=== PATIENT | male | born 1955 | race Caucasian/White ===

== ENCOUNTER 2019-07-03 12:29 | Inpatient (IN) | payer MEDICARE, OTHER ==
[2019-07-03] VITALS (8 sets, daily range): BP systolic 81–126; BP diastolic 48–107
[~2019-07-03] VITALS: Ht 188 cm; Wt 126.6 kg
[2019-07-03 13:11] LABS: HEMATOCRIT 40.1 % (42.0-52.0); HEMOGLOBIN 12.6 G/DL (14.2-18.0); MEAN CORPUSCULAR VOLUME 87 FL (80-99); PLATELET COUNT 256 K/UL (150-450); RED CELL DISTRIBUTION WIDTH 14.8 % (11.6-14.8)
--- NOTE | 2019-07-03 13:12 | Emergency Room Report ---
History of Present Illness General Chief Complaint: Altered Mental Status Source: Patient, Medical Record, EMS Present Illness HPI 63yo M with a history of schizoaffective disorder, bipolar disorder, asthma, anemia, GERD, hyperlipidemia, seizures, sent from [facility] for change in mental status that was first noticed around 11:35 AM today, patient was thought to be postictal although no reported seizure was noted. Patient is currently altered so unable to give any medical history. Allergies: Coded Allergies: PENICILLINS (Verified Allergy, Unknown, 07/03/19) Patient History Limited by: medical condition Past Medical History: see triage record Reviewed Nursing Documentation: PMH: Agreed; PSxH: Agreed Nursing Documentation-PMH Past Medical History Deferred: Pt Cognitively Impaired Review of Systems All Other Systems: limited - Canary change in mental status Physical Exam Vital Signs Date Time Temp Pulse Resp B/P (MAP) Pulse Ox O2 Delivery O2 Flow Rate FiO2 07/03/19 12:27 97.9 115 19 121/78 (92) 100 Non-Rebreather 15.0 Sp02 EP Interpretation: reviewed, normal General Appearance: non-toxic, mild distress, lethargic Head: normocephalic, atraumatic Eyes: bilateral eye normal inspection, bilateral eye PERRL, bilateral eye EOMI ENT: normal ENT inspection, hearing grossly normal, normal pharynx, no angioedema, normal voice, moist mucus membranes Neck: normal inspection, full range of motion, supple, supple/symm/no masses Respiratory: chest non-tender, lungs clear, normal breath sounds, chest symmetrical, palpation of chest normal Cardiovascular #1: normal peripheral pulses, regular rate, rhythm Cardiovascular #2: 2+ radial (R), 2+ radial (L) Gastrointestinal: normal inspection, non tender, soft, no mass, no guarding, no rebound Rectal: deferred Genitourinary: normal inspection, no CVA tenderness Musculoskeletal: back normal, normal range of motion, no calf tenderness, non- tender Neurologic: motor strength/tone normal - Withdraws in response to pain, sensory intact, responsive, other - Drowsy Psychiatric: other - Unable to assess Lymphatic: no adenopathy Procedures Critical Care Time Critical Care Time 45 mins of critical care time excluding all procedures to review acute change in mental status representing possible neurologic and cardiorespiratory system deterioration and subsequent morbidity mortality. Medical Decision Making Diagnostic Impression: Primary Impression: Altered mental status ER Course Review of patient's retirement admission record reveals that patient is on Depakote, no other seizure medications, but he is on psychiatric medications including Seroquel The patient is alert oriented X4, but he is completely altered here. Spoke to Dr. Cruz, agrees to admit. Patient with leukocytosis, but CXR without infiltrate, patient afebrile. Suspect leukocytosis 2/2 acute sz. Will get blood cx, lactic acid and give 1 dose broad spectrum gram-negative coverage. EKG Diagnostic Results EKG Time: 13:07 EP Interpretation: no stemi Rate: normal Rhythm: NSR ST Segments: no acute changes ASA given to the pt in ED: No Rhythm Strip Diag. Results Rhythm Strip Time: 13:11 EP Interpretation: yes Rate: 110 Rhythm: NSR, no PVC's, no ectopy Chest X-Ray Diagnostic Results Chest X-Ray Diagnostic Results : Chest X-Ray Ordered: Yes # of Views/Limited/Complete: 1 View Indication: Other EP Interpretation: Yes Impression: No acute disease CT/MRI/US Diagnostic Results CT/MRI/US Diagnostic Results : Imaging Test Ordered: ct head Last Vital Signs Date Time Temp Pulse Resp B/P (MAP) Pulse Ox O2 Delivery O2 Flow Rate FiO2 07/03/19 12:30 115 19 Non-Rebreather 15.0 07/03/19 12:30 97.9 121/78 100 Disposition: ADMITTED INPATIENT Condition: Stable LAURA MART M.D Jul 03, 2019 13:11
[2019-07-03 13:15] LABS: WHITE BLOOD COUNT 25.9 K/UL (4.8-10.8)
[2019-07-03] MEDS ORDERED: LORazepam Inj 2mg/ml 1ml IV ONE (13:15)
[2019-07-03 13:28] LABS: ANION GAP 13 mmol/L (5-15); BLOOD UREA NITROGEN 48 mg/dL (7-18); CALCIUM 8.6 MG/DL (8.5-10.1); CARBON DIOXIDE 27 MMOL/L (21-32); CHLORIDE 107 MMOL/L (98-107); CREATININE 2.1 MG/DL (0.55-1.30); POTASSIUM 5.3 MMOL/L (3.5-5.1); SODIUM 147 MMOL/L (136-145)
--- NOTE | 2019-07-03 13:29 | NUR ---
ED Nurse Note: Called Lab to confirm no need to draw lab for new order of valproic acid levels.
[2019-07-03 13:33] LABS: ALANINE AMINOTRANSFERASE 14 U/L (12-78); ALBUMIN 2.2 G/DL (3.4-5.0); ALBUMIN/GLOBULIN RATIO 0.3 (1.0-2.7); ALKALINE PHOSPHATASE 108 U/L (46-116); ASPARTATE AMINO TRANSFERASE 37 U/L (15-37); BILIRUBIN,TOTAL 0.3 MG/DL (0.2-1.0)
--- NOTE | 2019-07-03 13:33 | Diagnostic Imaging Report ---
Indication: Dyspnea Comparison: None A single view chest radiograph was obtained. Findings: No definite infiltrate or pulmonary vascular congestion identified. The heart is enlarged. The aorta is mildly enlarged consistent with atherosclerotic vascular disease. The bones are osteopenic. Impression: No acute disease
--- NOTE | 2019-07-03 13:44 | NUR ---
ED Nurse Note: received report from COCO Gallardo
--- NOTE | 2019-07-03 13:45 | NUR ---
ED Nurse Note: pt taken to CT
--- NOTE | 2019-07-03 13:45 | NUR ---
ED Nurse Note: Ammonia drawn and sent to lab
--- NOTE | 2019-07-03 14:00 | NUR ---
ED Nurse Note: pt returned from CT
--- NOTE | 2019-07-03 14:30 | NUR ---
ED Nurse Note: RT at bedside prepping pt for bipap
--- NOTE | 2019-07-03 14:31 | Diagnostic Imaging Report ---
Indication: Headache Technique: Contiguous 5 mm thick transaxial imaging of the head obtained in a Siemens Sensation [address] scanner. Soft tissue and bone windows generated. Automatic Exposure Control was utilized. Total Dose length Product (DLP): 1708.[address] Dose Index Volume (CTDIvol): 62.7 mGy Comparison: none Findings: There is mild prominence of the ventricles, basal cisterns, and cerebral sulci consistent with atrophy. Mild, nonspecific, white matter hypoattenuation is noted throughout the brain consistent with chronic small vessel disease. There is no midline shift, edema, acute hemorrhage, mass effect, or abnormal extra-axial fluid collections. Bones are unremarkable. Impression: No acute intracranial bleed, mass effect or edema. Mild atrophy of the brain. Nonspecific white matter hypoattenuation probably due to chronic small vessel disease. The CT scanner at [facility] is accredited by the [employer] and the scans are performed using dose optimization techniques as appropriate to a performed exam including Automatic Exposure control.
--- NOTE | 2019-07-03 15:28 | Pulmonolgy Critical Care Note ---
Critical Care - Asmt/Plan Assessment/Plan: Pulmonary Critical Care Consultation Referring Physician: Dr Cruz HPI Patient is a 63yo man with a past history of schizoaffective disorder, bipolar disorder, asthma, anemia, GERD, hyperlipidemia, seizures, admitted with altered mental status, per ER possible postictal. Patient is altered so unable to give any medical history. Patient seen while in ED Allergies: PENICILLINS Past Medical History: Schizoaffective disorder, Bipolar disorder, Asthma, Anemia, GERD, Hyperlipidemia, Seizures All Other Systems: limited Physical Exam Vital Signs Noted Date Time Temp Pulse Resp B/P (MAP) Pulse Ox O2 Delivery O2 Flow Rate FiO2 07/03/19 12:27 97.9 115 19 121/78 (92) 100 Non-Rebreather 15.0 General Appearance: non-toxic, mild distress, lethargic Head: normocephalic, atraumatic Eyes: bilateral eye normal inspection, bilateral eye PERRL, bilateral eye EOMI ENT: normal ENT inspection, hearing grossly normal, normal pharynx, no angioedema, normal voice, moist mucus membranes Neck: normal inspection, full range of motion, supple, supple/symm/no masses Respiratory: chest normal inspection, lungs clear, normal breath sounds, chest symmetrical Cardiovascular: normal peripheral pulses, HS1, HS2, normal, regular rate, rhythm Gastrointestinal: normal inspection, non tender, soft, no mass, no guarding, no rebound Genitourinary: normal inspection, no CVA tenderness Musculoskeletal: back normal, normal range of motion, no calf tenderness, non- tender Neurologic: motor strength/tone normal, no Seizures - Withdraws in response to pain, sensory intact, responsive, other - Drowsy Lymphatic: no adenopathy Impression: Altered mental status Severe Respiratory acidosis Possibly post ictal Seizure history Schizoaffective disorder Bipolar disorder Asthma Anemia GERD, Hyperlipidemia Plan - Per ED Physician patient to be admitted under [facility] - I will sign off EKG: NSR ST Segments: no acute changes Chest X-Ray: No acute disease CAT head: Mild atrophy Critical Care - Objective Last 24 Hour Vital Signs Date Time Temp Pulse Resp B/P (MAP) Pulse Ox O2 Delivery O2 Flow Rate FiO2 07/03/19 14:54 108 16 95 Facial 40 07/03/19 14:31 97.9 115 23 126/63 99 Non-Rebreather 15.0 07/03/19 12:30 115 19 Non-Rebreather 15.0 07/03/19 12:30 97.9 82 19 121/78 100 Non-Rebreather 15.0 07/03/19 12:27 97.9 115 19 121/78 (92) 100 Non-Rebreather 15.0 Accucheck: 107 Critical Care - Subjective ROS Limited/Unobtainable: No FI02: 40 Sputum Amount: None Gregorio Rosenbaum MD Jul 03, 2019 15:27
--- NOTE | 2019-07-03 15:31 | Consultation ---
Consult Note Consult Note asked to eval for renal failure- 63yo M with a history of schizoaffective disorder, bipolar disorder, asthma, anemia, GERD, hyperlipidemia, seizures, sent from [facility] for change in mental status that was first noticed around 11:35 AM today, patient was thought to be postictal although no reported seizure was noted. Patient is currently altered so unable to give any medical history. Allergies: PENICILLINS (Verified Allergy, Unknown, 07/03/19) seen in ER on BIPAP examined obtunded labs reviewed . Assessment/Plan Renal failure ? Chronic ? superimposed acute Acute on Chronic respiratory failure Co2 retention HyperKalemia HypoAlbuminemia Obese smith Ua and Urine studies optimize pulmonary status monitor renal parameters avoid nephrotoxics per orders Will Groves MD Jul 03, 2019 15:31
--- NOTE | 2019-07-03 16:15 | Consultation ---
DATE OF CONSULTATION: 07/03/2019 INFECTIOUS DISEASE CONSULTATION CONSULTING PHYSICIAN: Ang Blackwood M.D. PRIMARY ATTENDING: Joe Cruz M.D. REASON FOR CONSULT: Sepsis or systemic inflammatory syndrome. HISTORY OF PRESENT ILLNESS: This is a 63-year-old white male who is a jail resident. He was admitted today with altered mental status. The patient has history of seizure disorder. At the time of admission, had tachycardia of 115 and leukocytosis of 25,000. PAST MEDICAL HISTORY: Significant for schizoaffective disorder, anemia, allergic rhinitis, obesity, epilepsy, gastroesophageal reflux disease. ALLERGIES: Allergic to penicillin. MEDICATIONS: Getting a dose of lorazepam and will get a dose of Levaquin. SOCIAL HISTORY: alf resident. No other history is obtainable. PHYSICAL EXAMINATION: VITAL SIGNS: Temperature 97.9, pulse 115, blood pressure 121/78. HEAD AND NECK: [place] conjunctiva. HEART: Tachycardic. LUNGS: on ventilator. Clear. ABDOMEN: Soft, nontender. EXTREMITIES: Trace edema. LABORATORY AND DIAGNOSTIC DATA: WBC 25.9, hemoglobin 12.6, hematocrit 40.1, platelets 256. Sodium 147, potassium 5.3, BUN 48, creatinine 2.1, glucose is 118, albumin is 2.2. Chest x-ray was negative. CT scan of the head is pending. IMPRESSION: Sepsis with tachycardia, leukocytosis. The patient has acute renal failure, altered mental status. Has history of psych problem schizoaffective, allergic rhinitis, gastroesophageal reflux disease, and epilepsy. RECOMMENDATION: We will follow up the CT scan of the abdomen and pelvis. We ordered UA. We will follow up the clinical course. At the end of my exam, I thank Dr. Cruz for involving me in the care of this patient. Ang Blackwood M.D. DR: DARRON JOB#: [id number] CC: DIANE
--- NOTE | 2019-07-03 17:10 | NUR ---
ED Nurse Note: rajivd awar of pt BP.
[2019-07-03 17:13] LABS: APPEARANCE,URINE VERY CLOUDY; BILIRUBIN, URINE NEGATIVE (NEGATIVE); GLUCOSE, URINE (UA) NEGATIVE (NEGATIVE); KETONES,URINE 1+ (NEGATIVE); LEUKOCYTE ESTERASE ,URINE 3+ (NEGATIVE); NITRITE,URINE NEGATIVE (NEGATIVE); PH,URINE 5 (4.5-8.0); PROTEIN,URINE 4+ (NEGATIVE); UROBILINOGEN,URINE 1 MG/DL (0.0-1.0)
--- NOTE | 2019-07-03 17:16 | NUR ---
ED Nurse Note: RT at bedside for repeat ABG
[2019-07-03 17:19] LABS: COLOR,URINE YELLOW
[2019-07-03] MEDS ORDERED: Vancomycin 1 GM in NS 275 ML IV ONE (18:00)
--- NOTE | 2019-07-03 18:00 | NUR ---
ED Nurse Note: pt asleep in bed
--- NOTE | 2019-07-03 19:05 | NUR ---
Note omkar in EDM - 07/03/19 at 1918 by EDGARDO ED Nurse Note: pt received from COCO Anthony. pt is in bed in no acute distress at this time. pt states she is unable to provide urine sample at this time. will continue to monitor
--- NOTE | 2019-07-03 19:45 | NUR ---
ED Nurse Note: telephone report given to anna ceron for continuity of care
[2019-07-03] MEDS ORDERED: DIPHENHYDRAMINE25 M1 ORAL (19:46)
[2019-07-03] MEDS ORDERED: ATORVASTATIN CA20 MG ORAL (19:46)
[2019-07-03] MEDS ORDERED: COLACE100 MG ORAL (19:46)
[2019-07-03] MEDS ORDERED: DEPAKOTE250 MG PO (19:46)
[2019-07-03] MEDS ORDERED: BACLOFEN10 MG ORAL (19:46)
--- NOTE | 2019-07-03 20:00 | NUR ---
NURSE NOTES: received from er dx ams resp distress pt sedated in er was restless and confuse and non complaint ade soft west restraints on bi-pap 20/5 40 0/0 fio2 sat 99 0//0 dr redding was notify for admit order
[2019-07-03] MEDS ORDERED: DESYREL50 MG PO (20:17)
[2019-07-03] MEDS ORDERED: DEPAKOTE ER500 MG ORAL (20:17)
[2019-07-03] MEDS ORDERED: ATARAX25 MG ORAL (20:17)
[2019-07-03] MEDS ORDERED: MILK OF MA400 MG/51 ORAL (20:17)
[2019-07-03] MEDS ORDERED: FLEET ENEMA133 ML RECTAL (20:17)
[2019-07-03] MEDS ORDERED: ROBITUSSIN COU118 M1 ORAL (20:17)
[2019-07-03] MEDS ORDERED: QUETIAPINE FUM200 MG ORAL (20:17)
[2019-07-03] MEDS ORDERED: PANTOPRAZOLE SO40 MG ORAL (20:17)
[2019-07-03] MEDS ORDERED: DULCOLAX10 MG RC (20:17)
[2019-07-03] MEDS ORDERED: TYLENOL325 M1 PO (20:17)
--- NOTE | 2019-07-03 22:00 | NUR ---
NURSE NOTES: asleep but responsive to touch on on bi-pap 20/5 fio2 40 0/0 o2 sat 97 no acute resp distress
[2019-07-04] VITALS (24 sets, daily range): BP systolic 85–131; BP diastolic 36–85
--- NOTE | 2019-07-04 | NUR ---
reposition and suction
--- NOTE | 2019-07-04 02:00 | NUR ---
NURSE NOTES: Neuro unchanged, dozing on and off at this time. VSS.
--- NOTE | 2019-07-04 02:00 | NUR ---
NURSE NOTES: asleep vs stable urinary out put good
--- NOTE | 2019-07-04 04:00 | NUR ---
NURSE NOTES: complete bed bath
--- NOTE | 2019-07-04 04:37 | NUR ---
NURSE NOTES: Called and ordered 2000 overlay mattress at this time.
[2019-07-04 05:36] LABS: HEMATOCRIT 37.5 % (42.0-52.0); HEMOGLOBIN 11.8 G/DL (14.2-18.0); MEAN CORPUSCULAR VOLUME 87 FL (80-99); PLATELET COUNT 245 K/UL (150-450); RED BLOOD COUNT 4.31 M/UL (4.70-6.10); RED CELL DISTRIBUTION WIDTH 14.7 % (11.6-14.8)
--- NOTE | 2019-07-04 06:00 | NUR ---
NURSE NOTES: asleep
[2019-07-04 06:02] LABS: WHITE BLOOD COUNT 24.9 K/UL (4.8-10.8)
[2019-07-04 06:12] LABS: AMMONIA 35 umol/L (11-32)
[2019-07-04 06:18] LABS: ALANINE AMINOTRANSFERASE 15 U/L (12-78); ALBUMIN 1.9 G/DL (3.4-5.0); ALBUMIN/GLOBULIN RATIO 0.3 (1.0-2.7); ALKALINE PHOSPHATASE 87 U/L (46-116); ANION GAP 10 mmol/L (5-15); ASPARTATE AMINO TRANSFERASE 22 U/L (15-37); BILIRUBIN,TOTAL 0.2 MG/DL (0.2-1.0); BLOOD UREA NITROGEN 59 mg/dL (7-18); CALCIUM 8.7 MG/DL (8.5-10.1); CARBON DIOXIDE 29 MMOL/L (21-32); CHLORIDE 107 MMOL/L (98-107); CHOLESTEROL 114 MG/DL (< 200); CREATINE KINASE 89 U/L (26-308); CREATININE 2.6 MG/DL (0.55-1.30); GAMMA GLUTAMYL TRANSPEPTIDASE 8 U/L (5-85); HDL CHOLESTEROL 28 MG/DL (40-60); PHOSPHORUS 4.5 MG/DL (2.5-4.9); POTASSIUM 4.3 MMOL/L (3.5-5.1); SODIUM 146 MMOL/L (136-145); TRIGLYCERIDES 84 MG/DL (30-150)
--- NOTE | 2019-07-04 07:18 | NUR ---
NURSE NOTES: Received report from COCO Mijares. Patient asleep and responsive to painful stimuli. Rumbling and unable to follow commands. On Bipap 20/5 and FiO2 40%. Ramirez intact and draining with yellow color urine. Left hand 20G and Right wrist 20G IV intact and TKO. Kept dry, clean and comfortable. Will continue plan of care.
--- NOTE | 2019-07-04 07:18 | NUR ---
RESPIRATORY NOTE: received pt on partial facial mask on current bipap settings. slight redness on the bridge of the nose, RN aware. foam barrier in place with full face mask to better fit the pt's facial structure. alarms are audible and bipap is plugged into the red outlet. will cont to monitor.
--- NOTE | 2019-07-04 07:27 | NUR ---
HAND-OFF: Report given to joshua castillo using sbar.
[2019-07-04] MEDS ORDERED: QUEtiapine 200mg tab ORAL SCH (09:00)
[2019-07-04] MEDS ORDERED: HydrOXYzine tab 25mg tab ORAL SCH (09:00)
[2019-07-04] MEDS ORDERED: Depakote ER 500mg tab ORAL SCH (09:00)
--- NOTE | 2019-07-04 09:20 | NUR ---
NURSE NOTES: Inserted OG tube and placement confirmed by auscultation with another RN. Will follow up with KUB xray.
--- NOTE | 2019-07-04 10:00 | NUR ---
NURSE NOTES: KUB xray for tube placement taken. Will follow up.
--- NOTE | 2019-07-04 10:42 | Diagnostic Imaging Report ---
Indication: Post orogastric tube placement Technique: Supine view of the abdomen Comparison: none Findings: . There is an orogastric tube in place, tip projected at the level of the gastric body/antrum junction, in good position. The bowel gas pattern is unremarkable. There is considerable rectal stool. There is a Ramirez catheter in place. No masses or unusual calcifications. Included lungs demonstrate left basilar atelectatic changes Impression: Satisfactory orogastric tube position Other findings as noted
[2019-07-04] MEDS: D5 1/2NS 1,000 ML IV SCH (11:07)
--- NOTE | 2019-07-04 11:13 | NUR ---
NURSE NOTES: KUB confirmed OG tube in satisfactory position. 0900 medications given. Will continue plan of care.
--- NOTE | 2019-07-04 11:34 | NUR ---
*-* INSURANCE *-* ALL AVAILABLE CLINICALS HAVE BEEN FAXED TO: [employer]#[id number] CM: ALEN # [phone] FAX# [phone] REVIEWS/CLINICALS
--- NOTE | 2019-07-04 12:00 | Nephrology Progress Note ---
Assessment/Plan Problem List: (1) Renal failure (ARF), acute on chronic (2) Respiratory distress Assessment: Co2 retainer (3) UTI (urinary tract infection) Assessment Renal failure ? Chronic ? superimposed acute Acute on Chronic respiratory failure Co2 retention HyperKalemia HypoAlbuminemia Obese UTI / Leukocytosis Plan smith slow hydrate Ua and Urine studies optimize pulmonary status monitor renal parameters avoid nephrotoxics 2D echo - 65% Ej Fx per orders Subjective ROS Limited/Unobtainable: No Interval Events/Complaints swwn in ICU Constitutional: Reports: malaise, weakness Objective Objective Last 24 Hour Vital Signs Date Time Temp Pulse Resp B/P (MAP) Pulse Ox O2 Delivery O2 Flow Rate FiO2 07/04/19 11:18 99 18 95 Full Face 50 07/04/19 11:00 102 19 115/70 (85) 97 07/04/19 10:00 105 19 115/50 (71) 100 07/04/19 09:02 105 28 97 Full Face 40 07/04/19 09:00 106 22 118/69 (85) 91 07/04/19 08:00 99 07/04/19 08:00 99 17 107/36 (59) 95 07/04/19 08:00 Bi-pap 07/04/19 08:00 40 07/04/19 07:12 99 19 97 Full Face 40 07/04/19 07:00 99 16 118/76 (90) 07/04/19 06:00 96 16 97/71 (80) 97 07/04/19 06:00 101 16 120/85 (97) 07/04/19 05:29 97 16 96 Facial 40 07/04/19 05:00 101 16 120/85 (97) 07/04/19 04:00 99.3 102 16 107/78 (88) 07/04/19 04:00 104 07/04/19 04:00 40 07/04/19 04:00 Bi-pap 07/04/19 03:06 108 18 99 Facial 40 07/04/19 03:00 109 17 131/84 (100) 97 07/04/19 02:00 102 18 106/62 (77) 96 07/04/19 01:13 107 17 95 Facial 40 07/04/19 01:00 108 16 116/63 (80) 91 07/04/19 00:00 Bi-pap 07/04/19 00:00 105 07/04/19 00:00 99.4 103 20 110/50 (70) 96 07/04/19 00:00 103 20 85/50 (62) 96 07/04/19 00:00 40 07/03/19 23:14 102 17 97 Facial 40 07/03/19 23:00 104 19 122/85 (97) 95 07/03/19 22:00 102 18 93/48 (63) 95 07/03/19 21:37 104 17 95 Facial 40 07/03/19 21:35 104 23 95 Bi-Pap 40 07/03/19 21:00 103 20 97/51 (66) 96 07/03/19 20:00 100 07/03/19 20:00 Bi-pap 07/03/19 20:00 40 07/03/19 20:00 98.8 100 20 100/60 (73) 97 07/03/19 20:00 Bi-pap 40.0 07/03/19 18:38 79.8 105 24 101/69 99 15.0 40 07/03/19 17:10 97.6 103 19 124/107 96 15.0 40 07/03/19 17:00 102 16 94 Facial 40 07/03/19 14:54 108 16 95 Facial 40 07/03/19 14:31 97.9 115 23 126/63 99 Non-Rebreather 15.0 07/03/19 12:30 115 19 Non-Rebreather 15.0 07/03/19 12:30 97.9 82 19 121/78 100 Non-Rebreather 15.0 07/03/19 12:27 97.9 115 19 121/78 (92) 100 Non-Rebreather 15.0 Intake and Output 07/03/19 07/04/19 19:00 07:00 Intake Total 150 ml 0 ml Output Total 830 ml Balance 150 ml -830 ml Intake Oral 0 ml IV Total 150 ml Output Urine Total 830 ml # Bowel Movements 8 Laboratory Tests 07/03/19 12:50: White Blood Count 25.9*H, Red Blood Count 4.60L, Hemoglobin 12.6L, Hematocrit 40.1L, Mean Corpuscular Volume 87, Mean Corpuscular Hemoglobin 27.5, Mean Corpuscular Hemoglobin Concent 31.5L, Red Cell Distribution Width 14.8, Platelet Count 256, Mean Platelet Volume 6.7, Neutrophils (%) (Auto) , Lymphocytes (%) (Auto) , Monocytes (%) (Auto) , Eosinophils (%) (Auto) , Basophils (%) (Auto) , Differential Total Cells Counted 100, Neutrophils % ( Manual) 79H, Lymphocytes % (Manual) 9L, Monocytes % (Manual) 12H, Eosinophils % (Manual) 0, Basophils % (Manual) 0, Band Neutrophils 0, Platelet Estimate Adequate, Platelet Morphology Normal, Anisocytosis 1+, Prothrombin Time 11.1, Prothromb Time International Ratio 1.0, Activated Partial Thromboplast Time 28, Sodium Level 147H, Potassium Level 5.3H, Chloride Level 107, Carbon Dioxide Level 27, Anion Gap 13, Blood Urea Nitrogen 48H, Creatinine 2.1H, Estimat Glomerular Filtration Rate 32.2, Glucose Level 118H, Calcium Level 8.6, Total Bilirubin 0.3, Aspartate Amino Transf (AST/SGOT) 37, Alanine Aminotransferase ( ALT/SGPT) 14, Alkaline Phosphatase 108, Ammonia 30, Troponin I 0.019, Total Protein 8.6H, Albumin 2.2L, Globulin 6.4, Albumin/Globulin Ratio 0.3L, Valproic Acid (Depakene) Level 56 07/03/19 14:06: Arterial Blood pH 7.027*L, Arterial Blood Partial Pressure CO2 146.6*H, Arterial Blood Partial Pressure O2 277.9H, Arterial Blood HCO3 37.6H, Arterial Blood Oxygen Saturation 99.4, Arterial Blood Base Excess 2.5H, Claus Test Positive 07/03/19 14:44: Lactic Acid Level 1.20 07/03/19 16:43: Urine Color Yellow, Urine Appearance Very cloudy, Urine pH 5, Urine Specific [place] 1.020, Urine Protein 4+H, Urine Glucose (UA) Negative, Urine Ketones 1+H , Urine Blood 5+H, Urine Nitrite Negative, Urine Bilirubin Negative, Urine Urobilinogen 1H, Urine Leukocyte Esterase 3+H, Urine RBC TntcH, Urine WBC TntcH , Urine Squamous Epithelial Cells Few, Urine Bacteria ManyH, Urine Random Sodium 44 07/03/19 17:15: Arterial Blood pH 7.352, Arterial Blood Partial Pressure CO2 55.5*H, Arterial Blood Partial Pressure O2 71.3L, Arterial Blood HCO3 30.1H, Arterial Blood Oxygen Saturation 93.9L, Arterial Blood Base Excess 3.4H, Claus Test Positive 07/04/19 04:00: Urine Eosinophils Occasional 07/04/19 04:40: White Blood Count 24.9*H, Red Blood Count 4.31L, Hemoglobin 11.8L, Hematocrit 37.5L, Mean Corpuscular Volume 87, Mean Corpuscular Hemoglobin 27.4, Mean Corpuscular Hemoglobin Concent 31.5L, Red Cell Distribution Width 14.7, Platelet Count 245, Mean Platelet Volume 6.3L, Neutrophils (%) (Auto) , Lymphocytes (%) (Auto) , Monocytes (%) (Auto) , Eosinophils (%) (Auto) , Basophils (%) (Auto) , Differential Total Cells Counted 100, Neutrophils % ( Manual) 83H, Lymphocytes % (Manual) 5L, Monocytes % (Manual) 12H, Eosinophils % (Manual) 0, Basophils % (Manual) 0, Band Neutrophils 0, Platelet Estimate Adequate, Platelet Morphology Normal, Sodium Level 146H, Potassium Level 4.3, Chloride Level 107, Carbon Dioxide Level 29, Anion Gap 10, Blood Urea Nitrogen 59H, Creatinine 2.6H, Estimat Glomerular Filtration Rate 25.1, Glucose Level 124H, Lactic Acid Level 1.40, Uric Acid 12.5H, Calcium Level 8.7, Phosphorus Level 4.5, Magnesium Level 2.7H, Total Bilirubin 0.2, Gamma Glutamyl Transpeptidase 8, Aspartate Amino Transf (AST/SGOT) 22, Alanine Aminotransferase (ALT/SGPT) 15, Alkaline Phosphatase 87, Ammonia 35H, Total Creatine Kinase 89, Troponin I 0.000, C-Reactive Protein, Quantitative [Pending] , Pro-B-Type Natriuretic Peptide 961H, Total Protein 8.9H, Albumin 1.9L, Globulin 7.0, Albumin/Globulin Ratio 0.3L, Triglycerides Level 84, Cholesterol Level 114, LDL Cholesterol 61, HDL Cholesterol 28L, Cholesterol/HDL Ratio 4.1, Vitamin B12 Level 1219H, Folate [Pending], Thyroid Stimulating Hormone (TSH) 2.171 07/04/19 08:20: Arterial Blood pH 7.291L, Arterial Blood Partial Pressure CO2 68.7*H, Arterial Blood Partial Pressure O2 78.6, Arterial Blood HCO3 32.4H, Arterial Blood Oxygen Saturation 94.8L, Arterial Blood Base Excess 4.0H, Claus Test Positive Height (Feet): 6 Height (Inches): 2.00 Weight (Pounds): 247 General Appearance: mild distress EENT: other - BIPAP Cardiovascular: tachycardia Respiratory/Chest: decreased breath sounds Abdomen: distended Will Groves MD Jul 04, 2019 12:00
[2019-07-04] MEDS: HydrOXYzine tab 25mg tab NG SCH ×3 (12:41→20:45)
--- NOTE | 2019-07-04 13:08 | NUR ---
NURSE NOTES: Patient is desating 88-89%. Deep suction given by RT. O2 sat 93-95%. Will continue to monitor closely.
--- NOTE | 2019-07-04 13:14 | Infectious Diseases Prog Note ---
Assessment/Plan Assessment/Plan IMPRESSION: Sepsis with tachycardia, leukocytosis. UTI Hypercapnic respiratory failure acute renal failure, Metabolic encephalopathy. schizoaffective disorder, allergic rhinitis, gastroesophageal reflux disease epilepsy. Hyperuricemia RECOMMENDATION: Start on Azactam Will f/u cultures Subjective ROS Limited/Unobtainable: Yes Constitutional: Denies: fever Neurologic: Reports: confusion, other - on restraint Allergies: Coded Allergies: PENICILLINS (Verified Allergy, Unknown, 07/03/19) Objective Vital Signs Last 24 Hour Vital Signs Date Time Temp Pulse Resp B/P (MAP) Pulse Ox O2 Delivery O2 Flow Rate FiO2 07/04/19 11:18 99 18 95 Full Face 50 07/04/19 11:00 102 19 115/70 (85) 97 07/04/19 10:00 105 19 115/50 (71) 100 07/04/19 09:02 105 28 97 Full Face 40 07/04/19 09:00 106 22 118/69 (85) 91 07/04/19 08:00 99 07/04/19 08:00 99 17 107/36 (59) 95 07/04/19 08:00 Bi-pap 07/04/19 08:00 40 07/04/19 07:12 99 19 97 Full Face 40 07/04/19 07:00 99 16 118/76 (90) 07/04/19 06:00 96 16 97/71 (80) 97 07/04/19 06:00 101 16 120/85 (97) 07/04/19 05:29 97 16 96 Facial 40 07/04/19 05:00 101 16 120/85 (97) 07/04/19 04:00 99.3 102 16 107/78 (88) 07/04/19 04:00 104 07/04/19 04:00 40 07/04/19 04:00 Bi-pap 07/04/19 03:06 108 18 99 Facial 40 07/04/19 03:00 109 17 131/84 (100) 97 07/04/19 02:00 102 18 106/62 (77) 96 07/04/19 01:13 107 17 95 Facial 40 07/04/19 01:00 108 16 116/63 (80) 91 07/04/19 00:00 Bi-pap 07/04/19 00:00 105 07/04/19 00:00 99.4 103 20 110/50 (70) 96 07/04/19 00:00 103 20 85/50 (62) 96 07/04/19 00:00 40 07/03/19 23:14 102 17 97 Facial 40 07/03/19 23:00 104 19 122/85 (97) 95 07/03/19 22:00 102 18 93/48 (63) 95 07/03/19 21:37 104 17 95 Facial 40 07/03/19 21:35 104 23 95 Bi-Pap 40 07/03/19 21:00 103 20 97/51 (66) 96 07/03/19 20:00 100 07/03/19 20:00 Bi-pap 07/03/19 20:00 40 07/03/19 20:00 98.8 100 20 100/60 (73) 97 07/03/19 20:00 Bi-pap 40.0 07/03/19 18:38 79.8 105 24 101/69 99 15.0 40 07/03/19 17:10 97.6 103 19 124/107 96 15.0 40 07/03/19 17:00 102 16 94 Facial 40 07/03/19 14:54 108 16 95 Facial 40 07/03/19 14:31 97.9 115 23 126/63 99 Non-Rebreather 15.0 Height (Feet): 6 Height (Inches): 2.00 Weight (Pounds): 247 HEENT: other - orogastric tube Respiratory/Chest: decreased breath sounds, other - on BIPAP Cardiovascular: tachycardia Abdomen: soft, non tender Extremities: no edema Neurologic/Psychiatric: disoriented Microbiology Date/Time Source Procedure Growth Status 07/03/19 14:40 Nasal Nares - Final Complete 07/03/19 14:40 Nasal Nares - Final Complete 07/03/19 16:43 Urine,Clean Catch Urine Culture - Preliminary Gram Negative Bacillus 1 Resulted 07/03/19 17:24 Rectum Received Laboratory Tests Test 07/03/19 14:06 07/03/19 14:44 07/03/19 16:43 07/03/19 17:15 Arterial Blood pH 7.027 (7.350-7.450) 7.352 (7.350-7.450) Arterial Blood Partial Pressure CO2 146.6 mmHg (35.0-45.0) *H 55.5 mmHg (35.0-45.0) *H Arterial Blood Partial Pressure O2 277.9 mmHg (75.0-100.0) H 71.3 mmHg (75.0-100.0) L Arterial Blood HCO3 37.6 mmol/L (22.0-26.0) H 30.1 mmol/L (22.0-26.0) H Arterial Blood Oxygen Saturation 99.4 % (95-100) 93.9 % (95-100) L Arterial Blood Base Excess 2.5 (-2-2) H 3.4 (-2-2) H Claus Test Positive Positive Lactic Acid Level 1.20 mmol/L (0.4-2.0) Urine Color Yellow Urine Appearance Very cloudy Urine pH 5 (4.5-8.0) Urine Specific [place] 1.020 (1.005-1.035) Urine Protein 4+ (NEGATIVE) H Urine Glucose (UA) Negative (NEGATIVE) Urine Ketones 1+ (NEGATIVE) H Urine Blood 5+ (NEGATIVE) H Urine Nitrite Negative (NEGATIVE) Urine Bilirubin Negative (NEGATIVE) Urine Urobilinogen 1 MG/DL (0.0-1.0) H Urine Leukocyte Esterase 3+ (NEGATIVE) H Urine RBC Tntc /HPF (0 - 0) H Urine WBC Tntc /HPF (0 - 0) H Urine Squamous Epithelial Cells Few /LPF (NONE/OCC) Urine Bacteria Many /HPF (NONE) H Urine Random Sodium 44 mmol/L (20-110) Test 07/04/19 04:00 07/04/19 04:40 07/04/19 08:20 Urine Eosinophils Occasional (NONE SEEN) White Blood Count 24.9 K/UL (4.8-10.8) *H Red Blood Count 4.31 M/UL (4.70-6.10) L Hemoglobin 11.8 G/DL (14.2-18.0) L Hematocrit 37.5 % (42.0-52.0) L Mean Corpuscular Volume 87 FL (80-99) Mean Corpuscular Hemoglobin 27.4 PG (27.0-31.0) Mean Corpuscular Hemoglobin Concent 31.5 G/DL (32.0-36.0) L Red Cell Distribution Width 14.7 % (11.6-14.8) Platelet Count 245 K/UL (150-450) Mean Platelet Volume 6.3 FL (6.5-10.1) L Neutrophils (%) (Auto) % (45.0-75.0) Lymphocytes (%) (Auto) % (20.0-45.0) Monocytes (%) (Auto) % (1.0-10.0) Eosinophils (%) (Auto) % (0.0-3.0) Basophils (%) (Auto) % (0.0-2.0) Differential Total Cells Counted 100 Neutrophils % (Manual) 83 % (45-75) H Lymphocytes % (Manual) 5 % (20-45) L Monocytes % (Manual) 12 % (1-10) H Eosinophils % (Manual) 0 % (0-3) Basophils % (Manual) 0 % (0-2) Band Neutrophils 0 % (0-8) Platelet Estimate Adequate Platelet Morphology Normal Sodium Level 146 MMOL/L (136-145) H Potassium Level 4.3 MMOL/L (3.5-5.1) Chloride Level 107 MMOL/L (98-107) Carbon Dioxide Level 29 MMOL/L (21-32) Anion Gap 10 mmol/L (5-15) Blood Urea Nitrogen 59 mg/dL (7-18) H Creatinine 2.6 MG/DL (0.55-1.30) H Estimat Glomerular Filtration Rate 25.1 mL/min (>60) Glucose Level 124 MG/DL (74-106) H Lactic Acid Level 1.40 mmol/L (0.4-2.0) Uric Acid 12.5 MG/DL (2.6-7.2) H Calcium Level 8.7 MG/DL (8.5-10.1) Phosphorus Level 4.5 MG/DL (2.5-4.9) Magnesium Level 2.7 MG/DL (1.8-2.4) H Total Bilirubin 0.2 MG/DL (0.2-1.0) Gamma Glutamyl Transpeptidase 8 U/L (5-85) Aspartate Amino Transf (AST/SGOT) 22 U/L (15-37) Alanine Aminotransferase (ALT/SGPT) 15 U/L (12-78) Alkaline Phosphatase 87 U/L (46-116) Ammonia 35 umol/L (11-32) H Total Creatine Kinase 89 U/L (26-308) Troponin I 0.000 ng/mL (0.000-0.056) C-Reactive Protein, Quantitative Pending Pro-B-Type Natriuretic Peptide 961 pg/mL (0-125) H Total Protein 8.9 G/DL (6.4-8.2) H Albumin 1.9 G/DL (3.4-5.0) L Globulin 7.0 g/dL Albumin/Globulin Ratio 0.3 (1.0-2.7) L Triglycerides Level 84 MG/DL (30-150) Cholesterol Level 114 MG/DL (< 200) LDL Cholesterol 61 mg/dL (<100) HDL Cholesterol 28 MG/DL (40-60) L Cholesterol/HDL Ratio 4.1 (3.3-4.4) Vitamin B12 Level 1219 PG/ML (193-986) H Folate Pending Thyroid Stimulating Hormone (TSH) 2.171 uiU/mL (0.358-3.740) Arterial Blood pH 7.291 (7.350-7.450) Arterial Blood Partial Pressure CO2 68.7 mmHg (35.0-45.0) *H Arterial Blood Partial Pressure O2 78.6 mmHg (75.0-100.0) Arterial Blood HCO3 32.4 mmol/L (22.0-26.0) H Arterial Blood Oxygen Saturation 94.8 % (95-100) L Arterial Blood Base Excess 4.0 (-2-2) H Claus Test Positive Current Medications Medications (Trade) Dose Ordered Sig/Samuel Route PRN Reason Start Time Stop Time Status Last Admin Dose Admin Allopurinol (allopurinoL) 300 mg DAILY ORAL 07/05/19 09:00 08/04/19 08:59 Allopurinol (allopurinoL) 300 mg ONCE ORAL 07/04/19 13:00 07/04/19 14:00 07/04/19 12:40 Atorvastatin Calcium (Lipitor) 10 mg BEDTIME NG 07/04/19 21:00 08/03/19 20:59 Baclofen (Lioresal) 10 mg THREE TIMES A DAY NG 07/04/19 13:00 08/03/19 08:59 07/04/19 12:41 Dextrose/Sodium Chloride 1,000 ml @ 50 mls/hr Q20H IV 07/04/19 10:30 08/03/19 10:29 07/04/19 11:07 Heparin Sodium (Porcine) (Heparin 5000 units/ml) 5,000 units EVERY 12 HOURS SUBQ 07/04/19 21:00 08/03/19 20:59 Hydroxyzine HCl (Atarax) 25 mg FOUR TIMES A DAY NG 07/04/19 13:00 08/03/19 08:59 07/04/19 12:41 Levofloxacin 150 ml @ 100 mls/hr Q48H ONCE IVPB 07/05/19 14:00 07/05/19 15:29 Pantoprazole (Protonix) 40 mg DAILY IVP 07/05/19 09:00 08/04/19 08:59 Ang Blackwood MD Jul 04, 2019 13:14
[2019-07-04] MEDS ORDERED: Aztreonam Inj 0.5 GM in D5W 55 ML IVPB SCH (14:00)
--- NOTE | 2019-07-04 14:02 | NUR ---
STAFFING PROGRAM MANAGER NOTE Pt has admitted to ICU on 07/03/2019. SW attempted to meet w/ pt but pt was in a sleep and SW was unable to communicate w/ him at this time. SW reviewed pt's chart. Per chart review, pt resides at [facility] [address] [place] [address]. Pt is single and there is no emergency contact information provided. SW spoke w/ Angelcia from [employer] office [phone] and confirmed pt is not conserved. There is no AD/POLST in the chart. SW was unable to gather further information. Signed: 07/04/19 at 1405 by MELISSA TSANG <Co-Signature Required>
--- NOTE | 2019-07-04 14:35 | NUR ---
NURSE NOTES: Informed Dr. Panchal that pt's ABG results and EKG. He stated he will call ER for intubation.
--- NOTE | 2019-07-04 14:50 | NUR ---
NURSE NOTES: Intubated by Dr. Horowitz, ETT 7.5/25cm at lip line with vent setting AC 18, VT 550, Peep 5 and FiO2 50%. Stat CXR ordered and ABG @ 1600. Will follow up.
--- NOTE | 2019-07-04 15:00 | Emergency Room Report ---
Physical Exam Called to intubate patient. Patient on BiPAP with PCO2 greater than 100. Patient unresponsive at this time. According to pulmonary copious secretions. Last 24 Hour Vital Signs Date Time Temp Pulse Resp B/P (MAP) Pulse Ox O2 Delivery O2 Flow Rate FiO2 07/04/19 14:00 141 19 99/65 (76) 100 07/04/19 13:15 98 16 100 Full Face 50 07/04/19 13:00 102 20 101/68 (79) 94 07/04/19 12:00 103 19 97/41 (59) 97 07/04/19 12:00 100 07/04/19 11:18 99 18 95 Full Face 50 07/04/19 11:00 102 19 115/70 (85) 97 07/04/19 10:00 105 19 115/50 (71) 100 07/04/19 09:02 105 28 97 Full Face 40 07/04/19 09:00 106 22 118/69 (85) 91 07/04/19 08:00 99 07/04/19 08:00 99 17 107/36 (59) 95 07/04/19 08:00 Bi-pap 07/04/19 08:00 40 07/04/19 07:12 99 19 97 Full Face 40 07/04/19 07:00 99 16 118/76 (90) 07/04/19 06:00 96 16 97/71 (80) 97 07/04/19 06:00 101 16 120/85 (97) 07/04/19 05:29 97 16 96 Facial 40 07/04/19 05:00 101 16 120/85 (97) 07/04/19 04:00 99.3 102 16 107/78 (88) 07/04/19 04:00 104 07/04/19 04:00 40 07/04/19 04:00 Bi-pap 07/04/19 03:06 108 18 99 Facial 40 07/04/19 03:00 109 17 131/84 (100) 97 07/04/19 02:00 102 18 106/62 (77) 96 07/04/19 01:13 107 17 95 Facial 40 07/04/19 01:00 108 16 116/63 (80) 91 07/04/19 00:00 Bi-pap 07/04/19 00:00 105 07/04/19 00:00 99.4 103 20 110/50 (70) 96 07/04/19 00:00 103 20 85/50 (62) 96 07/04/19 00:00 40 07/03/19 23:14 102 17 97 Facial 40 07/03/19 23:00 104 19 122/85 (97) 95 07/03/19 22:00 102 18 93/48 (63) 95 07/03/19 21:37 104 17 95 Facial 40 07/03/19 21:35 104 23 95 Bi-Pap 40 07/03/19 21:00 103 20 97/51 (66) 96 07/03/19 20:00 100 07/03/19 20:00 Bi-pap 07/03/19 20:00 40 07/03/19 20:00 98.8 100 20 100/60 (73) 97 07/03/19 20:00 Bi-pap 40.0 07/03/19 18:38 79.8 105 24 101/69 99 15.0 40 07/03/19 17:10 97.6 103 19 124/107 96 15.0 40 07/03/19 17:00 102 16 94 Facial 40 Sp02 EP Interpretation: reviewed, abnormal - interpreted by me as low based on FiO2 General Appearance: Chronically Ill, Stupor Eyes: bilateral eye PERRL, bilateral eye abnormal EOM ENT: moist mucus membranes Neck: other - vocal chord edema Respiratory: decreased breath sounds Cardiovascular #1: regular rate, rhythm, edema Gastrointestinal: overweight Genitourinary: other - Ramirez Musculoskeletal: swelling Neurologic: other - flaccid Psychiatric: other - unresponsive Skin: mottled Intubation Intubation : Consent: Emergent Intubation Method: orotracheal Tube Size (cm): 7.5 - 25 cm Medications: Other - none Breath Sounds after Intubation: equal Intubation Complications: no complications Post Intubation Xray: Yes Attempts: One Patient Tolerated: Well Complications: None Medical Decision Making Diagnostic Impression: Primary Impression: Respiratory failure Qualified Codes: J96.02 - Acute respiratory failure with hypercapnia Additional Impression: Tracheal edema ER Course Patient failed BiPAP. Called to intubate. See procedure note. Patient has edema of trachea and vocal chords. Initial ventilator orders initiated. Chest x-ray ordered also. Laboratory Tests Test 07/03/19 12:50 07/03/19 14:06 07/03/19 14:44 07/03/19 16:43 White Blood Count 25.9 K/UL (4.8-10.8) *H Red Blood Count 4.60 M/UL (4.70-6.10) L Hemoglobin 12.6 G/DL (14.2-18.0) L Hematocrit 40.1 % (42.0-52.0) L Mean Corpuscular Volume 87 FL (80-99) Mean Corpuscular Hemoglobin 27.5 PG (27.0-31.0) Mean Corpuscular Hemoglobin Concent 31.5 G/DL (32.0-36.0) L Red Cell Distribution Width 14.8 % (11.6-14.8) Platelet Count 256 K/UL (150-450) Mean Platelet Volume 6.7 FL (6.5-10.1) Neutrophils (%) (Auto) % (45.0-75.0) Lymphocytes (%) (Auto) % (20.0-45.0) Monocytes (%) (Auto) % (1.0-10.0) Eosinophils (%) (Auto) % (0.0-3.0) Basophils (%) (Auto) % (0.0-2.0) Differential Total Cells Counted 100 Neutrophils % (Manual) 79 % (45-75) H Lymphocytes % (Manual) 9 % (20-45) L Monocytes % (Manual) 12 % (1-10) H Eosinophils % (Manual) 0 % (0-3) Basophils % (Manual) 0 % (0-2) Band Neutrophils 0 % (0-8) Platelet Estimate Adequate Platelet Morphology Normal Anisocytosis 1+ Prothrombin Time 11.1 SEC (9.30-11.50) Prothrombin Time INR 1.0 (0.9-1.1) Activated Partial Thromboplast Time 28 SEC (23-33) Sodium Level 147 MMOL/L (136-145) H Potassium Level 5.3 MMOL/L (3.5-5.1) H Chloride Level 107 MMOL/L (98-107) Carbon Dioxide Level 27 MMOL/L (21-32) Anion Gap 13 mmol/L (5-15) Blood Urea Nitrogen 48 mg/dL (7-18) H Creatinine 2.1 MG/DL (0.55-1.30) H Estimate Glomerular Filtration Rate 32.2 mL/min (>60) Glucose Level 118 MG/DL (74-106) H Calcium Level 8.6 MG/DL (8.5-10.1) Total Bilirubin 0.3 MG/DL (0.2-1.0) Aspartate Amino Transferase (AST) 37 U/L (15-37) Alanine Aminotransferase (ALT) 14 U/L (12-78) Alkaline Phosphatase 108 U/L (46-116) Ammonia 30 umol/L (11-32) Troponin I 0.019 ng/mL (0.000-0.056) Total Protein 8.6 G/DL (6.4-8.2) H Albumin 2.2 G/DL (3.4-5.0) L Globulin 6.4 g/dL Albumin/Globulin Ratio 0.3 (1.0-2.7) L Valproic Acid Level 56 MCG/ML (50-100) Arterial Blood pH 7.027 (7.350-7.450) Arterial Blood Partial Pressure CO2 146.6 mmHg (35.0-45.0) *H Arterial Blood Partial Pressure O2 277.9 mmHg (75.0-100.0) H Arterial Blood HCO3 37.6 mmol/L (22.0-26.0) H Arterial Blood Oxygen Saturation 99.4 % (95-100) Arterial Blood Base Excess 2.5 (-2-2) H Claus Test Positive Lactic Acid Level 1.20 mmol/L (0.4-2.0) Urine Color Yellow Urine Appearance Very cloudy Urine pH 5 (4.5-8.0) Urine Specific [place] 1.020 (1.005-1.035) Urine Protein 4+ (NEGATIVE) H Urine Glucose (UA) Negative (NEGATIVE) Urine Ketones 1+ (NEGATIVE) H Urine Blood 5+ (NEGATIVE) H Urine Nitrite Negative (NEGATIVE) Urine Bilirubin Negative (NEGATIVE) Urine Urobilinogen 1 MG/DL (0.0-1.0) H Urine Leukocyte Esterase 3+ (NEGATIVE) H Urine RBC Tntc /HPF (0 - 0) H Urine WBC Tntc /HPF (0 - 0) H Urine Squamous Epithelial Cells Few /LPF (NONE/OCC) Urine Bacteria Many /HPF (NONE) H Urine Random Sodium 44 mmol/L (20-110) Test 07/03/19 17:15 07/04/19 04:00 07/04/19 04:40 07/04/19 08:20 Arterial Blood pH 7.352 (7.350-7.450) 7.291 (7.350-7.450) Arterial Blood Partial Pressure CO2 55.5 mmHg (35.0-45.0) *H 68.7 mmHg (35.0-45.0) *H Arterial Blood Partial Pressure O2 71.3 mmHg (75.0-100.0) L 78.6 mmHg (75.0-100.0) Arterial Blood HCO3 30.1 mmol/L (22.0-26.0) H 32.4 mmol/L (22.0-26.0) H Arterial Blood Oxygen Saturation 93.9 % (95-100) L 94.8 % (95-100) L Arterial Blood Base Excess 3.4 (-2-2) H 4.0 (-2-2) H Claus Test Positive Positive Urine Eosinophils Occasional (NONE SEEN) White Blood Count 24.9 K/UL (4.8-10.8) *H Red Blood Count 4.31 M/UL (4.70-6.10) L Hemoglobin 11.8 G/DL (14.2-18.0) L Hematocrit 37.5 % (42.0-52.0) L Mean Corpuscular Volume 87 FL (80-99) Mean Corpuscular Hemoglobin 27.4 PG (27.0-31.0) Mean Corpuscular Hemoglobin Concent 31.5 G/DL (32.0-36.0) L Red Cell Distribution Width 14.7 % (11.6-14.8) Platelet Count 245 K/UL (150-450) Mean Platelet Volume 6.3 FL (6.5-10.1) L Neutrophils (%) (Auto) % (45.0-75.0) Lymphocytes (%) (Auto) % (20.0-45.0) Monocytes (%) (Auto) % (1.0-10.0) Eosinophils (%) (Auto) % (0.0-3.0) Basophils (%) (Auto) % (0.0-2.0) Differential Total Cells Counted 100 Neutrophils % (Manual) 83 % (45-75) H Lymphocytes % (Manual) 5 % (20-45) L Monocytes % (Manual) 12 % (1-10) H Eosinophils % (Manual) 0 % (0-3) Basophils % (Manual) 0 % (0-2) Band Neutrophils 0 % (0-8) Platelet Estimate Adequate Platelet Morphology Normal Sodium Level 146 MMOL/L (136-145) H Potassium Level 4.3 MMOL/L (3.5-5.1) Chloride Level 107 MMOL/L (98-107) Carbon Dioxide Level 29 MMOL/L (21-32) Anion Gap 10 mmol/L (5-15) Blood Urea Nitrogen 59 mg/dL (7-18) H Creatinine 2.6 MG/DL (0.55-1.30) H Estimate Glomerular Filtration Rate 25.1 mL/min (>60) Glucose Level 124 MG/DL (74-106) H Lactic Acid Level 1.40 mmol/L (0.4-2.0) Uric Acid 12.5 MG/DL (2.6-7.2) H Calcium Level 8.7 MG/DL (8.5-10.1) Phosphorus Level 4.5 MG/DL (2.5-4.9) Magnesium Level 2.7 MG/DL (1.8-2.4) H Total Bilirubin 0.2 MG/DL (0.2-1.0) Gamma Glutamyl Transpeptidase 8 U/L (5-85) Aspartate Amino Transferase (AST) 22 U/L (15-37) Alanine Aminotransferase (ALT) 15 U/L (12-78) Alkaline Phosphatase 87 U/L (46-116) Ammonia 35 umol/L (11-32) H Total Creatine Kinase 89 U/L (26-308) Troponin I 0.000 ng/mL (0.000-0.056) C-Reactive Protein, Quantitative 63.2 mg/dL (0.00-0.90) H Pro-B-Type Natriuretic Peptide 961 pg/mL (0-125) H Total Protein 8.9 G/DL (6.4-8.2) H Albumin 1.9 G/DL (3.4-5.0) L Globulin 7.0 g/dL Albumin/Globulin Ratio 0.3 (1.0-2.7) L Triglycerides Level 84 MG/DL (30-150) Cholesterol Level 114 MG/DL (< 200) LDL Cholesterol 61 mg/dL (<100) HDL Cholesterol 28 MG/DL (40-60) L Cholesterol/HDL Ratio 4.1 (3.3-4.4) Vitamin B12 Level 1219 PG/ML (193-986) H Folate 12.9 NG/ML (8.6-58.9) Thyroid Stimulating Hormone (TSH) 2.171 uiU/mL (0.358-3.740) Test 07/04/19 14:20 07/04/19 15:50 Arterial Blood pH 7.067 (7.350-7.450) 7.317 (7.350-7.450) Arterial Blood Partial Pressure CO2 123.2 mmHg (35.0-45.0) *H 58.5 mmHg (35.0-45.0) *H Arterial Blood Partial Pressure O2 218.9 mmHg (75.0-100.0) H 62.3 mmHg (75.0-100.0) L Arterial Blood HCO3 34.7 mmol/L (22.0-26.0) H 29.3 mmol/L (22.0-26.0) H Arterial Blood Oxygen Saturation 98.8 % (95-100) 90.4 % (95-100) L Arterial Blood Base Excess 1.4 (-2-2) 2.0 (-2-2) Claus Test Positive Positive Microbiology Date/Time Source Procedure Growth Status 07/03/19 14:40 Nasal Nares - Final Complete 07/03/19 14:40 Nasal Nares - Final Complete Rhythm Strip Diag. Results EP Interpretation: yes Rhythm: no PVC's, no ectopy, other - Sinus tachycardia Chest X-Ray Diagnostic Results Chest X-Ray Diagnostic Results : Chest X-Ray Ordered: Yes # of Views/Limited/Complete: 1 View Indication: Other EP Interpretation: Yes Interpretation: no pneumothorax, other - ET OK, possible L effusion, increased pulm peterson Impression: Other Electronically Signed by: Electronically signed by Gregorio Horowitz MD Last Vital Signs Date Time Temp Pulse Resp B/P (MAP) Pulse Ox O2 Delivery O2 Flow Rate FiO2 07/04/19 14:00 141 19 99/65 (76) 100 07/04/19 13:15 Full Face 50 07/04/19 04:00 99.3 07/03/19 20:00 40.0 Status: improved Disposition: ADMITTED INPATIENT Condition: Critical Referrals: Joe Cruz MD (PCP) Gregorio Horowitz MD Jul 04, 2019 15:00
[2019-07-04] MEDS: Aztreonam Inj 1 GM in D5W 55 ML IVPB SCH ×2 (15:07→22:17)
--- NOTE | 2019-07-04 15:15 | History and Physical Report ---
DATE OF ADMISSION: 07/03/2019 HISTORY OF PRESENT ILLNESS: This is a 63-year-old male with a psychiatric disorder, bipolar disorder, schizoaffective disorder who was brought in from half-way with change in mental status. The patient was seen and evaluated, and presently is seen in the ICU on a BiPAP. No other information is known about the patient. Overnight, he has tolerated BiPAP. He is too poorly responsive. PAST MEDICAL HISTORY: Schizoaffective disorder, bipolar disorder, anemia, GERD, hyperlipidemia, seizures. PAST SURGICAL HISTORY: Not known. ALLERGIES: Penicillin. REVIEW OF SYSTEMS: Unobtainable. PHYSICAL EXAMINATION: GENERAL: Reveals a obese male. VITAL SIGNS: Blood pressure is 120/70, heart rate 110, respirations 20. He is afebrile. HEENT: Unremarkable. BiPAP is noted. LUNGS: Clear breath sounds bilaterally with normal heart sounds. ABDOMEN: Soft. EXTREMITIES: There is no edema. LABORATORY DATA: Lab testing shows white count 81677, hemoglobin 11.8, creatinine is 2.6. Toxicology is negative. ABG, pH 7.2, pCO2 68, pO2 78. Coags are negative. X-ray of chest shows clear lung calix bilaterally. IMPRESSION: 1. Respiratory failure, on BiPAP. 2. Sepsis, source unclear. 3. Altered mental status. 4. Psychiatric disorder. DISCUSSION: Admit to the hospital. The patient has been started on BiPAP therapy, I will continue. We will check ABG. IV fluids. DVT prophylaxis. Minimize sedation. Consult ID for empiric antibiotics. He received antibiotics overnight. We will follow carefully. Pramod Panchal M.D. DR: PATRIA JOB#: [id number] CC:
--- NOTE | 2019-07-04 16:48 | Diagnostic Imaging Report ---
Indication: Status post endotracheal intubation Technique: One view of the chest Comparison: 07/03/2019 Findings: Interim placement of an endotracheal tube, tip of which projects in good position approximately 5 cm above the eliud. There is also a gastric tube in place, tip of which projects beyond the edge of the image, likely within the stomach. There is suggestion of developing interstitial congestion. The heart is enlarged. There is increasing atelectasis and/or consolidation and pleural fluid at the left lung base. Impression: Satisfactory endotracheal intubation. Orogastric intubation, demonstrated be satisfactory on recent abdominal radiograph Increasing interstitial congestion and left basilar consolidation and likely pleural fluid
--- NOTE | 2019-07-04 16:59 | NUR ---
NURSE NOTES: Informed Dr. Panchal that pt's post intubation ABG results. ABG tomorrow morning and continue same vent setting. Will continue plan of care.
--- NOTE | 2019-07-04 17:46 | NUR ---
NURSE NOTES:WOUND CARE NOTES:Pt presented on admission with Non-blanching erythema sacrum ,R and L buttocks with multiple DTPI's within . DTPI noted to L buttocks. Base of wound is maroon with surrounding non-blanching erythema(L)2cm x (W)0.8cm. DTPI noted to Sacrococcygeal area. Base of wound is purple,fluctuant with marginal erythema, surrounding non- blanching erythema without induration.(L)1.5cm x (W)0.5cm. DTPI noted to R buttocks. Base of wound is indurated maroon with surrounding non-blanching erythema. Scrotal sac is grossly erythematous. Single L testis in-situ. Small scar noted to base R sac. Both heels are boggy with non-blanching erythema. Tx.Plan:Apply Moisture Barrier Paste to Sacrum, R and L buttocks. Cover with Optifoam drsg. Change every 3 days and prn. Apply Moisture Barrier Paste to scrotum. Cover as needed with Optifoam drsg. Apply Cavilon Skin Barrier to both heels. Cover each heel with Optifoam drsg. Change every 7 days and prn. APM/DARREL mattress overlay. Reposition at least every 2hours or as tolerated. Off-load heels with pillow.
--- NOTE | 2019-07-04 18:05 | NUR ---
NURSE NOTES: Repositioned patient. ETT and oral suction provided.
--- NOTE | 2019-07-04 19:18 | NUR ---
HAND-OFF: Report given to COCO Andersen. Endorsed plan of care.
--- NOTE | 2019-07-04 19:30 | NUR ---
NURSE NOTES: Received pt in no acute distress, asleep but restless; grimaces to painful stimuli. Otrally intubated with #&.5 ETT placed over right lip at 25cm and appears to be tolerating current vent settings of AC18 TV550 fiO2.50 peep 5 and saturating 98-100%. Chest sounds with scattered rhonchi, secretions, moderate, thick via ETT. Pt also has an OGT and in place confirmed by xray earlier. Currently clamped. Afebrile, Afib on the scope, rate btwn 120-130. Bilat soft wrist restraints active as pt tends to be impulsive. FC patent, draining light benja urine. PIV sites on both hands intact. Will continue to monitor and follow through with plan of care.
[2019-07-04] MEDS: Heparin 5000 units/ml inj SUBQ SCH (20:46)
[2019-07-04] MEDS ORDERED: Valproic Acid 250mg/5ml Liquid NG SCH (21:00)
--- NOTE | 2019-07-04 22:00 | NUR ---
NURSE NOTES: Asleep but restless. No seizures noted. Bed rails padded. Still on afib uncontrolled; BP stable.
[2019-07-05] VITALS (26 sets, daily range): BP systolic 91–156; BP diastolic 53–93
--- NOTE | 2019-07-05 | NUR ---
NURSE NOTES: Afebrile; asleep; calm but keeps moving BLE. BUE continues on restraints. Still on afib.
--- NOTE | 2019-07-05 02:00 | NUR ---
NURSE NOTES: Sleeping restless at times. No distress otherwise, no seizure activity.
--- NOTE | 2019-07-05 04:00 | NUR ---
NURSE NOTES: Incontinent of mod amt of formed soft stool, greenish. Complete bath given; oral care rendered. Shaved. PIV sites intact. Afebrile, still on afib; BP stable.
--- NOTE | 2019-07-05 04:01 | Consultation ---
DATE OF CONSULTATION: 07/03/2019 CARDIOLOGY CONSULTATION CONSULTING PHYSICIAN: Gregorio Cook M.D. REQUESTING PHYSICIAN: Pramod Panchal M.D. REASON FOR CONSULTATION: Respiratory failure. HISTORY OF PRESENT ILLNESS: This is a 63-year-old male with schizoaffective bipolar disorder as well as bronchospastic lung disease who presented to the hospital with altered mentation this morning. He was unable to give any medical history. In the emergency room, he was evaluated and noted to have acute respiratory acidosis. He was placed on BiPAP support. His blood gases improved. I have been asked to assist with cardiovascular care. PAST MEDICAL HISTORY: Includes asthma, gastroesophageal reflux disease, seizure disorder, and hyperlipidemia in addition to schizoaffective disorder. MEDICATIONS: Reviewed and reconciled. ALLERGIES: Include penicillin. No other history is obtainable. PHYSICAL EXAMINATION: VITAL SIGNS: Blood pressure 120/76, pulse 112, respiratory rate 22, and afebrile. GENERAL: Obtunded, BiPAP support. LUNGS: Bilateral breath sounds with rhonchi. HEART: Regular rhythm. Rapid rate. Normal S1 and S2 with a 1/6 systolic murmur at the base. ABDOMEN: Soft. EXTREMITIES: No edema. LABORATORY DATA: ABG, 7.027, 146, 278. White count 26 and hemoglobin 12.6. Ammonia 30, sodium 147, potassium 5.3, bicarb 27, BUN 48, creatinine 2.1, and albumin 2.2. Troponin negative. IMPRESSION: 1. Acute respiratory acidosis. 2. Metabolic encephalopathy. 3. Probable sepsis with leukocytosis due to urinary tract infection. 4. Respiratory failure. PLAN: 1. BiPAP support. 2. Empiric antimicrobials. 3. Cautious hydration. 4. Review echocardiogram. 5. Cardiac monitoring. 6. Follow acid-base parameters. 7. DVT prophylaxis. 8. Antiseizure therapy and precautions. Gregorio Cook M.D. DR: MATTIE JOB#: [id number] CC:
--- NOTE | 2019-07-05 04:01 | Progress Note ---
DATE: 07/04/2019 CARDIOLOGY PROGRESS NOTE SUBJECTIVE: Condition remains poor. The patient has been intubated and is now on mechanical ventilation due to worsening respiratory acidosis. Echocardiogram was reviewed and notable for normal ejection fraction, degenerative valve disease, and minimal aortic stenosis. Monitored rhythm sinus. OBJECTIVE: VITAL SIGNS: Blood pressure 96/55, heart rate 11,4 respiratory rate 18. HEENT: Orally intubated. Mechanically ventilated. Obtunded. LUNGS: Bilateral breath sounds. Rhonchi. No wheezes. HEART: Regular rhythm, rapid rate. Normal S1, S2. ABDOMEN: Soft. EXTREMITIES: No edema. DIAGNOSTIC DATA: Chest x-ray reveals interstitial congestion with left basilar consolidation and possible effusion. IMPRESSION: 1. Respiratory failure. 2. Healthcare-acquired pneumonia. 3. Acute diastolic congestive heart failure. 4. Pleural effusion. 5. Acute on chronic respiratory acidosis. 6. Metabolic encephalopathy. 7. Sepsis with shock. PLAN: 1. Antimicrobials. 2. Ventilator support. 3. Monitor acid-base parameters. 4. Adjust vent settings. 5. DVT prophylaxis. 6. Cautious fluid resuscitation. 7. No diuresis at this time. 8. Continue antimicrobials based on culture results when available. 9. Remains critical and guarded. Gregorio Cook M.D. DR: GENEVA JOB#: [id number] CC:
[2019-07-05] MEDS: D5 1/2NS 1,000 ML IV SCH ×3 (04:19→20:53)
--- NOTE | 2019-07-05 04:30 | Consultation ---
DATE OF CONSULTATION: 07/04/2019 NOTE: INCOMPLETE DICTATION CONSULTING PHYSICIAN: Layton Estrada M.D. HISTORY OF PRESENT ILLNESS: The patient is a 63-year-old male. The patient with a history of schizoaffective disorder, bipolar type, who was brought into the emergency room due to altered mental status. The patient is seen in the ICU. The patient was drowsy, not able to be engaged. The patient is . Has waxing and waning consciousness, not able to be engaged in the evaluation. PAST PSYCHIATRIC HISTORY: Schizoaffective disorder. The patient is taking Depakote, Seroquel, and trazodone outside of the hospital. PAST MEDICAL HISTORY: Significant for UTI, renal failure, respiratory failure. ALLERGIES: Penicillin. MENTAL STATUS EXAMINATION: The patient is having waxing and waning consciousness, confused, not able to be engaged. Mood is agitated. Affect is. Layton Estrada M.D. DR: MING JOB#: [id number] CC: DIANE
--- NOTE | 2019-07-05 04:45 | Consultation ---
DATE OF CONSULTATION: 07/04/2019 ADDENDUM ASSESSMENT: [place] I Schizoaffective disorder, bipolar type. Acute metabolic encephalopathy. [place] II Deferred. [place] III Altered mental status. [place] IV Low. [place] V 20. PLAN: We will start the patient on Seroquel 50 mg p.o. at nightly. Layton Estrada M.D. DR: LARRY JOB#: [id number] CC:
[2019-07-05] MEDS: Aztreonam Inj 1 GM in D5W 55 ML IVPB SCH (05:37)
[2019-07-05 06:38] LABS: ALANINE AMINOTRANSFERASE 13 U/L (12-78); ALBUMIN 1.9 G/DL (3.4-5.0); ALBUMIN/GLOBULIN RATIO 0.3 (1.0-2.7); ALKALINE PHOSPHATASE 79 U/L (46-116); ANION GAP 9 mmol/L (5-15); ASPARTATE AMINO TRANSFERASE 31 U/L (15-37); BILIRUBIN,TOTAL 0.2 MG/DL (0.2-1.0); BLOOD UREA NITROGEN 62 mg/dL (7-18); CALCIUM 8.6 MG/DL (8.5-10.1); CARBON DIOXIDE 28 MMOL/L (21-32); CHLORIDE 112 MMOL/L (98-107); CREATININE 2.1 MG/DL (0.55-1.30); PHOSPHORUS 2.1 MG/DL (2.5-4.9); POTASSIUM 3.7 MMOL/L (3.5-5.1); SODIUM 149 MMOL/L (136-145)
--- NOTE | 2019-07-05 07:11 | NUR ---
HAND-OFF: Report given to Josep SEPULVEDA.
--- NOTE | 2019-07-05 07:15 | NUR ---
NURSE NOTES: Received report from COCO Andersen. Patient is obtunded. Afebrile. ETT 7.5/25cm at lip line with vent setting AC 18, VT 550, Peep 5 and FiO2 50%, O2 sat 99% on the monitor. SR 80s on the monitor, just converted from Afib. NPO status. OGT intact and clamped. Right wrist IV 20g and left wrist IV 20g intact and running with D5 and 1/2NS @50ml/hr. Bilateral soft wrist bands restraints on. Both hands are warm to touch. Skin intact and clean on restraints sites. Kept dry, clean and comfortable. Will continue plan of care.
[2019-07-05] MEDS: HydrOXYzine tab 25mg tab NG SCH (08:08)
[2019-07-05] MEDS: Heparin 5000 units/ml inj SUBQ SCH ×2 (08:09→20:52)
--- NOTE | 2019-07-05 08:56 | NUR ---
NURSE NOTES: Seen by Dr. Groves and assessed patient.
[2019-07-05] MEDS ORDERED: QUEtiapine 200mg tab NG SCH (09:00)
[2019-07-05] MEDS ORDERED: Pantoprazole Inj IVP SCH (09:00)
--- NOTE | 2019-07-05 09:17 | NUR ---
NURSE NOTES: Seen by Dr. Brayden Blackwood and assessed patient. Informed that patient is positive for ESBL urine and VRE rectum. Will continue plan of care.
--- NOTE | 2019-07-05 09:20 | Infectious Diseases Prog Note ---
Assessment/Plan Assessment/Plan IMPRESSION: Sepsis with tachycardia, leukocytosis. UTI with E coli ESBL Hypercapnic respiratory failure acute renal failure, Metabolic encephalopathy. schizoaffective disorder, allergic rhinitis, gastroesophageal reflux disease epilepsy. 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 RECOMMENDATION: Change Azactam to Meropenem Case was D/W pharmacist Will f/u cultures Subjective ROS Limited/Unobtainable: Yes Constitutional: Denies: fever Respiratory: Reports: other - intubated yesterday Neurologic: Reports: confusion, other - on restraint Allergies: Coded Allergies: PENICILLINS (Verified Allergy, Unknown, 07/03/19) Objective Vital Signs Last 24 Hour Vital Signs Date Time Temp Pulse Resp B/P (MAP) Pulse Ox O2 Delivery O2 Flow Rate FiO2 07/05/19 09:00 91 18 107/57 (74) 100 07/05/19 08:00 98.2 90 17 102/61 (75) 100 07/05/19 08:00 Endotracheal Tube 07/05/19 07:20 92 18 50 07/05/19 07:00 93 18 108/53 (71) 100 07/05/19 06:00 92 18 103/54 (70) 100 07/05/19 05:09 111 20 50 07/05/19 05:00 117 18 136/77 (96) 100 07/05/19 04:00 98.5 120 18 111/57 (75) 99 07/05/19 04:00 Endotracheal Tube 07/05/19 04:00 120 07/05/19 04:00 50 07/05/19 03:53 128 23 50 07/05/19 03:00 111 18 102/79 (87) 100 07/05/19 02:00 112 18 91/60 (70) 100 07/05/19 01:12 111 18 50 07/05/19 01:00 117 19 119/75 (90) 100 07/05/19 00:00 50 07/05/19 00:00 98.9 117 18 103/74 (84) 100 07/05/19 00:00 Endotracheal Tube 07/04/19 23:17 126 18 50 07/04/19 23:00 117 18 108/71 (83) 99 07/04/19 22:00 114 18 96/55 (69) 100 07/04/19 21:17 122 18 50 07/04/19 21:00 119 29 93/67 (76) 98 07/04/19 20:00 126 07/04/19 20:00 Endotracheal Tube 07/04/19 20:00 98.9 124 18 89/52 (64) 99 07/04/19 20:00 50 07/04/19 19:18 124 18 50 07/04/19 19:00 125 18 96/60 (72) 100 07/04/19 18:00 116 27 90/38 (55) 98 07/04/19 17:00 124 18 90/65 (73) 98 07/04/19 16:41 124 18 50 07/04/19 16:00 Endotracheal Tube 07/04/19 16:00 98.4 130 18 114/61 (78) 98 07/04/19 16:00 50 07/04/19 16:00 141 07/04/19 15:33 149 22 50 07/04/19 15:00 132 21 100/69 (79) 98 07/04/19 14:50 50 07/04/19 14:50 Endotracheal Tube 07/04/19 14:32 139 07/04/19 14:00 141 19 99/65 (76) 100 07/04/19 13:15 98 16 100 Full Face 50 07/04/19 13:00 102 20 101/68 (79) 94 07/04/19 12:00 Bi-pap 07/04/19 12:00 40 07/04/19 12:00 103 19 97/41 (59) 97 07/04/19 12:00 100 07/04/19 11:18 99 18 95 Full Face 50 07/04/19 11:00 102 19 115/70 (85) 97 07/04/19 10:00 105 19 115/50 (71) 100 Height (Feet): 6 Height (Inches): 2.00 Weight (Pounds): 240 HEENT: other - orally intubated Respiratory/Chest: lungs clear Cardiovascular: normal rate Abdomen: soft, non tender Extremities: no edema Neurologic/Psychiatric: other - sleeping Microbiology Date/Time Source Procedure Growth Status 07/03/19 14:40 Nasal Nares - Final Complete 07/03/19 14:40 Nasal Nares - Final Complete 07/03/19 16:43 Urine,Clean Catch Urine Culture - Final Escherichia Coli - Esbl Complete 07/03/19 17:24 Rectum VRE Culture - Final Enterococcus Faecalis - Vre Complete Laboratory Tests Test 07/04/19 14:20 07/04/19 15:50 07/05/19 05:25 07/05/19 08:43 Arterial Blood pH 7.067 (7.350-7.450) 7.317 (7.350-7.450) 7.446 (7.350-7.450) Arterial Blood Partial Pressure CO2 123.2 mmHg (35.0-45.0) *H 58.5 mmHg (35.0-45.0) *H 42.9 mmHg (35.0-45.0) Arterial Blood Partial Pressure O2 218.9 mmHg (75.0-100.0) H 62.3 mmHg (75.0-100.0) L 90.9 mmHg (75.0-100.0) Arterial Blood HCO3 34.7 mmol/L (22.0-26.0) H 29.3 mmol/L (22.0-26.0) H 28.9 mmol/L (22.0-26.0) H Arterial Blood Oxygen Saturation 98.8 % (95-100) 90.4 % (95-100) L 96.7 % (95-100) Arterial Blood Base Excess 1.4 (-2-2) 2.0 (-2-2) 4.4 (-2-2) H Claus Test Positive Positive Positive White Blood Count Pending Red Blood Count Pending Hemoglobin Pending Hematocrit Pending Mean Corpuscular Volume Pending Mean Corpuscular Hemoglobin Pending Mean Corpuscular Hemoglobin Concent Pending Red Cell Distribution Width Pending Platelet Count Pending Mean Platelet Volume Pending Neutrophils (%) (Auto) Pending Lymphocytes (%) (Auto) Pending Monocytes (%) (Auto) Pending Eosinophils (%) (Auto) Pending Basophils (%) (Auto) Pending Sodium Level 149 MMOL/L (136-145) H Potassium Level 3.7 MMOL/L (3.5-5.1) Chloride Level 112 MMOL/L (98-107) H Carbon Dioxide Level 28 MMOL/L (21-32) Anion Gap 9 mmol/L (5-15) Blood Urea Nitrogen 62 mg/dL (7-18) H Creatinine 2.1 MG/DL (0.55-1.30) H Estimat Glomerular Filtration Rate 32.2 mL/min (>60) Glucose Level 108 MG/DL (74-106) H Uric Acid 12.6 MG/DL (2.6-7.2) H Calcium Level 8.6 MG/DL (8.5-10.1) Phosphorus Level 2.1 MG/DL (2.5-4.9) L Magnesium Level 2.7 MG/DL (1.8-2.4) H Total Bilirubin 0.2 MG/DL (0.2-1.0) Aspartate Amino Transf (AST/SGOT) 31 U/L (15-37) Alanine Aminotransferase (ALT/SGPT) 13 U/L (12-78) Alkaline Phosphatase 79 U/L (46-116) C-Reactive Protein, Quantitative 64.5 mg/dL (0.00-0.90) H Pro-B-Type Natriuretic Peptide Pending Total Protein 8.3 G/DL (6.4-8.2) H Albumin 1.9 G/DL (3.4-5.0) L Globulin 6.4 g/dL Albumin/Globulin Ratio 0.3 (1.0-2.7) L Current Medications Medications (Trade) Dose Ordered Sig/Samuel Route PRN Reason Start Time Stop Time Status Last Admin Dose Admin Allopurinol (allopurinoL) 300 mg DAILY ORAL 07/05/19 09:00 08/04/19 08:59 07/05/19 08:08 Atorvastatin Calcium (Lipitor) 10 mg BEDTIME NG 07/04/19 21:00 08/03/19 20:59 07/04/19 20:45 Baclofen (Lioresal) 10 mg THREE TIMES A DAY NG 07/04/19 13:00 08/03/19 08:59 07/05/19 08:08 Dextrose/Sodium Chloride 1,000 ml @ 50 mls/hr Q20H IV 07/04/19 10:30 08/03/19 10:29 07/05/19 04:19 Heparin Sodium (Porcine) (Heparin 5000 units/ml) 5,000 units EVERY 12 HOURS SUBQ 07/04/19 21:00 08/03/19 20:59 07/05/19 08:09 Hydroxyzine HCl (Atarax) 25 mg FOUR TIMES A DAY NG 07/04/19 13:00 08/03/19 08:59 07/05/19 08:08 Meropenem 1 gm/ Sodium Chloride 55 ml @ 110 mls/hr Q8HR IVPB 07/05/19 09:15 07/10/19 09:14 UNV Pantoprazole (Protonix) 40 mg DAILY IVP 07/05/19 09:00 08/04/19 08:59 07/05/19 08:08 Quetiapine Fumarate (SEROqueL) 50 mg BEDTIME ORAL 07/05/19 21:00 08/04/19 20:59 Ang Blackwood MD Jul 05, 2019 09:20
--- NOTE | 2019-07-05 09:45 | Nephrology Progress Note ---
Assessment/Plan Problem List: (1) Renal failure (ARF), acute on chronic (2) Respiratory distress Assessment: Co2 retainer (3) UTI (urinary tract infection) Assessment Renal failure ? Chronic ? superimposed acute Acute on Chronic respiratory failure Co2 retention HyperKalemia HypoAlbuminemia Obese UTI / Leukocytosis Plan smith slow hydrate Ua and Urine studies optimize pulmonary status monitor renal parameters avoid nephrotoxics 2D echo - 65% Ej Fx per orders Subjective ROS Limited/Unobtainable: Yes Interval Events/Complaints now intubated Objective Objective Last 24 Hour Vital Signs Date Time Temp Pulse Resp B/P (MAP) Pulse Ox O2 Delivery O2 Flow Rate FiO2 07/05/19 09:00 91 18 107/57 (74) 100 07/05/19 08:00 98.2 90 17 102/61 (75) 100 07/05/19 08:00 Endotracheal Tube 07/05/19 08:00 50 07/05/19 07:20 92 18 50 07/05/19 07:00 93 18 108/53 (71) 100 07/05/19 06:00 92 18 103/54 (70) 100 07/05/19 05:09 111 20 50 07/05/19 05:00 117 18 136/77 (96) 100 07/05/19 04:00 98.5 120 18 111/57 (75) 99 07/05/19 04:00 Endotracheal Tube 07/05/19 04:00 120 07/05/19 04:00 50 07/05/19 03:53 128 23 50 07/05/19 03:00 111 18 102/79 (87) 100 07/05/19 02:00 112 18 91/60 (70) 100 07/05/19 01:12 111 18 50 07/05/19 01:00 117 19 119/75 (90) 100 07/05/19 00:00 50 07/05/19 00:00 98.9 117 18 103/74 (84) 100 07/05/19 00:00 Endotracheal Tube 07/04/19 23:17 126 18 50 07/04/19 23:00 117 18 108/71 (83) 99 07/04/19 22:00 114 18 96/55 (69) 100 07/04/19 21:17 122 18 50 07/04/19 21:00 119 29 93/67 (76) 98 07/04/19 20:00 126 07/04/19 20:00 Endotracheal Tube 07/04/19 20:00 98.9 124 18 89/52 (64) 99 07/04/19 20:00 50 07/04/19 19:18 124 18 50 07/04/19 19:00 125 18 96/60 (72) 100 07/04/19 18:00 116 27 90/38 (55) 98 07/04/19 17:00 124 18 90/65 (73) 98 07/04/19 16:41 124 18 50 07/04/19 16:00 Endotracheal Tube 07/04/19 16:00 98.4 130 18 114/61 (78) 98 07/04/19 16:00 50 07/04/19 16:00 141 07/04/19 15:33 149 22 50 07/04/19 15:00 132 21 100/69 (79) 98 07/04/19 14:50 50 07/04/19 14:50 Endotracheal Tube 07/04/19 14:32 139 07/04/19 14:00 141 19 99/65 (76) 100 07/04/19 13:15 98 16 100 Full Face 50 07/04/19 13:00 102 20 101/68 (79) 94 07/04/19 12:00 Bi-pap 07/04/19 12:00 40 07/04/19 12:00 103 19 97/41 (59) 97 07/04/19 12:00 100 07/04/19 11:18 99 18 95 Full Face 50 07/04/19 11:00 102 19 115/70 (85) 97 07/04/19 10:00 105 19 115/50 (71) 100 Intake and Output 07/04/19 07/05/19 19:00 07:00 Intake Total 599 ml 685 ml Output Total 485 ml 470 ml Balance 114 ml 215 ml Intake Oral 0 ml 0 ml IV Total 449 ml 655 ml Other 150 ml 30 ml Output Urine Total 485 ml 470 ml # Bowel Movements 2 Laboratory Tests 07/04/19 14:20: Arterial Blood pH 7.067*L, Arterial Blood Partial Pressure CO2 123.2*H, Arterial Blood Partial Pressure O2 218.9H, Arterial Blood HCO3 34.7H, Arterial Blood Oxygen Saturation 98.8, Arterial Blood Base Excess 1.4, Claus Test Positive 07/04/19 15:50: Arterial Blood pH 7.317L, Arterial Blood Partial Pressure CO2 58.5*H, Arterial Blood Partial Pressure O2 62.3L, Arterial Blood HCO3 29.3H, Arterial Blood Oxygen Saturation 90.4L, Arterial Blood Base Excess 2.0, Claus Test Positive 07/05/19 05:25: White Blood Count [Pending], Red Blood Count [Pending], Hemoglobin [Pending], Hematocrit [Pending], Mean Corpuscular Volume [Pending], Mean Corpuscular Hemoglobin [Pending], Mean Corpuscular Hemoglobin Concent [Pending], Red Cell Distribution Width [Pending], Platelet Count [Pending], Mean Platelet Volume [ Pending], Neutrophils (%) (Auto) [Pending], Lymphocytes (%) (Auto) [Pending], Monocytes (%) (Auto) [Pending], Eosinophils (%) (Auto) [Pending], Basophils (%) (Auto) [Pending], Sodium Level 149H, Potassium Level 3.7, Chloride Level 112H, Carbon Dioxide Level 28, Anion Gap 9, Blood Urea Nitrogen 62H, Creatinine 2.1H, Estimat Glomerular Filtration Rate 32.2, Glucose Level 108H, Uric Acid 12.6H, Calcium Level 8.6, Phosphorus Level 2.1L, Magnesium Level 2.7H, Total Bilirubin 0.2, Aspartate Amino Transf (AST/SGOT) 31, Alanine Aminotransferase (ALT/SGPT) 13, Alkaline Phosphatase 79, C-Reactive Protein, Quantitative 64.5H, Pro-B-Type Natriuretic Peptide [Pending], Total Protein 8.3H, Albumin 1.9L, Globulin 6.4, Albumin/Globulin Ratio 0.3L 07/05/19 08:43: Arterial Blood pH 7.446, Arterial Blood Partial Pressure CO2 42.9, Arterial Blood Partial Pressure O2 90.9, Arterial Blood HCO3 28.9H, Arterial Blood Oxygen Saturation 96.7, Arterial Blood Base Excess 4.4H, Claus Test Positive Height (Feet): 6 Height (Inches): 2.00 Weight (Pounds): 240 General Appearance: no apparent distress EENT: other - intubated on vent Cardiovascular: tachycardia Respiratory/Chest: decreased breath sounds Abdomen: distended Will Groves MD Jul 05, 2019 09:45
--- NOTE | 2019-07-05 10:53 | NUR ---
NURSE NOTES: Seen by Dr. Panchal and updated pt's status. Ordered tube feeding. Will continue plan of care.
[2019-07-05] MEDS: Meropenem 1 GM in NS 55 ML IVPB SCH ×2 (11:16→23:01)
--- NOTE | 2019-07-05 11:47 | NUR ---
RD ASSESSMENT & RECOMMENDATIONS SEE CARE ACTIVITY FOR COMPLETE ASSESSMENT DAILY ESTIMATED NEEDS: Needs based on Critical care, wounds, obese/ 92kg abw 20-25 kcals/kg 0443-4756 total kcals 1.25-2 g protein/kg 115-184 g total protein 25-30 mL/kg 1541-0743 total fluid mLs NUTRITION DIAGNOSIS: Swallowing difficulty R/T respiratory status as evidenced by pt orally intubated, on OGT feeding. 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 -> HOB over 30 degrees/ H20 flush per MD ADDITIONAL RECOMMENDATIONS: * Calibrated bedscale wt for accurate CBW- w/ added P200 mattress * Monitor lytes, replete as needed (low K + phos) * F/up WC eval: add Vit C 250mg QD Steve 1pkt BID via OGT * [employer] eval pot extubation
[2019-07-05] MEDS ORDERED: Potassium Phosphate 20 MM in NS 275 ML IV ONE (12:00)
--- NOTE | 2019-07-05 13:14 | NUR ---
NURSE NOTES: Dr. Estrada came to see patient- updated with pt's condition
--- NOTE | 2019-07-05 14:21 | NUR ---
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 97.9 HR 115 RR 23 B/P 126/63 AC 18 TV 550 FIO2 100% PEEP 5 PH 7.02 PCO2 146.6 PO2 277.9 HCO3 37.6 O2 SAT 99.4 NA 147 WBC 25.9 K 5.3 BUN 48 CR 2.1 IS: ATIVAN IV LEVAQUIN IV ADMITTED TO ICU ICU STATUS DCP PENDING HOSP STAY
[2019-07-05] MEDS: Acetaminophen 650mg/20.3ml NG PRN (15:08)
--- NOTE | 2019-07-05 15:37 | Pulmonology Progress Note ---
Assessment/Plan Assessment/Plan IMPRESSION: 1. Respiratory failure, acute 2. Sepsis, source unclear. 3. Altered mental status. 4. Psychiatric disorder. DISCUSSION: I will check ABG. IV fluids. DVT prophylaxis. Minimize sedation. Consulted ID for empiric antibiotics. I will follow carefully. Subjective Interval Events: Failed BiPAP; intubated yesterday Constitutional: Reports: no symptoms HEENT: Repors: no symptoms Respiratory: Reports: no symptoms Cardiovascular: Reports: no symptoms Gastrointestinal/Abdominal: Reports: no symptoms Genitourinary: Reports: no symptoms Allergies: Coded Allergies: PENICILLINS (Verified Allergy, Unknown, 07/03/19) Objective Last 24 Hour Vital Signs Date Time Temp Pulse Resp B/P (MAP) Pulse Ox O2 Delivery O2 Flow Rate FiO2 07/05/19 14:00 98 15 121/62 (81) 97 07/05/19 13:00 101 17 112/58 (76) 99 07/05/19 12:00 Endotracheal Tube 07/05/19 12:00 100.4 91 16 131/67 (88) 99 07/05/19 12:00 90 07/05/19 11:53 40 07/05/19 11:10 92 18 40 07/05/19 11:00 91 18 109/57 (74) 100 07/05/19 10:30 40 07/05/19 10:00 93 19 111/54 (73) 100 07/05/19 09:02 92 18 50 07/05/19 09:00 91 18 107/57 (74) 100 07/05/19 08:00 98.2 90 17 102/61 (75) 100 07/05/19 08:00 Endotracheal Tube 07/05/19 08:00 50 07/05/19 08:00 91 07/05/19 07:20 92 18 50 07/05/19 07:00 93 18 108/53 (71) 100 07/05/19 06:00 92 18 103/54 (70) 100 07/05/19 05:09 111 20 50 07/05/19 05:00 117 18 136/77 (96) 100 07/05/19 04:00 98.5 120 18 111/57 (75) 99 07/05/19 04:00 Endotracheal Tube 07/05/19 04:00 120 07/05/19 04:00 50 07/05/19 03:53 128 23 50 07/05/19 03:00 111 18 102/79 (87) 100 07/05/19 02:00 112 18 91/60 (70) 100 07/05/19 01:12 111 18 50 07/05/19 01:00 117 19 119/75 (90) 100 07/05/19 00:00 50 07/05/19 00:00 98.9 117 18 103/74 (84) 100 07/05/19 00:00 Endotracheal Tube 07/04/19 23:17 126 18 50 07/04/19 23:00 117 18 108/71 (83) 99 07/04/19 22:00 114 18 96/55 (69) 100 07/04/19 21:17 122 18 50 07/04/19 21:00 119 29 93/67 (76) 98 07/04/19 20:00 126 07/04/19 20:00 Endotracheal Tube 07/04/19 20:00 98.9 124 18 89/52 (64) 99 07/04/19 20:00 50 07/04/19 19:18 124 18 50 07/04/19 19:00 125 18 96/60 (72) 100 07/04/19 18:00 116 27 90/38 (55) 98 07/04/19 17:00 124 18 90/65 (73) 98 07/04/19 16:41 124 18 50 07/04/19 16:00 Endotracheal Tube 07/04/19 16:00 98.4 130 18 114/61 (78) 98 07/04/19 16:00 50 07/04/19 16:00 141 Intake and Output 07/04/19 07/05/19 19:00 07:00 Intake Total 599 ml 740 ml Output Total 485 ml 520 ml Balance 114 ml 220 ml Intake Oral 0 ml 0 ml IV Total 449 ml 710 ml Other 150 ml 30 ml Output Urine Total 485 ml 520 ml # Bowel Movements 2 General Appearance: no acute distress HEENT: normocephalic Respiratory/Chest: chest wall non-tender, decreased breath sounds Cardiovascular: normal peripheral pulses, normal rate Abdomen: normal bowel sounds Microbiology Date/Time Source Procedure Growth Status 07/03/19 14:40 Nasal Nares - Final Complete 07/03/19 14:40 Nasal Nares - Final Complete 07/03/19 16:43 Urine,Clean Catch Urine Culture - Final Escherichia Coli - Esbl Complete 07/03/19 17:24 Rectum - Final NO CARBAPENEM-RESISTANT ENTEROBACTERI... Complete 07/03/19 17:24 Rectum VRE Culture - Final Enterococcus Faecalis - Vre Complete Laboratory Tests 07/04/19 15:50: Arterial Blood pH 7.317L, Arterial Blood Partial Pressure CO2 58.5*H, Arterial Blood Partial Pressure O2 62.3L, Arterial Blood HCO3 29.3H, Arterial Blood Oxygen Saturation 90.4L, Arterial Blood Base Excess 2.0, Claus Test Positive 07/05/19 05:25: White Blood Count [Pending], Red Blood Count [Pending], Hemoglobin [Pending], Hematocrit [Pending], Mean Corpuscular Volume [Pending], Mean Corpuscular Hemoglobin [Pending], Mean Corpuscular Hemoglobin Concent [Pending], Red Cell Distribution Width [Pending], Platelet Count [Pending], Mean Platelet Volume [ Pending], Neutrophils (%) (Auto) [Pending], Lymphocytes (%) (Auto) [Pending], Monocytes (%) (Auto) [Pending], Eosinophils (%) (Auto) [Pending], Basophils (%) (Auto) [Pending], Sodium Level 149H, Potassium Level 3.7, Chloride Level 112H, Carbon Dioxide Level 28, Anion Gap 9, Blood Urea Nitrogen 62H, Creatinine 2.1H, Estimat Glomerular Filtration Rate 32.2, Glucose Level 108H, Uric Acid 12.6H, Calcium Level 8.6, Phosphorus Level 2.1L, Magnesium Level 2.7H, Total Bilirubin 0.2, Aspartate Amino Transf (AST/SGOT) 31, Alanine Aminotransferase (ALT/SGPT) 13, Alkaline Phosphatase 79, C-Reactive Protein, Quantitative 64.5H, Pro-B-Type Natriuretic Peptide [Pending], Total Protein 8.3H, Albumin 1.9L, Globulin 6.4, Albumin/Globulin Ratio 0.3L 07/05/19 08:43: Arterial Blood pH 7.446, Arterial Blood Partial Pressure CO2 42.9, Arterial Blood Partial Pressure O2 90.9, Arterial Blood HCO3 28.9H, Arterial Blood Oxygen Saturation 96.7, Arterial Blood Base Excess 4.4H, Claus Test Positive 07/05/19 14:40: Urine Eosinophils [Pending] Current Medications Medications (Trade) Dose Ordered Sig/Samuel Route PRN Reason Start Time Stop Time Status Last Admin Dose Admin Acetaminophen (Tylenol) 650 mg Q6H PRN NG Mild Pain/Temp > 100.5 07/05/19 12:15 08/04/19 12:14 07/05/19 15:08 Allopurinol (allopurinoL) 300 mg DAILY ORAL 07/05/19 09:00 08/04/19 08:59 07/05/19 08:08 Dextrose/Sodium Chloride 1,000 ml @ 75 mls/hr [id number] IV 07/05/19 10:30 08/03/19 10:29 07/05/19 10:16 Heparin Sodium (Porcine) (Heparin 5000 units/ml) 5,000 units EVERY 12 HOURS SUBQ 07/04/19 21:00 08/03/19 20:59 07/05/19 08:09 Meropenem 1 gm/ Sodium Chloride 55 ml @ 110 mls/hr Q12H IVPB 07/05/19 11:00 07/10/19 10:59 07/05/19 11:16 Pantoprazole (Protonix) 40 mg Q12HR IVP 07/05/19 21:00 08/04/19 08:59 Potassium Phosphate 20 mm/ Sodium Chloride 281.6667 ml @ 46.944 m... ONCE ONCE IV 07/05/19 12:00 07/05/19 17:59 07/05/19 11:16 Quetiapine Fumarate (SEROqueL) 50 mg BEDTIME ORAL 07/05/19 21:00 08/04/19 20:59 Pramod Panchal MD Jul 05, 2019 15:37
--- NOTE | 2019-07-05 15:38 | NUR ---
NURSE NOTES: Temp 101.8 AX noted. Tylenol 650mg given and started cooling measures. Will continue to monitor closely.
[2019-07-05 16:08] LABS: HEMATOCRIT 34.7 % (42.0-52.0); HEMOGLOBIN 10.4 G/DL (14.2-18.0); MEAN CORPUSCULAR VOLUME 91 FL (80-99); NEUTROPHILS % (AUTO) 82.2 % (45.0-75.0); PLATELET COUNT 230 K/UL (150-450); RED BLOOD COUNT 3.83 M/UL (4.70-6.10); RED CELL DISTRIBUTION WIDTH 16.4 % (11.6-14.8)
[2019-07-05 16:09] LABS: LYMPHOCYTES % (AUTO) 8.4 % (20.0-45.0); MONOCYTES % (AUTO) 8.2 % (1.0-10.0)
--- NOTE | 2019-07-05 16:30 | NUR ---
NURSE NOTES: Bed bath given and oral care provided.
--- NOTE | 2019-07-05 16:55 | Consultation ---
History of Present Illness General Date patient seen: Jul 05, 2019 Reason for Hospitalization: Altered Mental Status Present Illness HPI This is a 63-year-old male with multi-medical comorbidities as well as psych history who presents to [facility] emergency department after being noted to be altered. On evaluation noted to be febrile, tachycardic, significant leukocytosis, anemia, abnormal labs. Multiple wounds. Patient admitted for further care and management. Currently in the intensive care unit undergoing resuscitation work-up and care. Surgery called to evaluate and assist with care plan. Patient seen, patient evaluated, chart reviewed. Allergies: Coded Allergies: PENICILLINS (Verified Allergy, Unknown, 07/03/19) Medication History Scheduled Atorvastatin Calcium* (Atorvastatin Calcium*), 10 MG ORAL BEDTIME, (Reported) Baclofen* (Baclofen*), 10 MG ORAL THREE TIMES A DAY, (Reported) Divalproex Sodium* (Depakote*), 250 MG PO Q12HR, (Reported) Divalproex Sodium* (Depakote Er*), 500 MG ORAL EVERY 12 HOURS, (Reported) Docusate Sodium* (Colace*), 100 MG ORAL DAILY, (Reported) Hydroxyzine HCl (Hydroxyzine HCl), 25 MG ORAL FOUR TIMES A DAY, (Reported) Magnesium Hydroxide* (Milk Of Magnesia*), 30 ML ORAL DAILY, (Reported) Na Phos,M-B/Na Phos,Di-Ba* (Fleet Enema*), 133 ML RECTAL DAILY, (Reported) Pantoprazole* (Pantoprazole*), 40 MG ORAL DAILY, (Reported) Quetiapine Fumarate* (Seroquel*), 200 MG ORAL DAILY, (Reported) Scheduled PRN Diphenhydramine Hcl* (Diphenhydramine Hcl*), 25 MG ORAL Q6H PRN for Itching, ( Reported) Guaifenesin/D-Methorphan Hb/Pe (Robitussin Cough-Cold Cf Liq*), 5 ML ORAL Q6H PRN for , (Reported) Miscellaneous Medications Acetaminophen (Tylenol), 325 MG PO, (Reported) Bisacodyl (Dulcolax), 10 MG RC, (Reported) Trazodone Hcl (Desyrel), 50 MG PO, (Reported) Patient History Limited by: medical condition History Provided By: Medical Record, PMD Healthcare decision maker none Resuscitation status Full Code Advanced Directive on File Past Medical/Surgical History Past Medical/Surgical History: (1) Decubitus skin ulcer (2) Altered mental status (3) AMS (altered mental status) (4) Respiratory distress (5) UTI (urinary tract infection) (6) Renal failure (ARF), acute on chronic (7) Respiratory failure Review of Systems Review of Symptoms General ROS: no weight loss or fever Psychological ROS: no depression or mood changes, no memory loss Ophthalmic ROS: no visual changes or eye irritation ENT ROS: no nasal congestion, hearing loss, dizziness Allergy and Immunology ROS: no allergic symptoms or urticaria Hematological and Lymphatic ROS: no swollen glands, unusual bleeding or bruising Endocrine ROS: no polyuria, polydipsia, weight changes, temperature intolerance Respiratory ROS: no cough, shortness of breath, or wheezing Cardiovascular ROS: no chest pain or dyspnea on exertion Gastrointestinal ROS: denies abdominal pain, bright red blood in stool. Musculoskeletal ROS: no myalgias or arthralgias Neurological ROS: no TIA or stroke symptoms Dermatological ROS: no new or changing skin lesions, rashes or pruritis Limited overall given patient's current medical condition Physical Exam Physical Exam General appearance: alert, cooperative, no distress, appears stated age Head: Normocephalic, without obvious abnormality, atraumatic Eyes: conjunctivae/corneas clear. PERRL, EOM's intact. Fundi benign Throat: Lips, mucosa, and tongue normal. Teeth and gums normal Neck: supple, symmetrical, trachea midline, no adenopathy, thyroid: not enlarged, symmetric, no tenderness/mass/nodules, no carotid bruit and no JVD Lungs: clear to auscultation bilaterally Heart: regular rate and rhythm, S1, S2 normal, no murmur, click, rub or gallop Abdomen: soft, non-tender. Bowel sounds normal. No masses, no organomegaly Extremities: extremities normal, atraumatic, no cyanosis or edema Pulses: 2+ and symmetric Skin: Skin see below Neurologic: Grossly normal Last 24 Hour Vital Signs Date Time Temp Pulse Resp B/P (MAP) Pulse Ox O2 Delivery O2 Flow Rate FiO2 07/05/19 16:00 30 07/05/19 16:00 99.8 93 18 126/60 (82) 99 07/05/19 16:00 Endotracheal Tube 07/05/19 16:00 96 07/05/19 15:38 99.8 07/05/19 15:30 101.8 97 20 121/93 (102) 98 07/05/19 15:26 95 18 40 07/05/19 15:00 97 20 121/93 (102) 98 07/05/19 14:00 98 15 121/62 (81) 97 07/05/19 13:16 95 18 40 07/05/19 13:00 101 17 112/58 (76) 99 07/05/19 12:00 Endotracheal Tube 07/05/19 12:00 100.4 91 16 131/67 (88) 99 07/05/19 12:00 90 07/05/19 11:53 40 07/05/19 11:10 92 18 40 07/05/19 11:00 91 18 109/57 (74) 100 07/05/19 10:30 40 07/05/19 10:00 93 19 111/54 (73) 100 07/05/19 09:02 92 18 50 07/05/19 09:00 91 18 107/57 (74) 100 07/05/19 08:00 98.2 90 17 102/61 (75) 100 07/05/19 08:00 Endotracheal Tube 07/05/19 08:00 50 07/05/19 08:00 91 07/05/19 07:20 92 18 50 07/05/19 07:00 93 18 108/53 (71) 100 07/05/19 06:00 92 18 103/54 (70) 100 07/05/19 05:09 111 20 50 07/05/19 05:00 117 18 136/77 (96) 100 07/05/19 04:00 98.5 120 18 111/57 (75) 99 07/05/19 04:00 Endotracheal Tube 07/05/19 04:00 120 07/05/19 04:00 50 07/05/19 03:53 128 23 50 07/05/19 03:00 111 18 102/79 (87) 100 07/05/19 02:00 112 18 91/60 (70) 100 07/05/19 01:12 111 18 50 07/05/19 01:00 117 19 119/75 (90) 100 07/05/19 00:00 50 07/05/19 00:00 98.9 117 18 103/74 (84) 100 07/05/19 00:00 Endotracheal Tube 07/04/19 23:17 126 18 50 07/04/19 23:00 117 18 108/71 (83) 99 07/04/19 22:00 114 18 96/55 (69) 100 07/04/19 21:17 122 18 50 07/04/19 21:00 119 29 93/67 (76) 98 07/04/19 20:00 126 07/04/19 20:00 Endotracheal Tube 07/04/19 20:00 98.9 124 18 89/52 (64) 99 07/04/19 20:00 50 07/04/19 19:18 124 18 50 07/04/19 19:00 125 18 96/60 (72) 100 07/04/19 18:00 116 27 90/38 (55) 98 07/04/19 17:00 124 18 90/65 (73) 98 Intake and Output 07/04/19 07/05/19 19:00 07:00 Intake Total 599 ml 740 ml Output Total 485 ml 520 ml Balance 114 ml 220 ml Intake Oral 0 ml 0 ml IV Total 449 ml 710 ml Other 150 ml 30 ml Output Urine Total 485 ml 520 ml # Bowel Movements 2 Laboratory Tests Test 07/05/19 05:25 07/05/19 08:43 07/05/19 14:40 White Blood Count 21.0 K/UL (4.8-10.8) H Red Blood Count 3.83 M/UL (4.70-6.10) L Hemoglobin 10.4 G/DL (14.2-18.0) L Hematocrit 34.7 % (42.0-52.0) L Mean Corpuscular Volume 91 FL (80-99) Mean Corpuscular Hemoglobin 27.2 PG (27.0-31.0) Mean Corpuscular Hemoglobin Concent 30.0 G/DL (32.0-36.0) L Red Cell Distribution Width 16.4 % (11.6-14.8) H Platelet Count 230 K/UL (150-450) Mean Platelet Volume 11.8 FL (6.5-10.1) H Neutrophils (%) (Auto) 82.2 % (45.0-75.0) H Lymphocytes (%) (Auto) 8.4 % (20.0-45.0) L Monocytes (%) (Auto) 8.2 % (1.0-10.0) Eosinophils (%) (Auto) 0.0 % (0.0-3.0) Basophils (%) (Auto) % (0.0-2.0) Sodium Level 149 MMOL/L (136-145) H Potassium Level 3.7 MMOL/L (3.5-5.1) Chloride Level 112 MMOL/L (98-107) H Carbon Dioxide Level 28 MMOL/L (21-32) Anion Gap 9 mmol/L (5-15) Blood Urea Nitrogen 62 mg/dL (7-18) H Creatinine 2.1 MG/DL (0.55-1.30) H Estimat Glomerular Filtration Rate 32.2 mL/min (>60) Glucose Level 108 MG/DL (74-106) H Uric Acid 12.6 MG/DL (2.6-7.2) H Calcium Level 8.6 MG/DL (8.5-10.1) Phosphorus Level 2.1 MG/DL (2.5-4.9) L Magnesium Level 2.7 MG/DL (1.8-2.4) H Total Bilirubin 0.2 MG/DL (0.2-1.0) Aspartate Amino Transf (AST/SGOT) 31 U/L (15-37) Alanine Aminotransferase (ALT/SGPT) 13 U/L (12-78) Alkaline Phosphatase 79 U/L (46-116) C-Reactive Protein, Quantitative 64.5 mg/dL (0.00-0.90) H Pro-B-Type Natriuretic Peptide Pending Total Protein 8.3 G/DL (6.4-8.2) H Albumin 1.9 G/DL (3.4-5.0) L Globulin 6.4 g/dL Albumin/Globulin Ratio 0.3 (1.0-2.7) L Arterial Blood pH 7.446 (7.350-7.450) Arterial Blood Partial Pressure CO2 42.9 mmHg (35.0-45.0) Arterial Blood Partial Pressure O2 90.9 mmHg (75.0-100.0) Arterial Blood HCO3 28.9 mmol/L (22.0-26.0) H Arterial Blood Oxygen Saturation 96.7 % (95-100) Arterial Blood Base Excess 4.4 (-2-2) H Claus Test Positive Urine Eosinophils None seen (NONE SEEN) Height (Feet): 6 Height (Inches): 2.00 Weight (Pounds): 240 Medications Current Medications Medications (Trade) Dose Ordered Sig/Samuel Route PRN Reason Start Time Stop Time Status Last Admin Dose Admin Acetaminophen (Tylenol) 650 mg Q6H PRN NG Mild Pain/Temp > 100.5 07/05/19 12:15 08/04/19 12:14 07/05/19 15:08 Allopurinol (allopurinoL) 300 mg DAILY ORAL 07/05/19 09:00 08/04/19 08:59 07/05/19 08:08 Dextrose/Sodium Chloride 1,000 ml @ 75 mls/hr [id number] IV 07/05/19 10:30 08/03/19 10:29 07/05/19 10:16 Heparin Sodium (Porcine) (Heparin 5000 units/ml) 5,000 units EVERY 12 HOURS SUBQ 07/04/19 21:00 08/03/19 20:59 07/05/19 08:09 Meropenem 1 gm/ Sodium Chloride 55 ml @ 110 mls/hr Q12H IVPB 07/05/19 11:00 07/10/19 10:59 07/05/19 11:16 Pantoprazole (Protonix) 40 mg Q12HR IVP 07/05/19 21:00 08/04/19 08:59 Potassium Phosphate 20 mm/ Sodium Chloride 281.6667 ml @ 46.944 m... ONCE ONCE IV 07/05/19 12:00 07/05/19 17:59 07/05/19 11:16 Quetiapine Fumarate (SEROqueL) 50 mg BEDTIME ORAL 07/05/19 21:00 08/04/19 20:59 Assessment/Plan Problem List: (1) Sepsis Assessment & Plan: Febrile, tachycardia, leukocytosis Labs reviewed Imaging reviewed Sepsis clear etiology unknown work-up initiated and pending results Micro reviewed Continue IV antibiotics Trend labs Tube feeds Fluids We will follow with recommendations ICD Codes: A41.9 - Sepsis, unspecified organism SNOMED: 72880731 (2) Respiratory distress ICD Codes: R06.03 - Acute respiratory distress SNOMED: 017113286 (3) Decubitus skin ulcer Assessment & Plan: Pt presented on admission with Non-blanching erythema sacrum ,R and L buttocks with multiple DTPI's within . DTPI noted to L buttocks. Base of wound is maroon with surrounding non- blanching erythema(L)2cm x (W)0.8cm. DTPI noted to Sacrococcygeal area. Base of wound is purple,fluctuant with marginal erythema, surrounding non- blanching erythema without induration.(L) 1.5cm x (W)0.5cm. DTPI noted to R buttocks. Base of wound is indurated maroon with surrounding non -blanching erythema. Scrotal sac is grossly erythematous. Single L testis in-situ. Small scar noted to base R sac. Both heels are boggy with non-blanching erythema. Tx.Plan: Apply Moisture Barrier Paste to Sacrum, R and L buttocks. Cover with Optifoam drsg. Change every 3 days and prn. Apply Moisture Barrier Paste to scrotum. Cover as needed with Optifoam drsg. Apply Cavilon Skin Barrier to both heels. Cover each heel with Optifoam drsg. Change every 7 days and prn. APM/DARREL mattress overlay. Reposition at least every 2hours or as tolerated. Off-load heels with pillow. ICD Codes: L89.90 - Pressure ulcer of unspecified site, unspecified stage SNOMED: 963361835 (4) Respiratory failure Assessment & Plan: DAILY ESTIMATED NEEDS: Needs based on Critical care, wounds, obese/ 92kg abw 20-25 kcals/kg 4276-5825 total kcals 1.25-2 g protein/kg 115-184 g total protein 25-30 mL/kg 9901-1025 total fluid mLs NUTRITION DIAGNOSIS: Swallowing difficulty R/T respiratory status as evidenced by pt orally intubated, on OGT feeding. CURRENT TF:Jevity 1.2 @ 30ml/hr x 24 hrs PO DIET RECOMMENDATIONS: SET UP [employer] eval post extubation -> LOW NA/ texture per SET UP [employer] ENTERAL NUTRITION RECOMMENDATIONS: Vital AF 1.2 @ 65ml/hr x 24 hrs to provide 1560ml, 1872kcal, 117g prot, 1265ml free water * Rec TF change to Vital AF for critical care -> initiate Vital AF 1.2 @ 15ml/hr x 6 hrs -> advance 10ml q 4-6 hrs as tolerated to goal rate. -> HOB over 30 degrees/ H20 flush per MD ADDITIONAL RECOMMENDATIONS: * Calibrated bedscale wt for accurate CBW- w/ added P200 mattress * Monitor lytes, replete as needed (low K + phos) * F/up WC eval: add Vit C 250mg QD Steve 1pkt BID via OGT * SET UP [employer] eval pot extubation ICD Codes: J96.90 - Respiratory failure, unspecified, unspecified whether with hypoxia or hypercapnia SNOMED: 975198773 Qualifiers: Qualified Codes: J96.02 - Acute respiratory failure with hypercapnia Raul Cornejo Jul 05, 2019 16:55
--- NOTE | 2019-07-05 17:15 | NUR ---
NURSE NOTES: Called Ultrasound if they can do US ABD tonight. No answer. Continue tube feeding. Will follow up.
--- NOTE | 2019-07-05 19:27 | NUR ---
HAND-OFF: Report given to COCO Andersen. Endorsed plan of care.
--- NOTE | 2019-07-05 19:30 | NUR ---
NURSE NOTES: Received pt in no acute distress. Asleep but tries to open eyes to pain; grimaces to painful stimuli. Restless legs; moves all extremities. Bilat soft wrist restraints continues. Remains orally intubated with fiO2. 30, sats 95%. Secretions via ETT thick tenacious, ruiz. Chest sounds with scattered rhonchi and diminished at bases. NSR, afebrile, BP stable. OGT in place, TF with Jevity 1.2 running at 30ml/h with 0 residuals. Pt obese, abdomen alrge but soft with hypoactive bowel sounds. No BM. FC patent. Saline lock on Right wrist area intact. PIV on L wrist area intact as well. Will continue to monitor for seizures, vital signs.
[2019-07-05] MEDS: Pantoprazole Inj IVP SCH (20:51)
--- NOTE | 2019-07-05 21:00 | NUR ---
NURSE NOTES: Started a new PIV site on LFA using g 20 angiocath. IV infused into this new site. Left wrist IV d'cd as it was leaking.
[2019-07-06] VITALS (24 sets, daily range): BP systolic 93–162; BP diastolic 48–99
--- NOTE | 2019-07-06 | NUR ---
NURSE NOTES: Remains asleep, calm. Legs restless, temp 99.1 axillary, fan on. Suctioned, repositioned. TF turned off. Pt now NPO for abd US in AM
--- NOTE | 2019-07-06 02:00 | NUR ---
NURSE NOTES: Secretions still thick, tenacious and large. Lavaged and suctioned by RT. Oral care done. Asleep. Initial restraints order initiated.
--- NOTE | 2019-07-06 04:00 | NUR ---
NURSE NOTES: Awake, restless and agitated. No BM. complete bed bath done. Sacral area intact, dry. PIV site on LFA patent. TF remains on hold. Afebrile, BP stable.
[2019-07-06 07:03] LABS: INR 1.1 (0.9-1.1)
--- NOTE | 2019-07-06 07:08 | NUR ---
HAND-OFF: Report given to Jessi SEPULVEDA.
--- NOTE | 2019-07-06 07:09 | NUR ---
NURSE NOTES: Report received from COCO Andersen. Received pt in no acute distress. Pt observed with eyes closed, opens eyes spontaneously and to physical stimuli. Restless legs; moves all extremities. Pt received and maintained on BL soft wrist restraints for safety. Remains orally intubated 7.5, 25cm @ the lip line, Settings: AC 18, TV 550, fiO2 30, PEEP 5; O2sat 96%. Secretions via ETT thick tenacious, ruiz. OGT in place, TF ordered to run with Jevity 1.2 at 30ml/hr; however currently on hold as pt is is scheduled for abd ultrasound today. Ramirez Catheter patent and draining benja colored urine to urometer. Saline lock on right and left wrist #20g, both saline locked. Lt FA #20g running D5 1/2 @75mL/hr. Pt maintained on seizure precautions. Bed locked and lowest position with call light within reach. Will continue to monitor.
--- NOTE | 2019-07-06 07:20 | Progress Note ---
DATE: 07/05/2019 SUBJECTIVE: The patient is in ICU. Able to answer the questions. No behavior issues noted. At this time, the patient is still a on due and waxing waning consciousness and restlessness. The patient has a tube feeding. Receiving medications via tube. MENTAL STATUS EXAMINATION: The patient has waxing and waning consciousness. Mood is anxious. Affect is flat. Thought process is concrete. Thought content, no suicidal or homicidal ideation. Cognition is impaired. Insight and judgment is impaired. ASSESSMENT: Schizophrenia disorder. PLAN: 1. We will continue current medications. 2. Provide the patient with reality orientation and supportive therapy. Lyaton Estrada M.D. DR: DANIEL JOB#: [id number] CC:
--- NOTE | 2019-07-06 07:20 | Progress Note ---
DATE: 07/05/2019 CARDIOLOGY PROGRESS NOTE SUBJECTIVE: The patient remains intubated orally and mechanically ventilated. He failed BiPAP yesterday with worsening respiratory acidosis. OBJECTIVE: VITAL SIGNS: Blood pressure 107/57, pulse 91, and respirations 18. Monitored rhythm sinus. LUNGS: Bilateral breath sounds. Rhonchi. HEART: Regular rhythm and rate. Normal S1, S2. ABDOMEN: Soft. EXTREMITIES: No edema. LABORATORY DATA: Urine culture, ESBL E. coli. Sodium 149, potassium 3.7, bicarb 28, BUN 52, and creatinine 2.1. Uric acid 12.6. Magnesium is 2.7. Phosphorus 2.1. White count 21 and hemoglobin 10.4. IMPRESSION: 1. Multidrug resistant ESBL E. coli. 2. Urinary tract infection. 3. Sepsis. 4. Shock. 5. Respiratory failure. 6. Acute respiratory acidosis. 7. Hypernatremia. 8. Dehydration. 9. Acute renal failure. 10. Hypophosphatemia. 11. Severe protein-calorie malnutrition. 12. Hyperuricemia. 13. Mild degenerative aortic valve disease. 14. Diastolic dysfunction with acute on chronic congestive heart failure. PLAN: 1. Hypotonic hydration. 2. Remain off pressors. 3. Phosphorus replacement. 4. Protein supplement. 5. Antimicrobials. 6. Respiratory hygiene. 7. Ventilator support weaning. 8. Remains critical and guarded. 9. DVT prophylaxis in place as well as intensive care unit protocols. Gregorio Cook M.D. DR: LUZMA JOB#: [id number] CC:
--- NOTE | 2019-07-06 07:24 | Pulmonology Progress Note ---
Assessment/Plan Assessment/Plan IMPRESSION: 1. Respiratory failure, acute 2. Sepsis, source unclear. Likely urinary 3. Altered mental status. 4. Psychiatric disorder. DISCUSSION: I will check ABG. IV fluids. DVT prophylaxis. Seen by ID, on antibiotics. I will follow carefully. Subjective Interval Events: NOne new Constitutional: Reports: no symptoms HEENT: Repors: no symptoms Respiratory: Reports: no symptoms Cardiovascular: Reports: no symptoms Allergies: Coded Allergies: PENICILLINS (Verified Allergy, Unknown, 07/03/19) Objective Last 24 Hour Vital Signs Date Time Temp Pulse Resp B/P (MAP) Pulse Ox O2 Delivery O2 Flow Rate FiO2 07/06/19 06:00 76 15 121/62 (81) 98 07/06/19 05:43 80 20 07/06/19 05:12 80 20 30 07/06/19 05:00 79 15 162/99 (120) 99 07/06/19 04:00 88 07/06/19 04:00 Endotracheal Tube 07/06/19 04:00 30 07/06/19 04:00 98.9 91 18 139/99 (112) 100 07/06/19 03:00 79 16 124/60 (81) 100 07/06/19 02:55 85 21 35 07/06/19 02:00 82 13 111/97 (102) 100 07/06/19 01:01 81 19 40 07/06/19 01:00 77 18 125/61 (82) 100 07/06/19 00:00 99.1 75 18 116/56 (76) 100 07/06/19 00:00 Endotracheal Tube 07/05/19 23:00 78 18 125/65 (85) 100 07/05/19 22:44 84 20 40 07/05/19 22:00 80 17 100/59 (73) 99 07/05/19 21:26 80 18 40 07/05/19 21:00 93 20 156/64 (94) 100 07/05/19 20:00 98.5 90 24 130/59 (82) 97 07/05/19 20:00 30 07/05/19 20:00 Endotracheal Tube 07/05/19 20:00 86 07/05/19 19:26 75 21 30 07/05/19 19:00 74 18 148/65 (92) 98 07/05/19 18:30 98.6 73 18 135/69 (91) 100 07/05/19 18:00 73 18 135/69 (91) 100 07/05/19 17:16 74 18 40 07/05/19 17:00 80 18 120/61 (80) 99 07/05/19 16:00 30 07/05/19 16:00 99.8 93 18 126/60 (82) 99 07/05/19 16:00 Endotracheal Tube 07/05/19 16:00 96 07/05/19 15:38 99.8 07/05/19 15:30 101.8 97 20 121/93 (102) 98 07/05/19 15:26 95 18 40 07/05/19 15:00 97 20 121/93 (102) 98 07/05/19 14:00 98 15 121/62 (81) 97 07/05/19 13:16 95 18 40 07/05/19 13:00 101 17 112/58 (76) 99 07/05/19 12:00 Endotracheal Tube 07/05/19 12:00 100.4 91 16 131/67 (88) 99 07/05/19 12:00 90 07/05/19 11:53 40 07/05/19 11:10 92 18 40 07/05/19 11:00 91 18 109/57 (74) 100 07/05/19 10:30 40 07/05/19 10:00 93 19 111/54 (73) 100 07/05/19 09:02 92 18 50 07/05/19 09:00 91 18 107/57 (74) 100 07/05/19 08:00 98.2 90 17 102/61 (75) 100 07/05/19 08:00 Endotracheal Tube 07/05/19 08:00 50 07/05/19 08:00 91 Intake and Output 07/05/19 07/06/19 19:00 07:00 Intake Total 1377.6667 ml 1000 ml Output Total 575 ml 520 ml Balance 802.6667 ml 480 ml Free Water 50 ml IV Total 1127.6667 ml 880 ml Tube Feeding 200 ml 120 ml Output Urine Total 575 ml 520 ml General Appearance: no acute distress HEENT: normocephalic Respiratory/Chest: chest wall non-tender Cardiovascular: normal peripheral pulses Abdomen: normal bowel sounds Microbiology Date/Time Source Procedure Growth Status 07/03/19 14:47 Blood Blood Culture - Preliminary NO GROWTH AFTER 48 HOURS Resulted 07/03/19 14:20 Blood Blood Culture - Preliminary NO GROWTH AFTER 48 HOURS Resulted 07/03/19 14:40 Nasal Nares - Final Complete 07/03/19 14:40 Nasal Nares - Final Complete 07/03/19 16:43 Urine,Clean Catch Urine Culture - Final Escherichia Coli - Esbl Complete 07/03/19 17:24 Rectum - Final NO CARBAPENEM-RESISTANT ENTEROBACTERI... Complete 07/03/19 17:24 Rectum VRE Culture - Final Enterococcus Faecalis - Vre Complete Laboratory Tests 07/05/19 08:43: Arterial Blood pH 7.446, Arterial Blood Partial Pressure CO2 42.9, Arterial Blood Partial Pressure O2 90.9, Arterial Blood HCO3 28.9H, Arterial Blood Oxygen Saturation 96.7, Arterial Blood Base Excess 4.4H, Claus Test Positive 07/05/19 14:40: Urine Eosinophils None seen 07/06/19 05:00: Urine Eosinophils [Pending] 07/06/19 05:30: White Blood Count [Pending], Red Blood Count [Pending], Hemoglobin [Pending], Hematocrit [Pending], Mean Corpuscular Volume [Pending], Mean Corpuscular Hemoglobin [Pending], Mean Corpuscular Hemoglobin Concent [Pending], Red Cell Distribution Width [Pending], Platelet Count [Pending], Mean Platelet Volume [ Pending], Neutrophils (%) (Auto) [Pending], Lymphocytes (%) (Auto) [Pending], Monocytes (%) (Auto) [Pending], Eosinophils (%) (Auto) [Pending], Basophils (%) (Auto) [Pending], Erythrocyte Sedimentation Rate [Pending], Prothrombin Time [ Pending], Prothromb Time International Ratio [Pending], Activated Partial Thromboplast Time [Pending], Sodium Level [Pending], Potassium Level [Pending], Chloride Level [Pending], Carbon Dioxide Level [Pending], Blood Urea Nitrogen [ Pending], Creatinine [Pending], Estimat Glomerular Filtration Rate [Pending], Glucose Level [Pending], Uric Acid [Pending], Calcium Level [Pending], Phosphorus Level [Pending], Magnesium Level [Pending], Total Bilirubin [Pending] , Aspartate Amino Transf (AST/SGOT) [Pending], Alanine Aminotransferase (ALT/ SGPT) [Pending], Alkaline Phosphatase [Pending], Troponin I [Pending], C- Reactive Protein, Quantitative [Pending], Pro-B-Type Natriuretic Peptide [ Pending], Total Protein [Pending], Albumin [Pending], Globulin [Pending], Amylase Level [Pending], Lipase [Pending] Current Medications Medications (Trade) Dose Ordered Sig/Samuel Route PRN Reason Start Time Stop Time Status Last Admin Dose Admin Acetaminophen (Tylenol) 650 mg Q6H PRN NG Mild Pain/Temp > 100.5 07/05/19 12:15 08/04/19 12:14 07/05/19 15:08 Allopurinol (allopurinoL) 300 mg DAILY ORAL 07/05/19 09:00 08/04/19 08:59 07/05/19 08:08 Ascorbic Acid (Vitamin C) 250 mg DAILY ORAL 07/06/19 09:00 08/05/19 08:59 Dextrose/Sodium Chloride 1,000 ml @ 75 mls/hr [id number] IV 07/05/19 10:30 08/03/19 10:29 07/05/19 20:53 Heparin Sodium (Porcine) (Heparin 5000 units/ml) 5,000 units EVERY 12 HOURS SUBQ 07/04/19 21:00 08/03/19 20:59 07/05/19 20:52 Meropenem 1 gm/ Sodium Chloride 55 ml @ 110 mls/hr Q12H IVPB 07/05/19 11:00 07/10/19 10:59 07/05/19 23:01 Pantoprazole (Protonix) 40 mg Q12HR IVP 07/05/19 21:00 08/04/19 08:59 07/05/19 20:51 Quetiapine Fumarate (SEROqueL) 50 mg BEDTIME ORAL 07/05/19 21:00 08/04/19 20:59 Pramod Panchal MD Jul 06, 2019 07:24
[2019-07-06 07:28] LABS: AMYLASE 42 U/L (25-115)
[2019-07-06 07:33] LABS: ALANINE AMINOTRANSFERASE 24 U/L (12-78); ALBUMIN 1.9 G/DL (3.4-5.0); ALBUMIN/GLOBULIN RATIO 0.3 (1.0-2.7); ALKALINE PHOSPHATASE 86 U/L (46-116); ANION GAP 8 mmol/L (5-15); ASPARTATE AMINO TRANSFERASE 74 U/L (15-37); BILIRUBIN,TOTAL 0.2 MG/DL (0.2-1.0); BLOOD UREA NITROGEN 46 mg/dL (7-18); CALCIUM 8.5 MG/DL (8.5-10.1); CARBON DIOXIDE 32 MMOL/L (21-32); CHLORIDE 112 MMOL/L (98-107); CREATININE 1.6 MG/DL (0.55-1.30); PHOSPHORUS 2.4 MG/DL (2.5-4.9); POTASSIUM 3.1 MMOL/L (3.5-5.1); SODIUM 152 MMOL/L (136-145)
[2019-07-06 07:41] LABS: HEMATOCRIT 31.5 % (42.0-52.0); HEMOGLOBIN 10.2 G/DL (14.2-18.0); MEAN CORPUSCULAR VOLUME 86 FL (80-99); PLATELET COUNT 233 K/UL (150-450); RED BLOOD COUNT 3.67 M/UL (4.70-6.10); RED CELL DISTRIBUTION WIDTH 15.4 % (11.6-14.8); WHITE BLOOD COUNT 19.8 K/UL (4.8-10.8)
--- NOTE | 2019-07-06 08:41 | Infectious Diseases Prog Note ---
Assessment/Plan Assessment/Plan IMPRESSION: Sepsis, improving leukocytosis. UTI with E coli ESBL Hypercapnic respiratory failure acute renal failure, improving Metabolic encephalopathy. schizoaffective disorder, allergic rhinitis, gastroesophageal reflux disease epilepsy. 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 RECOMMENDATION: Continue Meropenem Will f/u cultures Subjective ROS Limited/Unobtainable: Yes Constitutional: Reports: other - had fever yesterday, no fever today Neurologic: Reports: confusion, other Allergies: Coded Allergies: PENICILLINS (Verified Allergy, Unknown, 07/03/19) Objective Vital Signs Last 24 Hour Vital Signs Date Time Temp Pulse Resp B/P (MAP) Pulse Ox O2 Delivery O2 Flow Rate FiO2 07/06/19 08:00 Endotracheal Tube 07/06/19 08:00 30 07/06/19 07:00 75 18 101/50 (67) 95 07/06/19 06:00 76 15 121/62 (81) 98 07/06/19 05:43 80 20 07/06/19 05:12 80 20 30 07/06/19 05:00 79 15 162/99 (120) 99 07/06/19 04:00 88 07/06/19 04:00 Endotracheal Tube 07/06/19 04:00 30 07/06/19 04:00 98.9 91 18 139/99 (112) 100 07/06/19 03:00 79 16 124/60 (81) 100 07/06/19 02:55 85 21 35 07/06/19 02:00 82 13 111/97 (102) 100 07/06/19 01:01 81 19 40 07/06/19 01:00 77 18 125/61 (82) 100 07/06/19 00:00 99.1 75 18 116/56 (76) 100 07/06/19 00:00 Endotracheal Tube 07/05/19 23:00 78 18 125/65 (85) 100 07/05/19 22:44 84 20 40 07/05/19 22:00 80 17 100/59 (73) 99 07/05/19 21:26 80 18 40 07/05/19 21:00 93 20 156/64 (94) 100 07/05/19 20:00 98.5 90 24 130/59 (82) 97 07/05/19 20:00 30 07/05/19 20:00 Endotracheal Tube 07/05/19 20:00 86 07/05/19 19:26 75 21 30 07/05/19 19:00 74 18 148/65 (92) 98 07/05/19 18:30 98.6 73 18 135/69 (91) 100 07/05/19 18:00 73 18 135/69 (91) 100 07/05/19 17:16 74 18 40 07/05/19 17:00 80 18 120/61 (80) 99 07/05/19 16:00 30 07/05/19 16:00 99.8 93 18 126/60 (82) 99 07/05/19 16:00 Endotracheal Tube 07/05/19 16:00 96 07/05/19 15:38 99.8 07/05/19 15:30 101.8 97 20 121/93 (102) 98 07/05/19 15:26 95 18 40 07/05/19 15:00 97 20 121/93 (102) 98 07/05/19 14:00 98 15 121/62 (81) 97 07/05/19 13:16 95 18 40 07/05/19 13:00 101 17 112/58 (76) 99 07/05/19 12:00 Endotracheal Tube 07/05/19 12:00 100.4 91 16 131/67 (88) 99 07/05/19 12:00 90 07/05/19 11:53 40 07/05/19 11:10 92 18 40 07/05/19 11:00 91 18 109/57 (74) 100 07/05/19 10:30 40 07/05/19 10:00 93 19 111/54 (73) 100 07/05/19 09:02 92 18 50 07/05/19 09:00 91 18 107/57 (74) 100 Height (Feet): 6 Height (Inches): 2.00 Weight (Pounds): 244 HEENT: mucous membranes moist, other - orally intubated Respiratory/Chest: lungs clear, other - on ventilator Cardiovascular: normal rate Abdomen: soft, non tender Extremities: other - edema of arms Neurologic/Psychiatric: unresponsiveness Microbiology Date/Time Source Procedure Growth Status 07/03/19 14:47 Blood Blood Culture - Preliminary NO GROWTH AFTER 48 HOURS Resulted 07/03/19 14:20 Blood Blood Culture - Preliminary NO GROWTH AFTER 48 HOURS Resulted 07/03/19 14:40 Nasal Nares - Final Complete 07/03/19 14:40 Nasal Nares - Final Complete 07/03/19 16:43 Urine,Clean Catch Urine Culture - Final Escherichia Coli - Esbl Complete 07/03/19 17:24 Rectum - Final NO CARBAPENEM-RESISTANT ENTEROBACTERI... Complete 07/03/19 17:24 Rectum VRE Culture - Final Enterococcus Faecalis - Vre Complete Laboratory Tests Test 07/05/19 08:43 07/05/19 14:40 07/06/19 05:00 07/06/19 05:30 Arterial Blood pH 7.446 (7.350-7.450) Arterial Blood Partial Pressure CO2 42.9 mmHg (35.0-45.0) Arterial Blood Partial Pressure O2 90.9 mmHg (75.0-100.0) Arterial Blood HCO3 28.9 mmol/L (22.0-26.0) H Arterial Blood Oxygen Saturation 96.7 % (95-100) Arterial Blood Base Excess 4.4 (-2-2) H Claus Test Positive Urine Eosinophils None seen (NONE SEEN) Pending White Blood Count 19.8 K/UL (4.8-10.8) H Red Blood Count 3.67 M/UL (4.70-6.10) L Hemoglobin 10.2 G/DL (14.2-18.0) L Hematocrit 31.5 % (42.0-52.0) L Mean Corpuscular Volume 86 FL (80-99) Mean Corpuscular Hemoglobin 27.9 PG (27.0-31.0) Mean Corpuscular Hemoglobin Concent 32.5 G/DL (32.0-36.0) Red Cell Distribution Width 15.4 % (11.6-14.8) H Platelet Count 233 K/UL (150-450) Mean Platelet Volume 6.8 FL (6.5-10.1) Neutrophils (%) (Auto) % (45.0-75.0) Lymphocytes (%) (Auto) % (20.0-45.0) Monocytes (%) (Auto) % (1.0-10.0) Eosinophils (%) (Auto) % (0.0-3.0) Basophils (%) (Auto) % (0.0-2.0) Neutrophils % (Manual) Pending Lymphocytes % (Manual) Pending Platelet Estimate Pending Platelet Morphology Pending Erythrocyte Sedimentation Rate Pending Prothrombin Time 11.5 SEC (9.30-11.50) Prothromb Time International Ratio 1.1 (0.9-1.1) Activated Partial Thromboplast Time 28 SEC (23-33) Sodium Level 152 MMOL/L (136-145) H Potassium Level 3.1 MMOL/L (3.5-5.1) L Chloride Level 112 MMOL/L (98-107) H Carbon Dioxide Level 32 MMOL/L (21-32) Anion Gap 8 mmol/L (5-15) Blood Urea Nitrogen 46 mg/dL (7-18) H Creatinine 1.6 MG/DL (0.55-1.30) H Estimat Glomerular Filtration Rate 44.0 mL/min (>60) Glucose Level 103 MG/DL (74-106) Uric Acid 10.7 MG/DL (2.6-7.2) H Calcium Level 8.5 MG/DL (8.5-10.1) Phosphorus Level 2.4 MG/DL (2.5-4.9) L Magnesium Level 2.7 MG/DL (1.8-2.4) H Total Bilirubin 0.2 MG/DL (0.2-1.0) Aspartate Amino Transf (AST/SGOT) 74 U/L (15-37) H Alanine Aminotransferase (ALT/SGPT) 24 U/L (12-78) Alkaline Phosphatase 86 U/L (46-116) Troponin I 0.114 ng/mL (0.000-0.056) C-Reactive Protein, Quantitative > 70.0 mg/dL (0.00-0.90) H Pro-B-Type Natriuretic Peptide Pending Total Protein 8.3 G/DL (6.4-8.2) H Albumin 1.9 G/DL (3.4-5.0) L Globulin 6.4 g/dL Albumin/Globulin Ratio 0.3 (1.0-2.7) L Amylase Level 42 U/L (25-115) Lipase 140 U/L (73-393) Current Medications Medications (Trade) Dose Ordered Sig/Samuel Route PRN Reason Start Time Stop Time Status Last Admin Dose Admin Acetaminophen (Tylenol) 650 mg Q6H PRN NG Mild Pain/Temp > 100.5 07/05/19 12:15 08/04/19 12:14 07/05/19 15:08 Allopurinol (allopurinoL) 300 mg DAILY ORAL 07/05/19 09:00 08/04/19 08:59 07/05/19 08:08 Ascorbic Acid (Vitamin C) 250 mg DAILY ORAL 07/06/19 09:00 08/05/19 08:59 Dextrose/Sodium Chloride 1,000 ml @ 75 mls/hr [id number] IV 07/05/19 10:30 08/03/19 10:29 07/05/19 20:53 Heparin Sodium (Porcine) (Heparin 5000 units/ml) 5,000 units EVERY 12 HOURS SUBQ 07/04/19 21:00 08/03/19 20:59 07/05/19 20:52 Lorazepam (Ativan 2mg/ml 1ml) 1 mg Q4H PRN IV For Anxiety 07/06/19 08:15 07/13/19 08:14 Meropenem 1 gm/ Sodium Chloride 55 ml @ 110 mls/hr Q12H IVPB 07/05/19 11:00 07/10/19 10:59 07/05/19 23:01 Pantoprazole (Protonix) 40 mg Q12HR IVP 07/05/19 21:00 08/04/19 08:59 07/05/19 20:51 Quetiapine Fumarate (SEROqueL) 50 mg BEDTIME ORAL 07/05/19 21:00 08/04/19 20:59 Ang Blackwood MD Jul 06, 2019 08:41
[2019-07-06] MEDS: Ascorbic Acid 500mg tab ORAL SCH (09:06)
[2019-07-06] MEDS: Pantoprazole Inj IVP SCH ×2 (09:06→20:36)
[2019-07-06] MEDS: LORazepam Inj 2mg/ml 1ml IV PRN ×2 (09:06→15:24)
[2019-07-06] MEDS: Heparin 5000 units/ml inj SUBQ SCH ×2 (09:08→20:37)
--- NOTE | 2019-07-06 09:15 | NUR ---
NURSE NOTES: Abdominal ultrasound completed by US tech. Ativan 1MG given for anxiety and agitation, restlessness and fighting the vent. TF restarted Jevity @ 30mL/hr, no residual noted. Pt repositioned and oral care completed.
--- NOTE | 2019-07-06 09:26 | Nephrology Progress Note ---
Assessment/Plan Problem List: (1) Renal failure (ARF), acute on chronic (2) Respiratory distress Assessment: Co2 retainer (3) UTI (urinary tract infection) (4) Respiratory failure (5) Sepsis Assessment Renal failure ? Chronic ? superimposed acute Acute on Chronic respiratory failure Co2 retention HyperKalemia HypoAlbuminemia Obese UTI / Leukocytosis Plan change IV to D5 K supplement nitro for elevated troponin smith slow hydrate optimize pulmonary status monitor renal parameters avoid nephrotoxics 2D echo - 65% Ej Fx per orders Subjective ROS Limited/Unobtainable: Yes Objective Objective Last 24 Hour Vital Signs Date Time Temp Pulse Resp B/P (MAP) Pulse Ox O2 Delivery O2 Flow Rate FiO2 07/06/19 09:17 84 18 30 07/06/19 08:00 Endotracheal Tube 07/06/19 08:00 30 07/06/19 07:00 75 18 101/50 (67) 95 07/06/19 06:52 86 20 30 07/06/19 06:00 76 15 121/62 (81) 98 07/06/19 05:43 80 20 07/06/19 05:12 80 20 30 07/06/19 05:00 79 15 162/99 (120) 99 07/06/19 04:00 88 07/06/19 04:00 Endotracheal Tube 07/06/19 04:00 30 07/06/19 04:00 98.9 91 18 139/99 (112) 100 07/06/19 03:00 79 16 124/60 (81) 100 07/06/19 02:55 85 21 35 07/06/19 02:00 82 13 111/97 (102) 100 07/06/19 01:01 81 19 40 07/06/19 01:00 77 18 125/61 (82) 100 07/06/19 00:00 99.1 75 18 116/56 (76) 100 07/06/19 00:00 Endotracheal Tube 07/05/19 23:00 78 18 125/65 (85) 100 07/05/19 22:44 84 20 40 07/05/19 22:00 80 17 100/59 (73) 99 07/05/19 21:26 80 18 40 07/05/19 21:00 93 20 156/64 (94) 100 07/05/19 20:00 98.5 90 24 130/59 (82) 97 07/05/19 20:00 30 07/05/19 20:00 Endotracheal Tube 07/05/19 20:00 86 07/05/19 19:26 75 21 30 07/05/19 19:00 74 18 148/65 (92) 98 07/05/19 18:30 98.6 73 18 135/69 (91) 100 07/05/19 18:00 73 18 135/69 (91) 100 07/05/19 17:16 74 18 40 07/05/19 17:00 80 18 120/61 (80) 99 07/05/19 16:00 30 07/05/19 16:00 99.8 93 18 126/60 (82) 99 07/05/19 16:00 Endotracheal Tube 07/05/19 16:00 96 07/05/19 15:38 99.8 07/05/19 15:30 101.8 97 20 121/93 (102) 98 07/05/19 15:26 95 18 40 07/05/19 15:00 97 20 121/93 (102) 98 07/05/19 14:00 98 15 121/62 (81) 97 07/05/19 13:16 95 18 40 07/05/19 13:00 101 17 112/58 (76) 99 07/05/19 12:00 Endotracheal Tube 07/05/19 12:00 100.4 91 16 131/67 (88) 99 07/05/19 12:00 90 07/05/19 11:53 40 07/05/19 11:10 92 18 40 07/05/19 11:00 91 18 109/57 (74) 100 07/05/19 10:30 40 07/05/19 10:00 93 19 111/54 (73) 100 Intake and Output 07/05/19 07/06/19 19:00 07:00 Intake Total 1377.6667 ml 1075 ml Output Total 575 ml 685 ml Balance 802.6667 ml 390 ml Free Water 50 ml IV Total 1127.6667 ml 955 ml Tube Feeding 200 ml 120 ml Output Urine Total 575 ml 685 ml Current Medications Medications (Trade) Dose Ordered Sig/Samuel Route PRN Reason Start Time Stop Time Status Last Admin Dose Admin Acetaminophen (Tylenol) 650 mg Q6H PRN NG Mild Pain/Temp > 100.5 07/05/19 12:15 08/04/19 12:14 07/05/19 15:08 Allopurinol (allopurinoL) 300 mg DAILY ORAL 07/05/19 09:00 08/04/19 08:59 07/06/19 09:06 Ascorbic Acid (Vitamin C) 250 mg DAILY ORAL 07/06/19 09:00 08/05/19 08:59 07/06/19 09:06 Dextrose 1,000 ml @ 75 mls/hr [id number] IV 07/06/19 08:45 08/05/19 08:44 07/06/19 09:09 Heparin Sodium (Porcine) (Heparin 5000 units/ml) 5,000 units EVERY 12 HOURS SUBQ 07/04/19 21:00 08/03/19 20:59 07/06/19 09:08 Lorazepam (Ativan 2mg/ml 1ml) 1 mg Q4H PRN IV For Anxiety 07/06/19 08:15 07/13/19 08:14 07/06/19 09:06 Meropenem 1 gm/ Sodium Chloride 55 ml @ 110 mls/hr Q12H IVPB 07/05/19 11:00 07/10/19 10:59 07/05/19 23:01 Pantoprazole (Protonix) 40 mg Q12HR IVP 07/05/19 21:00 08/04/19 08:59 07/06/19 09:06 Potassium Chloride 100 ml @ 100 mls/hr Q1HR IVPB 07/06/19 10:00 07/06/19 12:59 07/06/19 09:07 Quetiapine Fumarate (SEROqueL) 50 mg BEDTIME ORAL 07/05/19 21:00 08/04/19 20:59 Laboratory Tests 07/05/19 14:40: Urine Eosinophils None seen 07/06/19 05:00: Urine Eosinophils [Pending] 07/06/19 05:30: White Blood Count 19.8H, Red Blood Count 3.67L, Hemoglobin 10.2L, Hematocrit 31.5L, Mean Corpuscular Volume 86, Mean Corpuscular Hemoglobin 27.9, Mean Corpuscular Hemoglobin Concent 32.5, Red Cell Distribution Width 15.4H, Platelet Count 233, Mean Platelet Volume 6.8, Neutrophils (%) (Auto) , Lymphocytes (%) (Auto) , Monocytes (%) (Auto) , Eosinophils (%) (Auto) , Basophils (%) (Auto) , Neutrophils % (Manual) [Pending], Lymphocytes % (Manual) [Pending], Platelet Estimate [Pending], Platelet Morphology [Pending], Erythrocyte Sedimentation Rate [Pending], Prothrombin Time 11.5, Prothromb Time International Ratio 1.1, Activated Partial Thromboplast Time 28, Sodium Level 152H, Potassium Level 3.1L, Chloride Level 112H, Carbon Dioxide Level 32, Anion Gap 8, Blood Urea Nitrogen 46H, Creatinine 1.6H, Estimat Glomerular Filtration Rate 44.0, Glucose Level 103, Uric Acid 10.7H, Calcium Level 8.5, Phosphorus Level 2.4L, Magnesium Level 2.7H, Total Bilirubin 0.2, Aspartate Amino Transf ( AST/SGOT) 74H, Alanine Aminotransferase (ALT/SGPT) 24, Alkaline Phosphatase 86, Troponin I 0.114H, C-Reactive Protein, Quantitative > 70.0H, Pro-B-Type Natriuretic Peptide [Pending], Total Protein 8.3H, Albumin 1.9L, Globulin 6.4, Albumin/Globulin Ratio 0.3L, Amylase Level 42, Lipase 140 Height (Feet): 6 Height (Inches): 2.00 Weight (Pounds): 244 General Appearance: mild distress EENT: other - vented Cardiovascular: normal rate Respiratory/Chest: decreased breath sounds Abdomen: distended Will Groves MD Jul 06, 2019 09:26
--- NOTE | 2019-07-06 09:53 | NUR ---
RADIOLOGY DEPT., CHEST X-RAY DONE.-P.DYE
[2019-07-06] MEDS: Nitroglycerin Patch 0.4mg TDERMAL SCH (09:57)
--- NOTE | 2019-07-06 10:00 | NUR ---
NURSE NOTES: Dr Panchal made aware of ABG results. Vent setting changed to AC 14, TV 550, fiO2 40%, PEEP 5.
[2019-07-06] MEDS: Meropenem 1 GM in NS 55 ML IVPB SCH (10:28)
--- NOTE | 2019-07-06 12:00 | NUR ---
NURSE NOTES: Pt notably calmer and less restless. Pt repositioned and oral care completed. No distress noted at this time.
--- NOTE | 2019-07-06 12:32 | Diagnostic Imaging Report ---
Indication: Abnormal liver function tests, abnormal renal function tests, abnormal white blood cell count Technique: Martinez-scale and duplex images of the upper abdomen were obtained Comparison: none Findings: Gallbladder demonstrates sludge. No gallstones, wall thickening, nor pericholecystic fluid. Patient is uncommunicative, unable to report Riddle's sign. Common bile duct measures 3 mm in diameter. No intrahepatic biliary ductal dilatation. Liver demonstrates normal echogenicity, no focal abnormality. Portal vein and hepatic veins are patent. Pancreas is unremarkable. Spleen is unremarkable. Left kidney measures 12.5 cm in length. Right kidney measures 12.6 cm length. Both kidneys demonstrate normal echogenicity. Both kidneys demonstrate fullness to the collecting systems, slightly greater on the left than on the right, although no maki hydronephrosis. No focal abnormality . Bladder is empty, contains a Ramirez catheter. Non-aneurysmal abdominal aorta . Impression: Nonspecific bilateral renal collecting system fullness without maki hydronephrosis. Gallbladder sludge. Negative for gallstones or dilated bile ducts Empty bladder with a Ramirez catheter
--- NOTE | 2019-07-06 12:32 | Diagnostic Imaging Report ---
Indication: Dyspnea Technique: One view of the chest Comparison: 07/04/2019 Findings: Stable satisfactory positions of endotracheal and nasogastric tubes. There is interim increase in left pleural fluid. Patchy parenchymal opacity in the left perihilar region has increased. Nonspecific interstitial disease on the right appears unchanged Impression: Increasing left pleural fluid and left midlung parenchymal infiltrate, over 2 days
[2019-07-06] MEDS ORDERED: D5 1/2NS 1000ml IV ONE ×2 (14:27→14:33)
[2019-07-06] MEDS ORDERED: Tubing IV Secondary IV ONE ×2 (14:27→14:33)
[2019-07-06] MEDS ORDERED: NS 275ml ONE ×2 (14:27→14:33)
--- NOTE | 2019-07-06 15:00 | NUR ---
NURSE NOTES: Pt observed laying in bed, no acute distress noted. Pt repositioned and oral care performed. Will continue to monitor.
--- NOTE | 2019-07-06 15:24 | NUR ---
NURSE NOTES: Pt became increasingly anxious and restless. Ativan 1MG given. VSS. Will monitor.
--- NOTE | 2019-07-06 15:57 | Surgery Progress Note ---
Surgery Progress Note Subjective Additional Comments ill appearing in ICU on support labs reviewed leukocytosis crp / esr elevated US noted Objective Last 24 Hour Vital Signs Date Time Temp Pulse Resp B/P (MAP) Pulse Ox O2 Delivery O2 Flow Rate FiO2 07/06/19 15:00 83 19 105/55 (72) 98 07/06/19 14:00 83 20 116/65 (82) 98 07/06/19 13:00 79 15 104/55 (71) 98 07/06/19 12:42 79 07/06/19 12:00 40 07/06/19 12:00 98.7 79 14 99/61 (74) 97 07/06/19 12:00 Endotracheal Tube 07/06/19 11:00 71 14 110/55 (73) 99 07/06/19 10:30 71 14 40 07/06/19 10:00 67 18 112/64 (80) 99 07/06/19 10:00 40 07/06/19 09:57 133/93 07/06/19 09:17 84 18 40 07/06/19 09:00 80 20 133/93 (106) 92 07/06/19 08:00 Endotracheal Tube 07/06/19 08:00 30 07/06/19 08:00 99.3 73 19 118/66 (83) 98 07/06/19 08:00 73 07/06/19 07:00 75 18 101/50 (67) 95 07/06/19 06:52 86 20 30 07/06/19 06:00 76 15 121/62 (81) 98 07/06/19 05:43 80 20 07/06/19 05:12 80 20 30 07/06/19 05:00 79 15 162/99 (120) 99 07/06/19 04:00 88 07/06/19 04:00 Endotracheal Tube 07/06/19 04:00 30 07/06/19 04:00 98.9 91 18 139/99 (112) 100 07/06/19 03:00 79 16 124/60 (81) 100 07/06/19 02:55 85 21 35 07/06/19 02:00 82 13 111/97 (102) 100 07/06/19 01:01 81 19 40 07/06/19 01:00 77 18 125/61 (82) 100 07/06/19 00:00 99.1 75 18 116/56 (76) 100 07/06/19 00:00 Endotracheal Tube 07/05/19 23:00 78 18 125/65 (85) 100 07/05/19 22:44 84 20 40 07/05/19 22:00 80 17 100/59 (73) 99 07/05/19 21:26 80 18 40 07/05/19 21:00 93 20 156/64 (94) 100 07/05/19 20:00 98.5 90 24 130/59 (82) 97 07/05/19 20:00 30 07/05/19 20:00 Endotracheal Tube 07/05/19 20:00 86 07/05/19 19:26 75 21 30 07/05/19 19:00 74 18 148/65 (92) 98 07/05/19 18:30 98.6 73 18 135/69 (91) 100 07/05/19 18:00 73 18 135/69 (91) 100 07/05/19 17:16 74 18 40 07/05/19 17:00 80 18 120/61 (80) 99 07/05/19 16:00 30 07/05/19 16:00 99.8 93 18 126/60 (82) 99 07/05/19 16:00 Endotracheal Tube 07/05/19 16:00 96 I&O Intake and Output 07/05/19 07/06/19 19:00 07:00 Intake Total 1377.6667 ml 1075 ml Output Total 575 ml 685 ml Balance 802.6667 ml 390 ml Free Water 50 ml IV Total 1127.6667 ml 955 ml Tube Feeding 200 ml 120 ml Output Urine Total 575 ml 685 ml Dressing: other Wound: other Drains: other Cardiovascular: RSR Respiratory: decreased breath sounds Abdomen: soft, present bowel sounds Extremities: no cyanosis Laboratory Tests Test 07/06/19 05:00 07/06/19 05:30 07/06/19 09:04 Urine Eosinophils None seen (NONE SEEN) White Blood Count 19.8 K/UL (4.8-10.8) H Red Blood Count 3.67 M/UL (4.70-6.10) L Hemoglobin 10.2 G/DL (14.2-18.0) L Hematocrit 31.5 % (42.0-52.0) L Mean Corpuscular Volume 86 FL (80-99) Mean Corpuscular Hemoglobin 27.9 PG (27.0-31.0) Mean Corpuscular Hemoglobin Concent 32.5 G/DL (32.0-36.0) Red Cell Distribution Width 15.4 % (11.6-14.8) H Platelet Count 233 K/UL (150-450) Mean Platelet Volume 6.8 FL (6.5-10.1) Neutrophils (%) (Auto) % (45.0-75.0) Lymphocytes (%) (Auto) % (20.0-45.0) Monocytes (%) (Auto) % (1.0-10.0) Eosinophils (%) (Auto) % (0.0-3.0) Basophils (%) (Auto) % (0.0-2.0) Differential Total Cells Counted 100 Neutrophils % (Manual) 84 % (45-75) H Lymphocytes % (Manual) 7 % (20-45) L Monocytes % (Manual) 7 % (1-10) Eosinophils % (Manual) 1 % (0-3) Basophils % (Manual) 1 % (0-2) Band Neutrophils 0 % (0-8) Platelet Estimate Adequate Platelet Morphology Normal Hypochromasia 1+ Anisocytosis 1+ Erythrocyte Sedimentation Rate 112 MM/HR (0-20) H Prothrombin Time 11.5 SEC (9.30-11.50) Prothromb Time International Ratio 1.1 (0.9-1.1) Activated Partial Thromboplast Time 28 SEC (23-33) Sodium Level 152 MMOL/L (136-145) H Potassium Level 3.1 MMOL/L (3.5-5.1) L Chloride Level 112 MMOL/L (98-107) H Carbon Dioxide Level 32 MMOL/L (21-32) Anion Gap 8 mmol/L (5-15) Blood Urea Nitrogen 46 mg/dL (7-18) H Creatinine 1.6 MG/DL (0.55-1.30) H Estimat Glomerular Filtration Rate 44.0 mL/min (>60) Glucose Level 103 MG/DL (74-106) Uric Acid 10.7 MG/DL (2.6-7.2) H Calcium Level 8.5 MG/DL (8.5-10.1) Phosphorus Level 2.4 MG/DL (2.5-4.9) L Magnesium Level 2.7 MG/DL (1.8-2.4) H Total Bilirubin 0.2 MG/DL (0.2-1.0) Aspartate Amino Transf (AST/SGOT) 74 U/L (15-37) H Alanine Aminotransferase (ALT/SGPT) 24 U/L (12-78) Alkaline Phosphatase 86 U/L (46-116) Troponin I 0.114 ng/mL (0.000-0.056) C-Reactive Protein, Quantitative > 70.0 mg/dL (0.00-0.90) H Pro-B-Type Natriuretic Peptide Pending Total Protein 8.3 G/DL (6.4-8.2) H Albumin 1.9 G/DL (3.4-5.0) L Globulin 6.4 g/dL Albumin/Globulin Ratio 0.3 (1.0-2.7) L Amylase Level 42 U/L (25-115) Lipase 140 U/L (73-393) Arterial Blood pH 7.426 (7.350-7.450) Arterial Blood Partial Pressure CO2 46.5 mmHg (35.0-45.0) H Arterial Blood Partial Pressure O2 70.6 mmHg (75.0-100.0) L Arterial Blood HCO3 29.9 mmol/L (22.0-26.0) H Arterial Blood Oxygen Saturation 93.7 % (95-100) L Arterial Blood Base Excess 4.9 (-2-2) H Claus Test Positive Plan Problems: (1) Sepsis Assessment & Plan: Febrile, tachycardia, leukocytosis Labs reviewed Imaging reviewed Sepsis clear etiology unknown work-up initiated and pending results Micro reviewed Continue IV antibiotics Trend labs Tube feeds Fluids We will follow with recommendations Findings: Gallbladder demonstrates sludge. No gallstones, wall thickening, nor pericholecystic fluid. Patient is uncommunicative, unable to report Riddle's sign. Common bile duct measures 3 mm in diameter. No intrahepatic biliary ductal dilatation. Liver demonstrates normal echogenicity, no focal abnormality. Portal vein and hepatic veins are patent. Pancreas is unremarkable. Spleen is unremarkable. Left kidney measures 12.5 cm in length. Right kidney measures 12.6 cm length. Both kidneys demonstrate normal echogenicity. Both kidneys demonstrate fullness to the collecting systems, slightly greater on the left than on the right, although no maki hydronephrosis. No focal abnormality . Bladder is empty, contains a Ramirez catheter. Non-aneurysmal abdominal aorta . Impression: Nonspecific bilateral renal collecting system fullness without maki hydronephrosis. Gallbladder sludge. Negative for gallstones or dilated bile ducts Empty bladder with a Ramirez catheter (2) Respiratory distress (3) Decubitus skin ulcer Assessment & Plan: Pt presented on admission with Non-blanching erythema sacrum ,R and L buttocks with multiple DTPI's within . DTPI noted to L buttocks. Base of wound is maroon with surrounding non- blanching erythema(L)2cm x (W)0.8cm. DTPI noted to Sacrococcygeal area. Base of wound is purple,fluctuant with marginal erythema, surrounding non- blanching erythema without induration.(L) 1.5cm x (W)0.5cm. DTPI noted to R buttocks. Base of wound is indurated maroon with surrounding non -blanching erythema. Scrotal sac is grossly erythematous. Single L testis in-situ. Small scar noted to base R sac. Both heels are boggy with non-blanching erythema. Tx.Plan: Apply Moisture Barrier Paste to Sacrum, R and L buttocks. Cover with Optifoam drsg. Change every 3 days and prn. Apply Moisture Barrier Paste to scrotum. Cover as needed with Optifoam drsg. Apply Cavilon Skin Barrier to both heels. Cover each heel with Optifoam drsg. Change every 7 days and prn. APM/DARREL mattress overlay. Reposition at least every 2hours or as tolerated. Off-load heels with pillow. (4) Respiratory failure Assessment & Plan: DAILY ESTIMATED NEEDS: Needs based on Critical care, wounds, obese/ 92kg abw 20-25 kcals/kg [id number] total kcals 1.25-2 g protein/kg 115-184 g total protein 25-30 mL/kg 7404-6334 total fluid mLs NUTRITION DIAGNOSIS: Swallowing difficulty R/T respiratory status as evidenced by pt orally intubated, on OGT feeding. CURRENT TF:Jevity 1.2 @ 30ml/hr x 24 hrs PO DIET RECOMMENDATIONS: GEOPHYSICIST eval post extubation -> LOW NA/ texture per GEOPHYSICIST ENTERAL NUTRITION RECOMMENDATIONS: Vital AF 1.2 @ 65ml/hr x 24 hrs to provide 1560ml, 1872kcal, 117g prot, 1265ml free water * Rec TF change to Vital AF for critical care -> initiate Vital AF 1.2 @ 15ml/hr x 6 hrs -> advance 10ml q 4-6 hrs as tolerated to goal rate. -> HOB over 30 degrees/ H20 flush per MD ADDITIONAL RECOMMENDATIONS: * Calibrated bedscale wt for accurate CBW- w/ added P200 mattress * Monitor lytes, replete as needed (low K + phos) * F/up WC eval: add Vit C 250mg QD Steve 1pkt BID via OGT * GEOPHYSICIST eval pot extubation Raul Cornejo Jul 06, 2019 15:57
--- NOTE | 2019-07-06 16:41 | NUR ---
*-* INSURANCE *-* ALL AVAILABLE CLINICALS HAVE BEEN FAXED TO: [facility]#[id number] CM: ALEN # [phone] FAX# [phone] REVIEWS/CLINICALS
--- NOTE | 2019-07-06 17:42 | NUR ---
NURSE NOTES: Pt is calm, observed laying in bed with his eyes closed, less restless. Pt fully cleaned, repositioned, and oral care performed.
--- NOTE | 2019-07-06 19:31 | NUR ---
HAND-OFF: Report given to [facility] Eas[facility].
--- NOTE | 2019-07-06 19:35 | NUR ---
NURSE NOTES: Received patient and report from [facility] Bowen. Pt's in no acute distress, afebrile, asleep but tries to open eyes to pain; intubated with ETT 7.5/25 LL, Ac 14, TV 550, 40% with peep 5. O2 sat 99%. Vital signs stable. Grimaces to painful stimuli. Restless legs; moves all extremities. Noted bilateral soft wrist restraints continues. OGT in place running Jevity 1.2 at 30ml/h with 0 residuals. Pt obese, abdomen large but soft with hypoactive bowel sounds. No BM. Note Ramirez, draining benja urine. Saline locks on bilateral wrists area intact, 20G. Peripheral IV on Left wrist 20G intact, patent as well. HOB kept elevated. Bed in low and locked position. Side rails x 3. Call light within reach. Will continue to monitor.
--- NOTE | 2019-07-06 22:00 | NUR ---
NURSE NOTES: Pt's resting in bed, in no acute distress. VS stable. Will continue to monitor.
[2019-07-07] VITALS (24 sets, daily range): BP systolic 101–156; BP diastolic 49–75
--- NOTE | 2019-07-07 | NUR ---
NURSE NOTES: Pt's resting in bed, asleep with eyes closed, intubated, in no acute distress. VS stable. Will continue to monitor.
[2019-07-07] MEDS: Meropenem 1 GM in NS 55 ML IVPB SCH ×4 (00:48→23:19)
--- NOTE | 2019-07-07 02:00 | NUR ---
NURSE NOTES: Pt's resting in bed, asleep with eyes closed, intubated, in no acute distress. VS stable. Will continue to monitor.
--- NOTE | 2019-07-07 04:00 | NUR ---
NURSE NOTES: Pt's resting in bed, asleep, in no acute distress. VS stable. Will continue to monitor.
--- NOTE | 2019-07-07 04:30 | Progress Note ---
DATE: 07/06/2019 SUBJECTIVE: The patient remains on ventilator support. Monitored rhythm sinus. OBJECTIVE: VITAL SIGNS: Blood pressure 105/53, pulse 77, and respiratory rate 16. LUNGS: Bilateral breath sounds. Scattered rhonchi. HEART: Regular rhythm and rate. Normal S1, S2. ABDOMEN: Soft. EXTREMITIES: Trace edema. LABORATORY DATA: White count 19.8 and hemoglobin 10.2. Sodium 152, bicarb 32, potassium 3.1, chloride 112, BUN 46, and creatinine 1.6. Troponin 0.114. IMPRESSION: 1. Acute respiratory failure. 2. Dehydration. 3. Hypernatremia. 4. Hypokalemia. 5. Acute renal failure, improved. 6. Acute myocardial infarction [id number] type. PLAN: 1. Ventilator support. 2. Weaning efforts. 3. Respiratory hygiene. 4. Antimicrobials. 5. Hypotonic IV fluid hydration. 6. Potassium replacement. 7. Recheck magnesium. 8. No beta-blockers in view of paroxysmal bronchospasm. 9. Aspirin prophylaxis. 10. If no signs of bleeding, steroid taper. Gregorio Cook M.D. DR: SHERITA JOB#: [id number] CC:
--- NOTE | 2019-07-07 05:00 | Progress Note ---
DATE: 07/06/2019 SUBJECTIVE: The patient is in intensive care unit, asleep. He has episodes of agitation and restless. The patient Ativan p.r.n. MENTAL STATUS EXAMINATION: The patient is confused and disoriented. Mood is agitated. Affect is flat. Thought process, concrete. Thought content, no suicidal or homicidal ideation. ASSESSMENT: Schizoaffective disorder. PLAN: 1. We will increase the Seroquel to 50 mg t.i.d. 2. Decrease usage of Ativan. 3. We will continue to follow and readjust the medication. Layton Estrada M.D. DR: DANIEL JOB#: [id number] CC:
[2019-07-07] MEDS: LORazepam Inj 2mg/ml 1ml IV PRN (05:21)
--- NOTE | 2019-07-07 06:00 | NUR ---
NURSE NOTES: Pt's resting in bed, asleep, in no acute distress. VS stable. Will continue to monitor.
[2019-07-07 06:22] LABS: BASOPHILS % (AUTO) 0.9 % (0.0-2.0); EOSINOPHILS % (AUTO) 1.9 % (0.0-3.0); HEMATOCRIT 30.8 % (42.0-52.0); HEMOGLOBIN 9.8 G/DL (14.2-18.0); LYMPHOCYTES % (AUTO) 12.8 % (20.0-45.0); MEAN CORPUSCULAR VOLUME 85 FL (80-99); MONOCYTES % (AUTO) 7.6 % (1.0-10.0); NEUTROPHILS % (AUTO) 76.8 % (45.0-75.0); PLATELET COUNT 247 K/UL (150-450); RED BLOOD COUNT 3.61 M/UL (4.70-6.10); WHITE BLOOD COUNT 15.3 K/UL (4.8-10.8)
--- NOTE | 2019-07-07 06:30 | NUR ---
RESPIRATORY NOTE: Received pt on ordered vent settings. Pt airway is patent and secured. Suctioned pt prn. Vent alarms are on and audible. Vent is plugged into red outlet. Will monitor pt progress.
[2019-07-07 07:24] LABS: ALANINE AMINOTRANSFERASE 34 U/L (12-78); ALBUMIN 1.7 G/DL (3.4-5.0); ALBUMIN/GLOBULIN RATIO 0.3 (1.0-2.7); ALKALINE PHOSPHATASE 80 U/L (46-116); ANION GAP 6 mmol/L (5-15); ASPARTATE AMINO TRANSFERASE 96 U/L (15-37); BILIRUBIN,TOTAL 0.2 MG/DL (0.2-1.0); BLOOD UREA NITROGEN 29 mg/dL (7-18); CALCIUM 8.3 MG/DL (8.5-10.1); CARBON DIOXIDE 30 MMOL/L (21-32); CHLORIDE 113 MMOL/L (98-107); CREATININE 1.1 MG/DL (0.55-1.30); POTASSIUM 3.7 MMOL/L (3.5-5.1); SODIUM 149 MMOL/L (136-145)
--- NOTE | 2019-07-07 07:30 | NUR ---
HAND-OFF: Report given to [facility] Tavares.
--- NOTE | 2019-07-07 07:30 | NUR ---
NURSE NOTES: Pt received from [facility] Easley in no acute distress. Pt is asleep, does not follow commands, opens eyes to shaking. Pupils are equal and round 3mm reactive to light. Pt Noted in SR to gambling monitor. Radial pulses 4+ bilaterally. dorsalis pedis pulses 3+ bilaterally. Cap refill 2 sec. Upper extremities warm to touch. Non-pitting trace edema noted to all bilateral arms and feet .Pt is intubated with 7.5 ETT 25 cm at mid lip. settings noted AC 14 TV 550 FiO2 40% Peep 5. Bilateral lower lung lobes noted diminished with mild rhonchi and bilateral upper lobes are noted with rhonchi upon auscultation. Pt has a GT running Jevity at 30 cc/hr. Bowel sounds noted active on all abd quadrants. abd is round and soft. Ramirez catheter noted draining yellow urine with small amount of red blood clots. Skin alterations noted. Pt has a LFA 20g IV, RH 20 g IV and LH 20g IV. LFA is running D5W at 75cc/hr. Pt noted on [employer] restraints, wrist skin is intact without redness, bilateral radial pulses palpable. Bed in lowest position, alarm on, side rails up x 2 and padded per seizure precaution. Call light within reach. Will continue to monitor.
[2019-07-07 07:46] LABS: PHOSPHORUS 2.4 MG/DL (2.5-4.9)
[2019-07-07] MEDS: Pantoprazole Inj IVP SCH ×2 (09:09→20:41)
[2019-07-07] MEDS: Aspirin Baby 81mg NG SCH (09:10)
[2019-07-07] MEDS: Ascorbic Acid 500mg tab ORAL SCH (09:10)
[2019-07-07] MEDS: Nitroglycerin Patch 0.4mg TDERMAL SCH (09:11)
[2019-07-07] MEDS: Heparin 5000 units/ml inj SUBQ SCH ×2 (09:13→20:42)
--- NOTE | 2019-07-07 09:39 | Nephrology Progress Note ---
Assessment/Plan Problem List: (1) Renal failure (ARF), acute on chronic (2) Respiratory distress Assessment: Co2 retainer (3) UTI (urinary tract infection) (4) Respiratory failure (5) Sepsis Assessment Renal failure ? Chronic ? superimposed acute Acute on Chronic respiratory failure Co2 retention HyperKalemia HypoAlbuminemia Obese UTI / Leukocytosis Plan K phos IV- change IV to D5 nitro for elevated troponin smith slow hydrate optimize pulmonary status monitor renal parameters avoid nephrotoxics 2D echo - 65% Ej Fx per orders Subjective ROS Limited/Unobtainable: Yes Objective Objective Last 24 Hour Vital Signs Date Time Temp Pulse Resp B/P (MAP) Pulse Ox O2 Delivery O2 Flow Rate FiO2 07/07/19 09:11 136/68 07/07/19 07:00 76 15 146/70 (95) 100 07/07/19 06:30 74 17 40 07/07/19 06:30 78 17 07/07/19 06:00 79 15 117/63 (81) 96 07/07/19 05:19 88 17 40 07/07/19 05:00 78 21 156/75 (102) 100 07/07/19 04:00 69 14 127/62 (83) 99 07/07/19 04:00 69 07/07/19 04:00 40 07/07/19 04:00 Endotracheal Tube 07/07/19 03:00 70 17 133/57 (82) 99 07/07/19 02:57 81 19 40 07/07/19 02:00 99.0 74 15 127/60 (82) 99 07/07/19 01:23 74 17 40 07/07/19 01:00 69 15 128/63 (84) 100 07/07/19 00:00 Endotracheal Tube 07/07/19 00:00 73 07/07/19 00:00 40 07/07/19 00:00 76 19 120/62 (81) 100 07/06/19 23:07 75 18 40 07/06/19 23:00 75 16 117/56 (76) 98 07/06/19 22:00 77 16 116/58 (77) 99 07/06/19 21:06 74 16 40 07/06/19 21:00 78 16 104/53 (70) 98 07/06/19 20:00 Endotracheal Tube 07/06/19 20:00 79 07/06/19 20:00 40 07/06/19 20:00 99.2 77 16 105/53 (70) 99 07/06/19 19:53 77 17 40 07/06/19 19:00 80 17 104/51 (68) 99 07/06/19 18:00 82 16 94/52 (66) 98 07/06/19 17:24 80 15 40 07/06/19 17:00 78 16 97/51 (66) 99 07/06/19 16:00 Endotracheal Tube 07/06/19 16:00 100.2 82 16 93/48 (63) 99 07/06/19 16:00 40 07/06/19 15:34 75 07/06/19 15:00 83 19 105/55 (72) 98 07/06/19 14:46 78 14 40 07/06/19 14:00 83 20 116/65 (82) 98 07/06/19 13:00 79 15 104/55 (71) 98 07/06/19 12:42 79 07/06/19 12:38 80 15 40 07/06/19 12:00 40 07/06/19 12:00 98.7 79 14 99/61 (74) 97 07/06/19 12:00 Endotracheal Tube 07/06/19 11:00 71 14 110/55 (73) 99 07/06/19 10:30 71 14 40 07/06/19 10:00 67 18 112/64 (80) 99 07/06/19 10:00 40 07/06/19 09:57 133/93 Intake and Output 07/06/19 07/07/19 19:00 07:00 Intake Total 1665 ml 1445 ml Output Total 865 ml 390 ml Balance 800 ml 1055 ml Free Water 100 ml IV Total 1255 ml 955 ml Tube Feeding 330 ml 390 ml Other 80 ml Output Urine Total 865 ml 390 ml Current Medications Medications (Trade) Dose Ordered Sig/Samuel Route PRN Reason Start Time Stop Time Status Last Admin Dose Admin Acetaminophen (Tylenol) 650 mg Q6H PRN NG Mild Pain/Temp > 100.5 07/05/19 12:15 08/04/19 12:14 07/05/19 15:08 Allopurinol (allopurinoL) 300 mg DAILY ORAL 07/05/19 09:00 08/04/19 08:59 07/07/19 09:10 Ascorbic Acid (Vitamin C) 250 mg DAILY ORAL 07/06/19 09:00 08/05/19 08:59 07/07/19 09:10 Aspirin (ASA) 81 mg DAILY NG 07/07/19 09:00 08/06/19 08:59 07/07/19 09:10 Dextrose 1,000 ml @ 75 mls/hr [id number] IV 07/06/19 08:45 08/05/19 08:44 07/07/19 11:19 Heparin Sodium (Porcine) (Heparin 5000 units/ml) 5,000 units EVERY 12 HOURS SUBQ 07/04/19 21:00 08/03/19 20:59 07/07/19 09:13 Lorazepam (Ativan 2mg/ml 1ml) 1 mg Q4H PRN IV For Anxiety 07/06/19 08:15 07/13/19 08:14 07/07/19 05:21 Meropenem 1 gm/ Sodium Chloride 55 ml @ 110 mls/hr Q12H IVPB 07/05/19 11:00 07/10/19 10:59 07/07/19 11:24 Nitroglycerin (Ntg) 1 patch Q24H TDERMAL 07/06/19 10:00 08/05/19 09:59 07/07/19 09:11 Pantoprazole (Protonix) 40 mg Q12HR IVP 07/05/19 21:00 08/04/19 08:59 07/07/19 09:09 Quetiapine Fumarate (SEROqueL) 50 mg TID ORAL 07/07/19 09:00 08/06/19 08:59 07/07/19 09:10 Laboratory Tests 07/07/19 05:35: White Blood Count 15.3H, Red Blood Count 3.61L, Hemoglobin 9.8L, Hematocrit 30.8L, Mean Corpuscular Volume 85, Mean Corpuscular Hemoglobin 27.2, Mean Corpuscular Hemoglobin Concent 31.8L, Red Cell Distribution Width 15.0H, Platelet Count 247, Mean Platelet Volume 6.7, Neutrophils (%) (Auto) 76.8H, Lymphocytes (%) (Auto) 12.8L, Monocytes (%) (Auto) 7.6, Eosinophils (%) (Auto) 1.9, Basophils (%) (Auto) 0.9, Sodium Level 149H, Potassium Level 3.7, Chloride Level 113H, Carbon Dioxide Level 30, Anion Gap 6, Blood Urea Nitrogen 29H, Creatinine 1.1, Estimat Glomerular Filtration Rate > 60, Glucose Level 135H, Uric Acid 8.0H, Calcium Level 8.3L, Phosphorus Level 2.4L, Magnesium Level 2.8H , Total Bilirubin 0.2, Aspartate Amino Transf (AST/SGOT) 96H, Alanine Aminotransferase (ALT/SGPT) 34, Alkaline Phosphatase 80, Troponin I 0.021, C- Reactive Protein, Quantitative 24.3H, Pro-B-Type Natriuretic Peptide [Pending], Total Protein 7.9, Albumin 1.7L, Globulin 6.2, Albumin/Globulin Ratio 0.3L Height (Feet): 6 Height (Inches): 2.00 Weight (Pounds): 242 General Appearance: no apparent distress EENT: other - vented Cardiovascular: normal rate Respiratory/Chest: decreased breath sounds Abdomen: distended Will Groves MD Jul 07, 2019 09:39
--- NOTE | 2019-07-07 09:52 | Diagnostic Imaging Report ---
Indication: Dyspnea Technique: One view of the chest Comparison: 07/06/2019 Findings: Stable satisfactory positions of endotracheal and nasogastric tubes. Left-sided pleural effusion and bilateral interstitial and airspace edema persists. Heart size is upper limits of normal. Findings are unchanged Impression: Unchanged, over one day, findings as above.
--- NOTE | 2019-07-07 10:00 | NUR ---
NURSE NOTES: Pt repositioned, no acute distress noted at this time. Pt still arousable to shaking but gets agitated when woken up. Will continue to monitor.
--- NOTE | 2019-07-07 10:27 | NUR ---
RADIOLOGY DEPT., CHEST X-RAY DONE.-P.DYE
--- NOTE | 2019-07-07 10:44 | Surgery Progress Note ---
Surgery Progress Note Subjective Additional Comments no acute events labs reviewed exam unchanged Objective Last 24 Hour Vital Signs Date Time Temp Pulse Resp B/P (MAP) Pulse Ox O2 Delivery O2 Flow Rate FiO2 07/07/19 09:11 136/68 07/07/19 08:47 76 17 40 07/07/19 07:00 76 15 146/70 (95) 100 07/07/19 06:30 74 17 40 07/07/19 06:30 78 17 07/07/19 06:00 79 15 117/63 (81) 96 07/07/19 05:19 88 17 40 07/07/19 05:00 78 21 156/75 (102) 100 07/07/19 04:00 69 14 127/62 (83) 99 07/07/19 04:00 69 07/07/19 04:00 40 07/07/19 04:00 Endotracheal Tube 07/07/19 03:00 70 17 133/57 (82) 99 07/07/19 02:57 81 19 40 07/07/19 02:00 99.0 74 15 127/60 (82) 99 07/07/19 01:23 74 17 40 07/07/19 01:00 69 15 128/63 (84) 100 07/07/19 00:00 Endotracheal Tube 07/07/19 00:00 73 07/07/19 00:00 40 07/07/19 00:00 76 19 120/62 (81) 100 07/06/19 23:07 75 18 40 07/06/19 23:00 75 16 117/56 (76) 98 07/06/19 22:00 77 16 116/58 (77) 99 07/06/19 21:06 74 16 40 07/06/19 21:00 78 16 104/53 (70) 98 07/06/19 20:00 Endotracheal Tube 07/06/19 20:00 79 07/06/19 20:00 40 07/06/19 20:00 99.2 77 16 105/53 (70) 99 07/06/19 19:53 77 17 40 07/06/19 19:00 80 17 104/51 (68) 99 07/06/19 18:00 82 16 94/52 (66) 98 07/06/19 17:24 80 15 40 07/06/19 17:00 78 16 97/51 (66) 99 07/06/19 16:00 Endotracheal Tube 07/06/19 16:00 100.2 82 16 93/48 (63) 99 07/06/19 16:00 40 07/06/19 15:34 75 07/06/19 15:00 83 19 105/55 (72) 98 07/06/19 14:46 78 14 40 07/06/19 14:00 83 20 116/65 (82) 98 07/06/19 13:00 79 15 104/55 (71) 98 07/06/19 12:42 79 07/06/19 12:38 80 15 40 07/06/19 12:00 40 07/06/19 12:00 98.7 79 14 99/61 (74) 97 07/06/19 12:00 Endotracheal Tube 07/06/19 11:00 71 14 110/55 (73) 99 I&O Intake and Output 07/06/19 07/07/19 19:00 07:00 Intake Total 1665 ml 1445 ml Output Total 865 ml 390 ml Balance 800 ml 1055 ml Free Water 100 ml IV Total 1255 ml 955 ml Tube Feeding 330 ml 390 ml Other 80 ml Output Urine Total 865 ml 390 ml Dressing: other Wound: other Drains: other Cardiovascular: RSR Respiratory: decreased breath sounds Abdomen: soft, present bowel sounds Extremities: no cyanosis Laboratory Tests Test 07/07/19 05:35 07/07/19 08:37 White Blood Count 15.3 K/UL (4.8-10.8) H Red Blood Count 3.61 M/UL (4.70-6.10) L Hemoglobin 9.8 G/DL (14.2-18.0) L Hematocrit 30.8 % (42.0-52.0) L Mean Corpuscular Volume 85 FL (80-99) Mean Corpuscular Hemoglobin 27.2 PG (27.0-31.0) Mean Corpuscular Hemoglobin Concent 31.8 G/DL (32.0-36.0) L Red Cell Distribution Width 15.0 % (11.6-14.8) H Platelet Count 247 K/UL (150-450) Mean Platelet Volume 6.7 FL (6.5-10.1) Neutrophils (%) (Auto) 76.8 % (45.0-75.0) H Lymphocytes (%) (Auto) 12.8 % (20.0-45.0) L Monocytes (%) (Auto) 7.6 % (1.0-10.0) Eosinophils (%) (Auto) 1.9 % (0.0-3.0) Basophils (%) (Auto) 0.9 % (0.0-2.0) Sodium Level 149 MMOL/L (136-145) H Potassium Level 3.7 MMOL/L (3.5-5.1) Chloride Level 113 MMOL/L (98-107) H Carbon Dioxide Level 30 MMOL/L (21-32) Anion Gap 6 mmol/L (5-15) Blood Urea Nitrogen 29 mg/dL (7-18) H Creatinine 1.1 MG/DL (0.55-1.30) Estimat Glomerular Filtration Rate > 60 mL/min (>60) Glucose Level 135 MG/DL (74-106) H Uric Acid 8.0 MG/DL (2.6-7.2) H Calcium Level 8.3 MG/DL (8.5-10.1) L Phosphorus Level 2.4 MG/DL (2.5-4.9) L Magnesium Level 2.8 MG/DL (1.8-2.4) H Total Bilirubin 0.2 MG/DL (0.2-1.0) Aspartate Amino Transf (AST/SGOT) 96 U/L (15-37) H Alanine Aminotransferase (ALT/SGPT) 34 U/L (12-78) Alkaline Phosphatase 80 U/L (46-116) Troponin I 0.021 ng/mL (0.000-0.056) C-Reactive Protein, Quantitative 24.3 mg/dL (0.00-0.90) H Pro-B-Type Natriuretic Peptide Pending Total Protein 7.9 G/DL (6.4-8.2) Albumin 1.7 G/DL (3.4-5.0) L Globulin 6.2 g/dL Albumin/Globulin Ratio 0.3 (1.0-2.7) L Arterial Blood pH 7.426 (7.350-7.450) Arterial Blood Partial Pressure CO2 42.0 mmHg (35.0-45.0) Arterial Blood Partial Pressure O2 91.8 mmHg (75.0-100.0) Arterial Blood HCO3 27.0 mmol/L (22.0-26.0) H Arterial Blood Oxygen Saturation 96.9 % (95-100) Arterial Blood Base Excess 2.4 (-2-2) H Claus Test Positive Plan Problems: (1) Sepsis Assessment & Plan: Febrile, tachycardia, leukocytosis Labs reviewed Imaging reviewed Sepsis clear etiology unknown work-up initiated and pending results Micro reviewed Continue IV antibiotics Trend labs Tube feeds Fluids We will follow with recommendations Findings: Gallbladder demonstrates sludge. No gallstones, wall thickening, nor pericholecystic fluid. Patient is uncommunicative, unable to report Riddle's sign. Common bile duct measures 3 mm in diameter. No intrahepatic biliary ductal dilatation. Liver demonstrates normal echogenicity, no focal abnormality. Portal vein and hepatic veins are patent. Pancreas is unremarkable. Spleen is unremarkable. Left kidney measures 12.5 cm in length. Right kidney measures 12.6 cm length. Both kidneys demonstrate normal echogenicity. Both kidneys demonstrate fullness to the collecting systems, slightly greater on the left than on the right, although no maki hydronephrosis. No focal abnormality . Bladder is empty, contains a Ramirez catheter. Non-aneurysmal abdominal aorta . Impression: Nonspecific bilateral renal collecting system fullness without maki hydronephrosis. Gallbladder sludge. Negative for gallstones or dilated bile ducts Empty bladder with a Ramirez catheter (2) Respiratory distress (3) Decubitus skin ulcer Assessment & Plan: Pt presented on admission with Non-blanching erythema sacrum ,R and L buttocks with multiple DTPI's within . DTPI noted to L buttocks. Base of wound is maroon with surrounding non- blanching erythema(L)2cm x (W)0.8cm. DTPI noted to Sacrococcygeal area. Base of wound is purple,fluctuant with marginal erythema, surrounding non- blanching erythema without induration.(L) 1.5cm x (W)0.5cm. DTPI noted to R buttocks. Base of wound is indurated maroon with surrounding non -blanching erythema. Scrotal sac is grossly erythematous. Single L testis in-situ. Small scar noted to base R sac. Both heels are boggy with non-blanching erythema. Tx.Plan: Apply Moisture Barrier Paste to Sacrum, R and L buttocks. Cover with Optifoam drsg. Change every 3 days and prn. Apply Moisture Barrier Paste to scrotum. Cover as needed with Optifoam drsg. Apply Cavilon Skin Barrier to both heels. Cover each heel with Optifoam drsg. Change every 7 days and prn. APM/DARREL mattress overlay. Reposition at least every 2hours or as tolerated. Off-load heels with pillow. (4) Respiratory failure Assessment & Plan: DAILY ESTIMATED NEEDS: Needs based on Critical care, wounds, obese/ 92kg abw 20-25 kcals/kg 5972-3938 total kcals 1.25-2 g protein/kg 115-184 g total protein 25-30 mL/kg 5780-3294 total fluid mLs NUTRITION DIAGNOSIS: Swallowing difficulty R/T respiratory status as evidenced by pt orally intubated, on OGT feeding. CURRENT TF:Jevity 1.2 @ 30ml/hr x 24 hrs PO DIET RECOMMENDATIONS: HEAD OF DIGITAL eval post extubation -> LOW NA/ texture per HEAD OF DIGITAL ENTERAL NUTRITION RECOMMENDATIONS: Vital AF 1.2 @ 65ml/hr x 24 hrs to provide 1560ml, 1872kcal, 117g prot, 1265ml free water * Rec TF change to Vital AF for critical care -> initiate Vital AF 1.2 @ 15ml/hr x 6 hrs -> advance 10ml q 4-6 hrs as tolerated to goal rate. -> HOB over 30 degrees/ H20 flush per MD ADDITIONAL RECOMMENDATIONS: * Calibrated bedscale wt for accurate CBW- w/ added P200 mattress * Monitor lytes, replete as needed (low K + phos) * F/up WC eval: add Vit C 250mg QD Steve 1pkt BID via OGT * HEAD OF DIGITAL eval pot extubation Raul Cornejo Jul 07, 2019 10:44
--- NOTE | 2019-07-07 12:00 | NUR ---
NURSE NOTES: Pt repositioned, oral care performed, no changes in mental status at this time. No acute distress. Dr. Blackwood at bedside assessing pt.
--- NOTE | 2019-07-07 12:36 | Infectious Diseases Prog Note ---
Assessment/Plan Assessment/Plan IMPRESSION: Sepsis, improving leukocytosis. UTI with E coli ESBL Hypercapnic respiratory failure acute renal failure, improving Metabolic encephalopathy. schizoaffective disorder, allergic rhinitis, gastroesophageal reflux disease epilepsy. 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 RECOMMENDATION: Continue Meropenem Will f/u cultures Subjective ROS Limited/Unobtainable: Yes Allergies: Coded Allergies: PENICILLINS (Verified Allergy, Unknown, 07/03/19) Objective Vital Signs Last 24 Hour Vital Signs Date Time Temp Pulse Resp B/P (MAP) Pulse Ox O2 Delivery O2 Flow Rate FiO2 07/07/19 12:00 40 07/07/19 12:00 Mechanical Ventilator Mechanical Ventilator 07/07/19 12:00 98.2 76 14 121/63 (82) 99 07/07/19 12:00 74 07/07/19 11:10 80 18 40 07/07/19 11:00 73 16 124/65 (84) 100 07/07/19 10:00 76 15 122/65 (84) 99 07/07/19 09:11 136/68 07/07/19 09:00 77 15 136/68 (90) 99 07/07/19 08:47 76 17 40 07/07/19 08:00 40 07/07/19 08:00 Mechanical Ventilator Mechanical Ventilator 07/07/19 08:00 73 07/07/19 08:00 98.6 74 14 130/73 (92) 100 07/07/19 07:00 76 15 146/70 (95) 100 07/07/19 06:30 74 17 40 07/07/19 06:30 78 17 07/07/19 06:00 79 15 117/63 (81) 96 07/07/19 05:19 88 17 40 07/07/19 05:00 78 21 156/75 (102) 100 07/07/19 04:00 69 14 127/62 (83) 99 07/07/19 04:00 69 07/07/19 04:00 40 07/07/19 04:00 Endotracheal Tube 07/07/19 03:00 70 17 133/57 (82) 99 07/07/19 02:57 81 19 40 07/07/19 02:00 99.0 74 15 127/60 (82) 99 07/07/19 01:23 74 17 40 07/07/19 01:00 69 15 128/63 (84) 100 07/07/19 00:00 Endotracheal Tube 07/07/19 00:00 73 07/07/19 00:00 40 07/07/19 00:00 76 19 120/62 (81) 100 07/06/19 23:07 75 18 40 07/06/19 23:00 75 16 117/56 (76) 98 07/06/19 22:00 77 16 116/58 (77) 99 07/06/19 21:06 74 16 40 07/06/19 21:00 78 16 104/53 (70) 98 07/06/19 20:00 Endotracheal Tube 07/06/19 20:00 79 07/06/19 20:00 40 07/06/19 20:00 99.2 77 16 105/53 (70) 99 07/06/19 19:53 77 17 40 07/06/19 19:00 80 17 104/51 (68) 99 07/06/19 18:00 82 16 94/52 (66) 98 07/06/19 17:24 80 15 40 07/06/19 17:00 78 16 97/51 (66) 99 07/06/19 16:00 Endotracheal Tube 07/06/19 16:00 100.2 82 16 93/48 (63) 99 07/06/19 16:00 40 07/06/19 15:34 75 07/06/19 15:00 83 19 105/55 (72) 98 07/06/19 14:46 78 14 40 07/06/19 14:00 83 20 116/65 (82) 98 07/06/19 13:00 79 15 104/55 (71) 98 07/06/19 12:42 79 07/06/19 12:38 80 15 40 Height (Feet): 6 Height (Inches): 2.00 Weight (Pounds): 242 HEENT: mucous membranes moist, other - orally intubated Respiratory/Chest: lungs clear, other - on ventilator Cardiovascular: normal rate Abdomen: soft, non tender Genitourinary: other - Ramirez catheter, hematuria Extremities: other - trace edema Neurologic/Psychiatric: other - sleeping Laboratory Tests Test 07/07/19 05:35 07/07/19 08:37 White Blood Count 15.3 K/UL (4.8-10.8) H Red Blood Count 3.61 M/UL (4.70-6.10) L Hemoglobin 9.8 G/DL (14.2-18.0) L Hematocrit 30.8 % (42.0-52.0) L Mean Corpuscular Volume 85 FL (80-99) Mean Corpuscular Hemoglobin 27.2 PG (27.0-31.0) Mean Corpuscular Hemoglobin Concent 31.8 G/DL (32.0-36.0) L Red Cell Distribution Width 15.0 % (11.6-14.8) H Platelet Count 247 K/UL (150-450) Mean Platelet Volume 6.7 FL (6.5-10.1) Neutrophils (%) (Auto) 76.8 % (45.0-75.0) H Lymphocytes (%) (Auto) 12.8 % (20.0-45.0) L Monocytes (%) (Auto) 7.6 % (1.0-10.0) Eosinophils (%) (Auto) 1.9 % (0.0-3.0) Basophils (%) (Auto) 0.9 % (0.0-2.0) Sodium Level 149 MMOL/L (136-145) H Potassium Level 3.7 MMOL/L (3.5-5.1) Chloride Level 113 MMOL/L (98-107) H Carbon Dioxide Level 30 MMOL/L (21-32) Anion Gap 6 mmol/L (5-15) Blood Urea Nitrogen 29 mg/dL (7-18) H Creatinine 1.1 MG/DL (0.55-1.30) Estimat Glomerular Filtration Rate > 60 mL/min (>60) Glucose Level 135 MG/DL (74-106) H Uric Acid 8.0 MG/DL (2.6-7.2) H Calcium Level 8.3 MG/DL (8.5-10.1) L Phosphorus Level 2.4 MG/DL (2.5-4.9) L Magnesium Level 2.8 MG/DL (1.8-2.4) H Total Bilirubin 0.2 MG/DL (0.2-1.0) Aspartate Amino Transf (AST/SGOT) 96 U/L (15-37) H Alanine Aminotransferase (ALT/SGPT) 34 U/L (12-78) Alkaline Phosphatase 80 U/L (46-116) Troponin I 0.021 ng/mL (0.000-0.056) C-Reactive Protein, Quantitative 24.3 mg/dL (0.00-0.90) H Pro-B-Type Natriuretic Peptide Pending Total Protein 7.9 G/DL (6.4-8.2) Albumin 1.7 G/DL (3.4-5.0) L Globulin 6.2 g/dL Albumin/Globulin Ratio 0.3 (1.0-2.7) L Arterial Blood pH 7.426 (7.350-7.450) Arterial Blood Partial Pressure CO2 42.0 mmHg (35.0-45.0) Arterial Blood Partial Pressure O2 91.8 mmHg (75.0-100.0) Arterial Blood HCO3 27.0 mmol/L (22.0-26.0) H Arterial Blood Oxygen Saturation 96.9 % (95-100) Arterial Blood Base Excess 2.4 (-2-2) H Claus Test Positive Current Medications Medications (Trade) Dose Ordered Sig/Samuel Route PRN Reason Start Time Stop Time Status Last Admin Dose Admin Acetaminophen (Tylenol) 650 mg Q6H PRN NG Mild Pain/Temp > 100.5 07/05/19 12:15 08/04/19 12:14 07/05/19 15:08 Allopurinol (allopurinoL) 300 mg DAILY ORAL 07/05/19 09:00 08/04/19 08:59 07/07/19 09:10 Ascorbic Acid (Vitamin C) 250 mg DAILY ORAL 07/06/19 09:00 08/05/19 08:59 07/07/19 09:10 Aspirin (ASA) 81 mg DAILY NG 07/07/19 09:00 08/06/19 08:59 07/07/19 09:10 Dextrose 1,000 ml @ 75 mls/hr [id number] IV 07/06/19 08:45 08/05/19 08:44 07/07/19 11:19 Heparin Sodium (Porcine) (Heparin 5000 units/ml) 5,000 units EVERY 12 HOURS SUBQ 07/04/19 21:00 08/03/19 20:59 07/07/19 09:13 Lorazepam (Ativan 2mg/ml 1ml) 1 mg Q4H PRN IV For Anxiety 07/06/19 08:15 07/13/19 08:14 07/07/19 05:21 Meropenem 1 gm/ Sodium Chloride 55 ml @ 110 mls/hr Q12H IVPB 07/05/19 11:00 07/10/19 10:59 07/07/19 11:24 Nitroglycerin (Ntg) 1 patch Q24H TDERMAL 07/06/19 10:00 08/05/19 09:59 07/07/19 09:11 Pantoprazole (Protonix) 40 mg Q12HR IVP 07/05/19 21:00 08/04/19 08:59 07/07/19 09:09 Potassium Phosphate 15 mm/ Potassium Phosphate 255 ml @ 63.75 mls/ hr ONCE ONCE IV 07/07/19 14:00 07/07/19 17:59 Quetiapine Fumarate (SEROqueL) 50 mg TID ORAL 07/07/19 09:00 08/06/19 08:59 07/07/19 09:10 Ang Blackwood MD Jul 07, 2019 12:36
[2019-07-07] MEDS ORDERED: Potassium Phosphate 15mm/250ml 250 ML IVPB ONE (13:00)
--- NOTE | 2019-07-07 13:48 | NUR ---
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 98.2 HR 76 RR 14 B/P 121/63 AC 14 TV 550 FIO2 40% PEEP 5 WBC 15.3 NA 149 C-REACTIVE 24.3ALB 1.7 IS: IVF D5@ 75ML/HR MEROPENEM IV HEPARIN SUBC PHOS IV ICU STATUS
--- NOTE | 2019-07-07 16:00 | NUR ---
NURSE NOTES: Pt repositioned, oral care performed, no acute distress noted. Pt still becomes agitated when attempting to shake or wake up pt. Pt begins to grimace and move extremities. Bed in lowest position, alarm on, side rails up and padded per seizure precaution, will continue to monitor pt.
--- NOTE | 2019-07-07 16:38 | NUR ---
*-* INSURANCE *-* ALL AVAILABLE CLINICALS HAVE BEEN FAXED TO: [employer]#[id number] CM: ALEN # [phone] FAX# [phone] REVIEWS/CLINICALS
--- NOTE | 2019-07-07 18:00 | NUR ---
NURSE NOTES: Pt repositioned. Increased amount of blood clots noted in smith catheter. urine appearance is dark benja/brown. Dr. Salcido notified. No new orders at this time. Will continue to monitor pt.
--- NOTE | 2019-07-07 18:08 | Pulmonology Progress Note ---
Subjective Allergies: Coded Allergies: PENICILLINS (Verified Allergy, Unknown, 07/03/19) Objective Last 24 Hour Vital Signs Date Time Temp Pulse Resp B/P (MAP) Pulse Ox O2 Delivery O2 Flow Rate FiO2 07/07/19 17:11 75 18 40 07/07/19 16:00 Mechanical Ventilator Mechanical Ventilator 07/07/19 16:00 77 07/07/19 16:00 40 07/07/19 16:00 98.3 80 18 132/65 (87) 99 07/07/19 15:12 76 18 40 07/07/19 15:00 75 13 111/68 (82) 99 07/07/19 14:00 79 14 134/65 (88) 99 07/07/19 13:11 74 17 40 07/07/19 13:00 75 14 116/62 (80) 99 07/07/19 12:00 40 07/07/19 12:00 Mechanical Ventilator Mechanical Ventilator 07/07/19 12:00 98.2 76 14 121/63 (82) 99 07/07/19 12:00 74 07/07/19 11:10 80 18 40 07/07/19 11:00 73 16 124/65 (84) 100 07/07/19 10:00 76 15 122/65 (84) 99 07/07/19 09:11 136/68 07/07/19 09:00 77 15 136/68 (90) 99 07/07/19 08:47 76 17 40 07/07/19 08:00 40 07/07/19 08:00 Mechanical Ventilator Mechanical Ventilator 07/07/19 08:00 73 07/07/19 08:00 98.6 74 14 130/73 (92) 100 07/07/19 07:00 76 15 146/70 (95) 100 07/07/19 06:30 74 17 40 07/07/19 06:30 78 17 07/07/19 06:00 79 15 117/63 (81) 96 07/07/19 05:19 88 17 40 07/07/19 05:00 78 21 156/75 (102) 100 07/07/19 04:00 69 14 127/62 (83) 99 07/07/19 04:00 69 07/07/19 04:00 40 07/07/19 04:00 Endotracheal Tube 07/07/19 03:00 70 17 133/57 (82) 99 07/07/19 02:57 81 19 40 07/07/19 02:00 99.0 74 15 127/60 (82) 99 07/07/19 01:23 74 17 40 07/07/19 01:00 69 15 128/63 (84) 100 07/07/19 00:00 Endotracheal Tube 07/07/19 00:00 73 07/07/19 00:00 40 07/07/19 00:00 76 19 120/62 (81) 100 07/06/19 23:07 75 18 40 07/06/19 23:00 75 16 117/56 (76) 98 07/06/19 22:00 77 16 116/58 (77) 99 07/06/19 21:06 74 16 40 07/06/19 21:00 78 16 104/53 (70) 98 07/06/19 20:00 Endotracheal Tube 07/06/19 20:00 79 07/06/19 20:00 40 07/06/19 20:00 99.2 77 16 105/53 (70) 99 07/06/19 19:53 77 17 40 07/06/19 19:00 80 17 104/51 (68) 99 Intake and Output 07/06/19 07/07/19 19:00 07:00 Intake Total 1665 ml 1445 ml Output Total 865 ml 390 ml Balance 800 ml 1055 ml Free Water 100 ml IV Total 1255 ml 955 ml Tube Feeding 330 ml 390 ml Other 80 ml Output Urine Total 865 ml 390 ml Laboratory Tests 07/07/19 05:35: White Blood Count 15.3H, Red Blood Count 3.61L, Hemoglobin 9.8L, Hematocrit 30.8L, Mean Corpuscular Volume 85, Mean Corpuscular Hemoglobin 27.2, Mean Corpuscular Hemoglobin Concent 31.8L, Red Cell Distribution Width 15.0H, Platelet Count 247, Mean Platelet Volume 6.7, Neutrophils (%) (Auto) 76.8H, Lymphocytes (%) (Auto) 12.8L, Monocytes (%) (Auto) 7.6, Eosinophils (%) (Auto) 1.9, Basophils (%) (Auto) 0.9, Sodium Level 149H, Potassium Level 3.7, Chloride Level 113H, Carbon Dioxide Level 30, Anion Gap 6, Blood Urea Nitrogen 29H, Creatinine 1.1, Estimat Glomerular Filtration Rate > 60, Glucose Level 135H, Uric Acid 8.0H, Calcium Level 8.3L, Phosphorus Level 2.4L, Magnesium Level 2.8H , Total Bilirubin 0.2, Aspartate Amino Transf (AST/SGOT) 96H, Alanine Aminotransferase (ALT/SGPT) 34, Alkaline Phosphatase 80, Troponin I 0.021, C- Reactive Protein, Quantitative 24.3H, Pro-B-Type Natriuretic Peptide 765H, Total Protein 7.9, Albumin 1.7L, Globulin 6.2, Albumin/Globulin Ratio 0.3L 07/07/19 08:37: Arterial Blood pH 7.426, Arterial Blood Partial Pressure CO2 42.0, Arterial Blood Partial Pressure O2 91.8, Arterial Blood HCO3 27.0H, Arterial Blood Oxygen Saturation 96.9, Arterial Blood Base Excess 2.4H, Claus Test Positive Current Medications Medications (Trade) Dose Ordered Sig/Samuel Route PRN Reason Start Time Stop Time Status Last Admin Dose Admin Acetaminophen (Tylenol) 650 mg Q6H PRN NG Mild Pain/Temp > 100.5 07/05/19 12:15 08/04/19 12:14 07/05/19 15:08 Allopurinol (allopurinoL) 300 mg DAILY ORAL 07/05/19 09:00 08/04/19 08:59 07/07/19 09:10 Ascorbic Acid (Vitamin C) 250 mg DAILY ORAL 07/06/19 09:00 08/05/19 08:59 07/07/19 09:10 Aspirin (ASA) 81 mg DAILY NG 07/07/19 09:00 08/06/19 08:59 07/07/19 09:10 Dextrose 1,000 ml @ 75 mls/hr [id number] IV 07/06/19 08:45 08/05/19 08:44 07/07/19 11:19 Heparin Sodium (Porcine) (Heparin 5000 units/ml) 5,000 units EVERY 12 HOURS SUBQ 07/04/19 21:00 08/03/19 20:59 07/07/19 09:13 Lorazepam (Ativan 2mg/ml 1ml) 1 mg Q4H PRN IV For Anxiety 07/06/19 08:15 07/13/19 08:14 07/07/19 05:21 Meropenem 1 gm/ Sodium Chloride 55 ml @ 110 mls/hr Q12H IVPB 07/05/19 11:00 07/10/19 10:59 07/07/19 11:24 Nitroglycerin (Ntg) 1 patch Q24H TDERMAL 07/06/19 10:00 08/05/19 09:59 07/07/19 09:11 Pantoprazole (Protonix) 40 mg Q12HR IVP 07/05/19 21:00 08/04/19 08:59 07/07/19 09:09 Quetiapine Fumarate (SEROqueL) 50 mg TID ORAL 07/07/19 09:00 08/06/19 08:59 07/07/19 13:26 Sina Umaña MD Jul 07, 2019 18:08
--- NOTE | 2019-07-07 19:22 | NUR ---
HAND-OFF: Report given to [facility] Eas[facility]. Pt remains in unchanged condition since this morning. Urine appearance improved, now noted light benja/yellow without notable blood clots or sedimentation. Kaushal made aware.
--- NOTE | 2019-07-07 19:30 | NUR ---
NURSE NOTES: Received patient and report from COCO Tavares. Pt's in no acute distress, afebrile, open eyes to pain; intubated with ETT 7.5/25 LL, Ac 14, TV 550, 40% with peep 5. O2 sat 99%. Vital signs stable. Noted bilateral soft wrist restraints continues, observing pt was trying to pull out medical devices. OGT in place running Jevity 1.2 at 30ml/h with 0 residuals. Pt obese, abdomen large but soft with hypoactive bowel sounds. No BM at this time. Noted Ramirez intact draining benja urine. Saline locks on bilateral wrists area intact, 20G. Peripheral IV on Left wrist 20G intact, patent as well, running D5W at 75ml/hr. HOB kept elevated. Bed in low and locked position. Side rails x 3. Call light within reach. Will continue to monitor.
--- NOTE | 2019-07-07 20:40 | NUR ---
RESPIRATORY NOTE: Received pt. on current AC vent settings. Et tube secure and patent. Ambu bag at beside, vent plugged into red outlet. Will continue to monitor.
--- NOTE | 2019-07-07 22:00 | NUR ---
NURSE NOTES: Pt's resting in bed, in no acute distress, asleep with eyes closed. VS stable. Will continue to monitor.
[2019-07-08] VITALS (24 sets, daily range): BP systolic 95–176; BP diastolic 44–81
--- NOTE | 2019-07-08 | NUR ---
NURSE NOTES: Pt's resting in bed, asleep with eye closed. VS stable. Will continue to monitor.
--- NOTE | 2019-07-08 02:00 | NUR ---
NURSE NOTES: Pt's asleep in bed, in no acute distress. VS stable. Will continue to monitor.
--- NOTE | 2019-07-08 02:00 | Progress Note ---
DATE: 07/07/2019 CRITICAL CARE NOTE SUBJECTIVE: The patient was seen and evaluated. The patient remains quite ill at this time. PHYSICAL EXAMINATION: VITAL SIGNS: Please see attached. Blood pressure 135/65, pulse 77, sats 99%. The patient is on 40% FiO2, temperature 98.3 GENERAL: The patient is currently on the ventilator. LUNGS: Coarse breath sounds. The patient is orally intubated. CARDIAC: S1 and S2. Regular rate and rhythm. Slightly distant. ABDOMEN: Soft. Feeding tube in place. EXTREMITIES: No cyanosis or clubbing. NEUROLOGICAL: Poorly responsive. SKIN: Noted. LABORATORY DATA: Please see attached. IMPRESSION: 1. Respiratory failure, acute. Chest x-ray with evidence of pulmonary edema, left pleural effusion. 2. Leukocytosis. 3. Anemia. 4. Hypernatremia. 5. Severe protein-calorie malnutrition. RECOMMENDATIONS: 1. Supportive care. 2. Continue as is for now 3. Reassess in the morning for possible weaning. 4. IV antibiotics empirically. 5. Respiratory care. 6. Followup cultures. 7. Monitor need for further intervention. 8. Nutritional support as per primary care team. 9. DVT prophylaxis. 10. The patient remains acute and requires close ICU observation. Sina Umaña M.D. DR: Andry JOB#: [id number] CC:
[2019-07-08] MEDS: Acetaminophen 650mg/20.3ml NG PRN (03:20)
--- NOTE | 2019-07-08 03:30 | Progress Note ---
DATE: 07/07/2019 CARDIOLOGY PROGRESS NOTE SUBJECTIVE: The patient remains in the intensive care unit. Condition remains critical. Prognosis guarded. He remains on ventilator support. Poorly responsive. Monitored rhythm, sinus. OBJECTIVE: LUNGS: Bilateral breath sounds. Moderate secretions. CARDIAC: Regular rhythm and rate. Normal S1 and S2 with a fourth heart sound. ABDOMEN: Soft. EXTREMITIES: There is no edema. HEENT: There is a feeding tube in place. LABORATORY DATA: White count 15.3 and hemoglobin 9.8. Sodium 149, potassium 3.7, bicarb 30, BUN 29, and creatinine 1.1. Troponin 0.021. Pro-natriuretic peptide 765. Albumin 1.7. Phosphorus 2.4. IMPRESSION: 1. Respiratory failure. 2. Dehydration. 3. Hypernatremia. 4. Hypophosphatemia. 5. Acute myocardial infarction. 6. Healthcare-acquired pneumonia. 7. Remains critical and guarded. PLAN: 1. Antiplatelet therapy. 2. DVT prophylaxis. 3. Potassium and phosphorus replacement as needed. 4. Hypotonic IV fluid. 5. Topical nitrates. 6. Avoiding beta-blockers in view of severe obstructive lung disease and bronchospasm. Gregorio Cook M.D. DR: SCOTTY JOB#: [id number] CC:
--- NOTE | 2019-07-08 04:00 | NUR ---
NURSE NOTES: Pt's resting in bed,asleep, in no acute distress. Noted temp 101.1F, Tylenol given per order, also cooling measures initiated. Will continue to monitor.
--- NOTE | 2019-07-08 06:00 | NUR ---
NURSE NOTES: Pt's resting in bed, in no acute distress. VS stable, temp 99.8F trending down. Cooling measures maintained. Will continue to monitor.
[2019-07-08 06:45] LABS: BASOPHILS % (AUTO) 1.1 % (0.0-2.0); EOSINOPHILS % (AUTO) 1.9 % (0.0-3.0); HEMATOCRIT 31.1 % (42.0-52.0); HEMOGLOBIN 10.1 G/DL (14.2-18.0); LYMPHOCYTES % (AUTO) 18.8 % (20.0-45.0); MEAN CORPUSCULAR VOLUME 86 FL (80-99); MONOCYTES % (AUTO) 9.4 % (1.0-10.0); NEUTROPHILS % (AUTO) 68.8 % (45.0-75.0); PLATELET COUNT 231 K/UL (150-450); RED BLOOD COUNT 3.62 M/UL (4.70-6.10); RED CELL DISTRIBUTION WIDTH 15.4 % (11.6-14.8); WHITE BLOOD COUNT 12.9 K/UL (4.8-10.8)
[2019-07-08 06:58] LABS: ANION GAP 5 mmol/L (5-15); BLOOD UREA NITROGEN 19 mg/dL (7-18); CALCIUM 7.9 MG/DL (8.5-10.1); CARBON DIOXIDE 30 MMOL/L (21-32); CHLORIDE 111 MMOL/L (98-107); POTASSIUM 4.6 MMOL/L (3.5-5.1); SODIUM 146 MMOL/L (136-145)
--- NOTE | 2019-07-08 07:00 | NUR ---
NURSE NOTES: Pt's resting in bed, asleep, in no acute distress. VS stable. Temp 98.8F at this time. Will continue to monitor
--- NOTE | 2019-07-08 07:20 | NUR ---
NURSE NOTES: Patient received COCO Easley. Patient observed initially to be sleeping however, easily arousable and easily agitated. Patient is awake and alert. Patient tries to talk over ETT. Patient is able to follow commands however when he no longer want to cooperate or respond, he turns and looks away. When trying to assess patient with RT patient mouths foul language to the RT. Patient mouths words that he wants to leave. Patient wants to leave. Patient is being monitored on the alarm security or surveillance monitor. Patient VS HR70 BP 102/52 RR 14 BP 102/52 SPO2 100%. Patient is mechanically ventilated with ETT 7.5 with vent settings AC14 TV 550 FIO2 40% +5. Oral care was performed and thick oral secretions were taken both orally and via ETT. Patient has an OGT, residual was only 8 ml and a 100 ml was given. Patient has Jevity 1.2 running at 30 ml/hr and tolerating. Patient has not had a BM in the last two days. Patient has a Ramirez catheter in place draining good amount of urine to gravity. Patient has PIV that are intact with D5W running at 75 ml/hr. BL wrist restraints are needed for safety, patient is restless, uncooperative and for safety reasons. Pulses are palpable and skin is intact. Safety measures are in place with bed locked in the lowest position, padded side rails for sz precautions, side rails up x 3. Will con't to monitor and follow plan of care.
--- NOTE | 2019-07-08 07:26 | NUR ---
HAND-OFF: Report given to COCO Orozco.
--- NOTE | 2019-07-08 07:58 | NUR ---
RD ASSESSMENT & RECOMMENDATIONS SEE CARE ACTIVITY FOR COMPLETE ASSESSMENT DAILY ESTIMATED NEEDS: Needs based on Critical care, wounds, obese/ 92kg abw 20-25 kcals/kg 9385-7057 total kcals 1.25-2 g protein/kg 115-184 g total protein 25-30 mL/kg 3575-6270 total fluid mLs NUTRITION DIAGNOSIS: * Swallowing difficulty R/T respiratory status as evidenced by pt orally intubated, on OGT feeding. * Increased prot intake needs R/T wound healing as evidenced by pt admitted w/ DTPI wounds @ lt buttocks and sacrococcyx and non-blanching erythema @ sacrum, and BL heels. CURRENT TF:Jevity 1.2 @ 30ml/hr x 24 hrs PO DIET RECOMMENDATIONS: PHOTOCOPYING EQUIPMENT REPAIRER eval post extubation -> LOW NA/ texture per PHOTOCOPYING EQUIPMENT REPAIRER ENTERAL NUTRITION RECOMMENDATIONS: Vital AF 1.2 @ 65ml/hr x 24 hrs to provide 1560ml, 1872kcal, 117g prot, 1265ml free water * Rec TF change to Vital AF for critical care -> initiate Vital AF 1.2 @ 25ml/hr x 6 hrs -> advance 10ml q 4-6 hrs as tolerated to goal rate. -> HOB over 30 degrees/ H20 flush per MD ADDITIONAL RECOMMENDATIONS: * Calibrated bedscale wt for accurate CBW- w/ added P200 mattress * Monitor lytes, replete as needed (low phos) * Wound care: Continue Vit C Add Steve 1pkt BID via OGT (mix w/ 4oz water) * PHOTOCOPYING EQUIPMENT REPAIRER eval pot extubation
--- NOTE | 2019-07-08 08:00 | NUR ---
RESPIRATORY NOTE: recieved pt orally intubated with 7.5 ETT placed 24cm at the lip. ETT is secured via anchor fast with no visible redness or skin tears around facial area. pt is in no apparent resp distress at this time. will attempt to wean later this AM. alarms are set and audible with ambu bag at bedside. will cont to monitor.
[2019-07-08] MEDS: Pantoprazole Inj IVP SCH ×2 (09:04→21:14)
[2019-07-08] MEDS: Aspirin Baby 81mg NG SCH (09:05)
[2019-07-08] MEDS: Ascorbic Acid 500mg tab ORAL SCH (09:05)
[2019-07-08] MEDS: Nitroglycerin Patch 0.4mg TDERMAL SCH (09:05)
[2019-07-08] MEDS: Heparin 5000 units/ml inj SUBQ SCH ×2 (09:28→21:15)
--- NOTE | 2019-07-08 10:12 | NUR ---
NURSE NOTES: Oral care, meatal care was performed. Patient was repositioned for comfort. Patient's BL wrist restraints were secured in that patient is very combated. Patient is not in acute acute distress. Patient is without any facial grimacing. Jevity 1.2 TF with tubing were changed with a 100 ml flush given. Patient tolerated and no residual was noted. Will continue to monitor.
--- NOTE | 2019-07-08 11:13 | Nephrology Progress Note ---
Assessment/Plan Problem List: (1) Renal failure (ARF), acute on chronic (2) Respiratory distress Assessment: Co2 retainer (3) UTI (urinary tract infection) (4) Respiratory failure (5) Sepsis Assessment Renal failure ? Chronic ? superimposed acute Acute on Chronic respiratory failure Co2 retention HyperKalemia HypoAlbuminemia Obese UTI / Leukocytosis Plan K phos IV- as needed change IV to D5 nitro for elevated troponin smith slow hydrate optimize pulmonary status monitor renal parameters avoid nephrotoxics 2D echo - 65% Ej Fx per orders Subjective ROS Limited/Unobtainable: Yes Objective Objective Last 24 Hour Vital Signs Date Time Temp Pulse Resp B/P (MAP) Pulse Ox O2 Delivery O2 Flow Rate FiO2 07/08/19 09:19 71 21 40 07/08/19 09:18 100 07/08/19 09:05 109/57 07/08/19 08:00 40 07/08/19 07:58 70 15 40 07/08/19 07:00 98.8 72 19 102/52 (69) 97 07/08/19 06:30 74 13 07/08/19 06:00 88 19 100/50 (67) 97 07/08/19 05:01 81 16 40 07/08/19 05:00 99.8 82 16 106/55 (72) 99 07/08/19 04:40 99.8 07/08/19 04:00 40 07/08/19 04:00 86 07/08/19 04:00 Mechanical Ventilator Mechanical Ventilator 07/08/19 04:00 101.1 84 19 95/51 (66) 99 07/08/19 03:28 82 17 40 07/08/19 03:00 88 19 106/49 (68) 97 07/08/19 02:00 88 18 100/45 (63) 97 07/08/19 01:00 87 18 120/44 (69) 100 07/08/19 00:56 87 20 40 07/08/19 00:00 86 07/08/19 00:00 40 07/08/19 00:00 87 18 101/52 (68) 97 07/08/19 00:00 Mechanical Ventilator Mechanical Ventilator 07/07/19 23:10 85 17 40 07/07/19 23:00 88 17 112/49 (70) 97 07/07/19 22:00 85 18 113/56 (75) 97 07/07/19 21:00 87 17 119/60 (79) 98 07/07/19 20:56 86 17 40 07/07/19 20:00 40 07/07/19 20:00 Mechanical Ventilator Mechanical Ventilator 07/07/19 20:00 98.8 81 16 101/52 (68) 98 07/07/19 20:00 80 07/07/19 19:06 82 17 40 07/07/19 19:00 81 16 116/56 (76) 98 07/07/19 18:00 81 16 116/56 (76) 97 07/07/19 17:11 75 18 40 07/07/19 17:00 78 16 125/60 (81) 98 07/07/19 16:00 Mechanical Ventilator Mechanical Ventilator 07/07/19 16:00 77 07/07/19 16:00 40 07/07/19 16:00 98.3 80 18 132/65 (87) 99 07/07/19 15:12 76 18 40 07/07/19 15:00 75 13 111/68 (82) 99 07/07/19 14:00 79 14 134/65 (88) 99 07/07/19 13:11 74 17 40 07/07/19 13:00 75 14 116/62 (80) 99 07/07/19 12:00 40 07/07/19 12:00 Mechanical Ventilator Mechanical Ventilator 07/07/19 12:00 98.2 76 14 121/63 (82) 99 07/07/19 12:00 74 Intake and Output 07/07/19 07/08/19 19:00 07:00 Intake Total 1639.66286 ml 1365 ml Output Total 1200 ml 540 ml Balance 439.00700 ml 825 ml Free Water 40 ml 50 ml IV Total 1239.42819 ml 955 ml Tube Feeding 360 ml 360 ml Output Urine Total 1200 ml 540 ml Laboratory Tests 07/08/19 05:45: White Blood Count 12.9H, Red Blood Count 3.62L, Hemoglobin 10.1L, Hematocrit 31.1L, Mean Corpuscular Volume 86, Mean Corpuscular Hemoglobin 27.9, Mean Corpuscular Hemoglobin Concent 32.6, Red Cell Distribution Width 15.4H, Platelet Count 231, Mean Platelet Volume 6.0L, Neutrophils (%) (Auto) 68.8, Lymphocytes (%) (Auto) 18.8L, Monocytes (%) (Auto) 9.4, Eosinophils (%) (Auto) 1.9, Basophils (%) (Auto) 1.1, Sodium Level 146H, Potassium Level 4.6, Chloride Level 111H, Carbon Dioxide Level 30, Anion Gap 5, Blood Urea Nitrogen 19H, Creatinine 1.0, Estimat Glomerular Filtration Rate > 60, Glucose Level 127H, Calcium Level 7.9L Height (Feet): 6 Height (Inches): 2.00 Weight (Pounds): 242 General Appearance: no apparent distress EENT: other - vented Cardiovascular: normal rate Respiratory/Chest: decreased breath sounds Abdomen: distended Will Groves MD Jul 08, 2019 11:13
[2019-07-08] MEDS: Meropenem 1 GM in NS 55 ML IVPB SCH ×2 (11:58→22:54)
[2019-07-08 12:13] LABS: ALANINE AMINOTRANSFERASE 27 U/L (12-78); ALBUMIN 1.6 G/DL (3.4-5.0); ALKALINE PHOSPHATASE 77 U/L (46-116); ASPARTATE AMINO TRANSFERASE 77 U/L (15-37); BILIRUBIN,TOTAL 0.1 MG/DL (0.2-1.0); PHOSPHORUS 2.9 MG/DL (2.5-4.9)
[2019-07-08 12:14] LABS: BILIRUBIN,DIRECT < 0.1 MG/DL (0.0-0.3)
--- NOTE | 2019-07-08 12:17 | Surgery Progress Note ---
Surgery Progress Note Subjective Additional Comments ill appearing in ICU labs reviewed exam stable Objective Last 24 Hour Vital Signs Date Time Temp Pulse Resp B/P (MAP) Pulse Ox O2 Delivery O2 Flow Rate FiO2 07/08/19 11:13 67 20 40 40 07/08/19 11:00 68 20 107/56 (73) 99 07/08/19 10:00 70 21 108/52 (70) 100 07/08/19 09:19 71 21 40 07/08/19 09:18 100 07/08/19 09:05 109/57 07/08/19 09:00 69 18 109/57 (74) 100 07/08/19 09:00 69 18 109/57 (74) 100 07/08/19 08:00 69 07/08/19 08:00 98.4 69 14 128/69 (88) 100 07/08/19 08:00 40 07/08/19 08:00 69 14 128/69 (88) 100 07/08/19 08:00 Mechanical Ventilator Mechanical Ventilator 07/08/19 07:58 70 15 40 07/08/19 07:00 98.8 72 19 102/52 (69) 97 07/08/19 06:30 74 13 07/08/19 06:00 88 19 100/50 (67) 97 07/08/19 05:01 81 16 40 07/08/19 05:00 99.8 82 16 106/55 (72) 99 07/08/19 04:40 99.8 07/08/19 04:00 40 07/08/19 04:00 86 07/08/19 04:00 Mechanical Ventilator Mechanical Ventilator 07/08/19 04:00 101.1 84 19 95/51 (66) 99 07/08/19 03:28 82 17 40 07/08/19 03:00 88 19 106/49 (68) 97 07/08/19 02:00 88 18 100/45 (63) 97 07/08/19 01:00 87 18 120/44 (69) 100 07/08/19 00:56 87 20 40 07/08/19 00:00 86 07/08/19 00:00 40 07/08/19 00:00 87 18 101/52 (68) 97 07/08/19 00:00 Mechanical Ventilator Mechanical Ventilator 07/07/19 23:10 85 17 40 07/07/19 23:00 88 17 112/49 (70) 97 07/07/19 22:00 85 18 113/56 (75) 97 07/07/19 21:00 87 17 119/60 (79) 98 07/07/19 20:56 86 17 40 07/07/19 20:00 40 07/07/19 20:00 Mechanical Ventilator Mechanical Ventilator 07/07/19 20:00 98.8 81 16 101/52 (68) 98 07/07/19 20:00 80 07/07/19 19:06 82 17 40 07/07/19 19:00 81 16 116/56 (76) 98 07/07/19 18:00 81 16 116/56 (76) 97 07/07/19 17:11 75 18 40 07/07/19 17:00 78 16 125/60 (81) 98 07/07/19 16:00 Mechanical Ventilator Mechanical Ventilator 07/07/19 16:00 77 07/07/19 16:00 40 07/07/19 16:00 98.3 80 18 132/65 (87) 99 07/07/19 15:12 76 18 40 07/07/19 15:00 75 13 111/68 (82) 99 07/07/19 14:00 79 14 134/65 (88) 99 07/07/19 13:11 74 17 40 07/07/19 13:00 75 14 116/62 (80) 99 I&O Intake and Output 07/07/19 07/08/19 19:00 07:00 Intake Total 1639.00465 ml 1365 ml Output Total 1200 ml 540 ml Balance 439.42880 ml 825 ml Free Water 40 ml 50 ml IV Total 1239.07337 ml 955 ml Tube Feeding 360 ml 360 ml Output Urine Total 1200 ml 540 ml Dressing: other Wound: other Drains: other Cardiovascular: RSR Respiratory: decreased breath sounds Abdomen: soft, present bowel sounds Extremities: no cyanosis Laboratory Tests Test 07/08/19 05:45 White Blood Count 12.9 K/UL (4.8-10.8) H Red Blood Count 3.62 M/UL (4.70-6.10) L Hemoglobin 10.1 G/DL (14.2-18.0) L Hematocrit 31.1 % (42.0-52.0) L Mean Corpuscular Volume 86 FL (80-99) Mean Corpuscular Hemoglobin 27.9 PG (27.0-31.0) Mean Corpuscular Hemoglobin Concent 32.6 G/DL (32.0-36.0) Red Cell Distribution Width 15.4 % (11.6-14.8) H Platelet Count 231 K/UL (150-450) Mean Platelet Volume 6.0 FL (6.5-10.1) L Neutrophils (%) (Auto) 68.8 % (45.0-75.0) Lymphocytes (%) (Auto) 18.8 % (20.0-45.0) L Monocytes (%) (Auto) 9.4 % (1.0-10.0) Eosinophils (%) (Auto) 1.9 % (0.0-3.0) Basophils (%) (Auto) 1.1 % (0.0-2.0) Sodium Level 146 MMOL/L (136-145) H Potassium Level 4.6 MMOL/L (3.5-5.1) Chloride Level 111 MMOL/L (98-107) H Carbon Dioxide Level 30 MMOL/L (21-32) Anion Gap 5 mmol/L (5-15) Blood Urea Nitrogen 19 mg/dL (7-18) H Creatinine 1.0 MG/DL (0.55-1.30) Estimat Glomerular Filtration Rate > 60 mL/min (>60) Glucose Level 127 MG/DL (74-106) H Calcium Level 7.9 MG/DL (8.5-10.1) L Phosphorus Level 2.9 MG/DL (2.5-4.9) Magnesium Level 2.5 MG/DL (1.8-2.4) H Total Bilirubin 0.1 MG/DL (0.2-1.0) L Direct Bilirubin < 0.1 MG/DL (0.0-0.3) Aspartate Amino Transf (AST/SGOT) 77 U/L (15-37) H Alanine Aminotransferase (ALT/SGPT) 27 U/L (12-78) Alkaline Phosphatase 77 U/L (46-116) Total Protein 7.7 G/DL (6.4-8.2) Albumin 1.6 G/DL (3.4-5.0) L Plan Problems: (1) Sepsis Assessment & Plan: Febrile, tachycardia, leukocytosis Labs reviewed Imaging reviewed Sepsis clear etiology unknown work-up initiated and pending results Micro reviewed Continue IV antibiotics Trend labs Tube feeds Fluids We will follow with recommendations Findings: Gallbladder demonstrates sludge. No gallstones, wall thickening, nor pericholecystic fluid. Patient is uncommunicative, unable to report Riddle's sign. Common bile duct measures 3 mm in diameter. No intrahepatic biliary ductal dilatation. Liver demonstrates normal echogenicity, no focal abnormality. Portal vein and hepatic veins are patent. Pancreas is unremarkable. Spleen is unremarkable. Left kidney measures 12.5 cm in length. Right kidney measures 12.6 cm length. Both kidneys demonstrate normal echogenicity. Both kidneys demonstrate fullness to the collecting systems, slightly greater on the left than on the right, although no maki hydronephrosis. No focal abnormality . Bladder is empty, contains a Ramirez catheter. Non-aneurysmal abdominal aorta . Impression: Nonspecific bilateral renal collecting system fullness without maki hydronephrosis. Gallbladder sludge. Negative for gallstones or dilated bile ducts Empty bladder with a Ramirez catheter (2) Respiratory distress (3) Decubitus skin ulcer Assessment & Plan: Pt presented on admission with Non-blanching erythema sacrum ,R and L buttocks with multiple DTPI's within . DTPI noted to L buttocks. Base of wound is maroon with surrounding non- blanching erythema(L)2cm x (W)0.8cm. DTPI noted to Sacrococcygeal area. Base of wound is purple,fluctuant with marginal erythema, surrounding non- blanching erythema without induration.(L) 1.5cm x (W)0.5cm. DTPI noted to R buttocks. Base of wound is indurated maroon with surrounding non -blanching erythema. Scrotal sac is grossly erythematous. Single L testis in-situ. Small scar noted to base R sac. Both heels are boggy with non-blanching erythema. Tx.Plan: Apply Moisture Barrier Paste to Sacrum, R and L buttocks. Cover with Optifoam drsg. Change every 3 days and prn. Apply Moisture Barrier Paste to scrotum. Cover as needed with Optifoam drsg. Apply Cavilon Skin Barrier to both heels. Cover each heel with Optifoam drsg. Change every 7 days and prn. APM/DARREL mattress overlay. Reposition at least every 2hours or as tolerated. Off-load heels with pillow. (4) Respiratory failure Assessment & Plan: DAILY ESTIMATED NEEDS: Needs based on Critical care, wounds, obese/ 92kg abw 20-25 kcals/kg 8680-0937 total kcals 1.25-2 g protein/kg 115-184 g total protein 25-30 mL/kg 5436-1597 total fluid mLs NUTRITION DIAGNOSIS: Swallowing difficulty R/T respiratory status as evidenced by pt orally intubated, on OGT feeding. CURRENT TF:Jevity 1.2 @ 30ml/hr x 24 hrs PO DIET RECOMMENDATIONS: DESKTOP ANALYST eval post extubation -> LOW NA/ texture per DESKTOP ANALYST ENTERAL NUTRITION RECOMMENDATIONS: Vital AF 1.2 @ 65ml/hr x 24 hrs to provide 1560ml, 1872kcal, 117g prot, 1265ml free water * Rec TF change to Vital AF for critical care -> initiate Vital AF 1.2 @ 15ml/hr x 6 hrs -> advance 10ml q 4-6 hrs as tolerated to goal rate. -> HOB over 30 degrees/ H20 flush per MD ADDITIONAL RECOMMENDATIONS: * Calibrated bedscale wt for accurate CBW- w/ added P200 mattress * Monitor lytes, replete as needed (low K + phos) * F/up WC eval: add Vit C 250mg QD Steve 1pkt BID via OGT * DESKTOP ANALYST eval pot extubation Raul Cornejo Jul 08, 2019 12:17
--- NOTE | 2019-07-08 12:30 | NUR ---
NURSE NOTES: Patient observed bedside to be resting comfortably. Continues to open eyes spontaneously, appears pleasant however easily agitated. Patient is drowsy. Patient allowed noon care to be done. Patient is being monitored on the hall monitor. Patient VSS Patient is mechanically ventilated with vent settings AC14 TV 550 FIO2 40% +5. Oral care was performed with thick oral secretions. Patient is with OGT running Jevity 1.2 running at 30 ml and tolerating. No residual. A 50 ml flush was given. Patient has a Ramirez catheter draining good amount of dark YL urine to gravity. Patient has D5W running at 75 ml/hr on a PIV. BL wrist restraints are needed for safety due to patient's unpredictability. Patient is uncooperative. Pulses are palpable and skin is intact. Safety measures are in place with bed locked in the lowest position, padded side rails for sz precautions, side rails up x 3. Will con't to monitor and follow plan of care. Addendum: 07/08/19 at 1746 by Pam Saldivar RN Patient is on CPAP with PS 8. since 919 this am
[2019-07-08] MEDS ORDERED: NS 275ml ONE (13:43)
--- NOTE | 2019-07-08 13:47 | NUR ---
OCEANOGRAPHER GEOLOGICAL: REVIEW SI: RESP FAILURE . ETT/VENT SUPPORT . SEPSIS T 98.4 HR 69 RR 14 BP 102/52 SAT 97% MECH VENT FIO2 40 WBC 12.9 H/H 10.2/31.5 NA 146 IS: D5W @ 75ML/HR MEROPENEM IV Q12HR ASA 81MG OG QD HEPARIN SUBQ Q12HR NITRO PATCH Q24HR OG TUBE FEEDING @ 30ML/HR WOUND CARE SCARUM PRN ICU STATUS DCP: PATIENT IS FROM [facility]
--- NOTE | 2019-07-08 14:40 | NUR ---
NURSE NOTES: Patient was repositioned, cleaned and ensured that restraints are secured. Patient was orally suctioned due to INC oral secretions. Patient requested water however cannot drink due to being orally intubated. Patient was given green toothettes dipped in ice water and cleaned. Patient was relieved initially however was upset because he wanted more. Patient calmed quickly.
--- NOTE | 2019-07-08 15:03 | NUR ---
RESPIRATORY NOTE: Received pt on CPAP, PS 8, PEEP +5, 40%. Pt is intubated w/ ETT 7.5 @ 25cm lipline, secured by anchorfast. Pt alert/awake, follows commands. B/S ade. rhonchi, sxn small to moderate amounts of thick, pale-yellow secretions. Both hands on soft restraints to prevent pt from self-extubation. Vent plugged into red outlet, ambubag at bedside. Pt in no apparent distress at this time. Will continue to monitor pt.
--- NOTE | 2019-07-08 16:29 | NUR ---
NURSE NOTES: Patient observed bedside. Patient has been sleeping on and off most of the day. When patient is awake, patient requests water to drink. Patient becomes irritated very easily, opens eyes to voice, follows some commands. Patient is being monitored on the color television console monitor. Patient VSS. Patient is mechanically ventilated with vent settings CPAP PS 8 since 0900 Oral care done with suctioned of thick secretions. Patient is with OGT running Jevity 1.2 running at 30 ml and tolerating. Patient has a Ramirez catheter draining good amount of dark YL urine to gravity. Patient has D5W running at 75 ml/hr on a PIV. BL wrist restraints are needed for safety due to patient being unpredictable. Patient is at times uncooperative and requests that RN gets close however, due to agitation, RN does not get close. Restraints are secure, pulses are palpable and skin is intact. Safety measures are in place with bed locked in the lowest position, padded side rails for sz precautions, side rails up x 3. Will con't to monitor and follow plan of care.
--- NOTE | 2019-07-08 16:45 | NUR ---
NURSE NOTES: Dr Panchal observed patient bedside. Requested STAT ABG to determine if weaning is successful. Will await results and call him back when available.
--- NOTE | 2019-07-08 16:54 | Pulmonology Progress Note ---
Assessment/Plan Assessment/Plan IMPRESSION: 1. Respiratory failure, acute 2. Sepsis, urinary 3. Altered mental status. 4. Psychiatric disorder. DISCUSSION: I will check ABG, labs and CXR in AM IV fluids. DVT prophylaxis. Seen by ID, on antibiotics. I will follow carefully. Continue weaning. Subjective Interval Events: Awake; follows commands ; Constitutional: Reports: no symptoms HEENT: Repors: no symptoms Respiratory: Reports: no symptoms Cardiovascular: Reports: no symptoms Gastrointestinal/Abdominal: Reports: no symptoms Allergies: Coded Allergies: PENICILLINS (Verified Allergy, Unknown, 07/03/19) Objective Last 24 Hour Vital Signs Date Time Temp Pulse Resp B/P (MAP) Pulse Ox O2 Delivery O2 Flow Rate FiO2 07/08/19 16:00 98.8 70 20 119/57 (77) 99 07/08/19 16:00 Mechanical Ventilator Mechanical Ventilator 07/08/19 16:00 70 07/08/19 16:00 40 07/08/19 15:00 69 19 40 07/08/19 15:00 40 07/08/19 15:00 72 21 126/63 (84) 99 07/08/19 14:00 66 20 116/63 (80) 99 07/08/19 13:25 66 20 40 40 07/08/19 13:00 97.7 67 20 110/57 (74) 99 07/08/19 12:00 67 19 104/50 (68) 99 07/08/19 12:00 67 07/08/19 12:00 Mechanical Ventilator Mechanical Ventilator 07/08/19 12:00 40 07/08/19 11:13 67 20 40 40 07/08/19 11:00 68 20 107/56 (73) 99 07/08/19 10:00 70 21 108/52 (70) 100 07/08/19 09:19 71 21 40 07/08/19 09:18 100 07/08/19 09:05 109/57 07/08/19 09:00 69 18 109/57 (74) 100 07/08/19 09:00 69 18 109/57 (74) 100 07/08/19 09:00 40 07/08/19 08:00 69 07/08/19 08:00 98.4 69 14 128/69 (88) 100 07/08/19 08:00 40 07/08/19 08:00 69 14 128/69 (88) 100 07/08/19 08:00 Mechanical Ventilator Mechanical Ventilator 07/08/19 07:58 70 15 40 07/08/19 07:00 98.8 72 19 102/52 (69) 97 07/08/19 06:30 74 13 07/08/19 06:00 88 19 100/50 (67) 97 07/08/19 05:01 81 16 40 07/08/19 05:00 99.8 82 16 106/55 (72) 99 07/08/19 04:40 99.8 07/08/19 04:00 40 07/08/19 04:00 86 07/08/19 04:00 Mechanical Ventilator Mechanical Ventilator 07/08/19 04:00 101.1 84 19 95/51 (66) 99 07/08/19 03:28 82 17 40 07/08/19 03:00 88 19 106/49 (68) 97 07/08/19 02:00 88 18 100/45 (63) 97 07/08/19 01:00 87 18 120/44 (69) 100 07/08/19 00:56 87 20 40 07/08/19 00:00 86 07/08/19 00:00 40 07/08/19 00:00 87 18 101/52 (68) 97 07/08/19 00:00 Mechanical Ventilator Mechanical Ventilator 07/07/19 23:10 85 17 40 07/07/19 23:00 88 17 112/49 (70) 97 07/07/19 22:00 85 18 113/56 (75) 97 07/07/19 21:00 87 17 119/60 (79) 98 07/07/19 20:56 86 17 40 07/07/19 20:00 40 07/07/19 20:00 Mechanical Ventilator Mechanical Ventilator 07/07/19 20:00 98.8 81 16 101/52 (68) 98 07/07/19 20:00 80 07/07/19 19:06 82 17 40 07/07/19 19:00 81 16 116/56 (76) 98 07/07/19 18:00 81 16 116/56 (76) 97 07/07/19 17:11 75 18 40 07/07/19 17:00 78 16 125/60 (81) 98 Intake and Output 07/07/19 07/08/19 19:00 07:00 Intake Total 1639.49830 ml 1365 ml Output Total 1200 ml 540 ml Balance 439.89362 ml 825 ml Free Water 40 ml 50 ml IV Total 1239.31141 ml 955 ml Tube Feeding 360 ml 360 ml Output Urine Total 1200 ml 540 ml General Appearance: no acute distress HEENT: normocephalic Respiratory/Chest: chest wall non-tender Cardiovascular: normal peripheral pulses Abdomen: normal bowel sounds Laboratory Tests 07/08/19 05:45: White Blood Count 12.9H, Red Blood Count 3.62L, Hemoglobin 10.1L, Hematocrit 31.1L, Mean Corpuscular Volume 86, Mean Corpuscular Hemoglobin 27.9, Mean Corpuscular Hemoglobin Concent 32.6, Red Cell Distribution Width 15.4H, Platelet Count 231, Mean Platelet Volume 6.0L, Neutrophils (%) (Auto) 68.8, Lymphocytes (%) (Auto) 18.8L, Monocytes (%) (Auto) 9.4, Eosinophils (%) (Auto) 1.9, Basophils (%) (Auto) 1.1, Sodium Level 146H, Potassium Level 4.6, Chloride Level 111H, Carbon Dioxide Level 30, Anion Gap 5, Blood Urea Nitrogen 19H, Creatinine 1.0, Estimat Glomerular Filtration Rate > 60, Glucose Level 127H, Calcium Level 7.9L, Phosphorus Level 2.9, Magnesium Level 2.5H, Total Bilirubin 0.1L, Direct Bilirubin < 0.1, Aspartate Amino Transf (AST/SGOT) 77H, Alanine Aminotransferase (ALT/SGPT) 27, Alkaline Phosphatase 77, Total Protein 7.7, Albumin 1.6L Current Medications Medications (Trade) Dose Ordered Sig/Samuel Route PRN Reason Start Time Stop Time Status Last Admin Dose Admin Acetaminophen (Tylenol) 650 mg Q6H PRN NG Mild Pain/Temp > 100.5 07/05/19 12:15 08/04/19 12:14 07/08/19 03:20 Allopurinol (allopurinoL) 300 mg DAILY ORAL 07/05/19 09:00 08/04/19 08:59 07/08/19 09:04 Ascorbic Acid (Vitamin C) 250 mg DAILY ORAL 07/06/19 09:00 08/05/19 08:59 07/08/19 09:05 Aspirin (ASA) 81 mg DAILY NG 07/07/19 09:00 08/06/19 08:59 07/08/19 09:05 Dextrose 1,000 ml @ 75 mls/hr [id number] IV 07/06/19 08:45 08/05/19 08:44 07/08/19 11:59 Heparin Sodium (Porcine) (Heparin 5000 units/ml) 5,000 units EVERY 12 HOURS SUBQ 07/04/19 21:00 08/03/19 20:59 07/08/19 09:28 Lorazepam (Ativan 2mg/ml 1ml) 1 mg Q4H PRN IV For Anxiety 07/06/19 08:15 07/13/19 08:14 07/07/19 05:21 Meropenem 1 gm/ Sodium Chloride 55 ml @ 110 mls/hr Q12H IVPB 07/05/19 11:00 07/10/19 10:59 07/08/19 11:58 Nitroglycerin (Ntg) 1 patch Q24H TDERMAL 07/06/19 10:00 08/05/19 09:59 07/08/19 09:05 Pantoprazole (Protonix) 40 mg Q12HR IVP 07/05/19 21:00 08/04/19 08:59 07/08/19 09:04 Quetiapine Fumarate (SEROqueL) 50 mg TID ORAL 07/07/19 09:00 08/06/19 08:59 07/08/19 14:46 Pramod Panchal MD Jul 08, 2019 16:54
--- NOTE | 2019-07-08 17:21 | NUR ---
NURSE NOTES: Called Dr Panchal with ABG results and left message. Will await call back.
--- NOTE | 2019-07-08 19:01 | NUR ---
NURSE NOTES: Spoke to Dr Panchal. wants TF HELD, patient weaned and ABG done to determine possible extubation. Will endorse to PM RN.
--- NOTE | 2019-07-08 19:06 | NUR ---
RESPIRATORY NOTE: Pt placed back on previous vent settings of: AC 14, 550VT 40%, PEEP +5. Pt tolerated weaning well, no s/s of SOB/distress noted. Will continue to monitor pt.
--- NOTE | 2019-07-08 19:21 | NUR ---
HAND-OFF: Report given to COCO Andersen. Endorsed the wean for tomorrow am, hold of TF and ABG to be done after wean. Patient is with VSS and not in any acute distress.
--- NOTE | 2019-07-08 19:30 | NUR ---
NURSE NOTES: Received pt in no acute distress, asleep but easily arousable to name and touch. Still orally intubated and appears to be tolerating current vent parameters; fiO2.40 saturating 98%. Still with copious amt of yellowish secretions via ETT, chest sounds with scattered rhonchi. Afrebrile; NSR on the scope; BP stable. OGT in situ; TF with Jevity 1.2 continues at 30ml/h with 0 residuals. PIV site on LFA intact. FC patent. Bilat soft wrist restraints on. HOB elevated. Will continue to monitor and follow through with plan of care
--- NOTE | 2019-07-08 21:00 | NUR ---
NURSE NOTES: Continues to have large amounts of thick yellow secretions. Pt opens mouth for oral care and suctioning. Tolerating current TF rate; still no BM.
--- NOTE | 2019-07-08 23:00 | NUR ---
NURSE NOTES: Pt extremely restless and combative, attemting to kick the staff. Ativan 1mg IVP given, bilat soft wrist restraints maintained
[2019-07-08] MEDS: LORazepam Inj 2mg/ml 1ml IV PRN (23:01)
[2019-07-09] VITALS (24 sets, daily range): BP systolic 98–147; BP diastolic 50–112
--- NOTE | 2019-07-09 02:00 | NUR ---
NURSE NOTES: Initial restraint order initiated. Skin on wrists intact but slightly red. Pt calm, asleep; VSS
--- NOTE | 2019-07-09 02:31 | Progress Note ---
DATE: 07/07/2019 SUBJECTIVE: The patient is in intensive care unit. The patient was seen on 07/07/2019. The patient is still irritable. Has episodes of agitation. Continues to be on restraints. MENTAL STATUS EXAMINATION: The patient is having waxing and waning consciousness. Mood is agitated. Affect is flat. Thought process is concrete. Thought content, no suicidal or homicidal ideation. ASSESSMENT: 1. Acute encephalopathy. 2. Psychotic disorder. PLAN: 1. We will continue current psychotropic medications. 2. Provide the patient with reality orientation. Layton Estrada M.D. DR: DAINEL JOB#: [id number] CC:
--- NOTE | 2019-07-09 04:00 | NUR ---
NURSE NOTES: Awake but calm. Morning bath given,skin remains intact. DTI on buttocks non existing; improved. PIV site intact. Temp 99.4. TF continues at 30ml/h. VSS
--- NOTE | 2019-07-09 05:30 | NUR ---
NURSE NOTES: Tube feeding held in anticipation for weaning.
--- NOTE | 2019-07-09 07:15 | NUR ---
NURSE NOTES: RECEIVED PT FROM COCO BLACKMON. PT IS AWAKE, AGITATED, PULLING ON RESTRAINTS. A/OX1. BILATERAL WRIST RESTRAINTS IN PLACE; SKIN INTACT. REORIENTATION AND THERAPEUTIC TALK PROVIDED. PLAN TO WEAN TODAY. TUBE FEEDING ON HOLD. SR ON FLIGHT SERVICE AGENT. OGT IN PLACE. ORALLY INTUBATED WITH ETT 7.5/25CM AT LIP LINE, AC 14/TV 550/FIO2 40%/PEEP 5, SPO2 100%. MODERATE THICK WHITE SECRETIONS. LFA 20G RUNNING D5W@75ML/HR. FC DRAINING CLEAR YELLOW URINE WELL TO GRAVITY. P200 MATTRESS. ORAL CARE DONE. BED LOCKED, ALARMED AND IN LOWEST POSITION. WILL CONTINUE PLAN OF CARE.
--- NOTE | 2019-07-09 07:18 | NUR ---
HAND-OFF: Report given to Shirin Carter RN.
--- NOTE | 2019-07-09 09:30 | NUR ---
NURSE NOTES: TURNED AND REPOSITIONED. ORAL CARE DONE. VSS. SEROQUEL EFFECTIVE, PATIENT IS CALM AND ASLEEP.
[2019-07-09] MEDS: Pantoprazole Inj IVP SCH ×2 (09:37→20:34)
[2019-07-09] MEDS: Ascorbic Acid 500mg tab ORAL SCH (09:37)
[2019-07-09] MEDS: Aspirin Baby 81mg NG SCH (09:38)
[2019-07-09] MEDS: Heparin 5000 units/ml inj SUBQ SCH ×2 (09:38→20:34)
[2019-07-09] MEDS: Nitroglycerin Patch 0.4mg TDERMAL SCH (09:39)
--- NOTE | 2019-07-09 10:30 | NUR ---
NURSE NOTES: Notified Dr. Panchal of this morning ABG. Received orders to extubate ETT and place him on cool aersol Fio2 40%. Addendum: 07/09/19 at 1031 by Shirin Carter RN Hold all feedings until further notice.
--- NOTE | 2019-07-09 10:45 | NUR ---
RESPIRATORY NOTE: Pt extubated per MD order. Pt placed on 3Lpm O2 post extubation. Pt aspen extubation well. No resp distress noted. Suctioned pt prn. Vitals stable. Will monitor pt progress.
--- NOTE | 2019-07-09 10:45 | NUR ---
NURSE NOTES: Patient extubated at 1045, placed patient on cool aerosol FIo2 40%, SPo2 100%, RR 20, no signs of resp. distress noted. HR 84, BP 118/66. Pt is talkative and is requesting for the cool aersol to be taken off. Risks and benefits provided x3 but patient still refused. placed patient on 3LNC, SPo2 100%. No stridor noted. Removed OGT and inserted NGT, ordered STAT KUB for placement confirmation. Placement confirmed with auscultation.
--- NOTE | 2019-07-09 10:50 | Nephrology Progress Note ---
Assessment/Plan Problem List: (1) Renal failure (ARF), acute on chronic (2) Respiratory distress Assessment: Co2 retainer (3) UTI (urinary tract infection) (4) Respiratory failure (5) Sepsis Assessment Renal failure ? Chronic ? superimposed acute Acute on Chronic respiratory failure Co2 retention HyperKalemia HypoAlbuminemia Obese UTI / Leukocytosis Plan no labs today K phos IV- as needed change IV to D5 nitro for elevated troponin smith slow hydrate optimize pulmonary status monitor renal parameters avoid nephrotoxics 2D echo - 65% Ej Fx per orders Subjective ROS Limited/Unobtainable: Yes Objective Objective Last 24 Hour Vital Signs Date Time Temp Pulse Resp B/P (MAP) Pulse Ox O2 Delivery O2 Flow Rate FiO2 07/09/19 10:00 91 28 118/66 (83) 97 07/09/19 09:39 133/98 07/09/19 09:13 100 07/09/19 09:13 81 24 40 07/09/19 09:00 88 21 133/98 (110) 97 07/09/19 08:00 86 07/09/19 08:00 Mechanical Ventilator Mechanical Ventilator 07/09/19 08:00 40 07/09/19 08:00 84 21 132/58 (82) 98 07/09/19 07:15 85 20 40 40 07/09/19 07:00 99.6 82 19 123/55 (77) 87 07/09/19 06:20 79 14 07/09/19 06:00 79 17 98/57 (71) 81 07/09/19 05:05 77 17 40 07/09/19 05:00 80 16 113/60 (77) 100 07/09/19 04:00 Mechanical Ventilator Mechanical Ventilator 07/09/19 04:00 99.4 82 18 113/54 (73) 100 07/09/19 04:00 40 07/09/19 04:00 82 07/09/19 03:00 87 18 115/68 (84) 99 07/09/19 03:00 87 18 40 07/09/19 02:00 90 20 134/85 (101) 98 07/09/19 01:00 84 18 147/112 (124) 100 07/09/19 00:54 85 20 40 07/09/19 00:00 73 07/09/19 00:00 98.8 87 20 132/65 (87) 94 07/09/19 00:00 Mechanical Ventilator Mechanical Ventilator 07/08/19 23:00 107 24 176/81 (112) 100 07/08/19 22:42 78 17 98 Mechanical Ventilator 40 07/08/19 22:42 78 18 40 07/08/19 22:00 76 17 115/58 (77) 98 07/08/19 21:00 72 17 129/55 (79) 99 07/08/19 20:47 74 18 40 07/08/19 20:00 98.7 70 14 102/54 (70) 97 07/08/19 20:00 40 07/08/19 20:00 75 07/08/19 20:00 Mechanical Ventilator Mechanical Ventilator 07/08/19 19:05 73 21 40 07/08/19 19:00 72 21 123/59 (80) 98 07/08/19 18:00 72 20 110/57 (74) 98 07/08/19 17:18 74 23 40 07/08/19 17:00 75 24 114/68 (83) 100 07/08/19 16:00 98.8 70 20 119/57 (77) 99 07/08/19 16:00 Mechanical Ventilator Mechanical Ventilator 07/08/19 16:00 70 07/08/19 16:00 40 07/08/19 15:00 69 19 40 07/08/19 15:00 40 07/08/19 15:00 72 21 126/63 (84) 99 07/08/19 14:00 66 20 116/63 (80) 99 07/08/19 13:25 66 20 40 40 07/08/19 13:00 97.7 67 20 110/57 (74) 99 07/08/19 12:00 67 19 104/50 (68) 99 07/08/19 12:00 67 07/08/19 12:00 Mechanical Ventilator Mechanical Ventilator 07/08/19 12:00 40 07/08/19 11:13 67 20 40 40 07/08/19 11:00 68 20 107/56 (73) 99 Intake and Output 07/08/19 07/09/19 19:00 07:00 Intake Total 1615 ml 1180 ml Output Total 730 ml 820 ml Balance 885 ml 360 ml IV Total 955 ml 880 ml Tube Feeding 360 ml 300 ml Other 300 ml Output Urine Total 730 ml 820 ml Laboratory Tests 07/08/19 16:48: Arterial Blood pH 7.404, Arterial Blood Partial Pressure CO2 46.3H, Arterial Blood Partial Pressure O2 95.0, Arterial Blood HCO3 28.3H, Arterial Blood Oxygen Saturation 97.1, Arterial Blood Base Excess 3.1H, Claus Test Positive 07/09/19 09:13: Arterial Blood pH 7.443, Arterial Blood Partial Pressure CO2 44.0, Arterial Blood Partial Pressure O2 75.0, Arterial Blood HCO3 29.4H, Arterial Blood Oxygen Saturation 95.3, Arterial Blood Base Excess 4.8H, Claus Test Positive Height (Feet): 6 Height (Inches): 2.00 Weight (Pounds): 244 General Appearance: no apparent distress Objective no change Will Groves MD Jul 09, 2019 10:50
[2019-07-09] MEDS: Meropenem 1 GM in NS 55 ML IVPB SCH (11:33)
--- NOTE | 2019-07-09 12:06 | Surgery Progress Note ---
Surgery Progress Note Subjective Additional Comments labs noted exam stable Objective Last 24 Hour Vital Signs Date Time Temp Pulse Resp B/P (MAP) Pulse Ox O2 Delivery O2 Flow Rate FiO2 07/09/19 11:00 81 28 106/52 (70) 100 07/09/19 10:45 Nasal Cannula 3.0 32 07/09/19 10:00 91 28 118/66 (83) 97 07/09/19 09:39 133/98 07/09/19 09:13 100 07/09/19 09:13 81 24 40 07/09/19 09:00 88 21 133/98 (110) 97 07/09/19 08:00 86 07/09/19 08:00 Mechanical Ventilator Mechanical Ventilator 07/09/19 08:00 40 07/09/19 08:00 84 21 132/58 (82) 98 07/09/19 07:15 85 20 40 40 07/09/19 07:00 99.6 82 19 123/55 (77) 87 07/09/19 06:20 79 14 07/09/19 06:00 79 17 98/57 (71) 81 07/09/19 05:05 77 17 40 07/09/19 05:00 80 16 113/60 (77) 100 07/09/19 04:00 Mechanical Ventilator Mechanical Ventilator 07/09/19 04:00 99.4 82 18 113/54 (73) 100 07/09/19 04:00 40 07/09/19 04:00 82 07/09/19 03:00 87 18 115/68 (84) 99 07/09/19 03:00 87 18 40 07/09/19 02:00 90 20 134/85 (101) 98 07/09/19 01:00 84 18 147/112 (124) 100 07/09/19 00:54 85 20 40 07/09/19 00:00 73 07/09/19 00:00 98.8 87 20 132/65 (87) 94 07/09/19 00:00 Mechanical Ventilator Mechanical Ventilator 07/08/19 23:00 107 24 176/81 (112) 100 07/08/19 22:42 78 17 98 Mechanical Ventilator 40 07/08/19 22:42 78 18 40 07/08/19 22:00 76 17 115/58 (77) 98 07/08/19 21:00 72 17 129/55 (79) 99 07/08/19 20:47 74 18 40 07/08/19 20:00 98.7 70 14 102/54 (70) 97 07/08/19 20:00 40 07/08/19 20:00 75 07/08/19 20:00 Mechanical Ventilator Mechanical Ventilator 07/08/19 19:05 73 21 40 07/08/19 19:00 72 21 123/59 (80) 98 07/08/19 18:00 72 20 110/57 (74) 98 07/08/19 17:18 74 23 40 07/08/19 17:00 75 24 114/68 (83) 100 07/08/19 16:00 98.8 70 20 119/57 (77) 99 07/08/19 16:00 Mechanical Ventilator Mechanical Ventilator 07/08/19 16:00 70 07/08/19 16:00 40 07/08/19 15:00 69 19 40 07/08/19 15:00 40 07/08/19 15:00 72 21 126/63 (84) 99 07/08/19 14:00 66 20 116/63 (80) 99 07/08/19 13:25 66 20 40 40 07/08/19 13:00 97.7 67 20 110/57 (74) 99 I&O Intake and Output 07/08/19 07/09/19 19:00 07:00 Intake Total 1615 ml 1255 ml Output Total 730 ml 820 ml Balance 885 ml 435 ml IV Total 955 ml 955 ml Tube Feeding 360 ml 300 ml Other 300 ml Output Urine Total 730 ml 820 ml Dressing: other Wound: other Drains: other Cardiovascular: RSR Respiratory: decreased breath sounds Abdomen: soft, non-distended, decreased bowel sounds Extremities: no edema, no cyanosis Laboratory Tests Test 07/08/19 16:48 07/09/19 09:13 Arterial Blood pH 7.404 (7.350-7.450) 7.443 (7.350-7.450) Arterial Blood Partial Pressure CO2 46.3 mmHg (35.0-45.0) H 44.0 mmHg (35.0-45.0) Arterial Blood Partial Pressure O2 95.0 mmHg (75.0-100.0) 75.0 mmHg (75.0-100.0) Arterial Blood HCO3 28.3 mmol/L (22.0-26.0) H 29.4 mmol/L (22.0-26.0) H Arterial Blood Oxygen Saturation 97.1 % (95-100) 95.3 % (95-100) Arterial Blood Base Excess 3.1 (-2-2) H 4.8 (-2-2) H Claus Test Positive Positive Plan Problems: (1) Sepsis Assessment & Plan: Febrile, tachycardia, leukocytosis Labs reviewed Imaging reviewed Sepsis clear etiology unknown work-up initiated and pending results Micro reviewed Continue IV antibiotics Trend labs Tube feeds Fluids We will follow with recommendations Findings: Gallbladder demonstrates sludge. No gallstones, wall thickening, nor pericholecystic fluid. Patient is uncommunicative, unable to report Riddle's sign. Common bile duct measures 3 mm in diameter. No intrahepatic biliary ductal dilatation. Liver demonstrates normal echogenicity, no focal abnormality. Portal vein and hepatic veins are patent. Pancreas is unremarkable. Spleen is unremarkable. Left kidney measures 12.5 cm in length. Right kidney measures 12.6 cm length. Both kidneys demonstrate normal echogenicity. Both kidneys demonstrate fullness to the collecting systems, slightly greater on the left than on the right, although no maki hydronephrosis. No focal abnormality . Bladder is empty, contains a Ramirez catheter. Non-aneurysmal abdominal aorta . Impression: Nonspecific bilateral renal collecting system fullness without maki hydronephrosis. Gallbladder sludge. Negative for gallstones or dilated bile ducts Empty bladder with a Ramirez catheter (2) Respiratory distress (3) Decubitus skin ulcer Assessment & Plan: Pt presented on admission with Non-blanching erythema sacrum ,R and L buttocks with multiple DTPI's within . DTPI noted to L buttocks. Base of wound is maroon with surrounding non- blanching erythema(L)2cm x (W)0.8cm. DTPI noted to Sacrococcygeal area. Base of wound is purple,fluctuant with marginal erythema, surrounding non- blanching erythema without induration.(L) 1.5cm x (W)0.5cm. DTPI noted to R buttocks. Base of wound is indurated maroon with surrounding non -blanching erythema. Scrotal sac is grossly erythematous. Single L testis in-situ. Small scar noted to base R sac. Both heels are boggy with non-blanching erythema. Tx.Plan: Apply Moisture Barrier Paste to Sacrum, R and L buttocks. Cover with Optifoam drsg. Change every 3 days and prn. Apply Moisture Barrier Paste to scrotum. Cover as needed with Optifoam drsg. Apply Cavilon Skin Barrier to both heels. Cover each heel with Optifoam drsg. Change every 7 days and prn. APM/DARREL mattress overlay. Reposition at least every 2hours or as tolerated. Off-load heels with pillow. (4) Respiratory failure Assessment & Plan: DAILY ESTIMATED NEEDS: Needs based on Critical care, wounds, obese/ 92kg abw 20-25 kcals/kg 9333-4060 total kcals 1.25-2 g protein/kg 115-184 g total protein 25-30 mL/kg 9601-1948 total fluid mLs NUTRITION DIAGNOSIS: Swallowing difficulty R/T respiratory status as evidenced by pt orally intubated, on OGT feeding. CURRENT TF:Jevity 1.2 @ 30ml/hr x 24 hrs PO DIET RECOMMENDATIONS: TIRE DESIGN ENGINEER eval post extubation -> LOW NA/ texture per TIRE DESIGN ENGINEER ENTERAL NUTRITION RECOMMENDATIONS: Vital AF 1.2 @ 65ml/hr x 24 hrs to provide 1560ml, 1872kcal, 117g prot, 1265ml free water * Rec TF change to Vital AF for critical care -> initiate Vital AF 1.2 @ 15ml/hr x 6 hrs -> advance 10ml q 4-6 hrs as tolerated to goal rate. -> HOB over 30 degrees/ H20 flush per MD ADDITIONAL RECOMMENDATIONS: * Calibrated bedscale wt for accurate CBW- w/ added P200 mattress * Monitor lytes, replete as needed (low K + phos) * F/up WC eval: add Vit C 250mg QD Steve 1pkt BID via OGT * TIRE DESIGN ENGINEER eval pot extubation Raul Cornejo Jul 09, 2019 12:06
--- NOTE | 2019-07-09 12:20 | NUR ---
NURSE NOTES: No signs of distress noted. Patient is tolerating well on 2LNC, SPo2 98%. Dr. redding making rounds at bedside. Dr. Estrada on for psych consult.
--- NOTE | 2019-07-09 12:21 | Pulmonology Progress Note ---
Assessment/Plan Assessment/Plan IMPRESSION: 1. Respiratory failure, acute; now extubated 2. Sepsis, urinary 3. Altered mental status. 4. Psychiatric disorder. DISCUSSION: Check CXR WIll adjust psych meds; he is still somnolent Subjective Interval Events: Extubated this AM Constitutional: Reports: no symptoms HEENT: Repors: no symptoms Respiratory: Reports: no symptoms Cardiovascular: Reports: no symptoms Gastrointestinal/Abdominal: Reports: no symptoms Allergies: Coded Allergies: PENICILLINS (Verified Allergy, Unknown, 07/03/19) Objective Last 24 Hour Vital Signs Date Time Temp Pulse Resp B/P (MAP) Pulse Ox O2 Delivery O2 Flow Rate FiO2 07/09/19 12:00 Mechanical Ventilator 2.0 Nasal Cannula 2.0 Nasal Cannula 07/09/19 11:00 81 28 106/52 (70) 100 07/09/19 10:45 Nasal Cannula 3.0 32 07/09/19 10:00 91 28 118/66 (83) 97 07/09/19 09:39 133/98 07/09/19 09:13 100 07/09/19 09:13 81 24 40 07/09/19 09:00 88 21 133/98 (110) 97 07/09/19 08:00 86 07/09/19 08:00 Mechanical Ventilator Mechanical Ventilator 07/09/19 08:00 40 07/09/19 08:00 84 21 132/58 (82) 98 07/09/19 07:15 85 20 40 40 07/09/19 07:00 99.6 82 19 123/55 (77) 87 07/09/19 06:20 79 14 07/09/19 06:00 79 17 98/57 (71) 81 07/09/19 05:05 77 17 40 07/09/19 05:00 80 16 113/60 (77) 100 07/09/19 04:00 Mechanical Ventilator Mechanical Ventilator 07/09/19 04:00 99.4 82 18 113/54 (73) 100 07/09/19 04:00 40 07/09/19 04:00 82 07/09/19 03:00 87 18 115/68 (84) 99 07/09/19 03:00 87 18 40 07/09/19 02:00 90 20 134/85 (101) 98 07/09/19 01:00 84 18 147/112 (124) 100 07/09/19 00:54 85 20 40 07/09/19 00:00 73 07/09/19 00:00 98.8 87 20 132/65 (87) 94 07/09/19 00:00 Mechanical Ventilator Mechanical Ventilator 07/08/19 23:00 107 24 176/81 (112) 100 07/08/19 22:42 78 17 98 Mechanical Ventilator 40 07/08/19 22:42 78 18 40 07/08/19 22:00 76 17 115/58 (77) 98 07/08/19 21:00 72 17 129/55 (79) 99 07/08/19 20:47 74 18 40 07/08/19 20:00 98.7 70 14 102/54 (70) 97 07/08/19 20:00 40 07/08/19 20:00 75 07/08/19 20:00 Mechanical Ventilator Mechanical Ventilator 07/08/19 19:05 73 21 40 07/08/19 19:00 72 21 123/59 (80) 98 07/08/19 18:00 72 20 110/57 (74) 98 07/08/19 17:18 74 23 40 07/08/19 17:00 75 24 114/68 (83) 100 07/08/19 16:00 98.8 70 20 119/57 (77) 99 07/08/19 16:00 Mechanical Ventilator Mechanical Ventilator 07/08/19 16:00 70 07/08/19 16:00 40 07/08/19 15:00 69 19 40 07/08/19 15:00 40 07/08/19 15:00 72 21 126/63 (84) 99 07/08/19 14:00 66 20 116/63 (80) 99 07/08/19 13:25 66 20 40 40 07/08/19 13:00 97.7 67 20 110/57 (74) 99 Intake and Output 07/08/19 07/09/19 19:00 07:00 Intake Total 1615 ml 1255 ml Output Total 730 ml 820 ml Balance 885 ml 435 ml IV Total 955 ml 955 ml Tube Feeding 360 ml 300 ml Other 300 ml Output Urine Total 730 ml 820 ml General Appearance: no acute distress HEENT: normocephalic Respiratory/Chest: chest wall non-tender, lungs clear Cardiovascular: normal peripheral pulses, normal rate Abdomen: normal bowel sounds Laboratory Tests 07/08/19 16:48: Arterial Blood pH 7.404, Arterial Blood Partial Pressure CO2 46.3H, Arterial Blood Partial Pressure O2 95.0, Arterial Blood HCO3 28.3H, Arterial Blood Oxygen Saturation 97.1, Arterial Blood Base Excess 3.1H, Claus Test Positive 07/09/19 09:13: Arterial Blood pH 7.443, Arterial Blood Partial Pressure CO2 44.0, Arterial Blood Partial Pressure O2 75.0, Arterial Blood HCO3 29.4H, Arterial Blood Oxygen Saturation 95.3, Arterial Blood Base Excess 4.8H, Claus Test Positive Current Medications Medications (Trade) Dose Ordered Sig/Samuel Route PRN Reason Start Time Stop Time Status Last Admin Dose Admin Acetaminophen (Tylenol) 650 mg Q6H PRN NG Mild Pain/Temp > 100.5 07/05/19 12:15 08/04/19 12:14 07/08/19 03:20 Allopurinol (allopurinoL) 300 mg DAILY ORAL 07/05/19 09:00 08/04/19 08:59 07/09/19 09:38 Ascorbic Acid (Vitamin C) 250 mg DAILY ORAL 07/06/19 09:00 08/05/19 08:59 07/09/19 09:37 Aspirin (ASA) 81 mg DAILY NG 07/07/19 09:00 08/06/19 08:59 07/09/19 09:38 Dextrose 1,000 ml @ 75 mls/hr [id number] IV 07/06/19 08:45 08/05/19 08:44 07/08/19 23:58 Heparin Sodium (Porcine) (Heparin 5000 units/ml) 5,000 units EVERY 12 HOURS SUBQ 07/04/19 21:00 08/03/19 20:59 07/09/19 09:38 Lorazepam (Ativan 2mg/ml 1ml) 1 mg Q4H PRN IV For Anxiety 07/06/19 08:15 07/13/19 08:14 07/08/19 23:01 Meropenem 1 gm/ Sodium Chloride 55 ml @ 110 mls/hr Q12H IVPB 07/05/19 11:00 07/10/19 10:59 07/09/19 11:33 Nitroglycerin (Ntg) 1 patch Q24H TDERMAL 07/06/19 10:00 08/05/19 09:59 07/09/19 09:39 Pantoprazole (Protonix) 40 mg Q12HR IVP 07/05/19 21:00 08/04/19 08:59 07/09/19 09:37 Quetiapine Fumarate (SEROqueL) 50 mg TID ORAL 07/07/19 09:00 08/06/19 08:59 07/09/19 09:37 Pramod Panchal MD Jul 09, 2019 12:21
--- NOTE | 2019-07-09 12:57 | Infectious Diseases Prog Note ---
Assessment/Plan Assessment/Plan IMPRESSION: Sepsis, improving leukocytosis. UTI with E coli ESBL Hypercapnic respiratory failure acute renal failure, improving Metabolic encephalopathy. schizoaffective disorder, allergic rhinitis, gastroesophageal reflux disease epilepsy. 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 RECOMMENDATION: Continue Meropenem X 1 day Will f/u cultures Subjective ROS Limited/Unobtainable: Yes Constitutional: Denies: fever Respiratory: Reports: other - extubated Neurologic: Reports: other - on restraint Allergies: Coded Allergies: PENICILLINS (Verified Allergy, Unknown, 07/03/19) Objective Vital Signs Last 24 Hour Vital Signs Date Time Temp Pulse Resp B/P (MAP) Pulse Ox O2 Delivery O2 Flow Rate FiO2 07/09/19 12:00 Mechanical Ventilator 2.0 Nasal Cannula 2.0 Nasal Cannula 07/09/19 11:00 81 28 106/52 (70) 100 07/09/19 10:45 Nasal Cannula 3.0 32 07/09/19 10:00 91 28 118/66 (83) 97 07/09/19 09:39 133/98 07/09/19 09:13 100 07/09/19 09:13 81 24 40 07/09/19 09:00 88 21 133/98 (110) 97 07/09/19 08:00 86 07/09/19 08:00 Mechanical Ventilator Mechanical Ventilator 07/09/19 08:00 40 07/09/19 08:00 84 21 132/58 (82) 98 07/09/19 07:15 85 20 40 40 07/09/19 07:00 99.6 82 19 123/55 (77) 87 07/09/19 06:20 79 14 07/09/19 06:00 79 17 98/57 (71) 81 07/09/19 05:05 77 17 40 07/09/19 05:00 80 16 113/60 (77) 100 07/09/19 04:00 Mechanical Ventilator Mechanical Ventilator 07/09/19 04:00 99.4 82 18 113/54 (73) 100 07/09/19 04:00 40 07/09/19 04:00 82 07/09/19 03:00 87 18 115/68 (84) 99 07/09/19 03:00 87 18 40 07/09/19 02:00 90 20 134/85 (101) 98 07/09/19 01:00 84 18 147/112 (124) 100 07/09/19 00:54 85 20 40 07/09/19 00:00 73 07/09/19 00:00 98.8 87 20 132/65 (87) 94 07/09/19 00:00 Mechanical Ventilator Mechanical Ventilator 07/08/19 23:00 107 24 176/81 (112) 100 07/08/19 22:42 78 17 98 Mechanical Ventilator 40 07/08/19 22:42 78 18 40 07/08/19 22:00 76 17 115/58 (77) 98 07/08/19 21:00 72 17 129/55 (79) 99 07/08/19 20:47 74 18 40 07/08/19 20:00 98.7 70 14 102/54 (70) 97 07/08/19 20:00 40 07/08/19 20:00 75 07/08/19 20:00 Mechanical Ventilator Mechanical Ventilator 07/08/19 19:05 73 21 40 07/08/19 19:00 72 21 123/59 (80) 98 07/08/19 18:00 72 20 110/57 (74) 98 07/08/19 17:18 74 23 40 07/08/19 17:00 75 24 114/68 (83) 100 07/08/19 16:00 98.8 70 20 119/57 (77) 99 07/08/19 16:00 Mechanical Ventilator Mechanical Ventilator 07/08/19 16:00 70 07/08/19 16:00 40 07/08/19 15:00 69 19 40 07/08/19 15:00 40 07/08/19 15:00 72 21 126/63 (84) 99 07/08/19 14:00 66 20 116/63 (80) 99 07/08/19 13:25 66 20 40 40 07/08/19 13:00 97.7 67 20 110/57 (74) 99 Height (Feet): 6 Height (Inches): 2.00 Weight (Pounds): 244 General Appearance: no acute distress HEENT: mucous membranes moist Respiratory/Chest: lungs clear, other - oxygen by nasal cannula Cardiovascular: normal rate Extremities: other - periankle edema Neurologic/Psychiatric: alert, responsive Laboratory Tests Test 07/08/19 16:48 07/09/19 09:13 Arterial Blood pH 7.404 (7.350-7.450) 7.443 (7.350-7.450) Arterial Blood Partial Pressure CO2 46.3 mmHg (35.0-45.0) H 44.0 mmHg (35.0-45.0) Arterial Blood Partial Pressure O2 95.0 mmHg (75.0-100.0) 75.0 mmHg (75.0-100.0) Arterial Blood HCO3 28.3 mmol/L (22.0-26.0) H 29.4 mmol/L (22.0-26.0) H Arterial Blood Oxygen Saturation 97.1 % (95-100) 95.3 % (95-100) Arterial Blood Base Excess 3.1 (-2-2) H 4.8 (-2-2) H Claus Test Positive Positive Current Medications Medications (Trade) Dose Ordered Sig/Samuel Route PRN Reason Start Time Stop Time Status Last Admin Dose Admin Acetaminophen (Tylenol) 650 mg Q6H PRN NG Mild Pain/Temp > 100.5 07/05/19 12:15 08/04/19 12:14 07/08/19 03:20 Allopurinol (allopurinoL) 300 mg DAILY ORAL 07/05/19 09:00 08/04/19 08:59 07/09/19 09:38 Ascorbic Acid (Vitamin C) 250 mg DAILY ORAL 07/06/19 09:00 08/05/19 08:59 07/09/19 09:37 Aspirin (ASA) 81 mg DAILY NG 07/07/19 09:00 08/06/19 08:59 07/09/19 09:38 Dextrose 1,000 ml @ 75 mls/hr [id number] IV 07/06/19 08:45 08/05/19 08:44 07/08/19 23:58 Heparin Sodium (Porcine) (Heparin 5000 units/ml) 5,000 units EVERY 12 HOURS SUBQ 07/04/19 21:00 08/03/19 20:59 07/09/19 09:38 Lorazepam (Ativan 2mg/ml 1ml) 1 mg Q4H PRN IV For Anxiety 07/06/19 08:15 07/13/19 08:14 07/08/19 23:01 Meropenem 1 gm/ Sodium Chloride 55 ml @ 110 mls/hr Q12H IVPB 07/05/19 11:00 07/10/19 10:59 07/09/19 11:33 Nitroglycerin (Ntg) 1 patch Q24H TDERMAL 07/06/19 10:00 08/05/19 09:59 07/09/19 09:39 Pantoprazole (Protonix) 40 mg Q12HR IVP 07/05/19 21:00 08/04/19 08:59 07/09/19 09:37 Quetiapine Fumarate (SEROqueL) 50 mg TID ORAL 07/07/19 09:00 08/06/19 08:59 07/09/19 09:37 Ang Blackwood MD Jul 09, 2019 12:57
--- NOTE | 2019-07-09 13:01 | Diagnostic Imaging Report ---
EXAM: XR Abdomen, 1 View CLINICAL HISTORY: NGT TECHNIQUE: Frontal supine view of the abdomen/pelvis. COMPARISON: No relevant prior studies available. FINDINGS: Thorax: Large cardiomediastinal silhouette. Interstitial lung disease. Left basilar atelectasis/consolidation. Left pleural effusion not excluded. Gastrointestinal tract: Nonspecific bowel gas pattern. Bones/joints: Old rib fractures. Tubes, lines and devices: Enteric tube in the stomach. Other findings: 3 films to image the abdomen. IMPRESSION: Enteric tube in the stomach.
[2019-07-09] MEDS ORDERED: NS 275ml ONE (13:22)
--- NOTE | 2019-07-09 14:30 | NUR ---
NURSE NOTES: KUB confirmed placement for NGT. Restarted tube feeding Jevity 1.2@30ml/hr, HOB 35 degrees, abdomen non-distended.
--- NOTE | 2019-07-09 14:54 | NUR ---
NURSE NOTES: Tolerating well on 2LNC, SPO2 96-100%, non-labored and even breathing. Encouraged patient to for IS, cough and deep breathe.
--- NOTE | 2019-07-09 16:30 | NUR ---
NURSE NOTES: Turned and repositioned. Cleaned face and gave ice chips per pt request. Patient is conservative and speaks coherently but forgetful of name, time, place and purpose.
--- NOTE | 2019-07-09 18:20 | NUR ---
NURSE NOTES: Received orders to change frequency of levemir [address] Kasper.
--- NOTE | 2019-07-09 18:32 | NUR ---
NURSE NOTES: changed tube feeding to vital AF 1.2@65ml/hr per glassblower recommendation. Patient is complaining he is hungry, explained to patient he will have a swallow eval tomorrow.
--- NOTE | 2019-07-09 19:18 | NUR ---
HAND-OFF: Report given to [facility] Eas[facility].
--- NOTE | 2019-07-09 19:20 | NUR ---
NURSE NOTES: Received patient and report from Alice Carpio RN. Pt's in no acute distress, afebrile, verbally responsive, currently on 3L/NC with O2 sat 99%. Vital signs stable. Extubated in the morning shift. Noted bilateral soft wrist restraints continues, for pt's safety. NGT in place running Vital AF at 65ml/h with 0 residuals. Pt obese, abdomen large but soft with hypoactive bowel sounds. No BM at this time. Noted Ramirez intact draining benja urine. Peripheral IV on Left FA 20G intact, patent as well, running D5W at 75ml/hr. HOB kept elevated. Bed in low and locked position. Side rails x 3. Call light within reach. Will continue to monitor.
[2019-07-09] MEDS: LORazepam Inj 2mg/ml 1ml IV PRN (19:59)
--- NOTE | 2019-07-09 22:00 | NUR ---
NURSE NOTES: Pt's resting in bed, in no acute distress. VS stable. Will continue to monitor.
[2019-07-10] VITALS (15 sets, daily range): BP systolic 93–151; BP diastolic 49–82
--- NOTE | 2019-07-10 | NUR ---
NURSE NOTES: Pt's resting in bed, in no acute distress. VS stable. Will continue to monitor.
[2019-07-10] MEDS: Meropenem 1 GM in NS 55 ML IVPB SCH (00:14)
--- NOTE | 2019-07-10 02:00 | NUR ---
NURSE NOTES: Pt's resting in bed, asleep. Afebrile. VS stable. Will continue to monitor.
--- NOTE | 2019-07-10 02:45 | Progress Note ---
DATE: 07/08/2019 CARDIOLOGY PROGRESS NOTE SUBJECTIVE: No new distress. OBJECTIVE: VITAL SIGNS: Blood pressure 109/57, pulse 70, respirations 15, and afebrile. LUNGS: Bilateral breath sounds. HEART: Regular rhythm and rate. Normal S1, S2. Monitor sinus. ABDOMEN: Soft. No edema. IMPRESSION: 1. Sepsis. 2. Respiratory failure. 3. Toxic encephalopathy. 4. Metabolic encephalopathy. 5. Emi-RH-aniypcejb myocardial infarction precipitated by acute respiratory failure. 6. Acute diastolic congestive heart failure also precipitated by above. PLAN: 1. Respiratory therapy. 2. Topical nitrates. 3. Antiplatelet therapy. 4. Monitor volume status. 5. Adjust IV fluids appropriately. Gregorio Cook M.D. DR: GENEVA JOB#: [id number] CC:
--- NOTE | 2019-07-10 03:15 | Progress Note ---
DATE: 07/09/2019 CARDIOLOGY PROGRESS NOTE SUBJECTIVE: Condition unchanged. . Weaning efforts in progress. Blood pressures range stable. Monitored sinus. ICU logs reviewed. OBJECTIVE: GENERAL: Remains somnolent. LUNGS: With rhonchi. CARDIAC: Regular rhythm and rate. Normal S1 and S2. ABDOMEN: Soft. EXTREMITIES: Trace edema. LABORATORY DATA: Labs from July 08, 2019 reviewed. IMPRESSION: 1. Respiratory failure. 2. Dehydration. 3. Hyponatremia. 4. Prerenal azotemia. 5. Severe protein-calorie malnutrition. 6. Non-ST elevation myocardial infarction. 7. Acute diastolic congestive heart failure. PLAN: 1. Weaning efforts. 2. Followup lab studies. 3. Hypotonic IV fluids with adjustments. 4. Replace electrolytes as needed. 5. Continue anti-platelet therapy and discontinue nitrates. Gregorio Cook M.D. DR: SCOTTY JOB#: [id number] CC:
--- NOTE | 2019-07-10 04:00 | NUR ---
NURSE NOTES: Pt's resting in bed, in no acute distress, asleep with eyes closed. VS stable. Will continue to monitor.
[2019-07-10 05:49] LABS: BASOPHILS % (AUTO) 0.8 % (0.0-2.0); EOSINOPHILS % (AUTO) 3.9 % (0.0-3.0); HEMATOCRIT 29.9 % (42.0-52.0); HEMOGLOBIN 9.7 G/DL (14.2-18.0); LYMPHOCYTES % (AUTO) 15.8 % (20.0-45.0); MEAN CORPUSCULAR VOLUME 85 FL (80-99); MONOCYTES % (AUTO) 9.4 % (1.0-10.0); NEUTROPHILS % (AUTO) 70.1 % (45.0-75.0); PLATELET COUNT 228 K/UL (150-450); RED BLOOD COUNT 3.52 M/UL (4.70-6.10); WHITE BLOOD COUNT 14.6 K/UL (4.8-10.8)
--- NOTE | 2019-07-10 06:00 | NUR ---
NURSE NOTES: Pt's resting in bed, in no acute distress, asleep with eyes closed. VS stable. Will continue to monitor.
[2019-07-10 06:24] LABS: ALANINE AMINOTRANSFERASE 27 U/L (12-78); ALBUMIN 1.5 G/DL (3.4-5.0); ALBUMIN/GLOBULIN RATIO 0.2 (1.0-2.7); ALKALINE PHOSPHATASE 71 U/L (46-116); ANION GAP 0 mmol/L (5-15); ASPARTATE AMINO TRANSFERASE 57 U/L (15-37); BILIRUBIN,TOTAL 0.1 MG/DL (0.2-1.0); BLOOD UREA NITROGEN 11 mg/dL (7-18); CALCIUM 8.1 MG/DL (8.5-10.1); CARBON DIOXIDE 31 MMOL/L (21-32); CHLORIDE 106 MMOL/L (98-107); CREATININE 0.8 MG/DL (0.55-1.30); PHOSPHORUS 2.9 MG/DL (2.5-4.9); POTASSIUM 4.7 MMOL/L (3.5-5.1); SODIUM 137 MMOL/L (136-145)
--- NOTE | 2019-07-10 07:15 | NUR ---
HAND-OFF: Report given to [facility] Ryan. Addendum: 07/10/19 at 2719 by DEREK HARRIS RN RN change to [facility] Shirlye
--- NOTE | 2019-07-10 07:16 | NUR ---
NURSE NOTES: Received patient from Kaushal RN. Patient is awake, alert and oriented x3, patient is confused. Sinus Rhythm on the Heart Monitor, HR 73. Receiving oxygen via Nasal Cannula at 3L/min, O2 Saturation at 100%. Left NGT is intact and receiving Vital AF at 65cc/hr. IV site is Left Forearm 20g, intact and receiving D5W at 75cc/hr. Ramirez Catheter is intact and draining. Bed is locked, placed in lowest position, bed alarm on, side rails up x3, head of bed elevated, side rails padded, call light within reach. Will continue to monitor.
[2019-07-10] MEDS: Pantoprazole Inj IVP SCH ×2 (09:28→21:31)
[2019-07-10] MEDS: Aspirin Baby 81mg NG SCH (09:29)
[2019-07-10] MEDS: Ascorbic Acid 500mg tab ORAL SCH (09:29)
[2019-07-10] MEDS: Heparin 5000 units/ml inj SUBQ SCH ×2 (09:40→21:33)
--- NOTE | 2019-07-10 09:45 | NUR ---
HAND-OFF: Report given to Petra SEPULVEDA.
--- NOTE | 2019-07-10 10:00 | NUR ---
NURSE NOTES: Received patient - awake but confused and disoriented. tax compliance agent shows SR no ectopy noted. IV site patent @ LFA # 20 - no S/S infiltration noted. D5W infusing at 75 cc/hr.NGT patent @ L nares with Vital AF 1.2 at65 cchr.
--- NOTE | 2019-07-10 10:02 | Infectious Diseases Prog Note ---
Assessment/Plan Assessment/Plan IMPRESSION: Sepsis, improving leukocytosis. UTI with E coli ESBL Hypercapnic respiratory failure acute renal failure, improving Metabolic encephalopathy. schizoaffective disorder, allergic rhinitis, gastroesophageal reflux disease epilepsy. 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 RECOMMENDATION: Continue Meropenem until expiration time today Will f/u cultures Subjective ROS Limited/Unobtainable: Yes Constitutional: Denies: fever Neurologic: Reports: other - on restraint Allergies: Coded Allergies: PENICILLINS (Verified Allergy, Unknown, 07/03/19) Objective Vital Signs Last 24 Hour Vital Signs Date Time Temp Pulse Resp B/P (MAP) Pulse Ox O2 Delivery O2 Flow Rate FiO2 07/10/19 09:00 77 21 114/59 (77) 98 07/10/19 08:00 98.4 79 22 106/53 (70) 100 07/10/19 08:00 3.0 07/10/19 08:00 Mechanical Ventilator 3.0 Nasal Cannula 3.0 Nasal Cannula 07/10/19 07:36 79 07/10/19 07:00 79 20 150/60 (90) 100 07/10/19 06:00 79 20 114/58 (76) 100 07/10/19 05:00 77 20 98/49 (65) 100 07/10/19 04:00 3.0 07/10/19 04:00 77 07/10/19 04:00 Mechanical Ventilator 3.0 Nasal Cannula 3.0 Nasal Cannula 07/10/19 04:00 81 22 96/53 (67) 100 07/10/19 03:00 83 22 93/49 (64) 99 07/10/19 02:00 83 23 103/52 (69) 100 07/10/19 01:00 80 23 120/80 (93) 100 07/10/19 00:00 80 07/10/19 00:00 80 23 100/63 (75) 100 07/10/19 00:00 3.0 07/10/19 00:00 Mechanical Ventilator 3.0 Nasal Cannula 3.0 Nasal Cannula 07/09/19 23:00 83 22 122/85 (97) 99 07/09/19 22:00 84 22 106/51 (69) 99 07/09/19 21:00 98.7 81 24 112/50 (70) 100 07/09/19 20:00 80 07/09/19 20:00 3.0 07/09/19 20:00 Mechanical Ventilator 3.0 Nasal Cannula 3.0 Nasal Cannula 07/09/19 20:00 79 23 141/71 (94) 97 07/09/19 19:00 80 23 110/63 (79) 96 07/09/19 18:00 77 23 112/55 (74) 99 07/09/19 17:00 77 24 99/50 (66) 99 07/09/19 16:00 3.0 07/09/19 16:00 84 07/09/19 16:00 98.6 74 22 107/61 (76) 99 07/09/19 16:00 Mechanical Ventilator 2.0 Nasal Cannula 2.0 Nasal Cannula 07/09/19 15:00 76 20 119/68 (85) 96 07/09/19 14:00 75 24 112/60 (77) 99 07/09/19 13:00 79 22 119/63 (81) 97 07/09/19 12:00 Mechanical Ventilator 2.0 Nasal Cannula 2.0 Nasal Cannula 07/09/19 12:00 3.0 07/09/19 12:00 99.2 80 20 127/63 (84) 98 07/09/19 12:00 81 07/09/19 11:00 81 28 106/52 (70) 100 07/09/19 10:45 Nasal Cannula 3.0 32 07/09/19 10:35 3.0 Height (Feet): 6 Height (Inches): 2.00 Weight (Pounds): 244 General Appearance: no acute distress HEENT: mucous membranes moist Respiratory/Chest: lungs clear, other - oxygen by nasal cannula Cardiovascular: normal rate Abdomen: soft, non tender, other - NG tube feeding Extremities: other - edema of ankles & hands Neurologic/Psychiatric: other - drowsy Laboratory Tests Test 07/10/19 05:15 White Blood Count 14.6 K/UL (4.8-10.8) H Red Blood Count 3.52 M/UL (4.70-6.10) L Hemoglobin 9.7 G/DL (14.2-18.0) L Hematocrit 29.9 % (42.0-52.0) L Mean Corpuscular Volume 85 FL (80-99) Mean Corpuscular Hemoglobin 27.7 PG (27.0-31.0) Mean Corpuscular Hemoglobin Concent 32.6 G/DL (32.0-36.0) Red Cell Distribution Width 15.0 % (11.6-14.8) H Platelet Count 228 K/UL (150-450) Mean Platelet Volume 5.9 FL (6.5-10.1) L Neutrophils (%) (Auto) 70.1 % (45.0-75.0) Lymphocytes (%) (Auto) 15.8 % (20.0-45.0) L Monocytes (%) (Auto) 9.4 % (1.0-10.0) Eosinophils (%) (Auto) 3.9 % (0.0-3.0) H Basophils (%) (Auto) 0.8 % (0.0-2.0) Sodium Level 137 MMOL/L (136-145) Potassium Level 4.7 MMOL/L (3.5-5.1) Chloride Level 106 MMOL/L (98-107) Carbon Dioxide Level 31 MMOL/L (21-32) Anion Gap 0 mmol/L (5-15) L Blood Urea Nitrogen 11 mg/dL (7-18) Creatinine 0.8 MG/DL (0.55-1.30) Estimat Glomerular Filtration Rate > 60 mL/min (>60) Glucose Level 108 MG/DL (74-106) H Calcium Level 8.1 MG/DL (8.5-10.1) L Phosphorus Level 2.9 MG/DL (2.5-4.9) Magnesium Level 2.0 MG/DL (1.8-2.4) Total Bilirubin 0.1 MG/DL (0.2-1.0) L Aspartate Amino Transf (AST/SGOT) 57 U/L (15-37) H Alanine Aminotransferase (ALT/SGPT) 27 U/L (12-78) Alkaline Phosphatase 71 U/L (46-116) C-Reactive Protein, Quantitative 15.1 mg/dL (0.00-0.90) H Pro-B-Type Natriuretic Peptide 1188 pg/mL (0-125) H Total Protein 7.5 G/DL (6.4-8.2) Albumin 1.5 G/DL (3.4-5.0) L Globulin 6.0 g/dL Albumin/Globulin Ratio 0.2 (1.0-2.7) L Current Medications Medications (Trade) Dose Ordered Sig/Samuel Route PRN Reason Start Time Stop Time Status Last Admin Dose Admin Acetaminophen (Tylenol) 650 mg Q6H PRN NG Mild Pain/Temp > 100.5 07/05/19 12:15 08/04/19 12:14 07/08/19 03:20 Allopurinol (allopurinoL) 300 mg DAILY ORAL 07/05/19 09:00 08/04/19 08:59 07/10/19 09:29 Ascorbic Acid (Vitamin C) 250 mg DAILY ORAL 07/06/19 09:00 08/05/19 08:59 07/10/19 09:29 Aspirin (ASA) 81 mg DAILY NG 07/07/19 09:00 08/06/19 08:59 07/10/19 09:29 Dextrose 1,000 ml @ 75 mls/hr [id number] IV 07/06/19 08:45 08/05/19 08:44 07/10/19 04:02 Heparin Sodium (Porcine) (Heparin 5000 units/ml) 5,000 units EVERY 12 HOURS SUBQ 07/04/19 21:00 08/03/19 20:59 07/10/19 09:40 Lorazepam (Ativan 2mg/ml 1ml) 1 mg Q4H PRN IV For Anxiety 07/06/19 08:15 07/13/19 08:14 07/09/19 19:59 Meropenem 1 gm/ Sodium Chloride 55 ml @ 110 mls/hr Q12H IVPB 07/05/19 11:00 07/10/19 10:59 07/10/19 00:14 Pantoprazole (Protonix) 40 mg Q12HR IVP 07/05/19 21:00 08/04/19 08:59 07/10/19 09:28 Quetiapine Fumarate (SEROqueL) 50 mg TID ORAL 07/07/19 09:00 08/06/19 08:59 07/10/19 09:29 Ang Blackwood MD Jul 10, 2019 10:02
--- NOTE | 2019-07-10 10:42 | Pulmonology Progress Note ---
Assessment/Plan Assessment/Plan IMPRESSION: 1. Respiratory failure, acute; now extubated 2. Sepsis, urinary 3. Altered mental status. 4. Psychiatric disorder. DISCUSSION: Will consult GI re PEG? Psych meds per Dr Estrada To tele Subjective Interval Events: Better after extubation; NGT in place Constitutional: Reports: no symptoms HEENT: Repors: no symptoms Respiratory: Reports: no symptoms Cardiovascular: Reports: no symptoms Gastrointestinal/Abdominal: Reports: no symptoms Allergies: Coded Allergies: PENICILLINS (Verified Allergy, Unknown, 07/03/19) Objective Last 24 Hour Vital Signs Date Time Temp Pulse Resp B/P (MAP) Pulse Ox O2 Delivery O2 Flow Rate FiO2 07/10/19 10:00 84 23 107/52 (70) 98 07/10/19 09:00 77 21 114/59 (77) 98 07/10/19 08:00 98.4 79 22 106/53 (70) 100 07/10/19 08:00 3.0 07/10/19 08:00 Mechanical Ventilator 3.0 Nasal Cannula 3.0 Nasal Cannula 07/10/19 07:36 79 07/10/19 07:00 79 20 150/60 (90) 100 07/10/19 06:00 79 20 114/58 (76) 100 07/10/19 05:00 77 20 98/49 (65) 100 07/10/19 04:00 3.0 07/10/19 04:00 77 07/10/19 04:00 Mechanical Ventilator 3.0 Nasal Cannula 3.0 Nasal Cannula 07/10/19 04:00 81 22 96/53 (67) 100 07/10/19 03:00 83 22 93/49 (64) 99 07/10/19 02:00 83 23 103/52 (69) 100 07/10/19 01:00 80 23 120/80 (93) 100 07/10/19 00:00 80 07/10/19 00:00 80 23 100/63 (75) 100 07/10/19 00:00 3.0 07/10/19 00:00 Mechanical Ventilator 3.0 Nasal Cannula 3.0 Nasal Cannula 07/09/19 23:00 83 22 122/85 (97) 99 07/09/19 22:00 84 22 106/51 (69) 99 07/09/19 21:00 98.7 81 24 112/50 (70) 100 07/09/19 20:00 80 07/09/19 20:00 3.0 07/09/19 20:00 Mechanical Ventilator 3.0 Nasal Cannula 3.0 Nasal Cannula 07/09/19 20:00 79 23 141/71 (94) 97 07/09/19 19:00 80 23 110/63 (79) 96 07/09/19 18:00 77 23 112/55 (74) 99 07/09/19 17:00 77 24 99/50 (66) 99 07/09/19 16:00 3.0 07/09/19 16:00 84 07/09/19 16:00 98.6 74 22 107/61 (76) 99 07/09/19 16:00 Mechanical Ventilator 2.0 Nasal Cannula 2.0 Nasal Cannula 07/09/19 15:00 76 20 119/68 (85) 96 07/09/19 14:00 75 24 112/60 (77) 99 07/09/19 13:00 79 22 119/63 (81) 97 07/09/19 12:00 Mechanical Ventilator 2.0 Nasal Cannula 2.0 Nasal Cannula 07/09/19 12:00 3.0 07/09/19 12:00 99.2 80 20 127/63 (84) 98 07/09/19 12:00 81 07/09/19 11:00 81 28 106/52 (70) 100 07/09/19 10:45 Nasal Cannula 3.0 32 Intake and Output 07/09/19 07/10/19 19:00 07:00 Intake Total 1035 ml 1375 ml Output Total 1120 ml 600 ml Balance -85 ml 775 ml Free Water 60 ml 60 ml IV Total 825 ml 955 ml Tube Feeding 150 ml 360 ml Blood Product 0 ml Output Urine Total 1120 ml 600 ml General Appearance: no acute distress HEENT: normocephalic Respiratory/Chest: chest wall non-tender, lungs clear Cardiovascular: normal peripheral pulses, normal rate Abdomen: normal bowel sounds Laboratory Tests 07/10/19 05:15: White Blood Count 14.6H, Red Blood Count 3.52L, Hemoglobin 9.7L, Hematocrit 29.9L, Mean Corpuscular Volume 85, Mean Corpuscular Hemoglobin 27.7, Mean Corpuscular Hemoglobin Concent 32.6, Red Cell Distribution Width 15.0H, Platelet Count 228, Mean Platelet Volume 5.9L, Neutrophils (%) (Auto) 70.1, Lymphocytes (%) (Auto) 15.8L, Monocytes (%) (Auto) 9.4, Eosinophils (%) (Auto) 3.9H, Basophils (%) (Auto) 0.8, Sodium Level 137, Potassium Level 4.7, Chloride Level 106, Carbon Dioxide Level 31, Anion Gap 0L, Blood Urea Nitrogen 11, Creatinine 0.8, Estimat Glomerular Filtration Rate > 60, Glucose Level 108H, Calcium Level 8.1L, Phosphorus Level 2.9, Magnesium Level 2.0, Total Bilirubin 0.1L, Aspartate Amino Transf (AST/SGOT) 57H, Alanine Aminotransferase (ALT/SGPT ) 27, Alkaline Phosphatase 71, C-Reactive Protein, Quantitative 15.1H, Pro-B- Type Natriuretic Peptide 1188H, Total Protein 7.5, Albumin 1.5L, Globulin 6.0, Albumin/Globulin Ratio 0.2L Current Medications Medications (Trade) Dose Ordered Sig/Samuel Route PRN Reason Start Time Stop Time Status Last Admin Dose Admin Acetaminophen (Tylenol) 650 mg Q6H PRN NG Mild Pain/Temp > 100.5 07/05/19 12:15 08/04/19 12:14 07/08/19 03:20 Allopurinol (allopurinoL) 300 mg DAILY ORAL 07/05/19 09:00 08/04/19 08:59 07/10/19 09:29 Ascorbic Acid (Vitamin C) 250 mg DAILY ORAL 07/06/19 09:00 08/05/19 08:59 07/10/19 09:29 Aspirin (ASA) 81 mg DAILY NG 07/07/19 09:00 08/06/19 08:59 07/10/19 09:29 Dextrose 1,000 ml @ 75 mls/hr [id number] IV 07/06/19 08:45 08/05/19 08:44 07/10/19 04:02 Heparin Sodium (Porcine) (Heparin 5000 units/ml) 5,000 units EVERY 12 HOURS SUBQ 07/04/19 21:00 08/03/19 20:59 07/10/19 09:40 Lorazepam (Ativan 2mg/ml 1ml) 1 mg Q4H PRN IV For Anxiety 07/06/19 08:15 07/13/19 08:14 07/09/19 19:59 Meropenem 1 gm/ Sodium Chloride 55 ml @ 110 mls/hr Q12H IVPB 07/05/19 11:00 07/10/19 10:59 07/10/19 00:14 Pantoprazole (Protonix) 40 mg Q12HR IVP 07/05/19 21:00 08/04/19 08:59 07/10/19 09:28 Quetiapine Fumarate (SEROqueL) 50 mg Q12HR ORAL 07/10/19 21:00 08/09/19 20:59 Pramod Panchal MD Jul 10, 2019 10:42
--- NOTE | 2019-07-10 11:30 | NUR ---
NURSE NOTES: Transferred to Tele unit 204-1 via bed- patient awake, remains confused and disoriented in stable condition. Report given to Sammi SEPULVEDA. Endorsed
[2019-07-10] MEDS ORDERED: Acetaminophen 650mg/20.3ml NG PRN (11:53)
[2019-07-10] MEDS ORDERED: LORazepam Inj 2mg/ml 1ml IV PRN (11:54)
--- NOTE | 2019-07-10 12:00 | NUR ---
NURSE NOTES: Received report from COCO Lambert. The patient is agitated and confused in verbal response. The patient's bed in the lowest position, call light in reach, and fall, aspiration, and seizure precaution reinforced. IV site on L FA 20G intact and running D5W 75mL/hr. The patient has NG tube on left nares and running formula as ordered, which is Vital AF 1.2 @65mL/hr. The patient's tube feeding is on hold due to residual of 120mL now. Notified to Dr. Panchal. Will recheck the residual in a hour and resume if lower than 100. The patient is on NC for oxygen therapy per order. The patient's DTI on sacrum checked, picture taken, wound treatment completed. The patient's Ramirez intact and draining well. The patient has bilateral soft wrist restraints and circulation and sensation intact. Will continue plan of care.
--- NOTE | 2019-07-10 12:49 | Nephrology Progress Note ---
Assessment/Plan Problem List: (1) Renal failure (ARF), acute on chronic (2) Respiratory distress Assessment: Co2 retainer (3) UTI (urinary tract infection) (4) Respiratory failure (5) Sepsis Assessment Renal failure ? Chronic ? superimposed acute Acute on Chronic respiratory failure Co2 retention HyperKalemia HypoAlbuminemia Obese UTI / Leukocytosis Plan extubated 07/09 , now in Tele K phos IV- as needed change IV to D5 nitro for elevated troponin smith slow hydrate optimize pulmonary status monitor renal parameters avoid nephrotoxics 2D echo - 65% Ej Fx per orders Subjective ROS Limited/Unobtainable: No Constitutional: Reports: malaise Objective Objective Last 24 Hour Vital Signs Date Time Temp Pulse Resp B/P (MAP) Pulse Ox O2 Delivery O2 Flow Rate FiO2 07/10/19 11:00 84 22 107/52 (70) 98 07/10/19 10:00 84 23 107/52 (70) 98 07/10/19 09:00 77 21 114/59 (77) 98 07/10/19 08:00 98.4 79 22 106/53 (70) 100 07/10/19 08:00 3.0 07/10/19 08:00 Mechanical Ventilator 3.0 Nasal Cannula 3.0 Nasal Cannula 07/10/19 07:36 79 07/10/19 07:00 79 20 150/60 (90) 100 07/10/19 06:00 79 20 114/58 (76) 100 07/10/19 05:00 77 20 98/49 (65) 100 07/10/19 04:00 3.0 07/10/19 04:00 77 07/10/19 04:00 Mechanical Ventilator 3.0 Nasal Cannula 3.0 Nasal Cannula 07/10/19 04:00 81 22 96/53 (67) 100 07/10/19 03:00 83 22 93/49 (64) 99 07/10/19 02:00 83 23 103/52 (69) 100 07/10/19 01:00 80 23 120/80 (93) 100 07/10/19 00:00 80 07/10/19 00:00 80 23 100/63 (75) 100 07/10/19 00:00 3.0 07/10/19 00:00 Mechanical Ventilator 3.0 Nasal Cannula 3.0 Nasal Cannula 07/09/19 23:00 83 22 122/85 (97) 99 07/09/19 22:00 84 22 106/51 (69) 99 07/09/19 21:00 98.7 81 24 112/50 (70) 100 07/09/19 20:00 80 07/09/19 20:00 3.0 07/09/19 20:00 Mechanical Ventilator 3.0 Nasal Cannula 3.0 Nasal Cannula 07/09/19 20:00 79 23 141/71 (94) 97 07/09/19 19:00 80 23 110/63 (79) 96 07/09/19 18:00 77 23 112/55 (74) 99 07/09/19 17:00 77 24 99/50 (66) 99 07/09/19 16:00 3.0 07/09/19 16:00 84 07/09/19 16:00 98.6 74 22 107/61 (76) 99 07/09/19 16:00 Mechanical Ventilator 2.0 Nasal Cannula 2.0 Nasal Cannula 07/09/19 15:00 76 20 119/68 (85) 96 07/09/19 14:00 75 24 112/60 (77) 99 07/09/19 13:00 79 22 119/63 (81) 97 Intake and Output 07/09/19 07/10/19 19:00 07:00 Intake Total 1035 ml 1375 ml Output Total 1120 ml 600 ml Balance -85 ml 775 ml Free Water 60 ml 60 ml IV Total 825 ml 955 ml Tube Feeding 150 ml 360 ml Blood Product 0 ml Output Urine Total 1120 ml 600 ml Current Medications Medications (Trade) Dose Ordered Sig/Samuel Route PRN Reason Start Time Stop Time Status Last Admin Dose Admin Acetaminophen (Tylenol) 650 mg Q6H PRN NG Mild Pain/Temp > 100.5 07/10/19 11:53 08/04/19 11:52 Allopurinol (allopurinoL) 300 mg DAILY ORAL 07/11/19 09:00 08/04/19 08:59 Ascorbic Acid (Vitamin C) 250 mg DAILY ORAL 07/11/19 09:00 08/05/19 08:59 Aspirin (ASA) 81 mg DAILY NG 07/11/19 09:00 08/06/19 08:59 Dextrose 1,000 ml @ 75 mls/hr [id number] IV 07/10/19 13:00 08/05/19 12:59 07/10/19 12:29 Heparin Sodium (Porcine) (Heparin 5000 units/ml) 5,000 units EVERY 12 HOURS SUBQ 07/10/19 21:00 08/03/19 20:59 Lorazepam (Ativan 2mg/ml 1ml) 1 mg Q4H PRN IV For Anxiety 07/10/19 11:54 07/13/19 11:53 Pantoprazole (Protonix) 40 mg Q12HR IVP 07/10/19 21:00 08/04/19 08:59 Quetiapine Fumarate (SEROqueL) 50 mg Q12HR ORAL 07/10/19 21:00 08/09/19 20:59 Laboratory Tests 07/10/19 05:15: White Blood Count 14.6H, Red Blood Count 3.52L, Hemoglobin 9.7L, Hematocrit 29.9L, Mean Corpuscular Volume 85, Mean Corpuscular Hemoglobin 27.7, Mean Corpuscular Hemoglobin Concent 32.6, Red Cell Distribution Width 15.0H, Platelet Count 228, Mean Platelet Volume 5.9L, Neutrophils (%) (Auto) 70.1, Lymphocytes (%) (Auto) 15.8L, Monocytes (%) (Auto) 9.4, Eosinophils (%) (Auto) 3.9H, Basophils (%) (Auto) 0.8, Sodium Level 137, Potassium Level 4.7, Chloride Level 106, Carbon Dioxide Level 31, Anion Gap 0L, Blood Urea Nitrogen 11, Creatinine 0.8, Estimat Glomerular Filtration Rate > 60, Glucose Level 108H, Calcium Level 8.1L, Phosphorus Level 2.9, Magnesium Level 2.0, Total Bilirubin 0.1L, Aspartate Amino Transf (AST/SGOT) 57H, Alanine Aminotransferase (ALT/SGPT ) 27, Alkaline Phosphatase 71, C-Reactive Protein, Quantitative 15.1H, Pro-B- Type Natriuretic Peptide 1188H, Total Protein 7.5, Albumin 1.5L, Globulin 6.0, Albumin/Globulin Ratio 0.2L Height (Feet): 6 Height (Inches): 2.00 Weight (Pounds): 244 General Appearance: no apparent distress Cardiovascular: normal rate Respiratory/Chest: decreased breath sounds Abdomen: soft Objective no change Will Groves MD Jul 10, 2019 12:49
--- NOTE | 2019-07-10 13:42 | Surgery Progress Note ---
Surgery Progress Note Subjective Additional Comments improved leukocytosis anemia downgraded comfortable Objective Last 24 Hour Vital Signs Date Time Temp Pulse Resp B/P (MAP) Pulse Ox O2 Delivery O2 Flow Rate FiO2 07/10/19 11:00 84 22 107/52 (70) 98 07/10/19 10:00 84 23 107/52 (70) 98 07/10/19 09:00 77 21 114/59 (77) 98 07/10/19 08:00 98.4 79 22 106/53 (70) 100 07/10/19 08:00 3.0 07/10/19 08:00 Mechanical Ventilator 3.0 Nasal Cannula 3.0 Nasal Cannula 07/10/19 07:36 79 07/10/19 07:00 79 20 150/60 (90) 100 07/10/19 06:00 79 20 114/58 (76) 100 07/10/19 05:00 77 20 98/49 (65) 100 07/10/19 04:00 3.0 07/10/19 04:00 77 07/10/19 04:00 Mechanical Ventilator 3.0 Nasal Cannula 3.0 Nasal Cannula 07/10/19 04:00 81 22 96/53 (67) 100 07/10/19 03:00 83 22 93/49 (64) 99 07/10/19 02:00 83 23 103/52 (69) 100 07/10/19 01:00 80 23 120/80 (93) 100 07/10/19 00:00 80 07/10/19 00:00 80 23 100/63 (75) 100 07/10/19 00:00 3.0 07/10/19 00:00 Mechanical Ventilator 3.0 Nasal Cannula 3.0 Nasal Cannula 07/09/19 23:00 83 22 122/85 (97) 99 07/09/19 22:00 84 22 106/51 (69) 99 07/09/19 21:00 98.7 81 24 112/50 (70) 100 07/09/19 20:00 80 07/09/19 20:00 3.0 07/09/19 20:00 Mechanical Ventilator 3.0 Nasal Cannula 3.0 Nasal Cannula 07/09/19 20:00 79 23 141/71 (94) 97 07/09/19 19:00 80 23 110/63 (79) 96 07/09/19 18:00 77 23 112/55 (74) 99 07/09/19 17:00 77 24 99/50 (66) 99 07/09/19 16:00 3.0 07/09/19 16:00 84 07/09/19 16:00 98.6 74 22 107/61 (76) 99 07/09/19 16:00 Mechanical Ventilator 2.0 Nasal Cannula 2.0 Nasal Cannula 07/09/19 15:00 76 20 119/68 (85) 96 07/09/19 14:00 75 24 112/60 (77) 99 I&O Intake and Output 07/09/19 07/10/19 18:59 06:59 Intake Total 1005 ml 1375 ml Output Total 1170 ml 600 ml Balance -165 ml 775 ml Free Water 60 ml 60 ml IV Total 825 ml 955 ml Tube Feeding 120 ml 360 ml Blood Product 0 ml Output Urine Total 1170 ml 600 ml Dressing: saturated Wound: clean Cardiovascular: RSR Respiratory: clear Abdomen: soft, non-tender, present bowel sounds Extremities: no cyanosis Laboratory Tests Test 07/10/19 05:15 White Blood Count 14.6 K/UL (4.8-10.8) H Red Blood Count 3.52 M/UL (4.70-6.10) L Hemoglobin 9.7 G/DL (14.2-18.0) L Hematocrit 29.9 % (42.0-52.0) L Mean Corpuscular Volume 85 FL (80-99) Mean Corpuscular Hemoglobin 27.7 PG (27.0-31.0) Mean Corpuscular Hemoglobin Concent 32.6 G/DL (32.0-36.0) Red Cell Distribution Width 15.0 % (11.6-14.8) H Platelet Count 228 K/UL (150-450) Mean Platelet Volume 5.9 FL (6.5-10.1) L Neutrophils (%) (Auto) 70.1 % (45.0-75.0) Lymphocytes (%) (Auto) 15.8 % (20.0-45.0) L Monocytes (%) (Auto) 9.4 % (1.0-10.0) Eosinophils (%) (Auto) 3.9 % (0.0-3.0) H Basophils (%) (Auto) 0.8 % (0.0-2.0) Sodium Level 137 MMOL/L (136-145) Potassium Level 4.7 MMOL/L (3.5-5.1) Chloride Level 106 MMOL/L (98-107) Carbon Dioxide Level 31 MMOL/L (21-32) Anion Gap 0 mmol/L (5-15) L Blood Urea Nitrogen 11 mg/dL (7-18) Creatinine 0.8 MG/DL (0.55-1.30) Estimat Glomerular Filtration Rate > 60 mL/min (>60) Glucose Level 108 MG/DL (74-106) H Calcium Level 8.1 MG/DL (8.5-10.1) L Phosphorus Level 2.9 MG/DL (2.5-4.9) Magnesium Level 2.0 MG/DL (1.8-2.4) Total Bilirubin 0.1 MG/DL (0.2-1.0) L Aspartate Amino Transf (AST/SGOT) 57 U/L (15-37) H Alanine Aminotransferase (ALT/SGPT) 27 U/L (12-78) Alkaline Phosphatase 71 U/L (46-116) C-Reactive Protein, Quantitative 15.1 mg/dL (0.00-0.90) H Pro-B-Type Natriuretic Peptide 1188 pg/mL (0-125) H Total Protein 7.5 G/DL (6.4-8.2) Albumin 1.5 G/DL (3.4-5.0) L Globulin 6.0 g/dL Albumin/Globulin Ratio 0.2 (1.0-2.7) L Plan Problems: (1) Sepsis Assessment & Plan: Febrile, tachycardia, leukocytosis Labs reviewed Imaging reviewed Sepsis clear etiology unknown work-up initiated and pending results Micro reviewed Continue IV antibiotics Trend labs Tube feeds Fluids improving downgraded no acute surgical intervention planned We will follow with recommendations Findings: Gallbladder demonstrates sludge. No gallstones, wall thickening, nor pericholecystic fluid. Patient is uncommunicative, unable to report Riddle's sign. Common bile duct measures 3 mm in diameter. No intrahepatic biliary ductal dilatation. Liver demonstrates normal echogenicity, no focal abnormality. Portal vein and hepatic veins are patent. Pancreas is unremarkable. Spleen is unremarkable. Left kidney measures 12.5 cm in length. Right kidney measures 12.6 cm length. Both kidneys demonstrate normal echogenicity. Both kidneys demonstrate fullness to the collecting systems, slightly greater on the left than on the right, although no maki hydronephrosis. No focal abnormality . Bladder is empty, contains a Ramirez catheter. Non-aneurysmal abdominal aorta . Impression: Nonspecific bilateral renal collecting system fullness without maki hydronephrosis. Gallbladder sludge. Negative for gallstones or dilated bile ducts Empty bladder with a Ramirez catheter (2) Respiratory distress (3) Decubitus skin ulcer Assessment & Plan: Pt presented on admission with Non-blanching erythema sacrum ,R and L buttocks with multiple DTPI's within . DTPI noted to L buttocks. Base of wound is maroon with surrounding non- blanching erythema(L)2cm x (W)0.8cm. DTPI noted to Sacrococcygeal area. Base of wound is purple,fluctuant with marginal erythema, surrounding non- blanching erythema without induration.(L) 1.5cm x (W)0.5cm. DTPI noted to R buttocks. Base of wound is indurated maroon with surrounding non -blanching erythema. Scrotal sac is grossly erythematous. Single L testis in-situ. Small scar noted to base R sac. Both heels are boggy with non-blanching erythema. Tx.Plan: Apply Moisture Barrier Paste to Sacrum, R and L buttocks. Cover with Optifoam drsg. Change every 3 days and prn. Apply Moisture Barrier Paste to scrotum. Cover as needed with Optifoam drsg. Apply Cavilon Skin Barrier to both heels. Cover each heel with Optifoam drsg. Change every 7 days and prn. APM/DARREL mattress overlay. Reposition at least every 2hours or as tolerated. Off-load heels with pillow. (4) Respiratory failure Assessment & Plan: DAILY ESTIMATED NEEDS: Needs based on Critical care, wounds, obese/ 92kg abw 20-25 kcals/kg 4015-7804 total kcals 1.25-2 g protein/kg 115-184 g total protein 25-30 mL/kg 8635-1967 total fluid mLs NUTRITION DIAGNOSIS: Swallowing difficulty R/T respiratory status as evidenced by pt orally intubated, on OGT feeding. CURRENT TF:Jevity 1.2 @ 30ml/hr x 24 hrs PO DIET RECOMMENDATIONS: ROAD BUILDER eval post extubation -> LOW NA/ texture per ROAD BUILDER ENTERAL NUTRITION RECOMMENDATIONS: Vital AF 1.2 @ 65ml/hr x 24 hrs to provide 1560ml, 1872kcal, 117g prot, 1265ml free water * Rec TF change to Vital AF for critical care -> initiate Vital AF 1.2 @ 15ml/hr x 6 hrs -> advance 10ml q 4-6 hrs as tolerated to goal rate. -> HOB over 30 degrees/ H20 flush per MD ADDITIONAL RECOMMENDATIONS: * Calibrated bedscale wt for accurate CBW- w/ added P200 mattress * Monitor lytes, replete as needed (low K + phos) * F/up WC eval: add Vit C 250mg QD Steve 1pkt BID via OGT * ROAD BUILDER eval pot extubation Raul Cornejo Jul 10, 2019 13:42
--- NOTE | 2019-07-10 13:50 | NUR ---
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 98.4 HR 79 RR 22 B/P 106/53 3L NC O2 SAT @ 98% WBC 14.6 BNP 1186 IS: IVF D5 @ 75ML/HR PROTONIX IV HEPARIN SUBC TELE STATUS
--- NOTE | 2019-07-10 15:00 | NUR ---
NURSE NOTES: The patient is stable without acute distress or shortness of breath. The patient is on oxygen therapy per order. The patient's tube feeding resumed as the residual is 40mL. Will continue to monitor the patient.
--- NOTE | 2019-07-10 18:00 | NUR ---
NURSE NOTES: The patient is stable without acute distress or shortness of breath. Oxygen therapy per order. NG tube with tube feeding formula per order. Sacrum and Right heel wound intact and dressing changed. IV site intact and patent. Ramirez intact and patent. Will continue plan of care.
--- NOTE | 2019-07-10 19:30 | NUR ---
HAND-OFF: Report given to COCO Tsai. The patient is resting on the bed without acute distress or shortness of breath. The patient's bed in the lowest position, call light in reach, and fall, aspiration, and seizure precaution reinforced. IV site intact and patent and running IVF as ordered. Oxygen therapy per order. Tube feeding via NGT per order. Ramirez intact and draining well. Endorsed plan of care.
--- NOTE | 2019-07-10 19:31 | NUR ---
NURSE NOTES: Received pt from COCO Chapa. Pt is resting in bed in no acute distress, on 3L nasal cannula, saturating >91%. Iv site intact and patent. Restraints on bilateral wrists with 2 finger lengths space. Ramirez catheter intact and draining. Bed locked in lowest position, bed alarm on, call light within reach. Will continue with plan of care.
[2019-07-11] VITALS: BP 137/61
--- NOTE | 2019-07-11 02:45 | Progress Note ---
DATE: 07/10/2019 CARDIOLOGY PROGRESS NOTE SUBJECTIVE: The patient was extubated yesterday out of the intensive care unit. No respiratory distress. OBJECTIVE: VITAL SIGNS: Blood pressure 107/52, pulse 84, and respirations 22. NECK: Jugular venous pressure is slightly elevated. LUNGS: With diminished breath sounds at the left and few rales. CARDIAC: Regular rhythm and rate. Normal S1, S2 with no new murmur. ABDOMEN: Soft. EXTREMITIES: There is no edema. LABORATORY DATA: White count 14.6 and hemoglobin 9.7. Potassium 4.7, BUN 11, and creatinine 0.8. Sodium 137 and bicarb 31. Pronatriuretic peptide 11,000. Albumin 1.5. IMPRESSION: 1. Status post respiratory failure, now extubated. 2. Left pleural effusion. 3. Acute on chronic diastolic congestive heart failure. 4. Third spacing due to low colloid osmotic pressure. 5. Severe protein-calorie malnutrition. 6. Status post non ST elevation myocardial infarction precipitated by severe respiratory insufficiency and distress. 7. Resolved dehydration and hypernatremia. PLAN: 1. Discontinue D5W drip. 2. Diuresis. 3. Nutrition by feeding tube. 4. May need G-tube. 5. Respiratory hygiene. 6. Repeat chest radiograph. 7. Consideration for thoracentesis if persisting or worsening. 8. Maintain anti-platelet therapy. 9. DVT prophylaxis. Gregorio Coko M.D. DR: LUZMA JOB#: [id number] CC:
[2019-07-11 04:00] VITALS: BP 126/67
--- NOTE | 2019-07-11 05:00 | Progress Note ---
DATE: 07/10/2019 SUBJECTIVE: The patient is still on bilateral restraints. Disoriented. Poor historian. Attempts to pull out his IV. MENTAL STATUS EXAMINATION: The patient is alert, confused, and disoriented. Mood is anxious. Affect is flat. Thought process is concrete. Thought content, no suicidal or homicidal ideation. ASSESSMENT: Dementia with behavior disturbance. PLAN: 1. We will continue current psychotropic medications. 2. Provide the patient with reality orientation and supportive therapy. Layton Estrada M.D. DR: MAIKOL JOB#: [id number] CC:
--- NOTE | 2019-07-11 05:55 | NUR ---
NURSE NOTES: Pt self extubated his ng tube. Pt is said he "felt too uncomfortable with it on." Attempted to re insert NG tube but patient began yelling not to touch him and he refuses to have one reinserted. Notified charge nurse.
[2019-07-11 06:50] LABS: HEMATOCRIT 31.9 % (42.0-52.0); HEMOGLOBIN 10.4 G/DL (14.2-18.0); MEAN CORPUSCULAR VOLUME 85 FL (80-99); PLATELET COUNT 288 K/UL (150-450); RED BLOOD COUNT 3.76 M/UL (4.70-6.10); RED CELL DISTRIBUTION WIDTH 14.7 % (11.6-14.8)
[2019-07-11 07:23] LABS: ANION GAP 6 mmol/L (5-15); BLOOD UREA NITROGEN 15 mg/dL (7-18); CALCIUM 8.9 MG/DL (8.5-10.1); CARBON DIOXIDE 29 MMOL/L (21-32); CHLORIDE 103 MMOL/L (98-107); CREATININE 0.9 MG/DL (0.55-1.30); POTASSIUM 5.1 MMOL/L (3.5-5.1); SODIUM 138 MMOL/L (136-145)
--- NOTE | 2019-07-11 07:31 | NUR ---
report given to COCO vernon. Endorsed plan of care
--- NOTE | 2019-07-11 07:41 | NUR ---
NURSE NOTES: Received patient from Pelon Tsai. Patient is awake in bed, verbally responsive. No complain of pain or discomfort at this time. B/L wrist restraints in place. Patient pulled out NGT per night Rn.for ST fuentes this am. Fall precautions in place. Will follow.
[2019-07-11 08:00] VITALS: BP 113/49
[2019-07-11] MEDS: Heparin 5000 units/ml inj SUBQ SCH ×2 (09:07→20:52)
[2019-07-11] MEDS: Pantoprazole Inj IVP SCH ×2 (09:08→20:50)
--- NOTE | 2019-07-11 09:41 | Diagnostic Imaging Report ---
Indication: Shortness of breath Technique: One view of the chest Comparison: 07/07/2019 Findings: Interim removal of nasogastric and endotracheal tubes. There is decreased airspace disease and pleural fluid at the left lung base. Generalized mild interstitial congestion persists. The heart remains enlarged. Impression: Improvement of persistent left basilar pleural and parenchymal disease Interim nasogastric and endotracheal extubation
[2019-07-11] MEDS: Ascorbic Acid 500mg tab ORAL SCH (09:44)
[2019-07-11] MEDS: Aspirin Baby 81mg NG SCH (09:45)
--- NOTE | 2019-07-11 10:00 | NUR ---
RADIOLOGY DEPT., CHEST X-RAY DONE.-P.DYE
--- NOTE | 2019-07-11 10:02 | NUR ---
NOTES: REFERRED FOR SWALLOW EVALUATION BY DR SWEET, SEE FULL REPORT. DYSPHAGIA RISK FACTORS FOR THIS 63 Y.O.M.: ACUTE ISSUES: SEPSIS (?SOURCE), RESPIRATORY FAILURE BIPAP 07/03/19 THEN INTUBATED ON VENT 07/04-2019, THEN CPAP 07/09 NOW 3 LITERS 02 NC WITH GOOD SP02 96-97, RESP RATE 19-20BPM, DIFFICULTY CLEARING SECRETIONS, LUNGS HAVE LEFT PLEURAL EFFUSION, AMS MET ENCEPHALOPATHY (CT HEAD SCAN RECENT NEGATIVE NEW, MILD BRAIN ATROPHY), (ARF) ACUTE ON CHRONIC RENAL FAILURE,LOW BP H/O GERD (ON MEDS), OBESITY, EPILEPSY, NEURO D/O (NOT SPECIFIED), PSYCH (SCHIZOAFFECTIVE D/O, BIPOLAR, PARANOID SCHIZOPHRENIA ON SEROQUEL NOW, CARDIAC CARDIOMEGALY AND RESP D/O ASTHMA, BRONCHITIS. NO POLST/AD IN CHART REGARDING TUBE FEEDINGS BUT HAD OGT AND THEN NGT WHICH HE PULLED OUT THIS MORNING (VITAL FORMULA). NO PO MEDS TO DATE. PATIENT WANTS TO EAT AND DISLIKES NGT. PER PATIENT AND CHART, AT SNF, HE WAS ON A REGULAR TEXTURE DIET AND THIN LIQUIDS. THE PATIENT IS ALERT AND ABLE TO EXPRESS NEEDS. HE IS UPSET BECAUSE HE HAS TO HAVE WRIST RESTRAINTS SO HE DOES NOT PULL OUT HIS RUELAS CATHETER (HE ALREADY PULLED OUT HIS NGT). HE DENIES ANY SWALLOWING PROBLEMS. INITIAL IMPRESSIONS: GROSSLY FUNCTIONAL SWALLOW WITH PUREED TSP AND THIN LIQUIDS VIA STRAW SEQUENTIAL SIPS W/O OVERT S/S OF ASPIRATION W/O OVERT S/S OF A SIGNIFICANT DYSPHAGIA. SLOWER CHEWING (15 SEC) WITH MASTICATED SOLIDS (1/2 CRACKER) BUT HE HAS A GROSSLY FUNCTIONAL SWALLOW GIVEN HE HAS NO DENTITION AND NOR DENTURES. HE HAS SOME ASPIRATION RISK DUE TO TALKING WITH FOOD IN HIS MOUTH EVEN AFTER CUED TO STOP TALKING (HAS PSYCH CHALLENGES AND UPSET ABOUT BEING RESTRAINED). QUESTIONABLE SILENT ASPIRATION RISK (PER MEDICAL RECORD HAS EPILEPSY AND NEURO D/O NOT SPECIFIED) RECOMMENDATIONS: SINCE THE PATIENT IS REFUSING NGT AND APPEARS TO HAVE A GROSSLY FUNCTIONAL SWALLOW, CONSIDER SENDING [facility] SOFT CHOPPED DIET SINCE HE HAS TO BE FED (WITH UPGRADE TO SOFT CHEW TOLERATED). OK TO HAVE THIN LIQUIDS ONE SIP AT A TIME AND RESP RATE NOT TO GO ABOVE 30 BPM. DISCOURAGE TALKING WITH MEALS, HE NEEDS A FEEDER SINCE HE IS RESTRAINED. SEND LOW NA DIET TYPE PER RD RECOMMENDATIONS. MEDS TOLERATED ( HE MAY REFUSE CRUSHING) WILL F/UP WITH MOD BARIUM SWALLOW STUDY IF NEEDED POST MEAL OBSERVATION TO SEE IF RESP RATE GOES PAST 30 BPM. DYSPHAGIA MANAGEMENT AND TX AND COG-COM EVAL/TX POST SEPSIS AND METABOLIC ENCEPHALOPATHY. EDUCATED AND TRAINED RN (NELA) AND DOCTOR OF NURSING PRACTICE (DEL) IN POSTED PRECAUTIONS.
--- NOTE | 2019-07-11 10:30 | Pulmonology Progress Note ---
Assessment/Plan Assessment/Plan IMPRESSION: 1. Respiratory failure, acute; now extubated 2. Sepsis, urinary 3. Altered mental status. 4. Psychiatric disorder. DISCUSSION: Passed swallow eval Will begin diet High WBC concerning but no fever; no steroid use Psych meds per Dr Estrada Subjective Interval Events: Passed swallow eval' WBC 18K today Constitutional: Reports: no symptoms HEENT: Repors: no symptoms Respiratory: Reports: no symptoms Cardiovascular: Reports: no symptoms Gastrointestinal/Abdominal: Reports: no symptoms Genitourinary: Reports: no symptoms Allergies: Coded Allergies: PENICILLINS (Verified Allergy, Unknown, 07/03/19) Objective Last 24 Hour Vital Signs Date Time Temp Pulse Resp B/P (MAP) Pulse Ox O2 Delivery O2 Flow Rate FiO2 07/11/19 09:00 Nasal Cannula 3.0 Nasal Cannula 3.0 Nasal Cannula 3.0 07/11/19 08:00 3.0 07/11/19 08:00 96 07/11/19 08:00 97.2 61 20 113/49 (70) 97 07/11/19 04:00 97.4 96 19 126/67 (86) 97 07/11/19 04:00 3.0 07/11/19 04:00 96 07/11/19 00:00 3.0 07/11/19 00:00 94 07/11/19 00:00 98.2 94 19 137/61 (86) 97 07/10/19 21:00 Nasal Cannula 3.0 Nasal Cannula 3.0 Nasal Cannula 3.0 07/10/19 20:00 83 07/10/19 20:00 3.0 07/10/19 20:00 97.9 83 19 151/65 (93) 96 07/10/19 16:00 80 07/10/19 16:00 98.2 83 20 137/82 (100) 96 07/10/19 16:00 3.0 07/10/19 16:00 Nasal Cannula 3.0 Nasal Cannula 3.0 Nasal Cannula 3.0 07/10/19 12:00 80 07/10/19 12:00 97.9 79 20 132/72 (92) 96 07/10/19 12:00 3.0 07/10/19 12:00 Nasal Cannula 3.0 Nasal Cannula 3.0 Nasal Cannula 3.0 07/10/19 11:00 84 22 107/52 (70) 98 Intake and Output 07/10/19 07/11/19 19:00 07:00 Intake Total 665 ml Output Total 970 ml Balance -305 ml Free Water 50 ml Tube Feeding 615 ml Output Urine Total 970 ml General Appearance: no acute distress HEENT: normocephalic Respiratory/Chest: chest wall non-tender, lungs clear Cardiovascular: normal peripheral pulses, normal rate Abdomen: normal bowel sounds Laboratory Tests 07/11/19 05:28: White Blood Count 18.0H, Red Blood Count 3.76L, Hemoglobin 10.4L, Hematocrit 31.9L, Mean Corpuscular Volume 85, Mean Corpuscular Hemoglobin 27.7, Mean Corpuscular Hemoglobin Concent 32.7, Red Cell Distribution Width 14.7, Platelet Count 288, Mean Platelet Volume 6.3L, Neutrophils (%) (Auto) , Lymphocytes (%) ( Auto) , Monocytes (%) (Auto) , Eosinophils (%) (Auto) , Basophils (%) (Auto) , Neutrophils % (Manual) [Pending], Lymphocytes % (Manual) [Pending], Platelet Estimate [Pending], Platelet Morphology [Pending], Sodium Level 138, Potassium Level 5.1, Chloride Level 103, Carbon Dioxide Level 29, Anion Gap 6, Blood Urea Nitrogen 15, Creatinine 0.9, Estimat Glomerular Filtration Rate > 60, Glucose Level 77, Calcium Level 8.9 Current Medications Medications (Trade) Dose Ordered Sig/Samuel Route PRN Reason Start Time Stop Time Status Last Admin Dose Admin Acetaminophen (Tylenol) 650 mg Q6H PRN NG Mild Pain/Temp > 100.5 07/10/19 11:53 08/04/19 11:52 Allopurinol (allopurinoL) 300 mg DAILY ORAL 07/11/19 09:00 08/04/19 08:59 07/11/19 09:45 Ascorbic Acid (Vitamin C) 250 mg DAILY ORAL 07/11/19 09:00 08/05/19 08:59 07/11/19 09:44 Aspirin (ASA) 81 mg DAILY NG 07/11/19 09:00 08/06/19 08:59 07/11/19 09:45 Heparin Sodium (Porcine) (Heparin 5000 units/ml) 5,000 units EVERY 12 HOURS SUBQ 07/10/19 21:00 08/03/19 20:59 07/11/19 09:07 Lorazepam (Ativan 2mg/ml 1ml) 1 mg Q4H PRN IV For Anxiety 07/10/19 11:54 07/13/19 11:53 Pantoprazole (Protonix) 40 mg Q12HR IVP 07/10/19 21:00 08/04/19 08:59 07/11/19 09:08 Quetiapine Fumarate (SEROqueL) 50 mg Q12HR ORAL 07/10/19 21:00 08/09/19 20:59 07/11/19 09:44 Pramod Panchal MD Jul 11, 2019 10:30
[2019-07-11 11:40] VITALS: BP 101/55
[2019-07-11] MEDS ORDERED: Milk of Magnesia 30ml Ud ORAL SCH (12:15)
--- NOTE | 2019-07-11 12:18 | Nephrology Progress Note ---
Assessment/Plan Problem List: (1) Renal failure (ARF), acute on chronic (2) Respiratory distress Assessment: Co2 retainer (3) UTI (urinary tract infection) (4) Respiratory failure (5) Sepsis Assessment Renal failure ? Chronic ? superimposed acute Acute on Chronic respiratory failure Co2 retention HyperKalemia HypoAlbuminemia Obese UTI / Leukocytosis Plan extubated 07/09 , now in Tele K phos IV- as needed change IV to D5 nitro for elevated troponin smith slow hydrate optimize pulmonary status monitor renal parameters avoid nephrotoxics 2D echo - 65% Ej Fx per orders Subjective ROS Limited/Unobtainable: No Constitutional: Reports: malaise, weakness Objective Objective Last 24 Hour Vital Signs Date Time Temp Pulse Resp B/P (MAP) Pulse Ox O2 Delivery O2 Flow Rate FiO2 07/11/19 11:40 97.1 92 20 101/55 (70) 96 07/11/19 09:00 Nasal Cannula 3.0 Nasal Cannula 3.0 Nasal Cannula 3.0 07/11/19 08:00 3.0 07/11/19 08:00 96 07/11/19 08:00 97.2 61 20 113/49 (70) 97 07/11/19 04:00 97.4 96 19 126/67 (86) 97 07/11/19 04:00 3.0 07/11/19 04:00 96 07/11/19 00:00 3.0 07/11/19 00:00 94 07/11/19 00:00 98.2 94 19 137/61 (86) 97 07/10/19 21:00 Nasal Cannula 3.0 Nasal Cannula 3.0 Nasal Cannula 3.0 07/10/19 20:00 83 07/10/19 20:00 3.0 07/10/19 20:00 97.9 83 19 151/65 (93) 96 07/10/19 16:00 80 07/10/19 16:00 98.2 83 20 137/82 (100) 96 07/10/19 16:00 3.0 07/10/19 16:00 Nasal Cannula 3.0 Nasal Cannula 3.0 Nasal Cannula 3.0 Intake and Output 07/10/19 07/11/19 19:00 07:00 Intake Total 665 ml Output Total 970 ml Balance -305 ml Free Water 50 ml Tube Feeding 615 ml Output Urine Total 970 ml Laboratory Tests 07/11/19 05:28: White Blood Count 18.0H, Red Blood Count 3.76L, Hemoglobin 10.4L, Hematocrit 31.9L, Mean Corpuscular Volume 85, Mean Corpuscular Hemoglobin 27.7, Mean Corpuscular Hemoglobin Concent 32.7, Red Cell Distribution Width 14.7, Platelet Count 288, Mean Platelet Volume 6.3L, Neutrophils (%) (Auto) , Lymphocytes (%) ( Auto) , Monocytes (%) (Auto) , Eosinophils (%) (Auto) , Basophils (%) (Auto) , Differential Total Cells Counted 100, Neutrophils % (Manual) 68, Lymphocytes % ( Manual) 20, Monocytes % (Manual) 7, Eosinophils % (Manual) 4H, Basophils % ( Manual) 1, Band Neutrophils 0, Platelet Estimate Adequate, Platelet Morphology Normal, Hypochromasia 1+, Sodium Level 138, Potassium Level 5.1, Chloride Level 103, Carbon Dioxide Level 29, Anion Gap 6, Blood Urea Nitrogen 15, Creatinine 0.9, Estimat Glomerular Filtration Rate > 60, Glucose Level 77, Calcium Level 8.9 Height (Feet): 6 Height (Inches): 2.00 Weight (Pounds): 280 General Appearance: mild distress Neck: limited range of motion Cardiovascular: tachycardia Respiratory/Chest: decreased breath sounds Abdomen: distended Objective no change Will Groves MD Jul 11, 2019 12:18
--- NOTE | 2019-07-11 12:36 | Infectious Diseases Prog Note ---
Assessment/Plan Assessment/Plan IMPRESSION: Leukocytosis worsening UTI with E coli ESBL Hypercapnic respiratory failure acute renal failure, improving Metabolic encephalopathy. schizoaffective disorder, allergic rhinitis, gastroesophageal reflux disease epilepsy. 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 RECOMMENDATION: CXR in am UA, UC Start on PO Bactrim Subjective ROS Limited/Unobtainable: No Constitutional: Reports: no symptoms Respiratory: Reports: no symptoms Gastrointestinal/Abdominal: Reports: no symptoms, other - NG tube is removed Genitourinary: Reports: no symptoms Neurologic: Reports: weakness, other - in legs, chronic Allergies: Coded Allergies: PENICILLINS (Verified Allergy, Unknown, 07/03/19) Objective Vital Signs Last 24 Hour Vital Signs Date Time Temp Pulse Resp B/P (MAP) Pulse Ox O2 Delivery O2 Flow Rate FiO2 07/11/19 11:40 97.1 92 20 101/55 (70) 96 07/11/19 09:00 Nasal Cannula 3.0 Nasal Cannula 3.0 Nasal Cannula 3.0 07/11/19 08:00 3.0 07/11/19 08:00 96 07/11/19 08:00 97.2 61 20 113/49 (70) 97 07/11/19 04:00 97.4 96 19 126/67 (86) 97 07/11/19 04:00 3.0 07/11/19 04:00 96 07/11/19 00:00 3.0 07/11/19 00:00 94 07/11/19 00:00 98.2 94 19 137/61 (86) 97 07/10/19 21:00 Nasal Cannula 3.0 Nasal Cannula 3.0 Nasal Cannula 3.0 07/10/19 20:00 83 07/10/19 20:00 3.0 07/10/19 20:00 97.9 83 19 151/65 (93) 96 07/10/19 16:00 80 07/10/19 16:00 98.2 83 20 137/82 (100) 96 07/10/19 16:00 3.0 07/10/19 16:00 Nasal Cannula 3.0 Nasal Cannula 3.0 Nasal Cannula 3.0 Height (Feet): 6 Height (Inches): 2.00 Weight (Pounds): 280 General Appearance: no acute distress, other - obese HEENT: mucous membranes moist Respiratory/Chest: lungs clear Cardiovascular: normal rate Abdomen: soft, non tender Extremities: other - periankle edema Neurologic/Psychiatric: alert, oriented x 3, responsive Laboratory Tests Test 07/11/19 05:28 White Blood Count 18.0 K/UL (4.8-10.8) H Red Blood Count 3.76 M/UL (4.70-6.10) L Hemoglobin 10.4 G/DL (14.2-18.0) L Hematocrit 31.9 % (42.0-52.0) L Mean Corpuscular Volume 85 FL (80-99) Mean Corpuscular Hemoglobin 27.7 PG (27.0-31.0) Mean Corpuscular Hemoglobin Concent 32.7 G/DL (32.0-36.0) Red Cell Distribution Width 14.7 % (11.6-14.8) Platelet Count 288 K/UL (150-450) Mean Platelet Volume 6.3 FL (6.5-10.1) L Neutrophils (%) (Auto) % (45.0-75.0) Lymphocytes (%) (Auto) % (20.0-45.0) Monocytes (%) (Auto) % (1.0-10.0) Eosinophils (%) (Auto) % (0.0-3.0) Basophils (%) (Auto) % (0.0-2.0) Differential Total Cells Counted 100 Neutrophils % (Manual) 68 % (45-75) Lymphocytes % (Manual) 20 % (20-45) Monocytes % (Manual) 7 % (1-10) Eosinophils % (Manual) 4 % (0-3) H Basophils % (Manual) 1 % (0-2) Band Neutrophils 0 % (0-8) Platelet Estimate Adequate Platelet Morphology Normal Hypochromasia 1+ Sodium Level 138 MMOL/L (136-145) Potassium Level 5.1 MMOL/L (3.5-5.1) Chloride Level 103 MMOL/L (98-107) Carbon Dioxide Level 29 MMOL/L (21-32) Anion Gap 6 mmol/L (5-15) Blood Urea Nitrogen 15 mg/dL (7-18) Creatinine 0.9 MG/DL (0.55-1.30) Estimat Glomerular Filtration Rate > 60 mL/min (>60) Glucose Level 77 MG/DL (74-106) Calcium Level 8.9 MG/DL (8.5-10.1) Current Medications Medications (Trade) Dose Ordered Sig/Samuel Route PRN Reason Start Time Stop Time Status Last Admin Dose Admin Acetaminophen (Tylenol) 650 mg Q6H PRN NG Mild Pain/Temp > 100.5 07/10/19 11:53 08/04/19 11:52 Allopurinol (allopurinoL) 300 mg DAILY ORAL 07/11/19 09:00 08/04/19 08:59 07/11/19 09:45 Ascorbic Acid (Vitamin C) 250 mg DAILY ORAL 07/11/19 09:00 08/05/19 08:59 07/11/19 09:44 Aspirin (ASA) 81 mg DAILY NG 07/11/19 09:00 08/06/19 08:59 07/11/19 09:45 Heparin Sodium (Porcine) (Heparin 5000 units/ml) 5,000 units EVERY 12 HOURS SUBQ 07/10/19 21:00 08/03/19 20:59 07/11/19 09:07 Lorazepam (Ativan 2mg/ml 1ml) 1 mg Q4H PRN IV For Anxiety 07/10/19 11:54 07/13/19 11:53 Magnesium Hydroxide (Mom) 30 ml ONCE ORAL 07/11/19 12:15 07/11/19 14:00 07/11/19 12:16 Pantoprazole (Protonix) 40 mg Q12HR IVP 07/10/19 21:00 08/04/19 08:59 07/11/19 09:08 Quetiapine Fumarate (SEROqueL) 50 mg Q12HR ORAL 07/10/19 21:00 08/09/19 20:59 07/11/19 09:44 Ang Blackwood MD Jul 11, 2019 12:36
--- NOTE | 2019-07-11 12:51 | Surgery Progress Note ---
Surgery Progress Note Subjective Additional Comments Patient seen and examined bedside. No acute events. Is awake alert comfortable. Denies any discomfort. Worsening leukocytosis off antibiotics. Discussed with ID. No nausea vomiting fever chills. Tolerating oral diet. Objective Last 24 Hour Vital Signs Date Time Temp Pulse Resp B/P (MAP) Pulse Ox O2 Delivery O2 Flow Rate FiO2 07/11/19 11:40 97.1 92 20 101/55 (70) 96 07/11/19 09:00 Nasal Cannula 3.0 Nasal Cannula 3.0 Nasal Cannula 3.0 07/11/19 08:00 3.0 07/11/19 08:00 96 07/11/19 08:00 97.2 61 20 113/49 (70) 97 07/11/19 04:00 97.4 96 19 126/67 (86) 97 07/11/19 04:00 3.0 07/11/19 04:00 96 07/11/19 00:00 3.0 07/11/19 00:00 94 07/11/19 00:00 98.2 94 19 137/61 (86) 97 07/10/19 21:00 Nasal Cannula 3.0 Nasal Cannula 3.0 Nasal Cannula 3.0 07/10/19 20:00 83 07/10/19 20:00 3.0 07/10/19 20:00 97.9 83 19 151/65 (93) 96 07/10/19 16:00 80 07/10/19 16:00 98.2 83 20 137/82 (100) 96 07/10/19 16:00 3.0 07/10/19 16:00 Nasal Cannula 3.0 Nasal Cannula 3.0 Nasal Cannula 3.0 I&O Intake and Output 07/10/19 07/11/19 19:00 07:00 Intake Total 665 ml Output Total 970 ml Balance -305 ml Free Water 50 ml Tube Feeding 615 ml Output Urine Total 970 ml Dressing: saturated Wound: clean Cardiovascular: RSR Respiratory: clear Abdomen: soft, non-tender, present bowel sounds Extremities: no edema, no tenderness, no cyanosis, other Laboratory Tests Test 07/11/19 05:28 White Blood Count 18.0 K/UL (4.8-10.8) H Red Blood Count 3.76 M/UL (4.70-6.10) L Hemoglobin 10.4 G/DL (14.2-18.0) L Hematocrit 31.9 % (42.0-52.0) L Mean Corpuscular Volume 85 FL (80-99) Mean Corpuscular Hemoglobin 27.7 PG (27.0-31.0) Mean Corpuscular Hemoglobin Concent 32.7 G/DL (32.0-36.0) Red Cell Distribution Width 14.7 % (11.6-14.8) Platelet Count 288 K/UL (150-450) Mean Platelet Volume 6.3 FL (6.5-10.1) L Neutrophils (%) (Auto) % (45.0-75.0) Lymphocytes (%) (Auto) % (20.0-45.0) Monocytes (%) (Auto) % (1.0-10.0) Eosinophils (%) (Auto) % (0.0-3.0) Basophils (%) (Auto) % (0.0-2.0) Differential Total Cells Counted 100 Neutrophils % (Manual) 68 % (45-75) Lymphocytes % (Manual) 20 % (20-45) Monocytes % (Manual) 7 % (1-10) Eosinophils % (Manual) 4 % (0-3) H Basophils % (Manual) 1 % (0-2) Band Neutrophils 0 % (0-8) Platelet Estimate Adequate Platelet Morphology Normal Hypochromasia 1+ Sodium Level 138 MMOL/L (136-145) Potassium Level 5.1 MMOL/L (3.5-5.1) Chloride Level 103 MMOL/L (98-107) Carbon Dioxide Level 29 MMOL/L (21-32) Anion Gap 6 mmol/L (5-15) Blood Urea Nitrogen 15 mg/dL (7-18) Creatinine 0.9 MG/DL (0.55-1.30) Estimat Glomerular Filtration Rate > 60 mL/min (>60) Glucose Level 77 MG/DL (74-106) Calcium Level 8.9 MG/DL (8.5-10.1) Plan Problems: (1) Sepsis Assessment & Plan: Febrile, tachycardia, leukocytosis Labs reviewed Imaging reviewed leukocytosis fluctuating off abx now discussed with ID Micro reviewed Continue IV antibiotics Trend labs Tube feeds Fluids improving downgraded no acute surgical intervention planned We will follow with recommendations Findings: Gallbladder demonstrates sludge. No gallstones, wall thickening, nor pericholecystic fluid. Patient is uncommunicative, unable to report Riddle's sign. Common bile duct measures 3 mm in diameter. No intrahepatic biliary ductal dilatation. Liver demonstrates normal echogenicity, no focal abnormality. Portal vein and hepatic veins are patent. Pancreas is unremarkable. Spleen is unremarkable. Left kidney measures 12.5 cm in length. Right kidney measures 12.6 cm length. Both kidneys demonstrate normal echogenicity. Both kidneys demonstrate fullness to the collecting systems, slightly greater on the left than on the right, although no maki hydronephrosis. No focal abnormality . Bladder is empty, contains a Ramirez catheter. Non-aneurysmal abdominal aorta . Impression: Nonspecific bilateral renal collecting system fullness without maki hydronephrosis. Gallbladder sludge. Negative for gallstones or dilated bile ducts Empty bladder with a Ramirez catheter (2) Respiratory distress (3) Decubitus skin ulcer Assessment & Plan: Pt presented on admission with Non-blanching erythema sacrum ,R and L buttocks with multiple DTPI's within . DTPI noted to L buttocks. Base of wound is maroon with surrounding non- blanching erythema(L)2cm x (W)0.8cm. DTPI noted to Sacrococcygeal area. Base of wound is purple,fluctuant with marginal erythema, surrounding non- blanching erythema without induration.(L) 1.5cm x (W)0.5cm. DTPI noted to R buttocks. Base of wound is indurated maroon with surrounding non -blanching erythema. Scrotal sac is grossly erythematous. Single L testis in-situ. Small scar noted to base R sac. Both heels are boggy with non-blanching erythema. Tx.Plan: Apply Moisture Barrier Paste to Sacrum, R and L buttocks. Cover with Optifoam drsg. Change every 3 days and prn. Apply Moisture Barrier Paste to scrotum. Cover as needed with Optifoam drsg. Apply Cavilon Skin Barrier to both heels. Cover each heel with Optifoam drsg. Change every 7 days and prn. APM/DARREL mattress overlay. Reposition at least every 2hours or as tolerated. Off-load heels with pillow. (4) Respiratory failure Assessment & Plan: DAILY ESTIMATED NEEDS: Needs based on Critical care, wounds, obese/ 92kg abw 20-25 kcals/kg 4215-5541 total kcals 1.25-2 g protein/kg 115-184 g total protein 25-30 mL/kg 3295-0240 total fluid mLs NUTRITION DIAGNOSIS: Swallowing difficulty R/T respiratory status as evidenced by pt orally intubated, on OGT feeding. CURRENT TF:Jevity 1.2 @ 30ml/hr x 24 hrs PO DIET RECOMMENDATIONS: FREIGHT CONDUCTOR eval post extubation -> LOW NA/ texture per FREIGHT CONDUCTOR ENTERAL NUTRITION RECOMMENDATIONS: Vital AF 1.2 @ 65ml/hr x 24 hrs to provide 1560ml, 1872kcal, 117g prot, 1265ml free water * Rec TF change to Vital AF for critical care -> initiate Vital AF 1.2 @ 15ml/hr x 6 hrs -> advance 10ml q 4-6 hrs as tolerated to goal rate. -> HOB over 30 degrees/ H20 flush per MD ADDITIONAL RECOMMENDATIONS: * Calibrated bedscale wt for accurate CBW- w/ added P200 mattress * Monitor lytes, replete as needed (low K + phos) * F/up WC eval: add Vit C 250mg QD Steve 1pkt BID via OGT * FREIGHT CONDUCTOR eval pot extubation Raul Cornejo Jul 11, 2019 12:51
--- NOTE | 2019-07-11 12:53 | NUR ---
NURSE NOTES:WOUND CARE FOLLOW-UP NOTES:Wound L buttocks has resolved. Scattered areas of hyperpigmentation noted to L and R buttocks . Both heels are firm and blanchable . Pt denied tenderness when each heel palpated. No new Skin concerns noted. Moisture Barrier Paste applied to buttocks. Sacral area covered with Optifoam drsg to minimize friction and shearing. Pt positioned with pillow on his side . Cavilon Skin Barrier applied to both heels. Each heel covered with Optifoam drsg. and off-loaded with pillow. All wound prevention protocols continued as care-planned.
[2019-07-11] MEDS: Bactrim-DS 1 tab ORAL SCH ×2 (12:54→20:50)
[2019-07-11 13:19] LABS: APPEARANCE,URINE CLOUDY; BILIRUBIN, URINE NEGATIVE (NEGATIVE); GLUCOSE, URINE (UA) NEGATIVE (NEGATIVE); KETONES,URINE NEGATIVE (NEGATIVE); LEUKOCYTE ESTERASE ,URINE 2+ (NEGATIVE); NITRITE,URINE NEGATIVE (NEGATIVE); PH,URINE 5 (4.5-8.0); PROTEIN,URINE 3+ (NEGATIVE); UROBILINOGEN,URINE 1 MG/DL (0.0-1.0)
[2019-07-11 13:21] LABS: COLOR,URINE YELLOW
--- NOTE | 2019-07-11 13:37 | NUR ---
RD ASSESSMENT & RECOMMENDATIONS SEE CARE ACTIVITY FOR COMPLETE ASSESSMENT DAILY ESTIMATED NEEDS: Needs based on Pulmonary, wounds, obese/ 92kg abw 20-25 kcals/kg 5632-5668 total kcals 1.25-2 g protein/kg 115-184 g total protein 25-30 mL/kg 4351-9652 total fluid mLs NUTRITION DIAGNOSIS: * Swallowing difficulty R/T respiratory status as evidenced by pt orally intubated, now extubated, seen by GAS STATION SERVICE ATTENDANT cleared for ms chopped texture diet. * Increased prot intake needs R/T wound healing as evidenced by pt admitted w/ DTPI wounds @ lt buttocks and sacroccocyx and non-blanching erythema @ sacrum, and BL heels. CURRENT DIET:LOW NA ms chopped PO DIET RECOMMENDATIONS: GAS STATION SERVICE ATTENDANT eval post extubation -> LOW NA/ texture per GAS STATION SERVICE ATTENDANT ADDITIONAL RECOMMENDATIONS: * Calibrated bedscale wt for accurate CBW- w/ added P200 mattress * Monitor lytes, replete as needed * Wound care: Continue Vit C Add Steve 1pkt BID via OGT (mix w/ 4oz water) * GAS STATION SERVICE ATTENDANT eval post extubation
--- NOTE | 2019-07-11 14:00 | NUR ---
PT EVALUATION NOTE Patient seen for initial evaluation. Patient presents with generalized weakness which impairs patient's ability to perform mobility tasks safely. Patient requires min assist for bed mobility, unable to stand or perform transfers at this time. Patient states that he has been unable to stand for one month. Patient will benefit from skilled inpatient PT intervention to address strength, balance and safety for improved level of independence with functional mobility. Recommend discharge to SNF once medically cleared by MD. Addendum: 07/11/19 at 1434 by BRYAN CONTRERAS PT Amended: Links added.
--- NOTE | 2019-07-11 14:38 | NUR ---
CASE MANAGEMENT:REVIEW 07/11/19 SI: SEPSIS. RESPIRATORY FAILURE..S/P EXTUBATION PSYCH D/O 97.1 92 20 101/55 96% ON 3L/NC WBC+18.0 IS: BACTRIM PO Q12 ALLOPURINOL PO QD ASA PO QD HEPARIN SQ Q12 IV PROTONIX Q12 SEROQUEL PO Q12 : NOW ON TELEMETRY UNIT DCP: FROM [facility] PLAN: PASSED SWALLOW EVAL ~ START DIET MONITOR WBC'S
--- NOTE | 2019-07-11 15:03 | NUR ---
*-* INSURANCE *-* UPDATED CLINICALS HAVE BEEN FAXED TO: [facility] F: [phone]
[2019-07-11 16:00] VITALS: BP 110/52
--- NOTE | 2019-07-11 19:22 | NUR ---
HAND-OFF: Report given to Pelon Tsai. PLan of care endorsed. .
--- NOTE | 2019-07-11 19:23 | NUR ---
NURSE NOTES: Received pt from [facility]. Pt is awake and resting in bed in no acute distress. IV site intact. Ramirez catheter intact and draining. Pt on oxygen support via nasal cannula, HOB elevated. seizure precaution implemented. Bed locked in lowest position, bed alarm in reach, bed alarm on. Will continue with plan of care.
[2019-07-11 20:00] VITALS: BP 108/54
--- NOTE | 2019-07-11 21:45 | Progress Note ---
DATE: 07/11/2019 CARDIOLOGY PROGRESS NOTE SUBJECTIVE: Remains extubated x48 hours. No respiratory distress. Monitored rhythm sinus. PHYSICAL EXAMINATION: VITAL SIGNS: Blood pressure 113/49, pulse 61, respirations 20. LUNGS: Diminished breath sounds. CARDIAC: Regular rhythm and rate. Normal S1, S2. ABDOMEN: Soft. EXTREMITIES: No edema. LABORATORY DATA: White count 18, hemoglobin 10. Chemistry panel within normal limits. IMPRESSION: 1. Respiratory failure. 2. Jlr-[id number] myocardial infarction, precipitated by severe respiratory insufficiency. 3. Hypoxia. 4. COPD. 5. Severe protein-calorie malnutrition. 6. Dehydration, resolved. 7. Leukocytosis, on steroids. 8. Echocardiogram with normal ejection fraction. PLAN: 1. Respiratory hygiene. 2. Protein supplement. 3. Antiplatelet therapy and nitrate. 4. Avoiding beta-blockers. 5. No additional cardiovascular workup presently indicated. Gregorio Cook M.D. DR: DYLON JOB#: [id number] CC:
[2019-07-12] VITALS: BP 111/61
[2019-07-12 04:00] VITALS: BP 129/67
--- NOTE | 2019-07-12 07:01 | NUR ---
HAND-OFF: Report given to Pelon vernon. Plan of care endorsed.
[2019-07-12 07:22] LABS: BASOPHILS % (AUTO) 0.3 % (0.0-2.0); EOSINOPHILS % (AUTO) 4.5 % (0.0-3.0); HEMATOCRIT 33.3 % (42.0-52.0); HEMOGLOBIN 11.3 G/DL (14.2-18.0); LYMPHOCYTES % (AUTO) 21.6 % (20.0-45.0); MEAN CORPUSCULAR VOLUME 84 FL (80-99); MONOCYTES % (AUTO) 7.2 % (1.0-10.0); NEUTROPHILS % (AUTO) 66.4 % (45.0-75.0); PLATELET COUNT 281 K/UL (150-450); RED BLOOD COUNT 3.95 M/UL (4.70-6.10); RED CELL DISTRIBUTION WIDTH 15.1 % (11.6-14.8); WHITE BLOOD COUNT 15.3 K/UL (4.8-10.8)
[2019-07-12 07:59] LABS: ALANINE AMINOTRANSFERASE 29 U/L (12-78); ALBUMIN 1.9 G/DL (3.4-5.0); ALBUMIN/GLOBULIN RATIO 0.3 (1.0-2.7); ALKALINE PHOSPHATASE 75 U/L (46-116); ANION GAP 7 mmol/L (5-15); ASPARTATE AMINO TRANSFERASE 52 U/L (15-37); BILIRUBIN,TOTAL 0.2 MG/DL (0.2-1.0); BLOOD UREA NITROGEN 16 mg/dL (7-18); CALCIUM 9.1 MG/DL (8.5-10.1); CARBON DIOXIDE 28 MMOL/L (21-32); CHLORIDE 102 MMOL/L (98-107); POTASSIUM 4.9 MMOL/L (3.5-5.1); SODIUM 137 MMOL/L (136-145)
[2019-07-12 08:00] VITALS: BP 140/73
--- NOTE | 2019-07-12 08:13 | NUR ---
NURSE NOTES: Received patient from Pelon Tsai. Patient is awake and alert Lying comfortably in bed. Denies pain or discomfort at this time. Safety precautions in place. Call lozano within patients reach and aware of its use. Will follow.
--- NOTE | 2019-07-12 09:00 | NUR ---
CASE MANAGEMENT:REVIEW 07/12/19 SI: SEPSIS. RESPIRATORY FAILURE..S/P EXTUBATION ESBL UTI. PSYCH D/O 97.7 75 20 140/73 94% ON 3L/NC WBC+15.3 H/H-11.3/33.3 GLUCOSE-60 IS: BACTRIM PO Q12 ALLOPURINOL PO QD ASA PO QD HEPARIN SQ Q12 IV PROTONIX Q12 SEROQUEL PO Q12 : NOW ON TELEMETRY UNIT DCP: FROM [facility]
[2019-07-12] MEDS: Bactrim-DS 1 tab ORAL SCH ×2 (09:04→21:04)
[2019-07-12] MEDS: Ascorbic Acid 500mg tab ORAL SCH (09:04)
[2019-07-12] MEDS: Aspirin Baby 81mg NG SCH (09:04)
[2019-07-12] MEDS: Pantoprazole Inj IVP SCH ×2 (09:04→21:04)
--- NOTE | 2019-07-12 09:08 | Pulmonology Progress Note ---
Assessment/Plan Assessment/Plan IMPRESSION: 1. Respiratory failure, acute; now extubated 2. Sepsis, urinary 3. Altered mental status. 4. Psychiatric disorder. DISCUSSION: Passed swallow eval On diet High WBC concerning but no fever; no steroid use Psych meds per Dr Estrada Subjective Interval Events: None new HEENT: Repors: no symptoms Cardiovascular: Reports: no symptoms Gastrointestinal/Abdominal: Reports: no symptoms Allergies: Coded Allergies: PENICILLINS (Verified Allergy, Unknown, 07/03/19) Objective Last 24 Hour Vital Signs Date Time Temp Pulse Resp B/P (MAP) Pulse Ox O2 Delivery O2 Flow Rate FiO2 07/12/19 08:00 97.7 75 20 140/73 (95) 94 07/12/19 04:00 3.0 07/12/19 04:00 97.3 79 18 129/67 (87) 92 07/12/19 04:00 79 07/12/19 00:00 97.1 79 18 111/61 (78) 95 07/12/19 00:00 3.0 07/12/19 00:00 81 07/11/19 21:00 Nasal Cannula 3.0 Nasal Cannula 3.0 Nasal Cannula 3.0 07/11/19 20:00 98.1 81 20 108/54 (72) 91 07/11/19 20:00 3.0 07/11/19 20:00 81 07/11/19 16:00 87 07/11/19 16:00 97.3 69 20 110/52 (71) 95 07/11/19 16:00 3.0 07/11/19 12:00 87 07/11/19 12:00 3.0 07/11/19 11:40 97.1 92 20 101/55 (70) 96 Intake and Output 07/11/19 07/12/19 19:00 07:00 Intake Total 360 ml 240 ml Output Total 1200 ml Balance -840 ml 240 ml Intake Oral 360 ml 240 ml Output Urine Total 1200 ml General Appearance: no acute distress HEENT: normocephalic Respiratory/Chest: chest wall non-tender Cardiovascular: normal peripheral pulses Abdomen: soft, non tender Microbiology Date/Time Source Procedure Growth Status 07/11/19 13:00 Indwelling Cath Urine Culture - Preliminary NO GROWTH Resulted Laboratory Tests 07/11/19 13:00: Urine Color Yellow, Urine Appearance Cloudy, Urine pH 5, Urine Specific [place] 1.010, Urine Protein 3+H, Urine Glucose (UA) Negative, Urine Ketones Negative, Urine Blood 5+H, Urine Nitrite Negative, Urine Bilirubin Negative, Urine Urobilinogen 1H, Urine Leukocyte Esterase 2+H, Urine RBC TntcH, Urine WBC 15-20H , Urine Squamous Epithelial Cells Occasional, Urine Bacteria Few 07/12/19 05:34: White Blood Count 15.3H, Red Blood Count 3.95L, Hemoglobin 11.3L, Hematocrit 33.3L, Mean Corpuscular Volume 84, Mean Corpuscular Hemoglobin 28.6, Mean Corpuscular Hemoglobin Concent 33.9, Red Cell Distribution Width 15.1H, Platelet Count 281, Mean Platelet Volume 6.1L, Neutrophils (%) (Auto) 66.4, Lymphocytes (%) (Auto) 21.6, Monocytes (%) (Auto) 7.2, Eosinophils (%) (Auto) 4.5H, Basophils (%) (Auto) 0.3, Erythrocyte Sedimentation Rate [Pending], Prothrombin Time 10.8, Prothromb Time International Ratio 1.0, Activated Partial Thromboplast Time 30, Sodium Level 137, Potassium Level 4.9, Chloride Level 102, Carbon Dioxide Level 28, Anion Gap 7, Blood Urea Nitrogen 16, Creatinine 1.0, Estimat Glomerular Filtration Rate > 60, Glucose Level 60L, Calcium Level 9.1, Total Bilirubin 0.2, Aspartate Amino Transf (AST/SGOT) 52H, Alanine Aminotransferase (ALT/SGPT) 29, Alkaline Phosphatase 75, C-Reactive Protein, Quantitative 17.9H, Total Protein 8.8H, Albumin 1.9L, Globulin 6.9, Albumin/Globulin Ratio 0.3L Current Medications Medications (Trade) Dose Ordered Sig/Samuel Route PRN Reason Start Time Stop Time Status Last Admin Dose Admin Acetaminophen (Tylenol) 650 mg Q6H PRN NG Mild Pain/Temp > 100.5 07/10/19 11:53 08/04/19 11:52 Allopurinol (allopurinoL) 300 mg DAILY ORAL 07/11/19 09:00 08/04/19 08:59 07/11/19 09:45 Ascorbic Acid (Vitamin C) 250 mg DAILY ORAL 07/11/19 09:00 08/05/19 08:59 07/11/19 09:44 Aspirin (ASA) 81 mg DAILY NG 07/11/19 09:00 08/06/19 08:59 07/11/19 09:45 Heparin Sodium (Porcine) (Heparin 5000 units/ml) 5,000 units EVERY 12 HOURS SUBQ 07/10/19 21:00 08/03/19 20:59 07/11/19 20:52 Lorazepam (Ativan 2mg/ml 1ml) 1 mg Q4H PRN IV For Anxiety 07/10/19 11:54 07/13/19 11:53 Pantoprazole (Protonix) 40 mg Q12HR IVP 07/10/19 21:00 08/04/19 08:59 07/11/19 20:50 Quetiapine Fumarate (SEROqueL) 50 mg Q12HR ORAL 07/10/19 21:00 08/09/19 20:59 07/11/19 20:50 Trimethoprim/ Sulfamethoxazole (Bactrim-DS) 1 tab Q12HR ORAL 07/11/19 12:36 07/18/19 12:35 07/11/19 20:50 Pramod Panchal MD Jul 12, 2019 09:07
[2019-07-12] MEDS: Heparin 5000 units/ml inj SUBQ SCH ×2 (09:09→21:07)
[2019-07-12 12:00] VITALS: BP 116/72
--- NOTE | 2019-07-12 12:11 | Nephrology Progress Note ---
Assessment/Plan Problem List: (1) Renal failure (ARF), acute on chronic (2) Respiratory distress Assessment: Co2 retainer (3) UTI (urinary tract infection) (4) Respiratory failure (5) Sepsis Assessment Renal failure ? Chronic ? superimposed acute Acute on Chronic respiratory failure Co2 retention HyperKalemia HypoAlbuminemia Obese UTI / Leukocytosis Plan extubated 07/09 , now in Tele K phos IV- as needed change IV to D5 nitro for elevated troponin smith slow hydrate optimize pulmonary status monitor renal parameters avoid nephrotoxics 2D echo - 65% Ej Fx per orders Subjective ROS Limited/Unobtainable: No Objective Objective Last 24 Hour Vital Signs Date Time Temp Pulse Resp B/P (MAP) Pulse Ox O2 Delivery O2 Flow Rate FiO2 07/12/19 09:00 3.0 07/12/19 09:00 Nasal Cannula 3.0 Nasal Cannula 3.0 Nasal Cannula 3.0 07/12/19 08:00 97.7 75 20 140/73 (95) 94 07/12/19 08:00 77 07/12/19 04:00 3.0 07/12/19 04:00 97.3 79 18 129/67 (87) 92 07/12/19 04:00 79 07/12/19 00:00 97.1 79 18 111/61 (78) 95 07/12/19 00:00 3.0 07/12/19 00:00 81 07/11/19 21:00 Nasal Cannula 3.0 Nasal Cannula 3.0 Nasal Cannula 3.0 07/11/19 20:00 98.1 81 20 108/54 (72) 91 07/11/19 20:00 3.0 07/11/19 20:00 81 07/11/19 16:00 87 07/11/19 16:00 97.3 69 20 110/52 (71) 95 07/11/19 16:00 3.0 Intake and Output 07/11/19 07/12/19 19:00 07:00 Intake Total 360 ml 240 ml Output Total 1200 ml Balance -840 ml 240 ml Intake Oral 360 ml 240 ml Output Urine Total 1200 ml Laboratory Tests 07/11/19 13:00: Urine Color Yellow, Urine Appearance Cloudy, Urine pH 5, Urine Specific [place] 1.010, Urine Protein 3+H, Urine Glucose (UA) Negative, Urine Ketones Negative, Urine Blood 5+H, Urine Nitrite Negative, Urine Bilirubin Negative, Urine Urobilinogen 1H, Urine Leukocyte Esterase 2+H, Urine RBC TntcH, Urine WBC 15-20H , Urine Squamous Epithelial Cells Occasional, Urine Bacteria Few 07/12/19 05:34: White Blood Count 15.3H, Red Blood Count 3.95L, Hemoglobin 11.3L, Hematocrit 33.3L, Mean Corpuscular Volume 84, Mean Corpuscular Hemoglobin 28.6, Mean Corpuscular Hemoglobin Concent 33.9, Red Cell Distribution Width 15.1H, Platelet Count 281, Mean Platelet Volume 6.1L, Neutrophils (%) (Auto) 66.4, Lymphocytes (%) (Auto) 21.6, Monocytes (%) (Auto) 7.2, Eosinophils (%) (Auto) 4.5H, Basophils (%) (Auto) 0.3, Erythrocyte Sedimentation Rate 37H, Prothrombin Time 10.8, Prothromb Time International Ratio 1.0, Activated Partial Thromboplast Time 30, Sodium Level 137, Potassium Level 4.9, Chloride Level 102 , Carbon Dioxide Level 28, Anion Gap 7, Blood Urea Nitrogen 16, Creatinine 1.0, Estimat Glomerular Filtration Rate > 60, Glucose Level 60L, Calcium Level 9.1, Total Bilirubin 0.2, Aspartate Amino Transf (AST/SGOT) 52H, Alanine Aminotransferase (ALT/SGPT) 29, Alkaline Phosphatase 75, C-Reactive Protein, Quantitative 17.9H, Total Protein 8.8H, Albumin 1.9L, Globulin 6.9, Albumin/ Globulin Ratio 0.3L Height (Feet): 6 Height (Inches): 2.00 Weight (Pounds): 276 General Appearance: no apparent distress Cardiovascular: normal rate Respiratory/Chest: decreased breath sounds Abdomen: soft Objective no change Will Groves MD Jul 12, 2019 12:11
--- NOTE | 2019-07-12 14:05 | NUR ---
DISCHARGE PLANNING CLINICALS FAXED TO [facility]
--- NOTE | 2019-07-12 14:26 | Infectious Diseases Prog Note ---
Assessment/Plan Assessment/Plan IMPRESSION: Leukocytosis improving UTI with E coli ESBL Hypercapnic respiratory failure acute renal failure, improving Metabolic encephalopathy. schizoaffective disorder, allergic rhinitis, gastroesophageal reflux disease epilepsy. 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 RECOMMENDATION: CXR improving UC is negative Continue PO Bactrim will stop antibiotics soon Subjective ROS Limited/Unobtainable: No Constitutional: Reports: no symptoms, other - feels better Respiratory: Reports: no symptoms Gastrointestinal/Abdominal: Reports: no symptoms Genitourinary: Reports: no symptoms Allergies: Coded Allergies: PENICILLINS (Verified Allergy, Unknown, 07/03/19) Objective Vital Signs Last 24 Hour Vital Signs Date Time Temp Pulse Resp B/P (MAP) Pulse Ox O2 Delivery O2 Flow Rate FiO2 07/12/19 12:00 3.0 07/12/19 12:00 97.4 91 20 116/72 (87) 99 07/12/19 12:00 83 07/12/19 09:00 3.0 07/12/19 09:00 Nasal Cannula 3.0 Nasal Cannula 3.0 Nasal Cannula 3.0 07/12/19 08:00 97.7 75 20 140/73 (95) 94 07/12/19 08:00 77 07/12/19 04:00 3.0 07/12/19 04:00 97.3 79 18 129/67 (87) 92 07/12/19 04:00 79 07/12/19 00:00 97.1 79 18 111/61 (78) 95 07/12/19 00:00 3.0 07/12/19 00:00 81 07/11/19 21:00 Nasal Cannula 3.0 Nasal Cannula 3.0 Nasal Cannula 3.0 07/11/19 20:00 98.1 81 20 108/54 (72) 91 07/11/19 20:00 3.0 07/11/19 20:00 81 07/11/19 16:00 87 07/11/19 16:00 97.3 69 20 110/52 (71) 95 07/11/19 16:00 3.0 Height (Feet): 6 Height (Inches): 2.00 Weight (Pounds): 276 General Appearance: no acute distress HEENT: mucous membranes moist Respiratory/Chest: lungs clear Cardiovascular: normal rate Abdomen: soft, non tender Extremities: other - mild legs edema Neurologic/Psychiatric: alert, responsive Microbiology Date/Time Source Procedure Growth Status 07/11/19 13:00 Indwelling Cath Urine Culture - Preliminary NO GROWTH Resulted Laboratory Tests Test 07/12/19 05:34 White Blood Count 15.3 K/UL (4.8-10.8) H Red Blood Count 3.95 M/UL (4.70-6.10) L Hemoglobin 11.3 G/DL (14.2-18.0) L Hematocrit 33.3 % (42.0-52.0) L Mean Corpuscular Volume 84 FL (80-99) Mean Corpuscular Hemoglobin 28.6 PG (27.0-31.0) Mean Corpuscular Hemoglobin Concent 33.9 G/DL (32.0-36.0) Red Cell Distribution Width 15.1 % (11.6-14.8) H Platelet Count 281 K/UL (150-450) Mean Platelet Volume 6.1 FL (6.5-10.1) L Neutrophils (%) (Auto) 66.4 % (45.0-75.0) Lymphocytes (%) (Auto) 21.6 % (20.0-45.0) Monocytes (%) (Auto) 7.2 % (1.0-10.0) Eosinophils (%) (Auto) 4.5 % (0.0-3.0) H Basophils (%) (Auto) 0.3 % (0.0-2.0) Erythrocyte Sedimentation Rate 37 MM/HR (0-20) H Prothrombin Time 10.8 SEC (9.30-11.50) Prothromb Time International Ratio 1.0 (0.9-1.1) Activated Partial Thromboplast Time 30 SEC (23-33) Sodium Level 137 MMOL/L (136-145) Potassium Level 4.9 MMOL/L (3.5-5.1) Chloride Level 102 MMOL/L (98-107) Carbon Dioxide Level 28 MMOL/L (21-32) Anion Gap 7 mmol/L (5-15) Blood Urea Nitrogen 16 mg/dL (7-18) Creatinine 1.0 MG/DL (0.55-1.30) Estimat Glomerular Filtration Rate > 60 mL/min (>60) Glucose Level 60 MG/DL (74-106) L Calcium Level 9.1 MG/DL (8.5-10.1) Total Bilirubin 0.2 MG/DL (0.2-1.0) Aspartate Amino Transf (AST/SGOT) 52 U/L (15-37) H Alanine Aminotransferase (ALT/SGPT) 29 U/L (12-78) Alkaline Phosphatase 75 U/L (46-116) C-Reactive Protein, Quantitative 17.9 mg/dL (0.00-0.90) H Total Protein 8.8 G/DL (6.4-8.2) H Albumin 1.9 G/DL (3.4-5.0) L Globulin 6.9 g/dL Albumin/Globulin Ratio 0.3 (1.0-2.7) L Current Medications Medications (Trade) Dose Ordered Sig/Samuel Route PRN Reason Start Time Stop Time Status Last Admin Dose Admin Acetaminophen (Tylenol) 650 mg Q6H PRN NG Mild Pain/Temp > 100.5 07/10/19 11:53 08/04/19 11:52 Allopurinol (allopurinoL) 300 mg DAILY ORAL 07/11/19 09:00 08/04/19 08:59 07/12/19 09:03 Ascorbic Acid (Vitamin C) 250 mg DAILY ORAL 07/11/19 09:00 08/05/19 08:59 07/12/19 09:04 Aspirin (ASA) 81 mg DAILY NG 07/11/19 09:00 08/06/19 08:59 07/12/19 09:04 Heparin Sodium (Porcine) (Heparin 5000 units/ml) 5,000 units EVERY 12 HOURS SUBQ 07/10/19 21:00 08/03/19 20:59 07/12/19 09:09 Lactulose (Cephulac) 30 gm BID ORAL 07/12/19 18:00 08/11/19 17:59 Lorazepam (Ativan 2mg/ml 1ml) 1 mg Q4H PRN IV For Anxiety 07/10/19 11:54 07/13/19 11:53 Pantoprazole (Protonix) 40 mg Q12HR IVP 07/10/19 21:00 08/04/19 08:59 07/12/19 09:04 Quetiapine Fumarate (SEROqueL) 50 mg Q12HR ORAL 07/10/19 21:00 08/09/19 20:59 07/12/19 09:03 Trimethoprim/ Sulfamethoxazole (Bactrim-DS) 1 tab Q12HR ORAL 07/11/19 12:36 07/18/19 12:35 07/12/19 09:04 Ang Blackwood MD Jul 12, 2019 14:26
--- NOTE | 2019-07-12 14:46 | Surgery Progress Note ---
Surgery Progress Note Subjective Additional Comments no acute events comfortable labs improved no n/v/f/c Objective Last 24 Hour Vital Signs Date Time Temp Pulse Resp B/P (MAP) Pulse Ox O2 Delivery O2 Flow Rate FiO2 07/12/19 12:00 3.0 07/12/19 12:00 97.4 91 20 116/72 (87) 99 07/12/19 12:00 83 07/12/19 09:00 3.0 07/12/19 09:00 Nasal Cannula 3.0 Nasal Cannula 3.0 Nasal Cannula 3.0 07/12/19 08:00 97.7 75 20 140/73 (95) 94 07/12/19 08:00 77 07/12/19 04:00 3.0 07/12/19 04:00 97.3 79 18 129/67 (87) 92 07/12/19 04:00 79 07/12/19 00:00 97.1 79 18 111/61 (78) 95 07/12/19 00:00 3.0 07/12/19 00:00 81 07/11/19 21:00 Nasal Cannula 3.0 Nasal Cannula 3.0 Nasal Cannula 3.0 07/11/19 20:00 98.1 81 20 108/54 (72) 91 07/11/19 20:00 3.0 07/11/19 20:00 81 07/11/19 16:00 87 07/11/19 16:00 97.3 69 20 110/52 (71) 95 07/11/19 16:00 3.0 I&O Intake and Output 07/11/19 07/12/19 19:00 07:00 Intake Total 360 ml 240 ml Output Total 1200 ml Balance -840 ml 240 ml Intake Oral 360 ml 240 ml Output Urine Total 1200 ml Dressing: other Wound: other Drains: other Cardiovascular: RSR Respiratory: decreased breath sounds Abdomen: soft, present bowel sounds Extremities: no edema, no tenderness, no cyanosis Laboratory Tests Test 07/12/19 05:34 White Blood Count 15.3 K/UL (4.8-10.8) H Red Blood Count 3.95 M/UL (4.70-6.10) L Hemoglobin 11.3 G/DL (14.2-18.0) L Hematocrit 33.3 % (42.0-52.0) L Mean Corpuscular Volume 84 FL (80-99) Mean Corpuscular Hemoglobin 28.6 PG (27.0-31.0) Mean Corpuscular Hemoglobin Concent 33.9 G/DL (32.0-36.0) Red Cell Distribution Width 15.1 % (11.6-14.8) H Platelet Count 281 K/UL (150-450) Mean Platelet Volume 6.1 FL (6.5-10.1) L Neutrophils (%) (Auto) 66.4 % (45.0-75.0) Lymphocytes (%) (Auto) 21.6 % (20.0-45.0) Monocytes (%) (Auto) 7.2 % (1.0-10.0) Eosinophils (%) (Auto) 4.5 % (0.0-3.0) H Basophils (%) (Auto) 0.3 % (0.0-2.0) Erythrocyte Sedimentation Rate 37 MM/HR (0-20) H Prothrombin Time 10.8 SEC (9.30-11.50) Prothromb Time International Ratio 1.0 (0.9-1.1) Activated Partial Thromboplast Time 30 SEC (23-33) Sodium Level 137 MMOL/L (136-145) Potassium Level 4.9 MMOL/L (3.5-5.1) Chloride Level 102 MMOL/L (98-107) Carbon Dioxide Level 28 MMOL/L (21-32) Anion Gap 7 mmol/L (5-15) Blood Urea Nitrogen 16 mg/dL (7-18) Creatinine 1.0 MG/DL (0.55-1.30) Estimat Glomerular Filtration Rate > 60 mL/min (>60) Glucose Level 60 MG/DL (74-106) L Calcium Level 9.1 MG/DL (8.5-10.1) Total Bilirubin 0.2 MG/DL (0.2-1.0) Aspartate Amino Transf (AST/SGOT) 52 U/L (15-37) H Alanine Aminotransferase (ALT/SGPT) 29 U/L (12-78) Alkaline Phosphatase 75 U/L (46-116) C-Reactive Protein, Quantitative 17.9 mg/dL (0.00-0.90) H Total Protein 8.8 G/DL (6.4-8.2) H Albumin 1.9 G/DL (3.4-5.0) L Globulin 6.9 g/dL Albumin/Globulin Ratio 0.3 (1.0-2.7) L Plan Problems: (1) Sepsis Assessment & Plan: Febrile, tachycardia, leukocytosis Labs reviewed Imaging reviewed leukocytosis fluctuating off abx now discussed with ID Micro reviewed Continue IV antibiotics Trend labs Tube feeds Fluids improving downgraded no acute surgical intervention planned We will follow with recommendations Findings: Gallbladder demonstrates sludge. No gallstones, wall thickening, nor pericholecystic fluid. Patient is uncommunicative, unable to report Riddle's sign. Common bile duct measures 3 mm in diameter. No intrahepatic biliary ductal dilatation. Liver demonstrates normal echogenicity, no focal abnormality. Portal vein and hepatic veins are patent. Pancreas is unremarkable. Spleen is unremarkable. Left kidney measures 12.5 cm in length. Right kidney measures 12.6 cm length. Both kidneys demonstrate normal echogenicity. Both kidneys demonstrate fullness to the collecting systems, slightly greater on the left than on the right, although no maki hydronephrosis. No focal abnormality . Bladder is empty, contains a Ramirez catheter. Non-aneurysmal abdominal aorta . Impression: Nonspecific bilateral renal collecting system fullness without maki hydronephrosis. Gallbladder sludge. Negative for gallstones or dilated bile ducts Empty bladder with a Ramirez catheter (2) Respiratory distress (3) Decubitus skin ulcer Assessment & Plan: Pt presented on admission with Non-blanching erythema sacrum ,R and L buttocks with multiple DTPI's within . DTPI noted to L buttocks. Base of wound is maroon with surrounding non- blanching erythema(L)2cm x (W)0.8cm. DTPI noted to Sacrococcygeal area. Base of wound is purple,fluctuant with marginal erythema, surrounding non- blanching erythema without induration.(L) 1.5cm x (W)0.5cm. DTPI noted to R buttocks. Base of wound is indurated maroon with surrounding non -blanching erythema. Scrotal sac is grossly erythematous. Single L testis in-situ. Small scar noted to base R sac. Both heels are boggy with non-blanching erythema. Tx.Plan: Apply Moisture Barrier Paste to Sacrum, R and L buttocks. Cover with Optifoam drsg. Change every 3 days and prn. Apply Moisture Barrier Paste to scrotum. Cover as needed with Optifoam drsg. Apply Cavilon Skin Barrier to both heels. Cover each heel with Optifoam drsg. Change every 7 days and prn. APM/DARREL mattress overlay. Reposition at least every 2hours or as tolerated. Off-load heels with pillow. (4) Respiratory failure Assessment & Plan: DAILY ESTIMATED NEEDS: Needs based on Critical care, wounds, obese/ 92kg abw 20-25 kcals/kg 9878-7401 total kcals 1.25-2 g protein/kg 115-184 g total protein 25-30 mL/kg 7209-6852 total fluid mLs NUTRITION DIAGNOSIS: Swallowing difficulty R/T respiratory status as evidenced by pt orally intubated, on OGT feeding. CURRENT TF:Jevity 1.2 @ 30ml/hr x 24 hrs PO DIET RECOMMENDATIONS: SOLIDWORKS DESIGNER eval post extubation -> LOW NA/ texture per SOLIDWORKS DESIGNER ENTERAL NUTRITION RECOMMENDATIONS: Vital AF 1.2 @ 65ml/hr x 24 hrs to provide 1560ml, 1872kcal, 117g prot, 1265ml free water * Rec TF change to Vital AF for critical care -> initiate Vital AF 1.2 @ 15ml/hr x 6 hrs -> advance 10ml q 4-6 hrs as tolerated to goal rate. -> HOB over 30 degrees/ H20 flush per MD ADDITIONAL RECOMMENDATIONS: * Calibrated bedscale wt for accurate CBW- w/ added P200 mattress * Monitor lytes, replete as needed (low K + phos) * F/up WC eval: add Vit C 250mg QD Steve 1pkt BID via OGT * SOLIDWORKS DESIGNER eval pot extubation Raul Cornejo Jul 12, 2019 14:46
--- NOTE | 2019-07-12 15:30 | NUR ---
NURSE NOTES: Patient removed agile developer. Stated he doesn't need it anymore. refused it to it placed back. Explained to patient the reason for cardiac monitoring but still refused. Dr. Estrada came to see patient and spoke with patient. Isaac left to Dr. Townsend awaiting call back.
[2019-07-12 16:00] VITALS: BP 113/61
[2019-07-12] MEDS: Lactulose 20gm/30ml UDC ORAL SCH (17:25)
--- NOTE | 2019-07-12 17:26 | NUR ---
NURSE NOTES: Patient refused lactulose. stated he doesn't need and will have BM when he wanted too.
--- NOTE | 2019-07-12 19:46 | NUR ---
HAND-OFF: Report given to Pelon Warren.Plan of care endorsed.
--- NOTE | 2019-07-12 19:47 | NUR ---
NURSE NOTES: Received pt from [facility]. Pt awake, alert, and talkative. Bed in lowest position. Call light within reach. Will continue to monitor.
[2019-07-12 20:00] VITALS: BP 131/75
[2019-07-13] VITALS: BP 131/75
[2019-07-13 04:00] VITALS: BP 138/73
--- NOTE | 2019-07-13 07:20 | NUR ---
HAND-OFF: Report given to [facility]. pt stable.
[2019-07-13 07:31] LABS: BASOPHILS % (AUTO) 0.6 % (0.0-2.0); EOSINOPHILS % (AUTO) 5.6 % (0.0-3.0); HEMATOCRIT 35.6 % (42.0-52.0); HEMOGLOBIN 11.5 G/DL (14.2-18.0); LYMPHOCYTES % (AUTO) 20.3 % (20.0-45.0); MEAN CORPUSCULAR VOLUME 84 FL (80-99); MONOCYTES % (AUTO) 7.9 % (1.0-10.0); NEUTROPHILS % (AUTO) 65.6 % (45.0-75.0); PLATELET COUNT 302 K/UL (150-450); RED BLOOD COUNT 4.23 M/UL (4.70-6.10); RED CELL DISTRIBUTION WIDTH 14.8 % (11.6-14.8); WHITE BLOOD COUNT 14.6 K/UL (4.8-10.8)
[2019-07-13 07:45] LABS: ANION GAP 7 mmol/L (5-15); BLOOD UREA NITROGEN 15 mg/dL (7-18); CALCIUM 9.3 MG/DL (8.5-10.1); CARBON DIOXIDE 28 MMOL/L (21-32); CHLORIDE 101 MMOL/L (98-107); CREATININE 1.1 MG/DL (0.55-1.30); POTASSIUM 4.9 MMOL/L (3.5-5.1); SODIUM 136 MMOL/L (136-145)
[2019-07-13 08:00] VITALS: BP 119/74
--- NOTE | 2019-07-13 08:01 | NUR ---
NURSE NOTES: Agitated, refused NC. Saturating 89 right now. Teaching done. PtMainor rodrigez.
[2019-07-13] MEDS: Pantoprazole Inj IVP SCH (08:52)
[2019-07-13] MEDS: Lactulose 20gm/30ml UDC ORAL SCH ×2 (08:52→18:08)
[2019-07-13] MEDS: Bactrim-DS 1 tab ORAL SCH (08:53)
[2019-07-13] MEDS: Aspirin Baby 81mg NG SCH (08:53)
[2019-07-13] MEDS: Ascorbic Acid 500mg tab ORAL SCH (08:53)
[2019-07-13] MEDS: Heparin 5000 units/ml inj SUBQ SCH (09:00)
--- NOTE | 2019-07-13 09:05 | NUR ---
CASE MANAGEMENT:REVIEW 07/13/19 SI: SEPSIS. RESPIRATORY FAILURE..S/P EXTUBATION ESBL UTI. PSYCH D/O 97.5 83 18 138/73 95% ON 3L/NC WBC+14.6 GLUCOSE-69 IS: DEPAKOTE PO QHS SEROQUEL PO Q12 LACTULOSE PO BID BACTRIM PO Q12 ALLOPURINOL PO QD ASA PO QD HEPARIN SQ Q12 IV PROTONIX Q12 : NOW ON TELEMETRY UNIT DCP: FROM SNF PLAN: DISCHARGE PLAN IS FOR PLACEMENT @ [facility]
--- NOTE | 2019-07-13 09:09 | NUR ---
DISCHARGE PLANNING [facility] [address] [place] [address] [address]
--- NOTE | 2019-07-13 09:15 | Progress Note ---
DATE: 07/12/2019 HISTORY OF PRESENT ILLNESS: The patient continues to refuse medication. The patient was seen The patient is yelling. He stated that he would like to be discharged. Continues to be easily agitated. The patient is able to understand process, communicate. The patient is removing the instrument from his body. He is very irritable and uncooperative. MENTAL STATUS EXAMINATION: The patient is alert, oriented times self and place. Mood is irritable and angry, yelling. Affect is constricted. Congruent with mood. Thought process is concrete. Thought content, no suicidal or homicidal ideation. Cognition is impaired. ASSESSMENT: Schizoaffective disorder by history. PLAN: 1. We will increase his Seroquel 200 mg p.o. b.i.d. The patient used to take Seroquel 200 mg in the morning and 50 mg of trazodone outside of the hospital in addition to the Depakote. 2. We will restart the patient on Depakote 250 mg for bipolar disorder. Layton Estrada M.D. DR: Dominguez JOB#: [id number] CC: DIANE
--- NOTE | 2019-07-13 09:42 | Infectious Diseases Prog Note ---
Assessment/Plan Assessment/Plan IMPRESSION: Leukocytosis improving UTI with E coli ESBL Hypercapnic respiratory failure acute renal failure, improving Metabolic encephalopathy. schizoaffective disorder, allergic rhinitis, gastroesophageal reflux disease epilepsy. 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 RECOMMENDATION: CXR improving UC is negative Stop PO Bactrim case was D/W primary MD Subjective ROS Limited/Unobtainable: No Constitutional: Reports: no symptoms Respiratory: Reports: no symptoms Cardiovascular: Reports: no symptoms Gastrointestinal/Abdominal: Reports: no symptoms Allergies: Coded Allergies: PENICILLINS (Verified Allergy, Unknown, 07/03/19) Objective Vital Signs Last 24 Hour Vital Signs Date Time Temp Pulse Resp B/P (MAP) Pulse Ox O2 Delivery O2 Flow Rate FiO2 07/13/19 04:00 97.5 83 18 138/73 (94) 95 07/13/19 04:00 3.0 07/13/19 00:00 3.0 07/13/19 00:00 98.0 89 17 131/75 (93) 94 07/12/19 21:00 Nasal Cannula 3.0 Nasal Cannula 3.0 Nasal Cannula 3.0 07/12/19 20:00 97.7 84 18 131/75 (93) 94 07/12/19 18:24 3.0 07/12/19 16:00 98.1 83 20 113/61 (78) 93 07/12/19 12:00 3.0 07/12/19 12:00 97.4 91 20 116/72 (87) 99 07/12/19 12:00 83 Height (Feet): 6 Height (Inches): 2.00 Weight (Pounds): 279 General Appearance: no acute distress HEENT: mucous membranes moist Respiratory/Chest: lungs clear Cardiovascular: normal rate Abdomen: soft, non tender Extremities: other - pedal edema Neurologic/Psychiatric: alert, responsive Microbiology Date/Time Source Procedure Growth Status 07/11/19 13:00 Indwelling Cath Urine Culture - Final Complete Laboratory Tests Test 07/13/19 05:34 White Blood Count 14.6 K/UL (4.8-10.8) H Red Blood Count 4.23 M/UL (4.70-6.10) L Hemoglobin 11.5 G/DL (14.2-18.0) L Hematocrit 35.6 % (42.0-52.0) L Mean Corpuscular Volume 84 FL (80-99) Mean Corpuscular Hemoglobin 27.3 PG (27.0-31.0) Mean Corpuscular Hemoglobin Concent 32.4 G/DL (32.0-36.0) Red Cell Distribution Width 14.8 % (11.6-14.8) Platelet Count 302 K/UL (150-450) Mean Platelet Volume 5.9 FL (6.5-10.1) L Neutrophils (%) (Auto) 65.6 % (45.0-75.0) Lymphocytes (%) (Auto) 20.3 % (20.0-45.0) Monocytes (%) (Auto) 7.9 % (1.0-10.0) Eosinophils (%) (Auto) 5.6 % (0.0-3.0) H Basophils (%) (Auto) 0.6 % (0.0-2.0) Sodium Level 136 MMOL/L (136-145) Potassium Level 4.9 MMOL/L (3.5-5.1) Chloride Level 101 MMOL/L (98-107) Carbon Dioxide Level 28 MMOL/L (21-32) Anion Gap 7 mmol/L (5-15) Blood Urea Nitrogen 15 mg/dL (7-18) Creatinine 1.1 MG/DL (0.55-1.30) Estimat Glomerular Filtration Rate > 60 mL/min (>60) Glucose Level 69 MG/DL (74-106) L Calcium Level 9.3 MG/DL (8.5-10.1) Current Medications Medications (Trade) Dose Ordered Sig/Samuel Route PRN Reason Start Time Stop Time Status Last Admin Dose Admin Acetaminophen (Tylenol) 650 mg Q6H PRN NG Mild Pain/Temp > 100.5 07/10/19 11:53 08/04/19 11:52 Allopurinol (allopurinoL) 300 mg DAILY ORAL 07/11/19 09:00 08/04/19 08:59 07/13/19 08:53 Ascorbic Acid (Vitamin C) 250 mg DAILY ORAL 07/11/19 09:00 08/05/19 08:59 07/13/19 08:53 Aspirin (ASA) 81 mg DAILY NG 07/11/19 09:00 08/06/19 08:59 07/13/19 08:53 Divalproex Sodium (Depakote ER) 500 mg BEDTIME ORAL 07/13/19 21:00 08/12/19 20:59 Heparin Sodium (Porcine) (Heparin 5000 units/ml) 5,000 units EVERY 12 HOURS SUBQ 07/10/19 21:00 08/03/19 20:59 07/13/19 09:00 Lactulose (Cephulac) 30 gm BID ORAL 07/12/19 18:00 08/11/19 17:59 07/13/19 08:52 Lorazepam (Ativan 2mg/ml 1ml) 1 mg Q4H PRN IV For Anxiety 07/10/19 11:54 07/13/19 11:53 Pantoprazole (Protonix) 40 mg Q12HR IVP 07/10/19 21:00 08/04/19 08:59 07/13/19 08:52 Quetiapine Fumarate (SEROqueL) 100 mg Q12HR ORAL 07/13/19 09:00 08/12/19 08:59 07/13/19 08:52 Trimethoprim/ Sulfamethoxazole (Bactrim-DS) 1 tab Q12HR ORAL 07/11/19 12:36 07/18/19 12:35 07/13/19 08:53 Ang Blackwood MD Jul 13, 2019 09:41
--- NOTE | 2019-07-13 10:10 | NUR ---
NURSE NOTES: Refused NC. Not able to measure O2 sat. No distress noted.
--- NOTE | 2019-07-13 10:52 | Nephrology Progress Note ---
Assessment/Plan Problem List: (1) Renal failure (ARF), acute on chronic (2) Respiratory distress Assessment: Co2 retainer (3) UTI (urinary tract infection) (4) Respiratory failure (5) Sepsis Assessment Renal failure ? Chronic ? superimposed acute Acute on Chronic respiratory failure Co2 retention HyperKalemia HypoAlbuminemia Obese UTI / Leukocytosis Plan extubated 07/09 , now in Tele K phos IV- as needed change IV to D5 nitro for elevated troponin smith slow hydrate optimize pulmonary status monitor renal parameters avoid nephrotoxics 2D echo - 65% Ej Fx per orders Subjective ROS Limited/Unobtainable: No Constitutional: Reports: malaise Objective Objective Last 24 Hour Vital Signs Date Time Temp Pulse Resp B/P (MAP) Pulse Ox O2 Delivery O2 Flow Rate FiO2 07/13/19 04:00 97.5 83 18 138/73 (94) 95 07/13/19 04:00 3.0 07/13/19 00:00 3.0 07/13/19 00:00 98.0 89 17 131/75 (93) 94 07/12/19 21:00 Nasal Cannula 3.0 Nasal Cannula 3.0 Nasal Cannula 3.0 07/12/19 20:00 97.7 84 18 131/75 (93) 94 07/12/19 18:24 3.0 07/12/19 16:00 98.1 83 20 113/61 (78) 93 07/12/19 12:00 3.0 07/12/19 12:00 97.4 91 20 116/72 (87) 99 07/12/19 12:00 83 Intake and Output 07/12/19 07/13/19 19:00 07:00 Output Total 2200 ml Balance -2200 ml Output Urine Total 2200 ml Laboratory Tests 07/13/19 05:34: White Blood Count 14.6H, Red Blood Count 4.23L, Hemoglobin 11.5L, Hematocrit 35.6L, Mean Corpuscular Volume 84, Mean Corpuscular Hemoglobin 27.3, Mean Corpuscular Hemoglobin Concent 32.4, Red Cell Distribution Width 14.8, Platelet Count 302, Mean Platelet Volume 5.9L, Neutrophils (%) (Auto) 65.6, Lymphocytes ( %) (Auto) 20.3, Monocytes (%) (Auto) 7.9, Eosinophils (%) (Auto) 5.6H, Basophils (%) (Auto) 0.6, Sodium Level 136, Potassium Level 4.9, Chloride Level 101, Carbon Dioxide Level 28, Anion Gap 7, Blood Urea Nitrogen 15, Creatinine 1.1, Estimat Glomerular Filtration Rate > 60, Glucose Level 69L, Calcium Level 9.3 Height (Feet): 6 Height (Inches): 2.00 Weight (Pounds): 279 General Appearance: no apparent distress Objective no change Will Groves MD Jul 13, 2019 10:52
--- NOTE | 2019-07-13 11:43 | Pulmonology Progress Note ---
Assessment/Plan Assessment/Plan IMPRESSION: 1. Respiratory failure, acute; now extubated 2. Sepsis, urinary 3. Altered mental status. 4. Psychiatric disorder. DISCUSSION: Passed swallow eval On diet High WBC concerning but no fever; no steroid use Psych meds per Dr Sean Fairchild to congregate living today Subjective Interval Events: None new Constitutional: Reports: no symptoms HEENT: Repors: no symptoms Respiratory: Reports: no symptoms Cardiovascular: Reports: no symptoms Gastrointestinal/Abdominal: Reports: no symptoms Allergies: Coded Allergies: PENICILLINS (Verified Allergy, Unknown, 07/03/19) Objective Last 24 Hour Vital Signs Date Time Temp Pulse Resp B/P (MAP) Pulse Ox O2 Delivery O2 Flow Rate FiO2 07/13/19 04:00 97.5 83 18 138/73 (94) 95 07/13/19 04:00 3.0 07/13/19 00:00 3.0 07/13/19 00:00 98.0 89 17 131/75 (93) 94 07/12/19 21:00 Nasal Cannula 3.0 Nasal Cannula 3.0 Nasal Cannula 3.0 07/12/19 20:00 97.7 84 18 131/75 (93) 94 07/12/19 18:24 3.0 07/12/19 16:00 98.1 83 20 113/61 (78) 93 07/12/19 12:00 3.0 07/12/19 12:00 97.4 91 20 116/72 (87) 99 07/12/19 12:00 83 Intake and Output 07/12/19 07/13/19 19:00 07:00 Output Total 2200 ml Balance -2200 ml Output Urine Total 2200 ml General Appearance: no acute distress HEENT: normocephalic Respiratory/Chest: chest wall non-tender, lungs clear Cardiovascular: normal peripheral pulses Abdomen: normal bowel sounds Microbiology Date/Time Source Procedure Growth Status 07/11/19 13:00 Indwelling Cath Urine Culture - Final Complete Laboratory Tests 07/13/19 05:34: White Blood Count 14.6H, Red Blood Count 4.23L, Hemoglobin 11.5L, Hematocrit 35.6L, Mean Corpuscular Volume 84, Mean Corpuscular Hemoglobin 27.3, Mean Corpuscular Hemoglobin Concent 32.4, Red Cell Distribution Width 14.8, Platelet Count 302, Mean Platelet Volume 5.9L, Neutrophils (%) (Auto) 65.6, Lymphocytes ( %) (Auto) 20.3, Monocytes (%) (Auto) 7.9, Eosinophils (%) (Auto) 5.6H, Basophils (%) (Auto) 0.6, Sodium Level 136, Potassium Level 4.9, Chloride Level 101, Carbon Dioxide Level 28, Anion Gap 7, Blood Urea Nitrogen 15, Creatinine 1.1, Estimat Glomerular Filtration Rate > 60, Glucose Level 69L, Calcium Level 9.3 Current Medications Medications (Trade) Dose Ordered Sig/Samuel Route PRN Reason Start Time Stop Time Status Last Admin Dose Admin Acetaminophen (Tylenol) 650 mg Q6H PRN NG Mild Pain/Temp > 100.5 07/10/19 11:53 08/04/19 11:52 Allopurinol (allopurinoL) 300 mg DAILY ORAL 07/11/19 09:00 08/04/19 08:59 07/13/19 08:53 Ascorbic Acid (Vitamin C) 250 mg DAILY ORAL 07/11/19 09:00 08/05/19 08:59 07/13/19 08:53 Aspirin (ASA) 81 mg DAILY NG 07/11/19 09:00 08/06/19 08:59 07/13/19 08:53 Divalproex Sodium (Depakote ER) 500 mg BEDTIME ORAL 07/13/19 21:00 08/12/19 20:59 Heparin Sodium (Porcine) (Heparin 5000 units/ml) 5,000 units EVERY 12 HOURS SUBQ 07/10/19 21:00 08/03/19 20:59 07/13/19 09:00 Lactulose (Cephulac) 30 gm BID ORAL 07/12/19 18:00 08/11/19 17:59 07/13/19 08:52 Lorazepam (Ativan 2mg/ml 1ml) 1 mg Q4H PRN IV For Anxiety 07/10/19 11:54 07/13/19 11:53 Pantoprazole (Protonix) 40 mg Q12HR IVP 07/10/19 21:00 08/04/19 08:59 07/13/19 08:52 Quetiapine Fumarate (SEROqueL) 100 mg Q12HR ORAL 07/13/19 09:00 08/12/19 08:59 07/13/19 08:52 Pramod Panchal MD Jul 13, 2019 11:43
--- NOTE | 2019-07-13 11:45 | NUR ---
*-* INSURANCE *-* UPDATED CLINICALS HAVE BEEN FAXED TO: [facility] F: [phone]
[2019-07-13] MEDS ORDERED: ASPIRIN81 MG NG (11:46)
[2019-07-13] MEDS ORDERED: DIVALPROEX SOD500 M2 ORAL (11:46)
[2019-07-13] MEDS ORDERED: ALLOPURINOL100 M1 ORAL (11:46)
[2019-07-13] MEDS ORDERED: SEROQUEL25 MG ORAL (11:46)
[2019-07-13 12:00] VITALS: BP 128/75
--- NOTE | 2019-07-13 12:04 | Surgery Progress Note ---
Surgery Progress Note Subjective Additional Comments labs improving no n/v/f/c comfortable Objective Last 24 Hour Vital Signs Date Time Temp Pulse Resp B/P (MAP) Pulse Ox O2 Delivery O2 Flow Rate FiO2 07/13/19 04:00 97.5 83 18 138/73 (94) 95 07/13/19 04:00 3.0 07/13/19 00:00 3.0 07/13/19 00:00 98.0 89 17 131/75 (93) 94 07/12/19 21:00 Nasal Cannula 3.0 Nasal Cannula 3.0 Nasal Cannula 3.0 07/12/19 20:00 97.7 84 18 131/75 (93) 94 07/12/19 18:24 3.0 07/12/19 16:00 98.1 83 20 113/61 (78) 93 I&O Intake and Output 07/12/19 07/13/19 19:00 07:00 Output Total 2200 ml Balance -2200 ml Output Urine Total 2200 ml Dressing: other Wound: other Drains: other Cardiovascular: RSR Respiratory: decreased breath sounds Abdomen: soft, present bowel sounds Extremities: no tenderness, no cyanosis Laboratory Tests Test 07/13/19 05:34 White Blood Count 14.6 K/UL (4.8-10.8) H Red Blood Count 4.23 M/UL (4.70-6.10) L Hemoglobin 11.5 G/DL (14.2-18.0) L Hematocrit 35.6 % (42.0-52.0) L Mean Corpuscular Volume 84 FL (80-99) Mean Corpuscular Hemoglobin 27.3 PG (27.0-31.0) Mean Corpuscular Hemoglobin Concent 32.4 G/DL (32.0-36.0) Red Cell Distribution Width 14.8 % (11.6-14.8) Platelet Count 302 K/UL (150-450) Mean Platelet Volume 5.9 FL (6.5-10.1) L Neutrophils (%) (Auto) 65.6 % (45.0-75.0) Lymphocytes (%) (Auto) 20.3 % (20.0-45.0) Monocytes (%) (Auto) 7.9 % (1.0-10.0) Eosinophils (%) (Auto) 5.6 % (0.0-3.0) H Basophils (%) (Auto) 0.6 % (0.0-2.0) Sodium Level 136 MMOL/L (136-145) Potassium Level 4.9 MMOL/L (3.5-5.1) Chloride Level 101 MMOL/L (98-107) Carbon Dioxide Level 28 MMOL/L (21-32) Anion Gap 7 mmol/L (5-15) Blood Urea Nitrogen 15 mg/dL (7-18) Creatinine 1.1 MG/DL (0.55-1.30) Estimat Glomerular Filtration Rate > 60 mL/min (>60) Glucose Level 69 MG/DL (74-106) L Calcium Level 9.3 MG/DL (8.5-10.1) Plan Problems: (1) Sepsis Assessment & Plan: Febrile, tachycardia, leukocytosis Labs reviewed Imaging reviewed leukocytosis fluctuating off abx now discussed with ID Micro reviewed Continue IV antibiotics Trend labs Tube feeds Fluids improving downgraded no acute surgical intervention planned okay to d/c from surgical standpoint outpatient follow up thank you We will follow with recommendations Findings: Gallbladder demonstrates sludge. No gallstones, wall thickening, nor pericholecystic fluid. Patient is uncommunicative, unable to report Riddle's sign. Common bile duct measures 3 mm in diameter. No intrahepatic biliary ductal dilatation. Liver demonstrates normal echogenicity, no focal abnormality. Portal vein and hepatic veins are patent. Pancreas is unremarkable. Spleen is unremarkable. Left kidney measures 12.5 cm in length. Right kidney measures 12.6 cm length. Both kidneys demonstrate normal echogenicity. Both kidneys demonstrate fullness to the collecting systems, slightly greater on the left than on the right, although no maki hydronephrosis. No focal abnormality . Bladder is empty, contains a Ramirez catheter. Non-aneurysmal abdominal aorta . Impression: Nonspecific bilateral renal collecting system fullness without maki hydronephrosis. Gallbladder sludge. Negative for gallstones or dilated bile ducts Empty bladder with a Ramirez catheter (2) Respiratory distress (3) Decubitus skin ulcer Assessment & Plan: Pt presented on admission with Non-blanching erythema sacrum ,R and L buttocks with multiple DTPI's within . DTPI noted to L buttocks. Base of wound is maroon with surrounding non- blanching erythema(L)2cm x (W)0.8cm. DTPI noted to Sacrococcygeal area. Base of wound is purple,fluctuant with marginal erythema, surrounding non- blanching erythema without induration.(L) 1.5cm x (W)0.5cm. DTPI noted to R buttocks. Base of wound is indurated maroon with surrounding non -blanching erythema. Scrotal sac is grossly erythematous. Single L testis in-situ. Small scar noted to base R sac. Both heels are boggy with non-blanching erythema. Tx.Plan: Apply Moisture Barrier Paste to Sacrum, R and L buttocks. Cover with Optifoam drsg. Change every 3 days and prn. Apply Moisture Barrier Paste to scrotum. Cover as needed with Optifoam drsg. Apply Cavilon Skin Barrier to both heels. Cover each heel with Optifoam drsg. Change every 7 days and prn. APM/DARREL mattress overlay. Reposition at least every 2hours or as tolerated. Off-load heels with pillow. (4) Respiratory failure Assessment & Plan: DAILY ESTIMATED NEEDS: Needs based on Critical care, wounds, obese/ 92kg abw 20-25 kcals/kg 2784-2521 total kcals 1.25-2 g protein/kg 115-184 g total protein 25-30 mL/kg 0465-6523 total fluid mLs NUTRITION DIAGNOSIS: Swallowing difficulty R/T respiratory status as evidenced by pt orally intubated, on OGT feeding. CURRENT TF:Jevity 1.2 @ 30ml/hr x 24 hrs PO DIET RECOMMENDATIONS: SHIP CEILER eval post extubation -> LOW NA/ texture per SHIP CEILER ENTERAL NUTRITION RECOMMENDATIONS: Vital AF 1.2 @ 65ml/hr x 24 hrs to provide 1560ml, 1872kcal, 117g prot, 1265ml free water * Rec TF change to Vital AF for critical care -> initiate Vital AF 1.2 @ 15ml/hr x 6 hrs -> advance 10ml q 4-6 hrs as tolerated to goal rate. -> HOB over 30 degrees/ H20 flush per MD ADDITIONAL RECOMMENDATIONS: * Calibrated bedscale wt for accurate CBW- w/ added P200 mattress * Monitor lytes, replete as needed (low K + phos) * F/up WC eval: add Vit C 250mg QD Steve 1pkt BID via OGT * SHIP CEILER alfredo wynn extubation Raul Cornejo Jul 13, 2019 12:04
--- NOTE | 2019-07-13 12:15 | NUR ---
NURSE NOTES: FC removed. Pt. made aware of DC plan for today.
--- NOTE | 2019-07-13 13:52 | NUR ---
[facility] SEEN FOR DYSPHAGIA TX SESSION, CLEARED BY [facility]O LAST. PATENT RECEIVED ALERT, AGITATED WITH HIS RESTRAINTS, ALERT, AGREEABLE TO INTERVENTION. P.O. TRIALS OF SOFT SOLID AND THIN LIQUIDS OBSERVED. ORAL AND PHARYNGEAL PHASE PRESENT GROSSLY INTACT. PATIENT FREE FROM OVERT S/S OF ASPIRATION. RECOMMEND HE CONTINUE CURRENT DIET WITH SUPERVISION DUE TO HIS INCLINATION TOWARD IMPULSIVITY. PATIENT ALSO OPPOSITIONAL TO MEDICAL CARE/REFUSING NASAL CANNULA DESPITE DESATING TO 89 EARLIER THIS MORNING.
--- NOTE | 2019-07-13 15:36 | NUR ---
*-* INSURANCE *-* UPDATED CLINICALS HAVE BEEN FAXED TO: [facility] F: [phone]
[2019-07-13 16:00] VITALS: BP 122/72
--- NOTE | 2019-07-13 16:38 | NUR ---
DISCHARGE PLANNED SPOKE WITH [facility] FISCAL OFFICER ALEN AT [phone] PER ALEN FARMER TRANSFORATION WILL BE HERE AT 8PM TO JEWELRY ENAMELER PATIENT PATIENT IS GOING TO [facility] [address] [facility] [place] [id number] [address]
--- NOTE | 2019-07-13 19:32 | NUR ---
HAND-OFF: Report given to COCO Warren. Pt. in stable condition. supervisor cabinetmaker time for ORA Mckeon, COCO aware.
[2019-07-13 20:00] VITALS: BP 134/77
[2019-07-13] MEDS ORDERED: Depakote ER 500mg tab ORAL SCH (21:00)
--- NOTE | 2019-07-13 21:02 | NUR ---
HAND-OFF: Report given to Ambulance personell. Pt stable.
--- NOTE | 2019-07-13 21:07 | NUR ---
NURSE NOTES: Called to give report to Odalis from [facility]. RN aware of pt arrival.
--- NOTE | 2019-07-17 15:36 | NUR ---
*-* INSURANCE *-* NO D/C SUMMARY IN SYSTEM
--- NOTE | 2019-07-18 10:20 | Discharge Summary ---
Discharge Summary Discharge Summary _ DATE OF ADMISSION: 07/03/2019 DATE OF DISCHARGE: 07/13/2019 DISCHARGED BY: REASON FOR ADMISSION: 63 years old male with past medical history of schizoaffective disorder, hyperlipidemia, seizure disorder, anemia, GERD, was sent for evaluation due to altered mental status. Laboratory work-up revealed leukocytosis WBC 25.9, hemoglobin 12.6, hematocrit 40.1. Urine toxicology screen was negative. ABG on 100% nonrebreathing mask revealed respiratory acidosis . Patient was placed on the BiPAP. Chest x-ray revealed clear lung calix bilaterally. Urinalysis revealed gross evidence of UTI. BUN 48, creatinine 2.1. Sodium 147, potassium 5.3. Troponin negative. EKG revealed sinus rhythm , no acute ischemic changes. Ammonia 30. Stable LFT. CT of the head revealed no acute intracranial pathology. Mild atrophy of the brain was noted. Patient was placed on the BiPAP and admitted for further management. CONSULTANTS: cardiac monitor Dr.Kattan JONES specialist Dr. Kenny Blackwood sewage treatment plant operator Dr. Groves surgery Dr. Cornejo psychiatrist Dr. Estrada [facility] COURSE: Patient admitted and started on the BiPAP. Patient was followed -up with ABG. Patient started on the IV fluids and empiric antibiotics. DVT prophylaxis provided. Patient failed BiPAP and subsequently was orally intubated by emergency room physician. Patient noted edema of the trachea and vocal cords. Ventilator support and pulmonary toilet with bronchodilator provided. patietn was suctioned as needed. Patient was followed -up with ABG and CXR . Settings titrated based on ABG. Patient was able to be extubated on . Blood cultures were negative. Influenza swab was negative. Urine culture revealed E. coli ESBL. Antibiotic regimen optimized as per ID specialist recommendation. Leukocytosis trending down. Patient remained afebrile . Repeated urine cultures was negative. Patient completed treatment for UTI . As per ID specialist recommendation , no further antibiotic was necessarily. Renal parameters and electrolytes were closely monitored, electrolytes corrected as needed , and nephrotoxic's were avoided. Prior to discharge BUN from 48 down to 15, creatinine from 2.1 down to 1.1. Acute kidney injury resolved. All electrolytes stable. Abdominal ultrasound revealed nonspecific bilateral renal collecting system fullness without maki hydronephrosis. Gallbladder sludge. No gallstones or dilated bile ducts. Echocardiogram demonstrated preserved ejection fraction of 60 to 65% with no evidence of left ventricular hypertrophy. No evidence of wall motion abnormality. Right ventricular systolic pressure of 23. IV hydration was stopped. Patient received spot diuresis with close monitoring of volumes and cardiorenal parameters.. Antiplatelet therapy with aspirin continued. DVT and GI prophylaxis provided. One troponin was elevated, and then trended to normal. Patient passed swallow evaluation. Aspiration precaution maintained. Oral intake was closely monitored. Protein supplements provided as per acute dialysis registered nurse recommendation. Patient presented with multiply deep tissue pressure injury. Wound care provided as per surgeon recommendation . Continue wound care at the facility. Seizure precaution maintained. Depakote continued. No evidence of seizure activity while in the hospital. Psychiatric medication regimen optimized as per psychiatrist . Patient was stabilized and ready for transfer to [facility]. FINAL DIAGNOSES: Sepsis Acute hypercapnic respiratory failure requiring intubation, status post extubation E. coli ESBL UTI Acute on chronic renal failure Acute on chronic diastolic congestive heart failure Third space edema due to low colloid systolic pressure Status post NSTEMI, precipitated by severe respiratory insufficiency and distress Severe protein calorie malnutrition Metabolic encephalopathy COPD Seizure disorder GERD Decubitus skin ulcer/multiply deep tissue pressure injury, present on admission Schizoaffective disorder DISCHARGE MEDICATIONS: See Medication Reconciliation list. DISCHARGE INSTRUCTIONS: Patient was discharged t [facility]/ [facility]. I have been assigned to dictate discharge summary for this account. I was not involved in the patient's management. Cassy Baker NP Jul 18, 2019 10:20
== END 2019-07-13 21:05 | disposition home or self-care (01) | DRG 870 ==
LOC: EDBD 12:29 → EMR 12:50 → ICU 16:55 → EDBEDREQ 17:07 → EDBEDREQSVC 17:07 → EDBEDREQ 17:22 → 2E 07-10 11:30
DX: A41.9 Sepsis, unspecified organism (principal); G93.41 Metabolic encephalopathy; E43 Unspecified severe protein-calorie malnutrition; J96.22 Acute and chronic respiratory failure with hypercapnia; I21.4 Non-ST elevation (NSTEMI) myocardial infarction; I50.33 Acute on chronic diastolic (congestive) heart failure; J18.9 Pneumonia, unspecified organism; N17.9 Acute kidney failure, unspecified; N39.0 Urinary tract infection, site not specified; E87.0 Hyperosmolality and hypernatremia; F25.9 Schizoaffective disorder, unspecified; E87.5 Hyperkalemia; N18.9 Chronic kidney disease, unspecified; F31.9 Bipolar disorder, unspecified; K21.9 Gastro-esophageal reflux disease without esophagitis; E78.5 Hyperlipidemia, unspecified; G40.909 Epilepsy, unspecified, not intractable, without status epilepticus; G47.33 Obstructive sleep apnea (adult) (pediatric); E66.9 Obesity, unspecified; Z68.35 Body mass index [BMI] 35.0-35.9, adult; J30.9 Allergic rhinitis, unspecified; B96.20 Unspecified Escherichia coli [E. coli] as the cause of diseases classified elsewhere; L89.326 Pressure-induced deep tissue damage of left buttock; L89.316 Pressure-induced deep tissue damage of right buttock; L89.156 Pressure-induced deep tissue damage of sacral region; E86.0 Dehydration; E87.6 Hypokalemia; Y95 Nosocomial condition
CPT/HCPCS: 36415; 36600; 70450; 71045; 74018; 76700; 80048; 80053; 80061; 80076; 80164; 81003; 82140; 82150; 82550; 82607; 82746; 82803; 82962; 82977; 83605; 83690; 83735; 83880; 84100; 84300; 84443; 84484; 84550; 85007; 85025; 85610; 85651; 85730; 86140; 86710; 87040; 87081; 87086; 87181; 89050; 93005; 93306; 94002; 94003; 94660; 94664; 96365; 96367; 96368; 96375; 99291; J7030

== ENCOUNTER 2019-08-22 03:34 | Emergency (ER) | payer MEDICARE, OTHER ==
[~2019-08-22] VITALS: Ht 172.7 cm; Wt 99.8 kg
[~2019-08-22 03:34] MED LIST: ALLOPURINOL100 M1 ORAL; ASPIRIN81 MG NG; ATARAX25 MG ORAL; ATORVASTATIN CA20 MG ORAL; BACLOFEN10 MG ORAL; COLACE100 MG ORAL; DEPAKOTE ER500 MG ORAL; DEPAKOTE250 MG PO; DESYREL50 MG PO; DIPHENHYDRAMINE25 M1 ORAL; DIVALPROEX SOD500 M2 ORAL; DULCOLAX10 MG RC; FLEET ENEMA133 ML RECTAL; MILK OF MA400 MG/51 ORAL; PANTOPRAZOLE SO40 MG ORAL; QUETIAPINE FUM200 MG ORAL; ROBITUSSIN COU118 M1 ORAL; SEROQUEL25 MG ORAL; TYLENOL325 M1 PO
[2019-08-22 03:45] VITALS: BP 123/78
--- NOTE | 2019-08-22 03:45 | NUR ---
ED Nurse Note: Patient brought into ED by [facility] ambulance c/o low o2 sat. per EMS. at time of arrival patient is satting at 94%. denies any pain or any distress. as soon as patient was in the off-load bay he states that he does not want any treatment to be done on him, states that he feels good and wants to go back to his facility.
--- NOTE | 2019-08-22 03:56 | Emergency Room Report ---
History of Present Illness General Chief Complaint: Dyspnea/Respdistress Source: Patient Present Illness HPI 63-year-old male with a psychiatric history and also history of asthma. He presents with complaint of hypoxia. He was at a [facility] sleeping and nursing staff said that his oxygen is in the mid 80 percentile. They called 911. Patient is awake now. He has no complaint. He said he does not want to be here. He wants to go back to [facility]. He denies any pain or cough he denies any chest pain. [place] any other complaint. Nothing made it better. Nothing made it worse. Allergies: Coded Allergies: PENICILLINS (Verified Allergy, Unknown, 07/03/19) Patient History Past Medical History: see triage record, old chart reviewed, asthma, psych hx Past Surgical History: other Pertinent Family History: none Social History: Denies: smoking Immunizations: other Reviewed Nursing Documentation: PMH: Agreed; PSxH: Agreed Nursing Documentation-PMH Hx Cardiac Problems: Yes - cardiomegaly Hx Asthma: Yes Hx Cancer: No Hx Gastrointestinal Problems: Yes Hx Neurological Problems: Yes Hx Epilepsy: Yes Hx Dizziness: Yes Review of Systems Eye: Denies: eye pain, blurred vision ENT: Denies: ear pain, nose congestion, throat swelling Respiratory: Denies: cough, shortness of breath Cardiovascular: Denies: chest pain, palpitations Gastrointestinal: Denies: abdominal pain, diarrhea, nausea, vomiting Musculoskeletal: Denies: back pain, joint pain Skin: Denies: rash Neurological: Denies: headache, numbness Endocrine: Denies: increased thirst, increased urine Hematologic/Lymphatic: Denies: easy bruising All Other Systems: negative except mentioned in HPI Physical Exam Vital Signs Date Time Temp Pulse Resp B/P (MAP) Pulse Ox O2 Delivery O2 Flow Rate FiO2 08/22/19 03:39 90 18 97 Nasal Cannula 4.0 Vitals unremarkable Sp02 EP Interpretation: reviewed, normal General Appearance: well appearing, no apparent distress, alert, obese Head: normocephalic, atraumatic Eyes: bilateral eye PERRL, bilateral eye EOMI ENT: hearing grossly normal, normal pharynx Neck: full range of motion, supple, no meningismus Respiratory: chest non-tender, lungs clear, normal breath sounds Cardiovascular #1: regular rate, rhythm, no murmur Gastrointestinal: normal bowel sounds, non tender, no mass, no organomegaly, no bruit, non-distended Musculoskeletal: back normal, normal range of motion, gait/station normal Psychiatric: mood/affect normal Medical Decision Making Diagnostic Impression: Primary Impression: Hypoxia ER Course Patient with hypoxia. I turn off the oxygen from the EMS. On 3 different monitor, his oxygenation is around 92% and above. This patient is alert oriented x3. He does not want any thing to be done. He is talking without any difficulty. He follows conversation without any difficulty. I suspect that he has sleep apnea based on his obesity. He may have pickwickian syndrome. Lungs are clear. No evidence of any acute process. He is competent to refuse treatment. We will send him back to [facility]. Last Vital Signs Date Time Temp Pulse Resp B/P (MAP) Pulse Ox O2 Delivery O2 Flow Rate FiO2 08/22/19 03:39 90 18 97 Nasal Cannula 4.0 Status: improved Disposition: AGAINST MEDICAL ADVICE Condition: Stable Patient Instructions: Shortness of Breath, [id number] Additional Instructions: Follow-up with your doctor in 7 days. Return if symptoms worsen. Srinath Blanco MD Aug 22, 2019 03:56
--- NOTE | 2019-08-22 04:16 | NUR ---
spoke with ROXY Kasper. informed that the patient will be going back to assisted living
[2019-08-22 04:25] VITALS: BP 132/80
--- NOTE | 2019-08-22 04:25 | NUR ---
ED Nurse Note: Patient is discharged accompanied by BLS transport, report was given to ROXY Kasper. patient at no distress at this time and has taken all belongings.
== END 2019-08-22 04:25 | disposition left against medical advice (07) ==
LOC: EDBD 03:34 → EMR 04:03
DX: R09.02 Hypoxemia (principal); E66.9 Obesity, unspecified; Z88.0 Allergy status to penicillin; G40.909 Epilepsy, unspecified, not intractable, without status epilepticus; Z68.33 Body mass index [BMI] 33.0-33.9, adult
CPT/HCPCS: 99281